=== PATIENT | female | born 1970 | race Caucasian/White ===

== ENCOUNTER 2016-10-13 12:47 | Emergency (ER) | payer MEDICAID | END 2016-10-13 14:45 | disposition left against medical advice (07) | LOC: JP.ED 12:47 | DX: Z53.21 Procedure and treatment not carried out due to patient leaving prior to being seen by health care provider (principal) ==

== ENCOUNTER 2016-10-17 13:12 | Emergency (ER) | payer MEDICAID ==
[2016-10-17 14:32] VITALS: BP 158/120
--- NOTE | 2016-10-17 15:12 | EDM.PDOC ---
ED HPI GENERAL MEDICAL PROBLEM - General Chief Complaint: General Stated Complaint: ILLNESS Time Seen by Provider: 10/17/16 14:45 Source of Information: Reports: Patient History Limitations: Reports: No Limitations - History of Present Illness INITIAL COMMENTS - FREE TEXT/NARRATIVE: 46-year-old female with chronic anxiety and depression just started a psychiatric evaluation today and has follow-up appointments in 1 week for a psychiatrist. Her screening tests she took today they were unable to start any medication so sent her to the emergency room to start an antidepressant and possibly antianxiety agents. She is also convinced that she has "left-sided pneumonia" because she's been coughing and has some left-sided chest discomfort posteriorly. She is not hypoxic, has no fever, and is not actively coughing at this time. Severity: Mild Associated Symptoms: Reports: Cough, Shortness of Breath, Other (Left back and flank pain). Denies: Fever/Chills Lower Back Pain Score (Numeric/FACES): 6 - Related Data Allergies Allergy/AdvReac Type Severity Reaction Status Date / Time almond Allergy Severe Airway Verified 10/17/16 14:32 Tightness avocado Allergy Severe Airway Verified 10/17/16 14:32 Tightness banana Allergy Severe Airway Verified 10/17/16 14:32 Tightness kiwi Allergy Severe Airway Verified 10/17/16 14:32 Tightness peanut Allergy Severe Anaphylactic Verified 10/17/16 14:32 Shock Home Meds: Home Meds Clindamycin HCl [Cleocin HCl] 300 mg PO TID 10/17/16 [History] hydrOXYzine Pamoate [Vistaril] 50 mg PO Q6HR 10/17/16 [History] Past Medical History HEENT History: Reports: Impaired Vision Other HEENT History: Tooth pain Respiratory History: Reports: Asthma, Bronchitis, Recurrent Gastrointestinal History: Reports: Cholelithiasis Genitourinary History: Reports: Pyelonephritis, UTI, Recurrent 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: Musculoskeletal History: Reports: Arthritis, Osteoarthritis Psychiatric History: Reports: Anxiety, Depression, OCD, PTSD Endocrine/Metabolic History: Reports: Diabetes, Type II, Other (See Below) Other Endocrine/Metabolic History: states not diabetic since lap band surgery Dermatologic History: Reports: Cellulitis - Infectious Disease History Infectious Disease History: Reports: Chicken Pox - Past Surgical History GI Surgical History: Reports: Bariatric Procedure, Cholecystectomy Social & Family History - Tobacco Use Smoking Status *Q: Current Every Day Smoker Years of Tobacco use: 30 Packs/Tins Daily: 0.5 Used Tobacco, but Quit: No Second Hand Smoke Exposure: Yes - Caffeine Use Caffeine Use: Reports: Coffee - Alcohol Use Days Per Week of Alcohol Use: 2 Number of Drinks Per Day: 2 Total Drinks Per Week: 4 - Recreational Drug Use Recreational Drug Use: No - Living Situation & Occupation Living situation: Reports: Single Occupation: Unemployed ED ROS GENERAL - Review of Systems Review Of Systems: See Below Constitutional: Reports: Malaise, Fatigue. Denies: Fever, Chills Respiratory: Reports: Shortness of Breath, Cough Cardiovascular: Reports: Other (Left lateral chest and flank discomfort) GI/Abdominal: Reports: Nausea, Vomiting (Intermittent vomiting over the past week or 2) Musculoskeletal: Reports: Back Pain Skin: Reports: No Symptoms Neurological: Reports: Headache Psychiatric: Reports: Anxiety, Depression ED EXAM, GENERAL - Physical Exam Exam: See Below Exam Limited By: No Limitations General Appearance: Alert, No Apparent Distress Respiratory/Chest: No Respiratory Distress, Lungs Clear Cardiovascular: Regular Rate, Rhythm, Tachycardia (Mild tachycardia, hypertensive) GI/Abdominal: Non-Tender Neurological: Alert, Oriented Psychiatric: Anxious Skin Exam: Warm, Dry Course - Vital Signs Last Recorded V/S: Last Vital Signs Temp 99.1 F 10/17/16 14:30 Pulse 108 H 10/17/16 14:30 Resp 20 10/17/16 14:30 BP 158/120 H 10/17/16 14:30 Pulse Ox 97 10/17/16 14:30 - Orders/Labs/Meds Orders: Active Orders 24 hr Category Date Time Status Chest 2V [CR] Routine Exams 10/17/16 15:00 Taken - Re-Assessments/Exams Free Text/Narrative Re-Assessment/Exam: 10/17/16 15:10 A two-view chest x-ray was obtained. 10/17/16 15:18 Chest x-ray was completely negative. Patient was reassured. She'll be started on Lexapro 20 mg daily and given a prescription for 30 to take once daily. She was also given 15 0.25 mg alprazolam to take up to every 2-4 hours for anxiety. Any further medications needs to come from her psychiatric referrals. Departure - Departure Time of Disposition: 15:48 Disposition: Home, Self-Care 01 Condition: Good Clinical Impression: Pleurisy, Anxiety Depression Qualifiers: Depression Type: unspecified Qualified Code(s): F32.9 - Major depressive disorder, single episode, unspecified - Discharge Information Instructions: Pleurisy, [id number] Referrals: Thais Rios RN [Primary Care Provider] - Forms: ED Department Discharge Care Plan Goals: Start Lexapro one daily as prescribed. Use alprazolam for breakthrough anxiety as needed. Anti-inflammatory such as ibuprofen or naproxen can help with pleurisy, and recheck as scheduled. Return sooner if worsening or concerns. - My Orders Last 24 Hours: My Active Orders 10/17/16 15:00 Chest 2V [CR] Routine - Assessment/Plan Last 24 Hours: My Active Orders 10/17/16 15:00 Chest 2V [CR] Routine
--- NOTE | 2016-10-20 09:08 | CR ---
Chest 2V INDICATION: dyspnea FINDINGS: Negative chest.
== END 2016-10-17 15:48 | disposition home or self-care (01) ==
LOC: JP.ED 13:12
DX: F32.9 Major depressive disorder, single episode, unspecified (principal); J45.909 Unspecified asthma, uncomplicated; F41.9 Anxiety disorder, unspecified; E11.9 Type 2 diabetes mellitus without complications; F17.210 Nicotine dependence, cigarettes, uncomplicated; Z98.84 Bariatric surgery status; Z90.49 Acquired absence of other specified parts of digestive tract; Z87.440 Personal history of urinary (tract) infections; Z91.010 Allergy to peanuts; Z91.018 Allergy to other foods
CPT/HCPCS: 71020; 71020-26; 99284

== ENCOUNTER 2016-12-05 00:29 | Emergency (ER) | payer MEDICAID ==
[2016-12-05 00:43] VITALS: BP 112/86
[2016-12-05] MEDS ORDERED: Tetracaine HCl/PF 0.5% 4 ML Bottle EYEBOTH ONE (01:05)
[2016-12-05] MEDS ORDERED: Lidocaine 2% Viscous Solution 100 ML Bottle PO ONE (01:09)
[2016-12-05] MEDS ORDERED: Lidocaine 2% Viscous Solution 15 ML Cup ONE (01:16)
[2016-12-05] MEDS ORDERED: Bupivacaine 0.25% 10 ML SDV INJECT ONE (01:26)
--- NOTE | 2016-12-05 03:00 | EDM.PDOC ---
ED HPI GENERAL MEDICAL PROBLEM - General Chief Complaint: General Stated Complaint: TOOTH PAIN Time Seen by Provider: 12/05/16 01:01 Source of Information: Reports: Patient History Limitations: Reports: No Limitations - History of Present Illness INITIAL COMMENTS - FREE TEXT/NARRATIVE: This patient comes in for tooth pain. It's her molar on the right lower jaw as well as the posterior ones and it's the only one his left. She has some severe caries to it. She said she has an appointment with a dentist this coming Thursday or in roughly 4 days. She describes the pain as severe. She started taking some amoxicillin. Right Lower Tooth/Teeth Pain Score (Numeric/FACES): 8 - Related Data Allergies Allergy/AdvReac Type Severity Reaction Status Date / Time almond Allergy Severe Airway Verified 12/05/16 00:44 Tightness avocado Allergy Severe Airway Verified 12/05/16 00:44 Tightness banana Allergy Severe Airway Verified 12/05/16 00:44 Tightness kiwi Allergy Severe Airway Verified 12/05/16 00:44 Tightness peanut Allergy Severe Anaphylactic Verified 12/05/16 00:44 Shock Home Meds: Home Meds Clindamycin HCl [Cleocin HCl] 300 mg PO TID 10/17/16 [History] hydrOXYzine Pamoate [Vistaril] 50 mg PO Q6HR 10/17/16 [History] Past Medical History HEENT History: Reports: Impaired Vision Other HEENT History: Tooth pain Respiratory History: Reports: Asthma, Bronchitis, Recurrent Gastrointestinal History: Reports: Cholelithiasis Genitourinary History: Reports: Pyelonephritis, UTI, Recurrent 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: Musculoskeletal History: Reports: Arthritis, Osteoarthritis Psychiatric History: Reports: Anxiety, Depression, OCD, PTSD Endocrine/Metabolic History: Reports: Diabetes, Type II, Other (See Below) Other Endocrine/Metabolic History: states not diabetic since lap band surgery Dermatologic History: Reports: Cellulitis - Infectious Disease History Infectious Disease History: Reports: Chicken Pox - Past Surgical History GI Surgical History: Reports: Bariatric Procedure, Cholecystectomy Social & Family History - Tobacco Use Smoking Status *Q: Unknown Ever Smoked Years of Tobacco use: 30 Packs/Tins Daily: 0.5 Used Tobacco, but Quit: No Second Hand Smoke Exposure: Yes - Caffeine Use Caffeine Use: Reports: Coffee - Alcohol Use Days Per Week of Alcohol Use: 2 Number of Drinks Per Day: 2 Total Drinks Per Week: 4 - Recreational Drug Use Recreational Drug Use: No - Living Situation & Occupation Living situation: Reports: Single Occupation: Unemployed ED ROS GENERAL - Review of Systems Review Of Systems: ROS reveals no pertinent complaints other than HPI. ED EXAM, GENERAL - Physical Exam Exam: See Below Exam Limited By: No Limitations General Appearance: Alert, WD/WN, Moderate Distress (She seems to be in quite a bit of pain) Throat/Mouth: Other (The single molar to the lower mandible which is posterior molar does have quite a bit of caries to it there is no obvious abscess.) Course - Vital Signs Last Recorded V/S: Last Vital Signs Temp 36.2 C 12/05/16 00:41 Pulse 102 H 12/05/16 00:41 Resp 16 12/05/16 00:41 BP 112/86 12/05/16 00:41 Pulse Ox 97 12/05/16 00:41 - Orders/Labs/Meds Meds: Medications Discontinued Medications Generic Name Dose Route Start Last Admin Trade Name Praful PRN Reason Stop Dose Admin Bupivacaine HCl 10 ml 12/05/16 01:26 12/05/16 02:15 Sensorcaine-Mpf 0.25% INJECT 12/05/16 01:27 10 ml ONETIME ONE Administration Lidocaine HCl 20 ml 12/05/16 01:09 12/05/16 01:17 Xylocaine 2% Viscous PO 12/05/16 01:10 15 ml ONETIME ONE Administration Lidocaine HCl Confirm 12/05/16 01:16 Xylocaine 2% Viscous Administered 12/05/16 01:17 Dose 15 ml .ROUTE .STK-MED ONE Tetracaine HCl 1 ml 12/05/16 01:05 Tetracaine 0.5% Steri-Unit Nadia EYEBOTH 12/05/16 01:06 ASDIRECTED ONE - Re-Assessments/Exams Free Text/Narrative Re-Assessment/Exam: 12/05/16 06:38 Initially I put some viscous lidocaine on the tooth. Initially it seemed to relieve the pain but then later she said the pain was much more severe. She asked me to do a nerve block. The block was delayed due to a very critical patient however of I did inject approximately 3 mL of 0.25% Marcaine as an inferior alveolar block and a difficult nerve block. She only a partial relief from that however. A second block was done as an apical block but still the pain persisted and finally she was given a third injection is an apical block and seemed to get more relief. Departure - Departure Time of Disposition: 02:58 Disposition: Home, Self-Care 01 Condition: Fair Clinical Impression: Pain, dental - Discharge Information Instructions: Dental Caries, [id number] Referrals: Thais Rios RN [Primary Care Provider] - Forms: ED Department Discharge Additional Instructions: Continue taking your own antibiotic. If needed you can put some of the viscous lidocaine on a cotton ball and put it on the tooth. Use Narco 5/325, #20 tablets, one or 2 every 4 hours as needed for pain. This medication can cause sedation and impair driving
== END 2016-12-05 03:09 | disposition home or self-care (01) ==
LOC: JP.ED 00:29
DX: K08.89 Other specified disorders of teeth and supporting structures (principal); J45.909 Unspecified asthma, uncomplicated; E11.9 Type 2 diabetes mellitus without complications; Z91.010 Allergy to peanuts; Z91.018 Allergy to other foods
CPT/HCPCS: 64400; 99283-25; A9270-GY

== ENCOUNTER 2016-12-13 20:32 | Emergency (ER) | payer MEDICAID ==
[2016-12-13 20:41] VITALS: BP 111/63
--- NOTE | 2016-12-13 20:49 | EDM.PDOC ---
ED HPI GENERAL MEDICAL PROBLEM - General Chief Complaint: Trauma Stated Complaint: MEDICAL VIA [facility] Time Seen by Provider: 12/13/16 20:37 Source of Information: Reports: Patient, EMS, RN Notes Reviewed History Limitations: Reports: No Limitations - History of Present Illness INITIAL COMMENTS - FREE TEXT/NARRATIVE: 46-year-old female presents emergency department today via EMS services following trauma at home she does admit to consuming alcohol today and lost her footing and fell down between 9 and 12 steps. She complains of facial pain denies any neck pain also complains of bruising on her knees. nose Pain Score (Numeric/FACES): 8 - Related Data Allergies Allergy/AdvReac Type Severity Reaction Status Date / Time almond Allergy Severe Airway Verified 12/13/16 20:46 Tightness avocado Allergy Severe Airway Verified 12/13/16 20:46 Tightness banana Allergy Severe Airway Verified 12/13/16 20:46 Tightness kiwi Allergy Severe Airway Verified 12/13/16 20:46 Tightness peanut Allergy Severe Anaphylactic Verified 12/13/16 20:46 Shock Home Meds: Home Meds hydrOXYzine Pamoate [Vistaril] 50 mg PO Q6HR 10/17/16 [History] ALPRAZolam [Alprazolam] 0.5 mg PO TID PRN 12/13/16 [History] Calcium Carbonate/Vitamin D3 [Calcium 600 + Vit D 200] 1 tab PO BID 12/13/16 [ History] Diclofenac Sodium 4 gm TOP QID 12/13/16 [History] Escitalopram Oxalate 20 mg PO DAILY 12/13/16 [History] Gabapentin [Neurontin] 300 mg PO TID 12/13/16 [History] Past Medical History HEENT History: Reports: Impaired Vision Other HEENT History: Tooth pain Respiratory History: Reports: Asthma, Bronchitis, Recurrent Gastrointestinal History: Reports: Cholelithiasis Genitourinary History: Reports: Pyelonephritis, UTI, Recurrent 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: Musculoskeletal History: Reports: Arthritis, Osteoarthritis Psychiatric History: Reports: Anxiety, Depression, OCD, PTSD Endocrine/Metabolic History: Reports: Diabetes, Type II, Other (See Below) Other Endocrine/Metabolic History: states not diabetic since lap band surgery Dermatologic History: Reports: Cellulitis - Infectious Disease History Infectious Disease History: Reports: Chicken Pox - Past Surgical History GI Surgical History: Reports: Bariatric Procedure, Cholecystectomy Social & Family History - Tobacco Use Smoking Status *Q: Unknown Ever Smoked Years of Tobacco use: 30 Packs/Tins Daily: 0.5 Used Tobacco, but Quit: No Second Hand Smoke Exposure: Yes - Caffeine Use Caffeine Use: Reports: Coffee - Alcohol Use Days Per Week of Alcohol Use: 2 Number of Drinks Per Day: 2 Total Drinks Per Week: 4 - Recreational Drug Use Recreational Drug Use: No - Living Situation & Occupation Living situation: Reports: Single Occupation: Unemployed Review of Systems - Review of Systems Review Of Systems: See Below Constitutional: Reports: No Symptoms Eyes: Reports: No Symptoms Ears: Reports: No Symptoms Nose: Reports: Pain, Other (Patient trauma) Mouth/Throat: Reports: Tongue Swelling, Other (Bit the tip of the tongue) Respiratory: Reports: No Symptoms Cardiovascular: Reports: No Symptoms GI/Abdominal: Reports: No Symptoms Genitourinary: Reports: No Symptoms Musculoskeletal: Reports: Other (Bruising on both knees) Skin: Reports: Wound Neurological: Reports: No Symptoms ED EXAM, GENERAL - Physical Exam Exam: See Below Free Text/Narrative:: Primary survey GCS of 15 airway is open patent clear lungs are clear to auscultation bilaterally cardiovascular consents regular rate and rhythm S1-S2 Secondary survey General: Female, intoxicated, GCS of 15, alert and oriented x3 HEENT: head is facial traumas appreciated probably over the bridge of the nose tender to the touch normocephalic, eyes pupils equal round reactive to light, sclera clear no conjunctivitis appreciated extraocular eye movements are intact. Ears tympanic membranes clear and baker landmarks and light reflex are present bilaterally canals are clear no blood noted. Nose no septal deviation, nares are clear, no blood present. Mouth mucosa is moist and pink no erythema or exudate noted in soft palate, tongue is midline distal tip of the tongue does have bruising consistent with a bite uvula is midline, dentition is intact. Neck: Supple no thyromegaly no tracheal deviation. No tenderness to palpation spinally or paraspinally can move without pain Nodes: Cervical nodes subclavicular nodes nontender no palpable lymphadenopathy noted. Lungs: clear to auscultation bilaterally with symmetrical respirations, no adventitious noise appreciated. CV: Regular rate and rhythm S1 and S2 appreciated no murmurs rubs or gallops noted. Abdomen: Soft, nontender, no palpable masses or organomegaly appreciated, no distention no guarding bowel sounds are present, . Neuro: Cranial nerves II through XII grossly intact Skin: Abrasion is appreciated both knees Extremities: No tenderness to shoulders elbows wrists bilaterally pelvic rock's is negative no tenderness to knees ankles bilaterally ED TRAUMA PROCEDURES - Laceration/Wound Repair Face Lac/Wound Length In cm: 0.5 Appearance: Subcutaneous, Linear, Clean Distal NVT: Neuro & Vascular Intact, No Tendon Injury Anesthetic Type: Local Local Anesthesia - Lidocaine (Xylocaine): 1% with EPI Local Anesthetic Volume: 1cc Skin Prep: Chlorhexidine (Hibiciens) Saline Irrigation (cc's): 5 Exploration/Debridement/Repair: Wound Explored, In a Bloodless Field, Explored to Base Closed With: Sutures Suture Size: other (5-0) # of Sutures: 2 Suture Type: Nylon, Interrupted Drain Placement: No Sterile Dressing Applied: Nurse Tetanus Status Addressed: Yes Complications: No Course - Vital Signs Last Recorded V/S: Last Vital Signs Temp 96.8 F 12/13/16 20:39 Pulse 81 12/13/16 20:39 Resp 16 12/13/16 20:39 BP 111/63 12/13/16 20:39 Pulse Ox 99 12/13/16 20:39 - Orders/Labs/Meds Orders: Active Orders 24 hr Category Date Time Status Cervical Spine wo Cont [CT] Stat Exams 12/13/16 20:48 Taken Head wo Cont [CT] Stat Exams 12/13/16 20:38 Taken Max Facial Sinus wo Cont [CT] Stat Exams 12/13/16 20:38 Taken Labs: Laboratory Tests 12/13/16 12/13/16 12/13/16 Range/Units 20:43 20:43 20:43 WBC 6.5 (4.5-11.0) K/uL RBC 4.03 (3.30-5.50) M/uL Hgb 12.8 (12.0-15.0) g/dL Hct 38.0 (36.0-48.0) % MCV 94 (80-98) fL MCH 32 H (27-31) pg MCHC 34 (32-36) % Plt Count 403 H (150-400) K/uL Neut % (Auto) 40 (36-66) % Lymph % (Auto) 48 H (24-44) % Lewis % (Auto) 9 H (2-6) % Eos % (Auto) 3 (2-4) % Baso % (Auto) 1 (0-1) % Sodium 137 L (140-148) mmol/L Potassium 4.2 (3.6-5.2) mmol/L Chloride 102 (100-108) mmol/L Carbon Dioxide 24 (21-32) mmol/L Anion Gap 15.2 H (5.0-14.0) mmol/L BUN 9 (7-18) mg/dL Creatinine 0.8 (0.6-1.0) mg/dL Est Cr Clr Drug Dosing 63.79 mL/min Estimated GFR (MDRD) > 60 (>60) Glucose 95 (74-106) mg/dL Calcium 8.1 L (8.5-10.1) mg/dL Total Bilirubin 0.4 (0.2-1.0) mg/dL AST 26 D (15-37) U/L ALT 30 (12-78) U/L Alkaline Phosphatase 62 (46-116) U/L Total Protein 6.9 (6.4-8.2) g/dL Albumin 3.6 (3.4-5.0) g/dL Globulin 3.3 (2.3-3.5) g/dL Albumin/Globulin Ratio 1.1 L (1.2-2.2) Ethyl Alcohol 193 mg/dL Meds: Medications Discontinued Medications Generic Name Dose Route Start Last Admin Trade Name Freq PRN Reason Stop Dose Admin Hydrocodone Bitart/Acetaminophen 1 tab 12/13/16 21:01 12/13/16 21:08 [place] 325-5 Mg PO 12/13/16 21:02 1 tab ONETIME ONE Administration Bacitracin 1 dose 12/13/16 22:25 Bacitracin Oint 1 Gm TOP 12/13/16 22:26 ONETIME ONE Hydromorphone HCl 1 mg 12/13/16 20:52 12/13/16 21:29 Dilaudid IM 12/13/16 20:53 Not Given ONETIME ONE Lidocaine/Epinephrine 20 ml 12/13/16 22:25 Xylocaine 1% With Epinephrine 1:100,000 SUBCUT 12/13/16 22:26 NOW STA Departure - Departure Time of Disposition: 22:51 Disposition: Home, Self-Care 01 Condition: Good Clinical Impression: Laceration of nose Qualifiers: Encounter type: initial encounter Qualified Code(s): S01.21XA - Laceration without foreign body of nose, initial encounter Nasal bone fracture Qualifiers: Encounter type: initial encounter Fracture type: closed Qualified Code(s): S02.2XXA - Fracture of nasal bones, initial encounter for closed fracture - Discharge Information Referrals: PCP,None [Primary Care Provider] - Forms: ED Department Discharge Additional Instructions: Follow wound care instruction sheet, suture removal in 3-4 days, Please followup with your primary care provider in 3-4 days if not better, please call return to the emergency department with worsening of symptoms. - My Orders Last 24 Hours: My Active Orders 12/13/16 20:38 Head wo Cont [CT] Stat Max Facial Sinus wo Cont [CT] Stat 12/13/16 20:48 Cervical Spine wo Cont [CT] Stat - Assessment/Plan Last 24 Hours: My Active Orders 12/13/16 20:38 Head wo Cont [CT] Stat Max Facial Sinus wo Cont [CT] Stat 12/13/16 20:48 Cervical Spine wo Cont [CT] Stat Plan: Assessment Acuity = acute Site and laterality = nondisplaced nasal bone fracture, half centimeter subcutaneous laceration bridge of the nose Etiology = secondary to fall Manifestations = none Location of injury = Home Lab values = CT scan of maxillofacial bones describes the fracture above CT scan of the neck and head were negative, CBC and CMP were negative alcohol is 193 Plan I did review lab work and CT scan results with her she'll be discharged to home to her family member suture removal in 3-4 days follow wound care instruction sheet Patient was in agreement with the plan all questions were answered, they were instructed to return to the emergency department or call for worsening symptoms. This note was dictated using [employer] voice recognition software please call with any questions.
[2016-12-13] MEDS ORDERED: HYDROmorphone 1 MG/ML Syringe IM ONE (20:52)
[2016-12-13] MEDS ORDERED: Acetaminophen/HYDROcodone 325-5 MG Tab PO ONE (21:01)
[2016-12-13] MEDS ORDERED: Bacitracin Oint 1 GM U/D Packet TOP ONE (22:25)
[2016-12-13] MEDS ORDERED: Lidocaine 1% with EPINEPHrine 1:100,000 50 ML MDV SUBCUT STA (22:25)
[2016-12-13] MEDS ORDERED: Diphtheria,Pertussis(Acell),Tetanus Vaccine 0.5 ML SDV IM ONE (22:52)
== END 2016-12-13 23:48 | disposition home or self-care (01) ==
LOC: JP.ED 20:32
DX: S02.2XXA Fracture of nasal bones, initial encounter for closed fracture (principal); S01.21XA Laceration without foreign body of nose, initial encounter; J45.909 Unspecified asthma, uncomplicated; Z79.899 Other long term (current) drug therapy; Z91.018 Allergy to other foods; W10.8XXA Fall (on) (from) other stairs and steps, initial encounter
CPT/HCPCS: 12011; 36415; 70450; 70486; 72125; 80053; 85025; 90471; 90715; 99283; A9270; G0480

== ENCOUNTER 2017-01-13 07:54 | Emergency (ER) | payer MEDICAID ==
[2017-01-13 08:12] VITALS: BP 130/81
--- NOTE | 2017-01-13 08:38 | EDM.PDOC ---
ED HPI GENERAL MEDICAL PROBLEM - General Chief Complaint: ENT Problem Stated Complaint: SORE THROAT Time Seen by Provider: 01/13/17 08:36 Source of Information: Reports: Patient History Limitations: Reports: No Limitations - History of Present Illness INITIAL COMMENTS - FREE TEXT/NARRATIVE: pt arrived very uncomfortable from a sotre throat that has been there for the past 2 days. Onset: Gradual, Other (past 2 days. ) Duration: Day(s): Location: Reports: Other ( throat) Associated Symptoms: Reports: Weakness, Other ( body aches) Throat Pain Score (Numeric/FACES): 9 - Related Data Allergies Allergy/AdvReac Type Severity Reaction Status Date / Time almond Allergy Severe Airway Verified 01/13/17 08:12 Tightness avocado Allergy Severe Airway Verified 01/13/17 08:12 Tightness banana Allergy Severe Airway Verified 01/13/17 08:12 Tightness kiwi Allergy Severe Airway Verified 01/13/17 08:12 Tightness peanut Allergy Severe Anaphylactic Verified 01/13/17 08:12 Shock Home Meds: Home Meds ALPRAZolam [Alprazolam] 0.5 mg PO TID PRN 12/13/16 [History] Calcium Carbonate/Vitamin D3 [Calcium 600 + Vit D 200] 1 tab PO BID 12/13/16 [ History] Diclofenac Sodium 4 gm TOP QID 12/13/16 [History] Escitalopram Oxalate 20 mg PO DAILY 12/13/16 [History] Gabapentin [Neurontin] 300 mg PO TID 12/13/16 [History] Past Medical History HEENT History: Reports: Impaired Vision Other HEENT History: Tooth pain Respiratory History: Reports: Asthma, Bronchitis, Recurrent Gastrointestinal History: Reports: Cholelithiasis Genitourinary History: Reports: Pyelonephritis, UTI, Recurrent 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: Musculoskeletal History: Reports: Arthritis, Osteoarthritis Psychiatric History: Reports: Anxiety, Depression, OCD, PTSD Endocrine/Metabolic History: Reports: Diabetes, Type II, Other (See Below) Other Endocrine/Metabolic History: states not diabetic since lap band surgery Dermatologic History: Reports: Cellulitis - Infectious Disease History Infectious Disease History: Reports: Chicken Pox - Past Surgical History GI Surgical History: Reports: Bariatric Procedure, Cholecystectomy Social & Family History - Tobacco Use Smoking Status *Q: Light Tobacco Smoker Years of Tobacco use: 30 Packs/Tins Daily: 0.5 Used Tobacco, but Quit: No Second Hand Smoke Exposure: Yes - Caffeine Use Caffeine Use: Reports: Coffee - Alcohol Use Days Per Week of Alcohol Use: 3 Number of Drinks Per Day: 2 Total Drinks Per Week: 6 - Recreational Drug Use Recreational Drug Use: No - Living Situation & Occupation Living situation: Reports: Single Occupation: Unemployed ED ROS ENT - Review of Systems Review Of Systems: See Below Constitutional: Reports: Chills, Weakness, Decreased Appetite HEENT: Reports: Throat Pain, Throat Swelling, Other ( this is mainly on the rt) Respiratory: Reports: No Symptoms Cardiovascular: Reports: No Symptoms Endocrine: Reports: No Symptoms GI/Abdominal: Reports: No Symptoms : Reports: No Symptoms Musculoskeletal: Reports: Other (pt does have body aches) Skin: Reports: No Symptoms, Other ( Pt does not have a rash. ) Neurological: Reports: No Symptoms ED EXAM, ENT - Physical Exam Exam: See Below Text/Narrative:: pt arrived with a very sore throat. This is mainly on the rt. She appears to be very uncomfortable. Exam Limited By: No Limitations General Appearance: Alert, Anxious, Moderate Distress Ears: Normal TMs Nose: Normal Inspection Mouth/Throat: Throat Swelling, Tonsillar Erythema, Other ( The swelling is not large but it is mainly on the rt side. ) Head: Atraumatic Neck: Lymphadenopathy (R), Lymphadenopathy (L) Respiratory/Chest: No Respiratory Distress Cardiovascular: Regular Rate, Rhythm GI/Abdominal: Soft, Non-Tender Course - Vital Signs Last Recorded V/S: Last Vital Signs Temp 36.6 C 01/13/17 08:17 Pulse 98 01/13/17 08:17 Resp 20 01/13/17 08:17 BP 130/81 01/13/17 08:17 Pulse Ox 97 01/13/17 08:17 - Orders/Labs/Meds Orders: Active Orders 24 hr Category Date Time Status CULTURE STREP A CONFIRMATION [] Stat Lab 01/13/17 08:25 Results STREP SCRN A RAPID W CULT CONF [] Stat Lab 01/13/17 08:25 Results Labs: Laboratory Tests 01/13/17 Range/Units 08:39 WBC 9.0 (4.5-11.0) K/uL RBC 3.50 (3.30-5.50) M/uL Hgb 11.0 L (12.0-15.0) g/dL Hct 33.4 L (36.0-48.0) % MCV 95 (80-98) fL MCH 31 (27-31) pg MCHC 33 (32-36) % Plt Count 365 (150-400) K/uL Neut % (Auto) 62 (36-66) % Lymph % (Auto) 26 (24-44) % [place] % (Auto) 10 H (2-6) % Eos % (Auto) 2 (2-4) % Baso % (Auto) 0 (0-1) % Meds: Medications Discontinued Medications Generic Name Dose Route Start Last Admin Trade Name Freq PRN Reason Stop Dose Admin Ceftriaxone Sodium 1 gm/ 50 mls @ 100 mls/hr 01/13/17 08:56 01/13/17 09:27 Sodium Chloride IV 01/13/17 09:25 100 mls/hr ONETIME ONE Administration Sodium Chloride 1,000 mls @ 999 mls/hr 01/13/17 09:00 01/13/17 09:19 Normal Saline IV 999 mls/hr ASDIRECTED ESTEVAN Administration Ketorolac Tromethamine 30 mg 01/13/17 09:00 01/13/17 09:27 Toradol IVPUSH 01/13/17 09:01 30 mg ONETIME ONE Administration - Re-Assessments/Exams Free Text/Narrative Re-Assessment/Exam: 01/13/17 09:00 pt arrived with pain in the rt side of her throat. She has not gotten fluids down since yesterday. her strept was neg. Her wbc was not high. Her throat is very red and slightly swollen on the rt. An iv was started a liter of fluid was given, she was given 1 gm of rocephen, torodol 30mg . Departure - Departure Time of Disposition: 08:20 Disposition: Home, Self-Care 01 Condition: Fair Clinical Impression: Acute bacterial pharyngitis - Discharge Information Instructions: Pharyngitis, [id number] Referrals: Thais Rios RN [Primary Care Provider] - Forms: ED Department Discharge Care Plan Goals: rtc if swelling should get worse on the rt throat area, amoxicillin 500mg tid, torodol 10mg q6h prn for pain, - My Orders Last 24 Hours: My Active Orders 01/13/17 08:25 CULTURE STREP A CONFIRMATION [RM] Stat STREP SCRN A RAPID W CULT CONF [RM] Stat - Assessment/Plan Last 24 Hours: My Active Orders 01/13/17 08:25 CULTURE STREP A CONFIRMATION [RM] Stat STREP SCRN A RAPID W CULT CONF [RM] Stat
[2017-01-13] MEDS ORDERED: cefTRIAXone 1 GM in Sodium Chloride 0.9% 50 ML IV ONE (08:56)
[2017-01-13] MEDS ORDERED: Sodium Chloride 0.9% 1,000 ML IV SCH (09:00)
[2017-01-13] MEDS ORDERED: Ketorolac 30 MG/ML SDV IVPUSH ONE (09:00)
== END 2017-01-13 11:00 | disposition home or self-care (01) ==
LOC: JP.ED 07:54
DX: J02.8 Acute pharyngitis due to other specified organisms (principal); B96.89 Other specified bacterial agents as the cause of diseases classified elsewhere; F17.210 Nicotine dependence, cigarettes, uncomplicated; E11.9 Type 2 diabetes mellitus without complications; Z79.899 Other long term (current) drug therapy; Z91.018 Allergy to other foods; Z91.010 Allergy to peanuts
CPT/HCPCS: 36415; 85025; 87081; 87430; 96365; 96375; 99283; J0696; J1885; J7040; J7050

== ENCOUNTER 2017-01-29 06:29 | Emergency (ER) | payer MEDICAID ==
[2017-01-29 06:52] VITALS: BP 157/92
[2017-01-29] MEDS ORDERED: Ketorolac 60 MG/2 ML SDV IM ONE (07:15)
--- NOTE | 2017-01-29 07:21 | EDM.PDOC ---
ED HPI GENERAL MEDICAL PROBLEM - General Chief Complaint: General Stated Complaint: BODY ACHES Time Seen by Provider: 01/29/17 07:04 Source of Information: Reports: Patient, RN Notes Reviewed History Limitations: Reports: No Limitations - History of Present Illness INITIAL COMMENTS - FREE TEXT/NARRATIVE: 46-year-old female presents to emergency department today complaint of body aches, she states she's had body aches for several months they're particularly bad over the last 24-48 hrs. 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 general body pain Pain Score (Numeric/FACES): 6 - Related Data Allergies Allergy/AdvReac Type Severity Reaction Status Date / Time almond Allergy Severe Airway Verified 01/13/17 08:12 Tightness avocado Allergy Severe Airway Verified 01/13/17 08:12 Tightness banana Allergy Severe Airway Verified 01/13/17 08:12 Tightness kiwi Allergy Severe Airway Verified 01/13/17 08:12 Tightness peanut Allergy Severe Anaphylactic Verified 01/13/17 08:12 Shock Home Meds: Home Meds ALPRAZolam [Alprazolam] 0.5 mg PO TID PRN 12/13/16 [History] Calcium Carbonate/Vitamin D3 [Calcium 600 + Vit D 200] 1 tab PO BID 12/13/16 [ History] Diclofenac Sodium 4 gm TOP QID 12/13/16 [History] Escitalopram Oxalate 20 mg PO DAILY 12/13/16 [History] Gabapentin [Neurontin] 300 mg PO TID 12/13/16 [History] cloNIDine [Catapres] mg PO 01/29/17 [History] Past Medical History HEENT History: Reports: Impaired Vision Other HEENT History: Tooth pain Respiratory History: Reports: Asthma, Bronchitis, Recurrent Gastrointestinal History: Reports: Cholelithiasis Genitourinary History: Reports: Pyelonephritis, UTI, Recurrent 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: Musculoskeletal History: Reports: Arthritis, Osteoarthritis Psychiatric History: Reports: ADHD, Anxiety, Depression, OCD, PTSD Endocrine/Metabolic History: Reports: Diabetes, Type II, Other (See Below) Other Endocrine/Metabolic History: states not diabetic since lap band surgery Dermatologic History: Reports: Cellulitis - Infectious Disease History Infectious Disease History: Reports: Chicken Pox - Past Surgical History GI Surgical History: Reports: Bariatric Procedure, Cholecystectomy Social & Family History - Tobacco Use Smoking Status *Q: Light Tobacco Smoker Years of Tobacco use: 30 Packs/Tins Daily: 0.5 Used Tobacco, but Quit: No Second Hand Smoke Exposure: Yes - Caffeine Use Caffeine Use: Reports: Coffee, Soda - Alcohol Use Days Per Week of Alcohol Use: 3 Number of Drinks Per Day: 3 Total Drinks Per Week: 9 - Recreational Drug Use Recreational Drug Use: No - Living Situation & Occupation Living situation: Reports: Single Occupation: Unemployed ED ROS GENERAL - Review of Systems Review Of Systems: See Below Constitutional: Reports: Fatigue. Denies: Fever, Chills HEENT: Reports: No Symptoms Respiratory: Reports: No Symptoms Cardiovascular: Reports: No Symptoms GI/Abdominal: Reports: No Symptoms : Reports: No Symptoms Musculoskeletal: Reports: Joint Pain. Denies: Joint Swelling Skin: Reports: No Symptoms Neurological: Reports: No Symptoms ED EXAM, GENERAL - Physical Exam Exam: See Below Exam Limited By: No Limitations General Appearance: Alert, WD/WN, No Apparent Distress Neck: Normal Inspection, Supple, Non-Tender, Full Range of Motion Respiratory/Chest: No Respiratory Distress, Lungs Clear, Normal Breath Sounds, No Accessory Muscle Use Cardiovascular: Regular Rate, Rhythm, No Murmur GI/Abdominal: Soft, Non-Tender Extremities: Normal Inspection, Normal Range of Motion, Non-Tender, No Pedal Edema Course - Vital Signs Last Recorded V/S: Last Vital Signs Temp 98.5 F 01/29/17 06:53 Pulse 92 01/29/17 06:53 Resp 16 01/29/17 06:53 BP 157/92 H 01/29/17 06:53 Pulse Ox 99 01/29/17 06:53 - Orders/Labs/Meds Orders: Active Orders 24 hr Category Date Time Status BABESIA MICROTI IGG AND IGM [REF] Urgent Lab 01/29/17 07:20 Received EHRLICHIA CHAFFEENSIS, IGG&IGM [REF] Urgent Lab 01/29/17 07:20 Received LYME AB SCREEN RFLX [REF] Urgent Lab 01/29/17 07:20 Received Labs: Laboratory Tests 01/29/17 01/29/17 Range/Units 07:20 07:20 WBC 9.4 (4.5-11.0) K/uL RBC 3.84 (3.30-5.50) M/uL Hgb 12.0 (12.0-15.0) g/dL Hct 36.6 (36.0-48.0) % MCV 95 (80-98) fL MCH 31 (27-31) pg MCHC 33 (32-36) % Plt Count 351 (150-400) K/uL Neut % (Auto) 50 (36-66) % Lymph % (Auto) 38 (24-44) % [place] % (Auto) 10 H (2-6) % Eos % (Auto) 3 (2-4) % Baso % (Auto) 1 (0-1) % ESR 18 (0-25) mm/hr Sodium 138 L (140-148) mmol/L Potassium 3.9 (3.6-5.2) mmol/L Chloride 104 (100-108) mmol/L Carbon Dioxide 26 (21-32) mmol/L Anion Gap 11.9 (5.0-14.0) mmol/L BUN 12 (7-18) mg/dL Creatinine 0.8 (0.6-1.0) mg/dL Est Cr Clr Drug Dosing 63.79 mL/min Estimated GFR (MDRD) > 60 (>60) Glucose 88 (74-106) mg/dL Calcium 8.5 (8.5-10.1) mg/dL Total Bilirubin 0.7 D (0.2-1.0) mg/dL AST 17 (15-37) U/L ALT 23 (12-78) U/L Alkaline Phosphatase 74 (46-116) U/L C-Reactive Protein 1.09 H (0.0-0.3) mg/dL Total Protein 6.7 (6.4-8.2) g/dL Albumin 3.5 (3.4-5.0) g/dL Globulin 3.2 (2.3-3.5) g/dL Albumin/Globulin Ratio 1.1 L (1.2-2.2) TSH, Ultra Sensitive 2.333 (0.358-3.740) uIU/mL Meds: Medications Discontinued Medications Generic Name Dose Route Start Last Admin Trade Name Freq PRN Reason Stop Dose Admin Ketorolac Tromethamine 60 mg 01/29/17 07:15 01/29/17 07:26 Toradol IM 01/29/17 07:16 60 mg ONETIME ONE Administration Departure - Departure Time of Disposition: 08:53 Disposition: Home, Self-Care 01 Condition: Fair Clinical Impression: Joint pain Qualifiers: Joint pain location: unspecified Qualified Code(s): M25.50 - Pain in unspecified joint - Discharge Information Referrals: Thais Rios RN [Primary Care Provider] - Forms: ED Department Discharge Additional Instructions: Use Flexeril as needed for muscle relaxant try Lyrica as needed for pain control please follow-up with your primary care provider in next 3-5 days for reevaluation - My Orders Last 24 Hours: My Active Orders 01/29/17 07:20 BABESIA MICROTI IGG AND IGM [REF] Urgent EHRLICHIA CHAFFEENSIS, IGG&IGM [REF] Urgent LYME AB SCREEN RFLX [REF] Urgent - Assessment/Plan Last 24 Hours: My Active Orders 01/29/17 07:20 BABESIA MICROTI IGG AND IGM [REF] Urgent EHRLICHIA CHAFFEENSIS, IGG&IGM [REF] Urgent LYME AB SCREEN RFLX [REF] Urgent Plan: Assessment Acuity = acute Site and laterality = joint and body aches Etiology = unclear etiology Manifestations = none Location of injury = Home Lab values = CBC, CMP unremarkable CRP mildly elevated 1.09 ESR at 18 within normal limits, Lyme titer and tick panel are pending Plan She had minimal relief with Toradol injection plan is to discharge home with Lyrica 50 mg by mouth 3 times a day when necessary and Flexeril 10 mg by mouth 3 times a day when necessary she'll follow up with her primary care the next 3- 5 days for reevaluation Patient was in agreement with the plan all questions were answered, they were instructed to return to the emergency department or call for worsening symptoms. This note was dictated using [employer] voice recognition software please call with any questions.
== END 2017-01-29 09:08 | disposition home or self-care (01) ==
LOC: JP.ED 06:29
DX: M25.50 Pain in unspecified joint (principal); R52 Pain, unspecified; F32.9 Major depressive disorder, single episode, unspecified; E11.9 Type 2 diabetes mellitus without complications; F17.210 Nicotine dependence, cigarettes, uncomplicated; Z79.899 Other long term (current) drug therapy; Z91.010 Allergy to peanuts; Z91.018 Allergy to other foods
CPT/HCPCS: 36415; 80053; 84443; 85025; 85651; 86140; 86618; 86666; 86753; 96372; 99284; J1885

== ENCOUNTER 2017-09-02 01:28 | Emergency (ER) | payer MEDICAID ==
[2017-09-02 01:42] VITALS: BP 144/99
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
== END 2017-09-02 02:46 | disposition home or self-care (01) ==
LOC: JP.ED 01:28
DX: K02.9 Dental caries, unspecified (principal); F41.1 Generalized anxiety disorder; J45.909 Unspecified asthma, uncomplicated; E11.9 Type 2 diabetes mellitus without complications; F17.210 Nicotine dependence, cigarettes, uncomplicated; Z91.018 Allergy to other foods; Z91.010 Allergy to peanuts; Z79.899 Other long term (current) drug therapy
CPT/HCPCS: 99283

== ENCOUNTER 2017-09-09 03:59 | Emergency (ER) | payer MEDICAID ==
[2017-09-09 04:11] VITALS: BP 166/99
--- NOTE | 2017-09-09 05:07 | EDM.PDOC ---
ED HPI GENERAL MEDICAL PROBLEM - General Chief Complaint: Skin Complaint Stated Complaint: SUNBURN Time Seen by Provider: 09/09/17 04:48 Source of Information: Reports: Patient, Old Records, RN Notes Reviewed History Limitations: Reports: No Limitations - History of Present Illness INITIAL COMMENTS - FREE TEXT/NARRATIVE: Walked here from home Chief complaint Skin peeling, concerned about MRSA, dental infection History of present illness 36-year-old female is on her own, on disability Developed a sunburn 2 days ago from fishing without adequate protection, however she spared her face apart from very mild involvement of the forehead. Extensive blistering across the shoulders, some oozing reported a home but the burn appears dry currently. She has a small sore on her scalp and she has a sore on her left knee. Worry about MRSA because one of her neighbors/supervisors has MRSA. Seen in emergency recently for dental infection and prescribed penicillin. This is gone missing. She suspects a neighbor may have stolen, security/loxapine department are not very strong. Posterior Upper Back Pain Score (Numeric/FACES): 6 - Related Data Allergies Allergy/AdvReac Type Severity Reaction Status Date / Time almond Allergy Severe Airway Verified 09/09/17 04:12 Tightness avocado Allergy Severe Airway Verified 09/09/17 04:12 Tightness banana Allergy Severe Airway Verified 09/09/17 04:12 Tightness kiwi Allergy Severe Airway Verified 09/09/17 04:12 Tightness peanut Allergy Severe Anaphylactic Verified 09/09/17 04:12 Shock Home Meds: Home Meds ALPRAZolam [Alprazolam] 1 mg PO TID PRN 12/13/16 [History] Calcium Carbonate/Vitamin D3 [Calcium 600 + Vit D 200] 1 tab PO BID 12/13/16 [ History] Diclofenac Sodium 4 gm TOP QID 12/13/16 [History] Escitalopram Oxalate 20 mg PO DAILY 12/13/16 [History] Gabapentin [Neurontin] 300 mg PO TID 12/13/16 [History] cloNIDine [Catapres] 0.1 mg PO BID 01/29/17 [History] Ibuprofen 800 mg PO TID PRN 09/02/17 [History] LORazepam [Ativan] 1 mg PO TID PRN #10 tab 09/02/17 [Rx] ARIPiprazole [Aripiprazole] 2 mg PO ASDIRECTED 09/09/17 [History] Meloxicam 15 mg PO DAILY 09/09/17 [History] Mupirocin Cream [Bactroban Crm] 30 gm TP TID #1 tube 09/09/17 [Rx] Penicillin V Potassium 500 mg PO Q8HR #30 tab 09/09/17 [Rx] Past Medical History HEENT History: Reports: Impaired Vision Other HEENT History: Tooth pain Respiratory History: Reports: Asthma, Bronchitis, Recurrent Gastrointestinal History: Reports: Cholelithiasis Genitourinary History: Reports: Pyelonephritis, UTI, Recurrent 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: Musculoskeletal History: Reports: Arthritis, Osteoarthritis Psychiatric History: Reports: ADHD, Anxiety, Depression, OCD, PTSD Endocrine/Metabolic History: Reports: Diabetes, Type II, Other (See Below) Other Endocrine/Metabolic History: states not diabetic since lap band surgery Dermatologic History: Reports: Cellulitis - Infectious Disease History Infectious Disease History: Reports: Chicken Pox - Past Surgical History GI Surgical History: Reports: Bariatric Procedure, Cholecystectomy Social & Family History - Tobacco Use Smoking Status *Q: Never Smoker Second Hand Smoke Exposure: No - Caffeine Use Caffeine Use: Reports: Coffee - Recreational Drug Use Recreational Drug Use: No - Living Situation & Occupation Living situation: Reports: Single Occupation: Unemployed ED ROS GENERAL - Review of Systems Review Of Systems: See Below Constitutional: Reports: No Symptoms HEENT: Reports: Dental Pain. Denies: Ear Pain, Rhinitis, Throat Pain Respiratory: Reports: No Symptoms Cardiovascular: Reports: No Symptoms GI/Abdominal: Reports: No Symptoms Musculoskeletal: Reports: No Symptoms Skin: Reports: Burn(s) (Sunburn across the shoulders) Neurological: Denies: Confusion, Syncope ED EXAM, SKIN/RASH Exam: See Below Exam Limited By: No Limitations General Appearance: Alert, Anxious, Mild Distress Eye Exam: Bilateral Eye: Normal Inspection Ears: Normal External Exam Nose: Normal Inspection Throat/Mouth: Normal Inspection Head: Other (Single small furuncle on the scalp) Neck: Normal Inspection, Non-Tender. No: Lymphadenopathy (R), Lymphadenopathy ( L) Respiratory/Chest: No Respiratory Distress, No Accessory Muscle Use Cardiovascular: Normal Peripheral Pulses, Regular Rate, Rhythm Back Exam: Other (Sunburn across the shoulders with blistering, dry currently) Neurological: Alert, Oriented, No Motor/Sensory Deficits Skin: Warm, Dry, Other (Small dry wound just below the left knee.) Course - Vital Signs Last Recorded V/S: Last Vital Signs Temp 35.9 C 09/09/17 04:06 Pulse 104 H 09/09/17 04:06 Resp 18 09/09/17 04:06 BP 166/99 H 09/09/17 04:06 Pulse Ox 99 09/09/17 04:06 - Orders/Labs/Meds Meds: Medications Discontinued Medications Generic Name Dose Route Start Last Admin Trade Name Praful PRN Reason Stop Dose Admin Bacitracin 2 dose 09/09/17 05:09 Bacitracin Oint 1 Gm TOP 09/09/17 05:10 ONETIME ONE - Re-Assessments/Exams Free Text/Narrative Re-Assessment/Exam: 09/09/17 05:05 46-year-old female with sunburn across her back She also has some sores on her skin one on the scalp and one on her left knee. She's concerned about MRSA but no boils are present. She also has a dental infection for which she has lost her prescription for penicillin. This will be renewed. Departure - Departure Time of Disposition: 05:06 Disposition: Home, Self-Care 01 Condition: Good Clinical Impression: Dental infection Second degree burn of back Qualifiers: Encounter type: initial encounter Qualified Code(s): T21.24XA - Burn of second degree of lower back, initial encounter - Discharge Information Prescriptions: Penicillin V Potassium 500 mg PO Q8HR #30 tab Mupirocin Cream [Bactroban Crm] 30 gm TP TID #1 tube Instructions: Sunburn, Adult, [id number], Preventive Dental Care, Adult Referrals: PCP,None [Primary Care Provider] - Forms: ED Department Discharge Care Plan Goals: Please see your physician/clinic 1 week if not improving
[2017-09-09] MEDS: Bacitracin Oint 1 GM U/D Packet TOP ONE (05:19)
== END 2017-09-09 04:59 | disposition home or self-care (01) ==
LOC: JP.ED 03:59
DX: L55.1 Sunburn of second degree (principal); K04.7 Periapical abscess without sinus; L02.821 Furuncle of head [any part, except face]; J45.909 Unspecified asthma, uncomplicated; E11.9 Type 2 diabetes mellitus without complications; F41.9 Anxiety disorder, unspecified; F32.9 Major depressive disorder, single episode, unspecified; Z79.899 Other long term (current) drug therapy; Z91.018 Allergy to other foods; Z91.010 Allergy to peanuts
CPT/HCPCS: 99283

== ENCOUNTER 2017-11-19 12:29 | Emergency (ER) | payer MEDICAID ==
[2017-11-19 13:48] VITALS: BP 166/100
[2017-11-19] MEDS ORDERED: Ketorolac 60 MG/2 ML SDV IM ONE (15:03)
--- NOTE | 2017-11-19 15:22 | CT ---
Max Facial Sinus wo Cont CLINICAL HISTORY: Fall, trauma COMPARISON: CT sinuses 2017 TECHNIQUE: Multiple CT sections were taken through the face in the transverse projection. The images were obtained using high-resolution scan technique.. Auto dosage reduction and iterative reconstructi on techniques employed. FINDINGS: There is mucosal thickening in the dependent portion of the left maxillary sinus.. There is minimal mucosal thickening in the dependent portion of the right maxillary sinus. Ethmoid and spheno id sinuses are clear. Frontal sinuses clear. Nasal septum is mildly deviated to the right. Zygomatic arches are intact Orbital gallagher are intact. Globes are equal and symmetric. Nasal bones appear intact . Mandible appears intact. The there is some periapical lucency in the lateral mandibular incisors bi laterally. This may represent some peribronchial disease. This is new since prior study IMPRESSION: Changes of chronic maxillary sinusitis left greater than right No fractures identified There is periapical lucency in the lateral incisors of the mandible on both sides. The periodontal di sease is suggested. This is new since prior study
[2017-11-19] MEDS ORDERED: Amoxicillin/Clavulanate K 875-125 MG Tab PO ONE (15:28)
--- NOTE | 2017-11-19 15:34 | EDM.PDOC ---
ED HPI GENERAL MEDICAL PROBLEM - General Chief Complaint: ENT Problem Stated Complaint: LEFT EYE IS SORE AND RED Time Seen by Provider: 11/19/17 15:00 Source of Information: Reports: Patient, RN History Limitations: Reports: No Limitations - History of Present Illness INITIAL COMMENTS - FREE TEXT/NARRATIVE: 47 yo female went to the dentists office today and the dentist was out. The staff there directed her to go to [facility] to be seen and referred to an oral surgeon for a likely abscess. No fevers. Came here because it was closer. Onset: Gradual Onset Date: 11/16/17 Duration: Day(s):, Getting Worse Location: Reports: Face Quality: Reports: Ache, Pressure Severity: Moderate Improves with: Reports: None Worsens with: Reports: Other (? 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 below) (none) left side Pain Score (Numeric/FACES): 6 - Related Data Allergies Allergy/AdvReac Type Severity Reaction Status Date / Time almond Allergy Severe Airway Verified 11/19/17 14:04 Tightness avocado Allergy Severe Airway Verified 11/19/17 14:04 Tightness banana Allergy Severe Airway Verified 11/19/17 14:04 Tightness kiwi Allergy Severe Airway Verified 11/19/17 14:04 Tightness peanut Allergy Severe Anaphylactic Verified 11/19/17 14:04 Shock erythromycin base AdvReac Nausea and Verified 11/19/17 14:05 Vomiting hydromorphone [From Dilaudid] AdvReac Nausea and Verified 11/19/17 14:05 Vomiting tramadol AdvReac Other Verified 11/19/17 14:05 Home Meds: Home Meds ALPRAZolam [Alprazolam] 1 mg PO TID PRN 12/13/16 [History] Calcium Carbonate/Vitamin D3 [Calcium 600 + Vit D 200] 1 tab PO BID 12/13/16 [ History] Escitalopram Oxalate 20 mg PO DAILY 12/13/16 [History] Gabapentin [Neurontin] 300 mg PO TID 12/13/16 [History] Ibuprofen 800 mg PO TID PRN 09/02/17 [History] Meloxicam 15 mg PO DAILY 09/09/17 [History] ALPRAZolam [Alprazolam] 1 mg PO TID PRN 11/19/17 [History] Amoxicillin/Potassium Clav [Augmentin 875-125 Tablet] 1 each PO Q12H #20 tablet 11/19/17 [Rx] Clindamycin HCl 300 mg PO TID 11/19/17 [History] Hydrocodone/Acetaminophen [Hydrocodon-Acetaminoph 2.5-325] 1 tab PO Q4H PRN [History] Past Medical History HEENT History: Reports: Impaired Vision Other HEENT History: Tooth pain Respiratory History: Reports: Asthma, Bronchitis, Recurrent Gastrointestinal History: Reports: Cholelithiasis Genitourinary History: Reports: Pyelonephritis, UTI, Recurrent 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: Musculoskeletal History: Reports: Arthritis, Osteoarthritis Psychiatric History: Reports: ADHD, Anxiety, Depression, OCD, PTSD Endocrine/Metabolic History: Reports: Diabetes, Type II, Other (See Below) Other Endocrine/Metabolic History: states not diabetic since lap band surgery Dermatologic History: Reports: Cellulitis - Infectious Disease History Infectious Disease History: Reports: Chicken Pox - Past Surgical History GI Surgical History: Reports: Bariatric Procedure, Cholecystectomy Social & Family History - Tobacco Use Smoking Status *Q: Current Every Day Smoker Years of Tobacco use: 21 Packs/Tins Daily: 0.5 - Caffeine Use Caffeine Use: Reports: Coffee - Recreational Drug Use Recreational Drug Use: No - Living Situation & Occupation Living situation: Reports: Single Occupation: Unemployed ED ROS ENT - Review of Systems Review Of Systems: See Below Constitutional: Reports: No Symptoms HEENT: Reports: Sinus Problem, Other (facial redness and swelling) Respiratory: Reports: No Symptoms Cardiovascular: Reports: No Symptoms GI/Abdominal: Reports: No Symptoms : Reports: No Symptoms Musculoskeletal: Reports: No Symptoms Skin: Reports: No Symptoms Neurological: Reports: No Symptoms ED EXAM, ENT - Physical Exam Exam: See Below Exam Limited By: No Limitations General Appearance: Alert, WD/WN, No Apparent Distress Eye Exam: Bilateral Eye: Normal Inspection Ears: Normal External Exam, Normal Canal, Hearing Grossly Normal, Normal TMs Nose: Normal Inspection, Normal Mucousa, No Blood Mouth/Throat: Dental Pain, Dental Tenderness, Other (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 No: CVA Tenderness (R), CVA Tenderness (L) Extremities: Normal Inspection, Normal Range of Motion, Non-Tender, No Pedal Edema Neurological: Alert, Oriented, CN II-XII Intact, Normal Cognition, No Motor/ Sensory Deficits Psychiatric: Normal Affect, Normal Mood Skin: Warm, Dry, Intact, Normal Color, No Rash Lymphatic: No Adenopathy Course - Vital Signs Last Recorded V/S: Last Vital Signs Temp 36.3 C 11/19/17 14:03 Pulse 79 11/19/17 14:03 Resp 16 11/19/17 14:03 BP 166/100 H 11/19/17 14:03 Pulse Ox 100 11/19/17 14:03 - Orders/Labs/Meds Labs: Laboratory Tests 11/19/17 11/19/17 Range/Units 14:40 14:40 WBC 8.4 (4.5-11.0) K/uL RBC 3.75 (3.30-5.50) M/uL Hgb 11.9 L (12.0-15.0) g/dL Hct 36.2 (36.0-48.0) % MCV 97 (80-98) fL MCH 32 H (27-31) pg MCHC 33 (32-36) % Plt Count 428 H (150-400) K/uL Sodium 141 (140-148) mmol/L Potassium 4.4 (3.6-5.2) mmol/L Chloride 105 (100-108) mmol/L Carbon Dioxide 28 (21-32) mmol/L Anion Gap 7.6 (5.0-14.0) mmol/L BUN 11 (7-18) mg/dL Creatinine 0.9 (0.6-1.0) mg/dL Est Cr Clr Drug Dosing 56.10 mL/min Estimated GFR (MDRD) > 60 (>60) Glucose 89 (74-106) mg/dL Calcium 8.8 (8.5-10.1) mg/dL Meds: Medications Discontinued Medications Generic Name Dose Route Start Last Admin Trade Name Freq PRN Reason Stop Dose Admin Amoxicillin/Clavulanate Potassium 1 tab 11/19/17 15:28 Augmentin 875 Mg/125 Mg PO 11/19/17 15:29 ONETIME ONE Ketorolac Tromethamine 60 mg 11/19/17 15:03 Toradol IM 11/19/17 15:04 ONETIME ONE - Radiology Interpretation Free Text/Narrative:: CT maxillary sinus-Chronic sinusitis CT Results Date: 11/19/17 CT Results Time: 15:29 Departure - Departure Time of Disposition: 15:37 Disposition: Home, Self-Care 01 Condition: Fair Clinical Impression: Maxillary sinusitis, acute Qualifiers: Recurrence: non-recurrent Qualified Code(s): J01.00 - Acute maxillary sinusitis , unspecified - Discharge Information *PRESCRIPTION DRUG MONITORING PROGRAM REVIEWED*: Not Applicable *COPY OF PRESCRIPTION DRUG MONITORING REPORT IN PATIENT KRISTIN: Not Applicable Instructions: Sinusitis, Adult, [id number] Referrals: Thais Rios, RN [Primary Care Provider] - Additional Instructions: Take Augmentin as directed with food. Recheck with your doctor in the clinic within the week. Acetaminophen and/or ibuprofen as needed for pain relief.
== END 2017-11-19 16:10 | disposition home or self-care (01) ==
LOC: JP.ED 12:29
DX: J01.00 Acute maxillary sinusitis, unspecified (principal); F17.210 Nicotine dependence, cigarettes, uncomplicated; E11.9 Type 2 diabetes mellitus without complications; Z79.899 Other long term (current) drug therapy; Z88.6 Allergy status to analgesic agent; Z91.010 Allergy to peanuts; Z88.1 Allergy status to other antibiotic agents; Z88.8 Allergy status to other drugs, medicaments and biological substances
CPT/HCPCS: 36415; 70486; 80048; 85027; 96372; 99284; A9270; J1885

== ENCOUNTER → 2018-05-20 | Day surgery (SDC) | payer MEDICAID ==
[~2018-05-20] MED LIST: Iohexol 300 MG/ML 30 ML Bottle PO ONE; Iopamidol 612 MG/ML 100 ML Bottle IV PRN; LORazepam 2 MG/ML SDV IVPUSH ONE; Midazolam 1 MG/ML 2 ML SDV ONE; Morphine 2 MG/ML Syringe IVPUSH ONE; Ondansetron 4 MG/2 ML SDV IVPUSH ONE; Propofol 200 MG/20 ML SDV ONE; Sodium Chloride 0.9% 1,000 ML IV SCH; Sodium Chloride 0.9% 75 ML IV SCH; fentaNYL 100 MCG/2 ML SDV ONE
--- NOTE | 2018-05-20 12:32 | EDM.PDOC ---
<Aashish Jonas - Last Filed: 05/20/18 19:18> ED HPI GENERAL MEDICAL PROBLEM - General Chief Complaint: Abdominal Pain Stated Complaint: FOOD STUCK IN LAB BAND Time Seen by Provider: 05/20/18 12:27 - Related Data Allergies Allergy/AdvReac Type Severity Reaction Status Date / Time almond Allergy Severe Airway Verified 05/20/18 14:22 Tightness avocado Allergy Severe Airway Verified 05/20/18 14:22 Tightness banana Allergy Severe Airway Verified 05/20/18 14:22 Tightness kiwi Allergy Severe Airway Verified 05/20/18 14:22 Tightness peanut Allergy Severe Anaphylactic Verified 05/20/18 14:22 Shock erythromycin base AdvReac Nausea and Verified 05/20/18 14:22 Vomiting hydromorphone [From Dilaudid] AdvReac Nausea and Verified 05/20/18 14:22 Vomiting tramadol AdvReac Other Verified 05/20/18 14:22 Home Meds: Home Meds Calcium Carbonate/Vitamin D3 [Calcium 600 + Vit D 200] 1 tab PO BID 12/13/16 [ History] Escitalopram Oxalate 20 mg PO DAILY 12/13/16 [History] Gabapentin [Neurontin] 300 mg PO TID 12/13/16 [History] Ibuprofen 800 mg PO TID PRN 09/02/17 [History] Meloxicam 15 mg PO DAILY 09/09/17 [History] ALPRAZolam [Alprazolam] 1 mg PO BID PRN 11/19/17 [History] Amoxicillan 1 tab PO TID 01/04/18 [History] Fluconazole [Diflucan] 01/04/18 [History] Methylphenidate [Ritalin] 1 tab PO BID 01/04/18 [History] Course - Vital Signs Last Recorded V/S: Last Vital Signs Temp 35.3 C 05/20/18 17:15 Pulse 79 05/20/18 18:27 Resp 12 05/20/18 17:51 BP 134/89 05/20/18 18:27 Pulse Ox 93 L 05/20/18 18:27 - Orders/Labs/Meds Orders: Active Orders 24 hr Category Date Time Status VARSHA TEST [RM] Routine Lab 05/20/18 16:25 Received Iopamidol [Isovue-300 (61%)] Med 05/20/18 12:43 Active 100 ml IV . DIRECTED PRN Sodium Chloride 0.9% [Normal Saline] 1,000 ml Med 05/20/18 11:45 Active IV ASDIRECTED Sodium Chloride 0.9% [Normal Saline] 1,000 ml Med 05/20/18 14:30 Active IV ASDIRECTED Medication Orders Sodium Chloride (Normal Saline) 1,000 mls @ 999 mls/hr IV ASDIRECTED ESTEVAN Last Admin: 05/20/18 12:12 Dose: 999 mls/hr Sodium Chloride (Normal Saline) 1,000 mls @ 400 mls/hr IV ASDIRECTED ESTEVAN Last Admin: 05/20/18 14:38 Dose: 400 mls/hr Iopamidol (Isovue-300 (61%)) 100 ml IV . DIRECTED PRN PRN Reason: RADIOLOGY EXAM Stop: 05/21/18 12:44 Last Admin: 05/20/18 12:53 Dose: 100 ml Labs: Laboratory Tests 05/20/18 05/20/18 Range/Units 11:47 11:47 WBC 8.0 (4.5-11.0) K/uL RBC 4.05 (3.30-5.50) M/uL Hgb 12.8 (12.0-15.0) g/dL Hct 38.4 (36.0-48.0) % MCV 95 (80-98) fL MCH 32 H (27-31) pg MCHC 33 (32-36) % Plt Count 347 (150-400) K/uL Neut % (Auto) 64 (36-66) % Lymph % (Auto) 27 (24-44) % Giles % (Auto) 7 H (2-6) % Eos % (Auto) 2 (2-4) % Baso % (Auto) 1 (0-1) % Sodium 136 L (140-148) mmol/L Potassium 4.0 (3.6-5.2) mmol/L Chloride 103 (100-108) mmol/L Carbon Dioxide 26 (21-32) mmol/L Anion Gap 11.0 (5.0-14.0) mmol/L BUN 13 (7-18) mg/dL Creatinine 0.7 (0.6-1.0) mg/dL Est Cr Clr Drug Dosing 72.13 mL/min Estimated GFR (MDRD) > 60 (>60) Glucose 100 (74-106) mg/dL Calcium 9.0 (8.5-10.1) mg/dL Total Bilirubin 0.4 (0.2-1.0) mg/dL AST 15 (15-37) U/L ALT 21 (12-78) U/L Alkaline Phosphatase 83 (46-116) U/L Total Protein 6.8 (6.4-8.2) g/dL Albumin 3.4 (3.4-5.0) g/dL Globulin 3.4 (2.3-3.5) g/dL Albumin/Globulin Ratio 1.0 L (1.2-2.2) Meds: Medications Generic Name Dose Route Start Last Admin Trade Name Freq PRN Reason Stop Dose Admin Sodium Chloride 1,000 mls @ 999 mls/hr 05/20/18 11:45 05/20/18 12:12 Normal Saline IV 999 mls/hr ASDIRECTED ESTEVAN Administration Sodium Chloride 1,000 mls @ 400 mls/hr 05/20/18 14:30 05/20/18 14:38 Normal Saline IV 400 mls/hr ASDIRECTED ESTEVAN Administration Iopamidol 100 ml 05/20/18 12:43 05/20/18 12:53 Isovue-300 (61%) IV 05/21/18 12:44 100 ml . DIRECTED PRN Administration RADIOLOGY EXAM Discontinued Medications Generic Name Dose Route Start Last Admin Trade Name [place]a PRN Reason Stop Dose Admin Fentanyl Confirm 05/20/18 16:17 Sublimaze Administered 05/20/18 16:18 Dose 100 mcg .ROUTE .STK-MED ONE Sodium Chloride 75 mls @ 3 mls/sec 05/20/18 12:45 05/20/18 12:54 Normal Saline IV 05/20/18 12:46 3 mls/sec ASDIRECTED ESTEVAN Administration Iohexol 20 ml 05/20/18 12:46 05/20/18 12:53 Omnipaque PO 05/20/18 12:47 20 ml ONETIME ONE Administration Lorazepam 0.5 mg 05/20/18 13:04 05/20/18 13:17 Ativan IVPUSH 05/20/18 13:05 0.5 mg ONETIME ONE Administration Midazolam HCl Confirm 05/20/18 16:18 Versed 1 Mg/Ml Administered 05/20/18 16:19 Dose 2 mg .ROUTE .STK-MED ONE Morphine Sulfate 2 mg 05/20/18 12:25 05/20/18 17:23 Morphine IVPUSH 05/20/18 12:26 Not Given ONETIME ONE Ondansetron HCl 4 mg 05/20/18 11:41 05/20/18 12:13 Zofran IVPUSH 05/20/18 11:42 4 mg ONETIME ONE Administration Ondansetron HCl 4 mg 05/20/18 13:04 05/20/18 13:20 Zofran IVPUSH 05/20/18 13:05 4 mg ONETIME ONE Administration Propofol Confirm 05/20/18 16:17 Diprivan 20 Ml Administered 05/20/18 16:18 Dose 200 mg .ROUTE .STK-MED ONE Departure - Departure Time of Disposition: 14:26 Disposition: Home, Self-Care 01 Clinical Impression: Gastric banding status Foreign body in esophagus Qualifiers: Encounter type: initial encounter Qualified Code(s): T18.108A - Unspecified foreign body in esophagus causing other injury, initial encounter - Discharge Information *PRESCRIPTION DRUG MONITORING PROGRAM REVIEWED*: No *COPY OF PRESCRIPTION DRUG MONITORING REPORT IN PATIENT KRISTIN: No - My Orders Last 24 Hours: My Active Orders 05/20/18 11:45 Sodium Chloride 0.9% [Normal Saline] 1,000 ml IV ASDIRECTED 05/20/18 12:43 Iopamidol [Isovue-300 (61%)] 100 ml IV . DIRECTED PRN 05/20/18 14:30 Sodium Chloride 0.9% [Normal Saline] 1,000 ml IV ASDIRECTED - Assessment/Plan Last 24 Hours: My Active Orders 05/20/18 11:45 Sodium Chloride 0.9% [Normal Saline] 1,000 ml IV ASDIRECTED 05/20/18 12:43 Iopamidol [Isovue-300 (61%)] 100 ml IV . DIRECTED PRN 05/20/18 14:30 Sodium Chloride 0.9% [Normal Saline] 1,000 ml IV ASDIRECTED <Justa Daigle - Last Filed: 05/21/18 08:51> ED HPI GENERAL MEDICAL PROBLEM - General Source of Information: Reports: Patient History Limitations: Reports: No Limitations - History of Present Illness INITIAL COMMENTS - FREE TEXT/NARRATIVE: pt arrived with alot of pressure in her chest. She had a lab band placed at [facility] [place] about 20 years ago, She has had food stuck before but it has always cleared within a hour. She ate some pork last nite and shje she felt like something got stuck in her esophagus. She is pointing to her mid chest where she is having the pressure. She is swallowing her salivia but she is not getting water down. Onset: Other ( started last nite. 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: Musculoskeletal History: Reports: Arthritis, Fracture, Osteoarthritis Psychiatric History: Reports: ADHD, Anxiety, Depression, OCD, PTSD Endocrine/Metabolic History: Reports: Diabetes, Type II, Other (See Below) Other Endocrine/Metabolic History: states not diabetic since lap band surgery Dermatologic History: Reports: Cellulitis - Infectious Disease History Infectious Disease History: Reports: Chicken Pox - Past Surgical History GI Surgical History: Reports: Bariatric Procedure, Cholecystectomy Social & Family History - Caffeine Use Caffeine Use: Reports: Coffee, Energy Drinks, Soda - Living Situation & Occupation Living situation: Reports: Single Occupation: Unemployed ED ROS GENERAL - Review of Systems Review Of Systems: See Below Constitutional: Reports: Decreased Appetite HEENT: Reports: No Symptoms Respiratory: Reports: Other (pt is not sob but she is pointing to her chest with the area of pain. ) Cardiovascular: Reports: No Symptoms Endocrine: Reports: No Symptoms GI/Abdominal: Reports: No Symptoms : Reports: No Symptoms Musculoskeletal: Reports: No Symptoms Skin: Reports: No Symptoms Neurological: Reports: No Symptoms Psychiatric: Reports: No Symptoms Hematologic/Lymphatic: Reports: No Symptoms Immunologic: Reports: No Symptoms ED EXAM, GI/ABD - Physical Exam Exam: See Below Text/Narrative:: pt had a lab band placed about 20 years ago at [facility]. She ate some pork last nite and she feels like she has a piec stuck. She is getting her saliva down. She is not able to get water down. She is very uncomfortable. Exam Limited By: No Limitations General Appearance: Alert, Anxious, Moderate Distress Ears: Normal TMs Nose: Normal Inspection Throat/Mouth: Normal Inspection Head: Atraumatic Neck: Normal Inspection Respiratory/Chest: Other (pt is having pain midchest. ) Cardiovascular: Regular Rate, Rhythm GI/Abdominal Exam: Soft, Non-Tender (Female) Exam: Deferred Rectal (Female) Exam: Deferred Back Exam: Normal Inspection Neurological: Alert, Oriented, Normal Cognition Psychiatric: Normal Affect, Anxious Course - Re-Assessments/Exams Free Text/Narrative Re-Assessment/Exam: 05/20/18 13:06 Dr Thompson was consulted and he felt like a cat scan was indicated. A small amount of contrast was given and she could not get any down. 05/20/18 14:13 cat scan showed good placement of the band, There is thickening of the lower esophagus. Pt did have 7.8 cc of air let out and that has not helped/ 05/20/18 14:25 Dr Thompson felt like pt should be scoped. 05/20/18 18:46 pt was scoped and by that time the meat had slide down. She will resume her usual meds. Departure - Departure Time of Disposition: 14:26 Condition: Fair
--- NOTE | 2018-05-20 13:42 | CRLCR ---
INDICATION: Pain TECHNIQUE: Chest 1 view. COMPARISON: None FINDINGS: Cardiovascular and mediastinum: Heart size and vasculature are normal in caliber and appearance. Mediastinum is within normal limits. Lungs and pleural space: Lungs are clear. No sign of infiltrate or mass. No sign of pleural effusion. No pneumothorax. Bones and soft tissues: No significant findings. IMPRESSION: Unremarkable chest. Dictated by: Guzman Burgos MD @ 05/20/2018 13:40:03 (Electronically Signed)
--- NOTE | 2018-05-20 13:44 | CRLCR ---
Indication: Pain Technique: Abdomen 2 view. Comparison: None. Findings: Bowel: A lap band is about the gastroesophageal junction. Bowel pattern nonspecific but does not appear obstructive. The amount of colonic stool is within normal limits. Other: No sign of free air. No sign of soft tissue mass. No suspicious calcifications. Osseous structures are unremarkable for age. Impression: No acute or significant findings. Dictated by Guzman Burgos MD @ 05/20/2018 1:43:00 PM Dictated by: Guzman Burgos MD @ 05/20/2018 13:43:07 (Electronically Signed)
--- NOTE | 2018-05-20 14:03 | CRLCT ---
INDICATION: Upper abdominal pain. History of lap band procedure. TECHNIQUE: CT chest and abdomen acquired with 100 cc Isovue-300 IV contrast. COMPARISON: None. FINDINGS: CHEST: Cardiovascular structures: Heart size is normal. Thoracic aorta and main pulmonary artery are normal in caliber. Mediastinum and kyle: Small hiatal hernia. Mild wall thickening is in the distal esophagus. No other sign of mass or lymphadenopathy. Lungs and pleura: Lungs and pleural spaces are clear. No suspicious nodules, infiltrates, or effusions. Chest wall and axilla: No mass or adenopathy. Bones: No suspicious bone lesions and no fractures. There is multilevel disc space narrowing. Abdomen: Liver: Unremarkable. Gallbladder and bile ducts: Gallbladder is not visualized and is presumably absent. No biliary dilatation. Pancreas: Unremarkable. Spleen: Unremarkable. Adrenal glands: Unremarkable. Kidneys: Unremarkable. GI tract: A lap band appears in proper position. Visualized portion of the GI tract is otherwise unremarkable. Vascular structures: Unremarkable. Lymph nodes: Unremarkable. Miscellaneous: Unremarkable. No free air or significant free fluid. Bones: No suspicious bone lesions. Unremarkable for age. IMPRESSION: 1. There is a small hiatal hernia and mild nonspecific wall thickening in the distal esophagus. Remainder of the chest is unremarkable. 2. No acute or specific finding to explain upper abdomen pain in the abdomen. A lap band appears in satisfactory position. Visualized portion of the GI tract is unremarkable. Dictated by Guzman Burgos MD @ 05/20/2018 2:01:06 PM Please note that all CT scans at this facility use dose modulation, iterative reconstruction, and/or weight-based dosing when appropriate to reduce radiation dose to as low as reasonably achievable. Dictated by: Guzman Burgos MD @ 05/20/2018 14:01:16 (Electronically Signed)
[2018-05-20 18:28] VITALS: BP 134/89
--- NOTE | 2018-05-27 08:55 | OR ---
DATE OF PROCEDURE: 05/20/2018 PREOPERATIVE DIAGNOSIS: Probable meat lodged at level of her laparoscopic adjustable gastric band. POSTOPERATIVE DIAGNOSES: 1. Edema and narrowing at gastric imprint of laparoscopic adjustable gastric band and gastrodynia but with no currently retained food. 2. Mild antral gastritis. OPERATIVE PROCEDURE: Esophagogastroduodenoscopy with antral biopsies for CLOtest. ANESTHESIA: IV sedation. INDICATION FOR PROCEDURE: The patient is status post a laparoscopic adjustable gastric band placement in [place], [place], several years ago. She presents now with food evidently being stuck in the band since last evening. Zena Field, our physician assistant sales director, withdrew 7.8 mL of fluid from the band system, which was all the fluid present, and despite that, the patient continues to have a sense of food being caught in that area. Both a CT scan and an abdominal x-ray were obtained, which did show what appears to be a normal location of the band. The plan is to proceed with upper GI endoscopy with biopsies and/or dilation as indicated. Potential risks including bleeding and perforation were discussed, and the patient wishes to proceed. DETAILS OF PROCEDURE: The patient was taken to the operating room, placed in a left lateral decubitus position. IV sedation was administered, after which the upper GI endoscope was passed orally through the length of the esophagus, into the upper stomach, then through the area of the imprint of the gastric band, from there into the remainder of the stomach with retroflexion view of the fundus, and then into the pyloric channel and then to the proximal duodenum. Findings included normal hypopharynx, larynx, upper esophageal sphincter, and esophageal body. There is no retained food or fluid present within the esophagus or upper stomach at this point. The area of the gastric mucosa where the band imprint was present was somewhat reddened, but there was no retained food or other foreign bodies at that level. The scope was easily passed through that location. Retroflexion revealed what appeared to be a normal band positioning from that vantage point and no evidence of erosion or other complications. Within the antrum, there were some patchy reddened areas consistent with some gastritis. Pyloric channel and proximal duodenum were unremarkable. At this point, biopsies were obtained from the antrum and sent for CLOtest for H. pylori. Minimal bleeding from biopsy sites was seen and the procedure then concluded. The patient was taken to the recovery room in satisfactory condition. The patient will be taken back to the emergency room, and at that point, given a full liquid diet. 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 Kash Thompson MD /[id number]
== END ==
LOC: JP.ED 11:16 → JP.SDS 15:00
PROVIDERS: ATTEND Surgery
DX: K95.09 Other complications of gastric band procedure (principal); K29.70 Gastritis, unspecified, without bleeding; J45.909 Unspecified asthma, uncomplicated; E11.9 Type 2 diabetes mellitus without complications; F17.200 Nicotine dependence, unspecified, uncomplicated; F90.9 Attention-deficit hyperactivity disorder, unspecified type; F41.9 Anxiety disorder, unspecified; F32.9 Major depressive disorder, single episode, unspecified; Z79.899 Other long term (current) drug therapy; Z91.018 Allergy to other foods; Z88.5 Allergy status to narcotic agent; Z88.1 Allergy status to other antibiotic agents
CPT/HCPCS: 36415; 43239; 71045; 71260; 74018; 74160; 80053; 85025; 87081; J2060; J2250; J2405; J2704; J3010; J7030; Q9965; Q9967

== ENCOUNTER 2018-07-08 23:41 | Emergency (ER) | payer MEDICAID ==
[2018-07-09] MEDS ORDERED: Bupivacaine 0.25% 10 ML SDV INJECT ONE (00:52)
[2018-07-09] MEDS ORDERED: Ketorolac 60 MG/2 ML SDV IM ONE (01:36)
--- NOTE | 2018-07-09 02:03 | EDM.PDOC ---
ED HPI GENERAL MEDICAL PROBLEM - General Chief Complaint: General Stated Complaint: tooth pain at dentist yesterday Time Seen by Provider: 07/08/18 23:50 Source of Information: Reports: Patient History Limitations: Reports: No Limitations - History of Present Illness INITIAL COMMENTS - FREE TEXT/NARRATIVE: 47-year-old female has developed dental pain in the right upper canine area over the last 2 days. She went to a dentist who placed her on Augmentin and she return to the test yesterday we will switch her to clindamycin. She feels that the pain is getting worse with pain level 10/10. This patient has been to the emergency room numerous times for dental pain. Right Upper Tooth/Teeth Pain Score (Numeric/FACES): 10 - Related Data Allergies Allergy/AdvReac Type Severity Reaction Status Date / Time almond Allergy Severe Airway Verified 07/09/18 00:42 Tightness avocado Allergy Severe Airway Verified 07/09/18 00:42 Tightness banana Allergy Severe Airway Verified 07/09/18 00:42 Tightness kiwi Allergy Severe Airway Verified 07/09/18 00:42 Tightness peanut Allergy Severe Anaphylactic Verified 07/09/18 00:42 Shock codeine Allergy Itching Verified 07/09/18 00:42 erythromycin base AdvReac Nausea and Verified 07/09/18 00:42 Vomiting hydromorphone [From Dilaudid] AdvReac Nausea and Verified 07/09/18 00:42 Vomiting tramadol AdvReac Other Verified 07/09/18 00:42 Home Meds: Home Meds Escitalopram Oxalate 20 mg PO DAILY 12/13/16 [History] Gabapentin [Neurontin] 300 mg PO TID 12/13/16 [History] Ibuprofen 800 mg PO TID PRN 09/02/17 [History] Meloxicam 15 mg PO DAILY 09/09/17 [History] Clindamycin HCl 150 mg PO BID 07/09/18 [History] Past Medical History HEENT History: Reports: Impaired Vision Other HEENT History: Tooth pain Respiratory History: Reports: Asthma, Bronchitis, Recurrent Gastrointestinal History: Reports: Cholelithiasis Genitourinary History: Reports: Pyelonephritis, UTI, Recurrent 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: Musculoskeletal History: Reports: Arthritis, Fracture, Osteoarthritis Psychiatric History: Reports: ADHD, Anxiety, Depression, OCD, PTSD Endocrine/Metabolic History: Reports: Diabetes, Type II, Other (See Below) Other Endocrine/Metabolic History: states not diabetic since lap band surgery Dermatologic History: Reports: Cellulitis - Infectious Disease History Infectious Disease History: Reports: Chicken Pox, Herpes, Influenza - Past Surgical History GI Surgical History: Reports: Bariatric Procedure, Cholecystectomy Social & Family History - Tobacco Use Smoking Status *Q: Current Every Day Smoker Years of Tobacco use: 30 Packs/Tins Daily: 0.5 - Caffeine Use Caffeine Use: Reports: Coffee - Recreational Drug Use Recreational Drug Use: Yes Drug Use in Last 12 Months: No - Living Situation & Occupation Living situation: Reports: Single Occupation: Unemployed ED ROS GENERAL - Review of Systems Review Of Systems: See Below Constitutional: Reports: Fever, Chills HEENT: Reports: No Symptoms Respiratory: Reports: No Symptoms, Cough. Denies: Shortness of Breath, Wheezing Cardiovascular: Reports: No Symptoms GI/Abdominal: Reports: No Symptoms. Denies: Diarrhea, Vomiting : Reports: Other (Unable to feel any symptoms because of her quadriplegia.) Neurological: Reports: No Symptoms ED EXAM, GENERAL - Physical Exam Exam: See Below Exam Limited By: No Limitations General Appearance: Alert Ears: Normal External Exam, Normal Canal Nose: Normal Inspection Throat/Mouth: Normal Inspection Respiratory/Chest: No Respiratory Distress, Lungs Clear, Normal Breath Sounds Cardiovascular: Normal Peripheral Pulses, Regular Rate, Rhythm, No Edema GI/Abdominal: Normal Bowel Sounds, Soft, Non-Tender (Female) Exam: Other (Normal infection around catheter.) Neurological: Alert Course - Vital Signs Last Recorded V/S: Last Vital Signs Temp 36.8 C 07/09/18 01:32 Pulse 95 07/09/18 01:32 Resp 24 H 07/09/18 01:32 BP 188/107 H 07/09/18 02:10 Pulse Ox 95 07/09/18 01:32 - Orders/Labs/Meds Meds: Medications Discontinued Medications Generic Name Dose Route Start Last Admin Trade Name Freq PRN Reason Stop Dose Admin Bupivacaine HCl 10 ml 07/09/18 00:52 07/09/18 01:30 Sensorcaine-Mpf 0.25% INJECT 07/09/18 00:53 10 ml ONETIME ONE Administration Ketorolac Tromethamine 60 mg 07/09/18 01:36 07/09/18 01:44 Toradol IM 07/09/18 01:37 60 mg ONETIME ONE Administration Departure - Departure Time of Disposition: 02:30 Disposition: Home, Self-Care 01 Condition: Good Clinical Impression: Dental abscess - Discharge Information *PRESCRIPTION DRUG MONITORING PROGRAM REVIEWED*: No *COPY OF PRESCRIPTION DRUG MONITORING REPORT IN PATIENT KRISTIN: No Instructions: Dental Abscess Referrals: PCP,None [Primary Care Provider] - Forms: ED Department Discharge Additional Instructions: Ibuprofen as needed for pain. Continue clindamycin. Follow-up with dentist if symptoms worsen or are not resolving in 1 week.
[2018-07-09 02:10] VITALS: BP 188/107
== END 2018-07-09 02:31 | disposition home or self-care (01) ==
LOC: JP.ED 23:41
DX: K04.7 Periapical abscess without sinus (principal); J45.909 Unspecified asthma, uncomplicated; F17.210 Nicotine dependence, cigarettes, uncomplicated; Z79.899 Other long term (current) drug therapy; Z88.5 Allergy status to narcotic agent; Z88.1 Allergy status to other antibiotic agents
CPT/HCPCS: 96372; 99282; J1885; J3490

== ENCOUNTER 2018-07-31 04:49 | Emergency (ER) | payer MEDICAID ==
[2018-07-31 05:08] VITALS: BP 146/87
[2018-07-31] MEDS ORDERED: Albuterol 0.083% 2.5 MG/3 ML Neb Soln NEB ONE (05:33)
--- NOTE | 2018-07-31 05:38 | EDM.PDOC ---
ED HPI GENERAL MEDICAL PROBLEM - General Chief Complaint: Respiratory Problem Stated Complaint: SOB, INFECTION IN LUNGS Time Seen by Provider: 07/31/18 05:33 Source of Information: Reports: Patient History Limitations: Reports: No Limitations - History of Present Illness INITIAL COMMENTS - FREE TEXT/NARRATIVE: pt has felt very tight in her chest since she was in a building containing black mold. She states her lungs hurt. She does have good oxgenation. She does not have a fever. She does smoke 1/2 pack of cigarettes daily. Onset: Today, Other (pt was in this shed that has the black mold today. ) Duration: Hour(s): Location: Reports: Chest Associated Symptoms: Reports: Cough, Shortness of Breath - Related Data Allergies Allergy/AdvReac Type Severity Reaction Status Date / Time almond Allergy Severe Airway Verified 07/31/18 05:00 Tightness avocado Allergy Severe Airway Verified 07/31/18 05:00 Tightness banana Allergy Severe Airway Verified 07/31/18 05:00 Tightness kiwi Allergy Severe Airway Verified 07/31/18 05:00 Tightness peanut Allergy Severe Anaphylactic Verified 07/31/18 05:00 Shock codeine Allergy Itching Verified 07/31/18 05:00 erythromycin base AdvReac Nausea and Verified 07/31/18 05:00 Vomiting hydromorphone [From Dilaudid] AdvReac Nausea and Verified 07/31/18 05:00 Vomiting tramadol AdvReac Other Verified 07/31/18 05:00 Home Meds: Home Meds Escitalopram Oxalate 20 mg PO DAILY 12/13/16 [History] Gabapentin [Neurontin] 300 mg PO TID 12/13/16 [History] Ibuprofen 800 mg PO TID PRN 09/02/17 [History] Meloxicam 15 mg PO DAILY 09/09/17 [History] ALPRAZolam [Alprazolam] 1 mg PO ASDIRECTED PRN 07/31/18 [History] Cholecalciferol (Vitamin D3) [Vitamin D3] 1 tab PO Q7D 07/31/18 [History] Past Medical History HEENT History: Reports: Allergic Rhinitis, Impaired Vision, Sinusitis Other HEENT History: Tooth pain Respiratory History: Reports: Asthma, Bronchitis, Recurrent Gastrointestinal History: Reports: Cholelithiasis, GERD Genitourinary History: Reports: Pyelonephritis, UTI, Recurrent 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: Musculoskeletal History: Reports: Arthritis, Fracture, Fibromyalgia, Osteoarthritis Psychiatric History: Reports: ADHD, Anxiety, Depression, OCD, PTSD Endocrine/Metabolic History: Reports: Diabetes, Type II, Vitamin D Deficiency, Other (See Below) Other Endocrine/Metabolic History: states not diabetic since lap band surgery Hematologic History: Reports: B12 Deficiency, Folic Acid Dermatologic History: Reports: Cellulitis, Eczema - Infectious Disease History Infectious Disease History: Reports: Chicken Pox, Herpes - Past Surgical History GI Surgical History: Reports: Bariatric Procedure, Cholecystectomy, Colonoscopy , EGD Social & Family History - Tobacco Use Smoking Status *Q: Current Every Day Smoker Years of Tobacco use: 30 Packs/Tins Daily: 0.5 - Caffeine Use Caffeine Use: Reports: Coffee - Alcohol Use Days Per Week of Alcohol Use: 4 Number of Drinks Per Day: 2 Total Drinks Per Week: 8 - Recreational Drug Use Recreational Drug Use: No - Living Situation & Occupation Living situation: Reports: Single Occupation: Unemployed ED ROS GENERAL - Review of Systems Review Of Systems: See Below Constitutional: Reports: No Symptoms HEENT: Reports: No Symptoms Respiratory: Reports: Shortness of Breath, Cough, Other (pt feels like her lungs are tight. ) Cardiovascular: Reports: No Symptoms Endocrine: Reports: No Symptoms GI/Abdominal: Reports: No Symptoms : Reports: No Symptoms Musculoskeletal: Reports: No Symptoms Skin: Reports: No Symptoms ED EXAM, GENERAL - Physical Exam Exam: See Below Free Text/Narrative:: pt arrived she was doing some coughing. She felt like a inhaler might be helpful qwith her breathing. She has been breathing the black mold today. Exam Limited By: No Limitations General Appearance: Alert, Mild Distress Ears: Normal TMs Nose: Normal Inspection Throat/Mouth: Normal Inspection Head: Atraumatic Neck: Normal Inspection Respiratory/Chest: Decreased Breath Sounds, Wheezing Cardiovascular: Regular Rate, Rhythm GI/Abdominal: Soft, Non-Tender Extremities: No Pedal Edema Neurological: Alert, Oriented, Normal Cognition Psychiatric: Anxious Course - Vital Signs Last Recorded V/S: Last Vital Signs Temp 36.6 C 07/31/18 05:08 Pulse 93 07/31/18 05:08 Resp 19 07/31/18 05:08 BP 146/87 H 07/31/18 05:08 Pulse Ox 98 07/31/18 05:08 - Orders/Labs/Meds Labs: Laboratory Tests 07/31/18 Range/Units 05:46 WBC 8.3 (4.5-11.0) K/uL RBC 3.51 (3.30-5.50) M/uL Hgb 11.0 L (12.0-15.0) g/dL Hct 34.2 L (36.0-48.0) % MCV 97 (80-98) fL MCH 31 (27-31) pg MCHC 32 (32-36) % Plt Count 378 (150-400) K/uL Neut % (Auto) 58 (36-66) % Lymph % (Auto) 29 (24-44) % [place] % (Auto) 10 H (2-6) % Eos % (Auto) 2 (2-4) % Baso % (Auto) 0 (0-1) % Meds: Medications Discontinued Medications Generic Name Dose Route Start Last Admin Trade Name Freq PRN Reason Stop Dose Admin Albuterol 2.5 mg 07/31/18 05:33 07/31/18 05:39 Proventil Neb Soln NEB 07/31/18 05:34 2.5 mg ONETIME ONE Administration Triamcinolone Acetonide 60 mg 07/31/18 06:05 07/31/18 06:14 Kenalog-40 INJECT 07/31/18 06:06 60 mg ASDIRECTED ONE Administration - Re-Assessments/Exams Free Text/Narrative Re-Assessment/Exam: 07/31/18 05:38 pt was given a neb--albuterol. this did make her feel better.Her vitals continue to remain good. pt was given kenalog 60 mg im. 07/31/18 05:54 07/31/18 05:58 07/31/18 06:06 Departure - Departure Time of Disposition: 06:30 Disposition: Home, Self-Care 01 Condition: Fair Clinical Impression: Bronchospasm - Discharge Information Instructions: Bronchospasm, Adult Referrals: Verena Thomas PA-C [Primary Care Provider] - Forms: ED Department Discharge Care Plan Goals: albuterol inhaler, 2 puffs tid air out her house today if she is concerned about her bringing in black mold. cool mist humidifier at the bedside.
[2018-07-31] MEDS ORDERED: Triamcinolone Acetonide 40 MG/ML 1 ML MDV INJECT ONE (06:05)
== END 2018-07-31 06:27 | disposition home or self-care (01) ==
LOC: JP.ED 04:49
DX: J98.01 Acute bronchospasm (principal); F17.210 Nicotine dependence, cigarettes, uncomplicated; Z91.018 Allergy to other foods; Z88.5 Allergy status to narcotic agent; Z79.899 Other long term (current) drug therapy
CPT/HCPCS: 36415; 85025; 94640; 96372; 99284; J3301

== ENCOUNTER 2018-08-16 20:42 | Emergency (ER) | payer MEDICAID ==
[2018-08-16] MEDS ORDERED: ALPRAZolam 0.25 MG Tab PO ONE ×2 (21:19→21:35)
[2018-08-16] MEDS ORDERED: Ketorolac 60 MG/2 ML SDV IM ONE (21:39)
[2018-08-16] MEDS ORDERED: ALPRAZolam 0.5 MG Tab ONE (21:39)
[2018-08-16 21:43] VITALS: BP 161/104
--- NOTE | 2018-08-16 21:46 | EDM.PDOC ---
ED HPI GENERAL MEDICAL PROBLEM - General Chief Complaint: General Stated Complaint: PAIN Time Seen by Provider: 08/16/18 21:30 Source of Information: Reports: Patient, Old Records History Limitations: Reports: No Limitations - History of Present Illness INITIAL COMMENTS - FREE TEXT/NARRATIVE: 47 yo female presents with anxiety and heavy menses with cramps. The menses began last . Has not discussed this with her primary. Last month had no menses at all. Last took ibuprofen for the cramping last last night. 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) Middle Abdomen Pain Score (Numeric/FACES): 7 - Related Data Allergies Allergy/AdvReac Type Severity Reaction Status Date / Time almond Allergy Severe Airway Verified 07/31/18 05:00 Tightness avocado Allergy Severe Airway Verified 07/31/18 05:00 Tightness banana Allergy Severe Airway Verified 07/31/18 05:00 Tightness kiwi Allergy Severe Airway Verified 07/31/18 05:00 Tightness peanut Allergy Severe Anaphylactic Verified 07/31/18 05:00 Shock codeine Allergy Itching Verified 07/31/18 05:00 erythromycin base AdvReac Nausea and Verified 07/31/18 05:00 Vomiting hydromorphone [From Dilaudid] AdvReac Nausea and Verified 07/31/18 05:00 Vomiting tramadol AdvReac Other Verified 07/31/18 05:00 Home Meds: Home Meds Escitalopram Oxalate 20 mg PO DAILY 12/13/16 [History] Gabapentin [Neurontin] 300 mg PO TID 12/13/16 [History] Ibuprofen 800 mg PO TID PRN 09/02/17 [History] Meloxicam 15 mg PO DAILY 09/09/17 [History] ALPRAZolam [Alprazolam] 1 mg PO ASDIRECTED PRN 07/31/18 [History] Cholecalciferol (Vitamin D3) [Vitamin D3] 1 tab PO Q7D 07/31/18 [History] Past Medical History HEENT History: Reports: Allergic Rhinitis, Impaired Vision, Sinusitis Other HEENT History: Tooth pain Respiratory History: Reports: Asthma, Bronchitis, Recurrent Gastrointestinal History: Reports: Cholelithiasis, GERD Genitourinary History: Reports: Pyelonephritis, UTI, Recurrent 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: Musculoskeletal History: Reports: Arthritis, Fracture, Fibromyalgia, Osteoarthritis Psychiatric History: Reports: ADHD, Anxiety, Depression, OCD, PTSD Endocrine/Metabolic History: Reports: Diabetes, Type II, Vitamin D Deficiency, Other (See Below) Other Endocrine/Metabolic History: states not diabetic since lap band surgery Hematologic History: Reports: B12 Deficiency, Folic Acid Dermatologic History: Reports: Cellulitis, Eczema - Infectious Disease History Infectious Disease History: Reports: Chicken Pox, Herpes - Past Surgical History GI Surgical History: Reports: Bariatric Procedure, Cholecystectomy, Colonoscopy , EGD Social & Family History - Caffeine Use Caffeine Use: Reports: Coffee - Living Situation & Occupation Living situation: Reports: Single Occupation: Unemployed ED ROS GENERAL - Review of Systems Review Of Systems: See Below Constitutional: Reports: No Symptoms HEENT: Reports: No Symptoms Respiratory: Reports: No Symptoms Cardiovascular: Reports: No Symptoms GI/Abdominal: Reports: No Symptoms : Reports: Irregular Menses, Other (uterine cramping) Musculoskeletal: Reports: No Symptoms Skin: Reports: No Symptoms Neurological: Reports: No Symptoms Psychiatric: Reports: Anxiety ED EXAM, GENERAL - Physical Exam Exam: See Below Exam Limited By: No Limitations General Appearance: Alert, WD/WN, Anxious Eye Exam: Bilateral Eye: Normal Inspection Ears: Normal External Exam, Normal Canal, Hearing Grossly Normal Ear Exam: Bilateral Ear: Auricle Normal, Canal Normal Nose: Normal Inspection, No Blood Throat/Mouth: Normal Inspection, Normal Lips, Normal Oropharynx, Normal Voice, No Airway Compromise Head: Atraumatic, Normocephalic Neck: Normal Inspection Respiratory/Chest: No Respiratory Distress, Lungs Clear, Normal Breath Sounds, No Accessory Muscle Use Cardiovascular: Regular Rate, Rhythm, No Edema, Tachycardia GI/Abdominal: Normal Bowel Sounds, Soft, Non-Tender, No Distention Back Exam: Normal Inspection. No: CVA Tenderness (R), CVA Tenderness (L) Neurological: Alert, Oriented, CN II-XII Intact, Normal Cognition, No Motor/ Sensory Deficits Psychiatric: Normal Affect, Normal Mood Skin Exam: Warm, Dry, Intact, Normal Color, No Rash Course - Vital Signs Last Recorded V/S: Last Vital Signs Temp Pulse 107 H 08/16/18 21:39 Resp 16 08/16/18 21:39 BP 161/104 H 08/16/18 21:39 Pulse Ox 98 08/16/18 21:39 Orthostatic Blood Pressure [ 161/104 Standing] Orthostatic Blood Pressure [ 167/111 Sitting] Orthostatic Blood Pressure [ 171/111 Supine] - Orders/Labs/Meds Orders: Active Orders 24 hr Category Date Time Status Orthostatic Vital Signs [RC] ASDIRECTED Care 08/16/18 20:48 Active HCG QUALITATIVE,URINE [URCHEM] Stat Lab 08/16/18 20:49 Ordered Labs: Laboratory Tests 08/16/18 Range/Units 21:21 Hgb 14.5 D (12.0-15.0) g/dL Meds: Medications Discontinued Medications Generic Name Dose Route Start Last Admin Trade Name Freq PRN Reason Stop Dose Admin Alprazolam 1 mg 08/16/18 21:19 08/16/18 21:43 Xanax PO 08/16/18 21:20 Not Given ONETIME ONE Alprazolam 1 mg 08/16/18 21:35 08/16/18 21:44 Xanax PO 08/16/18 21:36 Not Given ONETIME ONE Alprazolam Confirm 08/16/18 21:39 08/16/18 21:43 Xanax Administered 08/16/18 21:40 1 mg Dose Administration 1 mg .ROUTE .STK-MED ONE Ketorolac Tromethamine 60 mg 08/16/18 21:39 08/16/18 21:52 Toradol IM 08/16/18 21:40 60 mg ONETIME ONE Administration Departure - Departure Time of Disposition: 22:20 Disposition: Home, Self-Care 01 Condition: Good Clinical Impression: Menorrhagia with irregular cycle, Anxiety - Discharge Information *PRESCRIPTION DRUG MONITORING PROGRAM REVIEWED*: No *COPY OF PRESCRIPTION DRUG MONITORING REPORT IN PATIENT KRISTIN: No Instructions: Abnormal Uterine Bleeding Referrals: Thais Rios RN [Primary Care Provider] - Forms: ED Department Discharge Additional Instructions: Take ibuprofen OR naproxen sodium per package instructions for cramping. Can add acetaminophen up to 1000 mg every 6 hrs for added relief. Drink ample fluids. Call your provider tomorrow to schedule an office appt to discuss. - My Orders Last 24 Hours: My Active Orders 08/16/18 20:48 Orthostatic Vital Signs [RC] ASDIRECTED 08/16/18 20:49 HCG QUALITATIVE,URINE [URCHEM] Stat - Assessment/Plan Last 24 Hours: My Active Orders 08/16/18 20:48 Orthostatic Vital Signs [RC] ASDIRECTED 08/16/18 20:49 HCG QUALITATIVE,URINE [URCHEM] Stat
== END 2018-08-16 22:33 | disposition home or self-care (01) ==
LOC: JP.ED 20:42
DX: N92.1 Excessive and frequent menstruation with irregular cycle (principal); F41.9 Anxiety disorder, unspecified; F32.9 Major depressive disorder, single episode, unspecified; E11.9 Type 2 diabetes mellitus without complications; M19.90 Unspecified osteoarthritis, unspecified site; Z91.018 Allergy to other foods; Z88.5 Allergy status to narcotic agent; Z88.1 Allergy status to other antibiotic agents; Z91.010 Allergy to peanuts; Z79.899 Other long term (current) drug therapy; Z98.84 Bariatric surgery status; Z90.49 Acquired absence of other specified parts of digestive tract
CPT/HCPCS: 36415; 85018; 96372; 99283; A9270; J1885

== ENCOUNTER 2018-08-19 20:03 | Emergency (ER) | payer MEDICAID ==
--- NOTE | 2018-08-19 20:35 | EDM.PDOC ---
ED HPI GENERAL MEDICAL PROBLEM - General Chief Complaint: Abdominal Pain Stated Complaint: LOWER ABD CRAMPS Time Seen by Provider: 08/19/18 20:27 Source of Information: Reports: Patient History Limitations: Reports: No Limitations - History of Present Illness INITIAL COMMENTS - FREE TEXT/NARRATIVE: pt arrived with pain in lower abdoman. She has a history of chronic diarrhea. She does have her period and has been bleeding for 8 days. She is having bad cramps with that. Onset: Other (the last 2 days. ) Duration: Hour(s): Location: Reports: Abdomen Associated Symptoms: Reports: No Other Symptoms lower abd Pain Score (Numeric/FACES): 9 - Related Data Allergies Allergy/AdvReac Type Severity Reaction Status Date / Time almond Allergy Severe Airway Verified 08/19/18 20:15 Tightness avocado Allergy Severe Airway Verified 08/19/18 20:15 Tightness banana Allergy Severe Airway Verified 08/19/18 20:15 Tightness kiwi Allergy Severe Airway Verified 08/19/18 20:15 Tightness peanut Allergy Severe Anaphylactic Verified 08/19/18 20:15 Shock codeine Allergy Itching Verified 08/19/18 20:15 erythromycin base AdvReac Nausea and Verified 08/19/18 20:15 Vomiting hydromorphone [From Dilaudid] AdvReac Nausea and Verified 08/19/18 20:15 Vomiting tramadol AdvReac Other Verified 08/19/18 20:15 Home Meds: Home Meds Escitalopram Oxalate 20 mg PO DAILY 12/13/16 [History] Gabapentin [Neurontin] 300 mg PO TID 12/13/16 [History] Ibuprofen 800 mg PO TID PRN 09/02/17 [History] Meloxicam 15 mg PO DAILY 09/09/17 [History] ALPRAZolam [Alprazolam] 1 mg PO ASDIRECTED PRN 07/31/18 [History] Cholecalciferol (Vitamin D3) [Vitamin D3] 1 tab PO Q7D 07/31/18 [History] Past Medical History HEENT History: Reports: Allergic Rhinitis, Impaired Vision, Sinusitis Other HEENT History: Tooth pain Respiratory History: Reports: Asthma, Bronchitis, Recurrent Gastrointestinal History: Reports: Cholelithiasis, GERD Genitourinary History: Reports: Pyelonephritis, UTI, Recurrent [employer] History: Reports: Musculoskeletal History: Reports: Arthritis, Fracture, Fibromyalgia, Osteoarthritis Psychiatric History: Reports: ADHD, Anxiety, Depression, OCD, PTSD Endocrine/Metabolic History: Reports: Diabetes, Type II, Vitamin D Deficiency, Other (See Below) Other Endocrine/Metabolic History: states not diabetic since lap band surgery Hematologic History: Reports: B12 Deficiency, Folic Acid Dermatologic History: Reports: Cellulitis, Eczema - Infectious Disease History Infectious Disease History: Reports: Chicken Pox, Herpes - Past Surgical History GI Surgical History: Reports: Bariatric Procedure, Cholecystectomy, Colonoscopy , EGD Social & Family History - Tobacco Use Smoking Status *Q: Current Every Day Smoker Years of Tobacco use: 30 Packs/Tins Daily: 0.5 - Caffeine Use Caffeine Use: Reports: Coffee - Recreational Drug Use Recreational Drug Use: Yes Drug Use in Last 12 Months: Yes Recreational Drug Type: Reports: Marijuana/Hashish Recreational Drug Use Frequency: Rarely - Living Situation & Occupation Living situation: Reports: Single Occupation: Unemployed ED ROS GENERAL - Review of Systems Review Of Systems: See Below Constitutional: Reports: Decreased Appetite HEENT: Reports: No Symptoms Respiratory: Reports: No Symptoms Cardiovascular: Reports: No Symptoms Endocrine: Reports: No Symptoms GI/Abdominal: Reports: Abdominal Pain, Other (pt is having severe crampy lower abdomanal pain. ) : Reports: No Symptoms Musculoskeletal: Reports: No Symptoms Neurological: Reports: No Symptoms ED EXAM, GI/ABD - Physical Exam Exam: See Below Text/Narrative:: pt arrived with severe lower abdomanal pain. She has been having loose stools. She does not have dysuria. Exam Limited By: No Limitations General Appearance: Alert, Moderate Distress Ears: Normal TMs Nose: Normal Inspection Throat/Mouth: Normal Inspection Head: Atraumatic Neck: Normal Inspection Respiratory/Chest: No Respiratory Distress Cardiovascular: Regular Rate, Rhythm GI/Abdominal Exam: Tender, Other (pt is tender in the suprapupic area. x) (Female) Exam: Other (pt is in the midst of her periood. She has a neg preg test. ) Rectal (Female) Exam: Deferred Back Exam: Normal Inspection Extremities: Normal Inspection Neurological: Alert, Oriented, Normal Cognition Course - Vital Signs Last Recorded V/S: Last Vital Signs Temp 35.8 C 08/19/18 20:32 Pulse 109 H 08/19/18 20:32 Resp 18 08/19/18 20:32 BP 141/78 H 08/19/18 20:32 Pulse Ox 96 08/19/18 20:32 - Orders/Labs/Meds Orders: Active Orders 24 hr Category Date Time Status CLOSTRIDIUM DIFFICILE BY PCR [] Stat Lab 08/19/18 22:37 Ordered CULTURE URINE [] Stat Lab 08/19/18 22:28 Received Iopamidol [Isovue-300 (61%)] Med 08/19/18 23:00 Active 101 ml IV . DIRECTED Sodium Chloride 0.9% [Normal Saline] 1,000 ml Med 08/19/18 22:45 Active IV ASDIRECTED Sodium Chloride 0.9% [Normal Saline] 1,000 ml Med 08/20/18 01:00 Active IV ASDIRECTED Isolation [COMM] Stat Oth 08/19/18 22:37 Ordered Medication Orders Sodium Chloride (Normal Saline) 1,000 mls @ 999 mls/hr IV ASDIRECTED ESTEVAN Last Admin: 08/20/18 00:03 Dose: 999 mls/hr Sodium Chloride (Normal Saline) 1,000 mls @ 999 mls/hr IV ASDIRECTED [facility] Last Admin: 08/20/18 01:02 Dose: 999 mls/hr Iopamidol (Isovue-300 (61%)) 101 ml IV . DIRECTED [facility] Labs: Laboratory Tests 08/19/18 08/19/18 08/19/18 Range/Units 20:25 20:25 20:25 WBC 9.1 (4.5-11.0) K/uL RBC 3.72 (3.30-5.50) M/uL Hgb 12.0 D (12.0-15.0) g/dL Hct 35.8 L (36.0-48.0) % MCV 96 (80-98) fL MCH 32 H (27-31) pg MCHC 34 (32-36) % Plt Count 333 (150-400) K/uL Neut % (Auto) 68 H (36-66) % Lymph % (Auto) 22 L (24-44) % [place] % (Auto) 8 H (2-6) % Eos % (Auto) 1 L (2-4) % Baso % (Auto) 1 (0-1) % Sodium 139 L (140-148) mmol/L Potassium 3.5 L (3.6-5.2) mmol/L Chloride 103 (100-108) mmol/L Carbon Dioxide 22 (21-32) mmol/L Anion Gap 17.5 H (5.0-14.0) mmol/L BUN 17 (7-18) mg/dL Creatinine 0.9 (0.6-1.0) mg/dL Est Cr Clr Drug Dosing 56.10 mL/min Estimated GFR (MDRD) > 60 (>60) Glucose 113 H (74-106) mg/dL Calcium 8.6 (8.5-10.1) mg/dL Total Bilirubin 0.3 (0.2-1.0) mg/dL AST 29 D (15-37) U/L ALT 38 D (12-78) U/L Alkaline Phosphatase 88 (46-116) U/L C-Reactive Protein 1.12 H (0.0-0.3) mg/dL Total Protein 6.7 (6.4-8.2) g/dL Albumin 3.3 L (3.4-5.0) g/dL Globulin 3.4 (2.3-3.5) g/dL Albumin/Globulin Ratio 1.0 L (1.2-2.2) TSH, Ultra Sensitive (0.358-3.740) uIU/mL Urine Color Urine Appearance Urine pH (4.5-8.0) Ur Specific [place] (1.008-1.030) Urine Protein (NEGATIVE) mg/dL Urine Glucose (UA) (NEGATIVE) mg/dL Urine Ketones (NEGATIVE) mg/dL Urine Occult Blood (NEGATIVE) Urine Nitrite (NEGATIVE) Urine Bilirubin (NEGATIVE) Urine Urobilinogen (NORMAL) mg/dL Ur Leukocyte Esterase (NEGATIVE) Urine RBC (0-5) Urine WBC (0-5) Ur Epithelial Cells Amorphous Sediment Urine Bacteria Urine Mucus Urine HCG, Qual 08/19/18 08/19/18 08/19/18 Range/Units 20:39 21:26 23:16 WBC (4.5-11.0) K/uL RBC (3.30-5.50) M/uL Hgb (12.0-15.0) g/dL Hct (36.0-48.0) % MCV (80-98) fL MCH (27-31) pg MCHC (32-36) % Plt Count (150-400) K/uL Neut % (Auto) (36-66) % Lymph % (Auto) (24-44) % [place] % (Auto) (2-6) % Eos % (Auto) (2-4) % Baso % (Auto) (0-1) % Sodium (140-148) mmol/L Potassium (3.6-5.2) mmol/L Chloride (100-108) mmol/L Carbon Dioxide (21-32) mmol/L Anion Gap (5.0-14.0) mmol/L BUN (7-18) mg/dL Creatinine (0.6-1.0) mg/dL Est Cr Clr Drug Dosing mL/min Estimated GFR (MDRD) (>60) Glucose (74-106) mg/dL Calcium (8.5-10.1) mg/dL Total Bilirubin (0.2-1.0) mg/dL AST (15-37) U/L ALT (12-78) U/L Alkaline Phosphatase (46-116) U/L C-Reactive Protein (0.0-0.3) mg/dL Total Protein (6.4-8.2) g/dL Albumin (3.4-5.0) g/dL Globulin (2.3-3.5) g/dL Albumin/Globulin Ratio (1.2-2.2) TSH, Ultra Sensitive 1.196 (0.358-3.740) uIU/mL Urine Color Yellow Urine Appearance Cloudy Urine pH 5.0 (4.5-8.0) Ur Specific [place] 1.020 (1.008-1.030) Urine Protein Trace (NEGATIVE) mg/dL Urine Glucose (UA) Normal (NEGATIVE) mg/dL Urine Ketones Negative (NEGATIVE) mg/dL Urine Occult Blood Large (NEGATIVE) Urine Nitrite Negative (NEGATIVE) Urine Bilirubin Small (NEGATIVE) Urine Urobilinogen 1 (NORMAL) mg/dL Ur Leukocyte Esterase Small (NEGATIVE) Urine RBC 5-10 H (0-5) Urine WBC 5-10 H (0-5) Ur Epithelial Cells Moderate Amorphous Sediment Few Urine Bacteria Few Urine Mucus Few Urine HCG, Qual Negative Meds: Medications Generic Name Dose Route Start Last Admin Trade Name Freq PRN Reason Stop Dose Admin Sodium Chloride 1,000 mls @ 999 mls/hr 08/19/18 22:45 08/20/18 00:03 Normal Saline IV 999 mls/hr ASDIRECTED ESTEVAN Administration Sodium Chloride 1,000 mls @ 999 mls/hr 08/20/18 01:00 08/20/18 01:02 Normal Saline IV 999 mls/hr ASDIRECTED ESTEVAN Administration Iopamidol 101 ml 08/19/18 23:00 Isovue-300 (61%) IV . DIRECTED ESTEVAN Discontinued Medications Generic Name Dose Route Start Last Admin Trade Name Praful PRN Reason Stop Dose Admin Hydromorphone HCl 0.5 mg 08/19/18 22:36 Dilaudid IVPUSH 08/19/18 22:37 ONETIME ONE Sodium Chloride 100 mls @ 3 mls/sec 08/19/18 22:52 08/20/18 00:09 Normal Saline IV 08/19/18 22:53 3 mls/sec ONETIME ONE Administration Ketorolac Tromethamine 60 mg 08/19/18 20:36 08/19/18 20:45 Toradol IM 08/19/18 20:37 60 mg ONETIME ONE Administration Ketorolac Tromethamine 15 mg 08/19/18 23:07 08/19/18 23:26 Toradol IVPUSH 08/19/18 23:08 15 mg ONETIME ONE Administration Oxycodone/Acetaminophen 1 tab 08/19/18 20:36 08/19/18 20:45 Percocet 325-5 Mg PO 08/19/18 20:37 1 tab ONETIME ONE Administration Sodium Chloride 10 ml 08/19/18 22:52 08/20/18 00:09 Saline Flush FLUSH 08/19/18 22:53 10 ml ONETIME ONE Administration - Re-Assessments/Exams Free Text/Narrative Re-Assessment/Exam: 08/20/18 00:53 pt had a pelvic US which was neg. She had a neg preg test, She had a cat scan of the abdoman that was neg for acute fings. She does have a gastric band. She was given totodol and percocet and she was completely comfortable,. Departure - Departure Time of Disposition: 01:57 Disposition: Home, Self-Care 01 Condition: Fair Clinical Impression: Severe menstrual cramps, Dehydration - Discharge Information Instructions: Dehydration, Adult, [id number], Dysmenorrhea, [id number] Referrals: PCP,None [Primary Care Provider] - Forms: ED Department Discharge Care Plan Goals: totodol 10 mg q6h prn for severe cramps. keep tommy with obgyn at [facility]. - My Orders Last 24 Hours: My Active Orders 08/19/18 22:28 CULTURE URINE [RM] Stat 08/19/18 22:37 CLOSTRIDIUM DIFFICILE BY PCR [RM] Stat Isolation [COMM] Stat 08/19/18 22:45 Sodium Chloride 0.9% [Normal Saline] 1,000 ml IV ASDIRECTED 08/19/18 23:00 Iopamidol [Isovue-300 (61%)] 101 ml IV . DIRECTED 08/20/18 01:00 Sodium Chloride 0.9% [Normal Saline] 1,000 ml IV ASDIRECTED - Assessment/Plan Last 24 Hours: My Active Orders 08/19/18 22:28 CULTURE URINE [RM] Stat 08/19/18 22:37 CLOSTRIDIUM DIFFICILE BY PCR [RM] Stat Isolation [COMM] Stat 08/19/18 22:45 Sodium Chloride 0.9% [Normal Saline] 1,000 ml IV ASDIRECTED 08/19/18 23:00 Iopamidol [Isovue-300 (61%)] 101 ml IV . DIRECTED 08/20/18 01:00 Sodium Chloride 0.9% [Normal Saline] 1,000 ml IV ASDIRECTED
[2018-08-19] MEDS ORDERED: Ketorolac 60 MG/2 ML SDV IM ONE (20:36)
[2018-08-19] MEDS ORDERED: Acetaminophen/oxyCODONE 325-5 MG Tab PO ONE (20:36)
[2018-08-19 20:45] VITALS: BP 141/78
--- NOTE | 2018-08-19 21:27 | CRLCR ---
Indication: Abdominal pain Technique: Frontal view chest, supine and upright views abdomen Comparison: KUB May 20, 2018 Findings/Impression: : 1. Normal cardiomediastinal silhouette. Clear lungs and pleural spaces. 2. There is a lap band. The phi angle is 49 degrees, normal. 3. Nonspecific bowel gas pattern. No free air. No acute osseous abnormality. Dictated by Sara Zamora MD @ Aug 19 2018 9:22PM Signed by Dr. Sara Zamora @ Aug 19 2018 9:25PM
--- NOTE | 2018-08-19 22:28 | CRLUS ---
INDICATION: Pelvic pain COMPARISON: None available. FINDINGS: Transvaginal and transabdominal ultrasound examination of the female pelvis was performed. Initial examination is performed with transabdominal technique and transvaginal technique is used for better visualization of the pelvic structures. The uterus is anteverted with no evidence of solid mass. It measures 6.7 x 3.8 x 4.1 cm. There is a nabothian cyst in the anterior cervix measuring 0.9 x 0.9 x 1.0 centimeters. The endometrial lining is normal in thickness at 4 mm. The ovaries are normal in appearance and size, the right measuring 2.9 x 2.0 x 2.0 cm and the left measuring 2.2 x 1.2 x 2.0 cm. Incidental note is made of a follicular cyst in the right ovary measuring 1.3 x 1.4 x 1.6 Centimeters. There is normal color and pulse doppler flow in both ovaries. There is no sign of free fluid in the pelvis. IMPRESSION: Normal ultrasound examination of the female pelvis using transvaginal and transabdominal technique. Dictated by Roland Washington MD @ Aug 19 2018 10:27PM Signed by Dr. Roland Washington @ Aug 19 2018 10:27PM
[2018-08-19] MEDS ORDERED: HYDROmorphone 0.5 MG/0.5 ML Syringe IVPUSH ONE (22:36)
[2018-08-19] MEDS ORDERED: Sodium Chloride 0.9% 1,000 ML IV SCH (22:45)
[2018-08-19] MEDS ORDERED: Sodium Chloride 0.9% 100 ML IV ONE (22:52)
[2018-08-19] MEDS ORDERED: Sodium Chloride 0.9% 10 ML Syringe FLUSH ONE (22:52)
[2018-08-19] MEDS ORDERED: Iopamidol 612 MG/ML 150 ML Bottle IV SCH (23:00)
[2018-08-19] MEDS ORDERED: Ketorolac 30 MG/ML SDV IVPUSH ONE (23:07)
--- NOTE | 2018-08-20 00:33 | CRLCT ---
INDICATION: Lower abdominal pain. CT ABDOMEN AND PELVIS WITH CONTRAST TECHNIQUE: Multidetector CT imaging was performed through the abdomen and pelvis following intravenous contrast administration using 92 mL Isovue 300. Coronal and sagittal reconstructions were generated. COMPARISON: None. FINDINGS: Lower chest: Lung bases are clear. Liver: Within normal limits. Gallbladder and bile ducts: Status post cholecystectomy. No biliary dilation identified. Pancreas: Unremarkable. Spleen: Normal. Adrenals: No nodules or masses. Kidneys, ureters, and urinary bladder: No renal masses or hydronephrosis. No bladder mass or definite wall thickening. Gastrointestinal tract: Laparoscopic gastric band in place. Normal caliber bowel without wall thickening. The appendix is normal. There is nonspecific mild prominence of small bowel gas and fluid with several air-fluid levels but no definite caliber transition, possibly representing a mild ileus or related to gastroenteritis. Vascular structures: Mild aortoiliac atherosclerotic changes. Peritoneum: No free air, abscess, or significant free fluid. Lymph nodes: No pathologically enlarged nodes identified. Reproductive organs: No pelvic masses. Bones: Spinal degenerative changes. IMPRESSION: 1. Nonspecific mild prominence of small bowel gas and fluid, most likely reflecting gastroenteritis or a mild ileus. 2. Nonacute findings as detailed above. Please not that all CT scans at this facility use dose modulation, iterative reconstruction, and\or weight-based dosing when appropriate to reduce radiation dose to as low as reasonably achievable. ALESSANDRA RAMIRES MD [employer] Dictated by Shaw Ramires MD @ 08/20/2018 12:32:08 AM Dictated by: Shaw Ramires MD @ 08/20/2018 00:32:23 (Electronically Signed) [id number]
[2018-08-20] MEDS ORDERED: Sodium Chloride 0.9% 1,000 ML IV SCH (01:00)
== END 2018-08-20 02:10 | disposition home or self-care (01) ==
LOC: JP.ED 20:03
DX: N94.6 Dysmenorrhea, unspecified (principal); E86.0 Dehydration; F17.210 Nicotine dependence, cigarettes, uncomplicated; E11.9 Type 2 diabetes mellitus without complications; J45.909 Unspecified asthma, uncomplicated; F41.9 Anxiety disorder, unspecified; F32.9 Major depressive disorder, single episode, unspecified; F90.9 Attention-deficit hyperactivity disorder, unspecified type; Z79.899 Other long term (current) drug therapy; Z88.6 Allergy status to analgesic agent; Z88.1 Allergy status to other antibiotic agents; Z91.018 Allergy to other foods; Z91.010 Allergy to peanuts
CPT/HCPCS: 36415; 74022; 74177; 76830; 76856; 80053; 81001; 81025; 84443; 85025; 86140; 87086; 96361; 96372; 96374; 99284; A9270; J1885; J7030

== ENCOUNTER 2018-11-07 15:50 | Emergency (ER) | payer MEDICAID ==
[2018-11-07 16:03] VITALS: BP 196/107; PULSE 110
[2018-11-07] MEDS ORDERED: Ketorolac 60 MG/2 ML SDV IM ONE (16:35)
--- NOTE | 2018-11-07 16:55 | EDM.PDOC ---
ED HPI GENERAL MEDICAL PROBLEM - General Chief Complaint: ENT Problem Stated Complaint: TOOTH PAIN Time Seen by Provider: 11/07/18 16:08 Source of Information: Reports: Patient History Limitations: Reports: No Limitations - History of Present Illness INITIAL COMMENTS - FREE TEXT/NARRATIVE: 48 yo female presents with right upper tooth pain. She has extensive hx of tooth decay and has appt at dentist in 11 days. She presents to day with severe onset of pain last evening radiating into right head. afebrile. Tooth/Teeth Pain Score (Numeric/FACES): 10 - Related Data Allergies Allergy/AdvReac Type Severity Reaction Status Date / Time almond Allergy Severe Airway Verified 11/07/18 16:10 Tightness avocado Allergy Severe Airway Verified 11/07/18 16:10 Tightness banana Allergy Severe Airway Verified 11/07/18 16:10 Tightness kiwi Allergy Severe Airway Verified 11/07/18 16:10 Tightness peanut Allergy Severe Anaphylactic Verified 11/07/18 16:10 Shock codeine Allergy Itching Verified 11/07/18 16:10 erythromycin base AdvReac Nausea and Verified 11/07/18 16:10 Vomiting hydromorphone [From Dilaudid] AdvReac Nausea and Verified 11/07/18 16:10 Vomiting tramadol AdvReac Other Verified 11/07/18 16:10 Home Meds: Home Meds Escitalopram Oxalate 20 mg PO DAILY 12/13/16 [History] Gabapentin [Neurontin] 300 mg PO TID 12/13/16 [History] Ibuprofen 800 mg PO TID PRN 09/02/17 [History] Meloxicam 15 mg PO DAILY 09/09/17 [History] ALPRAZolam [Alprazolam] 1 mg PO ASDIRECTED PRN 07/31/18 [History] Cholecalciferol (Vitamin D3) [Vitamin D3] 1 tab PO Q7D 07/31/18 [History] Past Medical History HEENT History: Reports: Allergic Rhinitis, Impaired Vision, Sinusitis Other HEENT History: Tooth pain Respiratory History: Reports: Asthma, Bronchitis, Recurrent Gastrointestinal History: Reports: Cholelithiasis, GERD Genitourinary History: Reports: Pyelonephritis, UTI, 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: Musculoskeletal History: Reports: Arthritis, Fracture, Fibromyalgia, Osteoarthritis Psychiatric History: Reports: ADHD, Anxiety, Bipolar, Depression, OCD, PTSD Endocrine/Metabolic History: Reports: Diabetes, Type II, Vitamin D Deficiency, Other (See Below) Other Endocrine/Metabolic History: states not diabetic since lap band surgery Hematologic History: Reports: B12 Deficiency, Folic Acid Dermatologic History: Reports: Cellulitis, Eczema - Infectious Disease History Infectious Disease History: Reports: Chicken Pox, Herpes - Past Surgical History GI Surgical History: Reports: Bariatric Procedure, Cholecystectomy, Colonoscopy , EGD Social & Family History - Tobacco Use Smoking Status *Q: Current Every Day Smoker Years of Tobacco use: 34 Packs/Tins Daily: 0.5 - Caffeine Use Caffeine Use: Reports: Coffee - Recreational Drug Use Recreational Drug Use: No - Living Situation & Occupation Living situation: Reports: Single Occupation: Unemployed ED ROS ENT - Review of Systems Review Of Systems: See Below Constitutional: Denies: Fever, Chills HEENT: Reports: Dental Pain. Denies: Throat Pain Respiratory: Denies: Shortness of Breath, Wheezing Cardiovascular: Reports: Blood Pressure Problem. Denies: Chest Pain GI/Abdominal: Denies: Abdominal Pain ED EXAM, ENT - Physical Exam Exam: See Below Exam Limited By: No Limitations General Appearance: Alert, WD/WN, No Apparent Distress Mouth/Throat: Dental Abcess, Dental Pain, Dental Tenderness (right upper multiple tooth involvement, erythemic gums with mild edema) Head: Atraumatic, Normocephalic Neck: Normal Inspection, Supple, Non-Tender, Full Range of Motion Respiratory/Chest: No Respiratory Distress, Lungs Clear, Normal Breath Sounds. No: Crackles, Rhonchi, Wheezing Cardiovascular: Normal Peripheral Pulses, Regular Rate, Rhythm Neurological: Alert, Oriented Course - Vital Signs Last Recorded V/S: Last Vital Signs Temp 35.9 C 11/07/18 16:07 Pulse 110 H 11/07/18 16:07 Resp 22 H 11/07/18 16:07 BP 196/107 H 11/07/18 16:07 Pulse Ox 96 11/07/18 16:07 - Orders/Labs/Meds Meds: Medications Discontinued Medications Generic Name Dose Route Start Last Admin Trade Name Freq PRN Reason Stop Dose Admin Ketorolac Tromethamine 60 mg 11/07/18 16:35 11/07/18 16:44 Toradol IM 11/07/18 16:36 60 mg ONETIME ONE Administration - Re-Assessments/Exams Free Text/Narrative Re-Assessment/Exam: 11/07/18 16:56 blood pressure very elevated at today's visit. pt reports that this is her normal reading. will initiate BP management medications today with instructions to follow-up with primary care provider. Departure - Departure Time of Disposition: 16:57 Disposition: Home, Self-Care 01 Preliminary Cause of *Q: Cardiac Arrest Condition: Good Clinical Impression: Dental caries, Dental abscess HTN (hypertension) Qualifiers: Hypertension type: essential hypertension Qualified Code(s): I10 - Essential ( primary) hypertension - Discharge Information *PRESCRIPTION DRUG MONITORING PROGRAM REVIEWED*: Not Applicable *COPY OF PRESCRIPTION DRUG MONITORING REPORT IN PATIENT KRISTIN: Not Applicable Instructions: Hypertension, [id number] Referrals: PCP,None [Primary Care Provider] - Additional Instructions: follow-up with Dentist clindamycin 300 mg three times daily for 7 days with dose of Diflucan on completion norco for severe pain ibuprofen 600 mg every 6 hours for pain for your high blood pressure lisinopril/hctz daily. continue to monitor blood pressure 3-4 times weakly and take these readings to your primary care provider for follow-up within the month, you will run out of medication in 30 days
== END 2018-11-07 17:10 | disposition home or self-care (01) ==
LOC: JP.ED 15:50
DX: K04.7 Periapical abscess without sinus (principal); K02.9 Dental caries, unspecified; I10 Essential (primary) hypertension; E11.9 Type 2 diabetes mellitus without complications; F41.9 Anxiety disorder, unspecified; M19.90 Unspecified osteoarthritis, unspecified site; F90.9 Attention-deficit hyperactivity disorder, unspecified type; F32.9 Major depressive disorder, single episode, unspecified; F17.210 Nicotine dependence, cigarettes, uncomplicated; Z91.018 Allergy to other foods; Z88.5 Allergy status to narcotic agent; Z88.1 Allergy status to other antibiotic agents; Z88.8 Allergy status to other drugs, medicaments and biological substances; Z79.899 Other long term (current) drug therapy; Z91.010 Allergy to peanuts; Z90.49 Acquired absence of other specified parts of digestive tract
CPT/HCPCS: 96372; 99282; J1885

== ENCOUNTER 2019-01-15 16:23 | Emergency (ER) | payer MEDICAID ==
[2019-01-15 16:36] VITALS: BP 179/104; PULSE 114
[2019-01-15] MEDS ORDERED: Ondansetron 4 MG Tab.DIS PO ONE (17:08)
--- NOTE | 2019-01-15 17:14 | EDM.PDOC ---
ED HPI GENERAL MEDICAL PROBLEM - General Chief Complaint: ENT Problem Stated Complaint: THRUSH/POSSIBLE KIDNEY ISSUE Time Seen by Provider: 01/15/19 16:55 Source of Information: Reports: Patient, Old Records, RN History Limitations: Reports: No Limitations - History of Present Illness INITIAL COMMENTS - FREE TEXT/NARRATIVE: 48 yo female presents with a white coated tongue, a sore mouth, low back pain, a perception of increased abdominal girth, and nausea. Feels very fatigued. Sx' s began yesterday. No fever. Is not diabetic. Is pretty sure she has a UTI. I worried about thrush. Onset: Gradual Onset Date: 01/14/19 Duration: Day(s): (1+), Getting Worse Location: Reports: Face (mouth), Abdomen, Back, Generalized Quality: Reports: Ache (back), Burning (in mouth) Severity: Moderate Improves with: Reports: None Worsens with: Reports: Other (? time) Context: Reports: Other (see HPI) Associated Symptoms: Reports: Loss of Appetite, Malaise, Nausea/Vomiting (no vomiting). 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 ATTORNEY: Reports: Other (see below) (none) mouth Pain Score (Numeric/FACES): 4 - Related Data Allergies Allergy/AdvReac Type Severity Reaction Status Date / Time almond Allergy Severe Airway Verified 01/15/19 16:36 Tightness avocado Allergy Severe Airway Verified 01/15/19 16:36 Tightness banana Allergy Severe Airway Verified 01/15/19 16:36 Tightness kiwi Allergy Severe Airway Verified 01/15/19 16:36 Tightness peanut Allergy Severe Anaphylactic Verified 01/15/19 16:36 Shock cat dander Allergy Wheezing Verified 01/15/19 16:36 codeine Allergy Itching Verified 01/15/19 16:36 latex Allergy Itching Verified 01/15/19 16:36 erythromycin base AdvReac Nausea and Verified 01/15/19 16:36 Vomiting tramadol AdvReac Other Verified 01/15/19 16:36 Home Meds: Home Meds Escitalopram Oxalate 20 mg PO DAILY 12/13/16 [History] Gabapentin [Neurontin] 300 mg PO TID 12/13/16 [History] Ibuprofen 800 mg PO TID PRN 09/02/17 [History] Meloxicam 15 mg PO DAILY 09/09/17 [History] ALPRAZolam [Alprazolam] 1 mg PO BID PRN 07/31/18 [History] Cholecalciferol (Vitamin D3) [Vitamin D3] 1 tab PO Q7D 07/31/18 [History] Acetylcysteine [Nac] 600 mg PO BID 12/31/18 [History] Barium Sulfate [Volumen 0.1% Susp] 1 applic TOP QID 12/31/18 [History] Lisinopril/Hydrochlorothiazide [Lisinopril-Hctz 20-12.5 mg Tab] 1 each PO DAILY 12/31/18 [History] Zonisamide [Zonegran] 100 mg PO DAILY 12/31/18 [History] diphenhydrAMINE HCl [Banophen] 25 mg PO BEDTIME PRN 12/31/18 [History] Past Medical History HEENT History: Reports: Allergic Rhinitis, Impaired Vision, Sinusitis Other HEENT History: Tooth pain Cardiovascular History: Reports: Hypertension Respiratory History: Reports: Asthma, Bronchitis, Recurrent Gastrointestinal History: Reports: Cholelithiasis, GERD Genitourinary History: Reports: Pyelonephritis, UTI, 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: Musculoskeletal History: Reports: Arthritis, Fracture, Fibromyalgia, Osteoarthritis Neurological History: Reports: Migraines Psychiatric History: Reports: ADHD, Anxiety, Bipolar, Depression, OCD, PTSD Endocrine/Metabolic History: Reports: Diabetes, Type II, Vitamin D Deficiency, Other (See Below) Other Endocrine/Metabolic History: states not diabetic since lap band surgery Hematologic History: Reports: B12 Deficiency, Folic Acid Oncologic (Cancer) History: Reports: None Dermatologic History: Reports: Cellulitis, Eczema - Infectious Disease History Infectious Disease History: Reports: Chicken Pox - Past Surgical History Cardiovascular Surgical History: Reports: None GI Surgical History: Reports: Bariatric Procedure, Cholecystectomy, Colonoscopy , EGD Other GI Surgeries/Procedures: lap band 2006 Social & Family History - Family History Family Medical History: Noncontributory - Tobacco Use Smoking Status *Q: Current Every Day Smoker Years of Tobacco use: 34 Packs/Tins Daily: 0.5 Used Tobacco, but Quit: No Second Hand Smoke Exposure: No - Caffeine Use Caffeine Use: Reports: Coffee, Soda - Alcohol Use Days Per Week of Alcohol Use: 4 Number of Drinks Per Day: 2 Total Drinks Per Week: 8 - Recreational Drug Use Recreational Drug Use: No Drug Use in Last 12 Months: No - Living Situation & Occupation Living situation: Reports: Single Occupation: Unemployed ED ROS GENERAL - Review of Systems Review Of Systems: See Below Constitutional: Reports: Malaise HEENT: Reports: Other (sore mouth) Respiratory: Reports: No Symptoms Cardiovascular: Reports: No Symptoms Endocrine: Reports: No Symptoms GI/Abdominal: Reports: Abdominal Pain (mild with increased girth), Nausea. Denies: Black Stool, Bloody Stool, Constipation, Diarrhea, Vomiting : Reports: Other (low back pain) Musculoskeletal: Reports: Back Pain (low) Skin: Reports: No Symptoms Neurological: Reports: No Symptoms Psychiatric: Reports: No Symptoms ED EXAM, GENERAL - Physical Exam Exam: See Below Exam Limited By: No Limitations General Appearance: Alert, WD/WN, No Apparent Distress, Obese Eye Exam: Bilateral Eye: Normal Inspection Ears: Normal External Exam, Normal Canal, Hearing Grossly Normal, Normal TMs Ear Exam: Bilateral Ear: Auricle Normal, Canal Normal, TM normal Nose: Normal Inspection, No Blood Throat/Mouth: Normal Inspection, Normal Lips, Normal Oropharynx, Normal Voice, No Airway Compromise, Other (white coated tongue, no thrush on cheeks or palate. ) Head: Atraumatic, Normocephalic Neck: Normal Inspection Respiratory/Chest: No Respiratory Distress, Lungs Clear, Normal Breath Sounds, No Accessory Muscle Use Cardiovascular: Regular Rate, Rhythm, No Edema GI/Abdominal: Normal Bowel Sounds, Soft, Non-Tender, Other (obese abdomen. ). No: Guarding, Rigid, Rebound, Tender Back Exam: Normal Inspection. No: CVA Tenderness (R), CVA Tenderness (L) Extremities: Normal Inspection, Normal Range of Motion, Non-Tender, No Pedal Edema Neurological: Alert, Oriented, CN II-XII Intact, Normal Cognition, No Motor/ Sensory Deficits Psychiatric: Normal Affect, Normal Mood Skin Exam: Warm, Dry, Intact, Normal Color, No Rash Course - Vital Signs Last Recorded V/S: Last Vital Signs Temp 35.7 C 01/15/19 16:58 Pulse 114 H 01/15/19 16:58 Resp 14 01/15/19 16:58 BP 179/104 H 01/15/19 16:58 Pulse Ox 99 01/15/19 16:58 - Orders/Labs/Meds Orders: Active Orders 24 hr Category Date Time Status CULTURE STREP A CONFIRMATION [] Stat Lab 01/15/19 17:30 Results CULTURE URINE [] Stat Lab 01/15/19 17:25 Received STREP SCRN A RAPID W CULT CONF [] Stat Lab 01/15/19 17:30 Results Labs: Laboratory Tests 01/15/19 01/15/19 Range/Units 17:07 17:22 WBC 4.6 (4.5-11.0) K/uL RBC 3.72 (3.30-5.50) M/uL Hgb 12.0 (12.0-15.0) g/dL Hct 36.3 (36.0-48.0) % MCV 98 (80-98) fL MCH 32 H (27-31) pg MCHC 33 (32-36) % Plt Count 417 H (150-400) K/uL Neut % (Auto) 50 (36-66) % Lymph % (Auto) 38 (24-44) % [place] % (Auto) 10 H (2-6) % Eos % (Auto) 1 L (2-4) % Baso % (Auto) 1 (0-1) % Urine Color Yellow (YELLOW) Urine Appearance Slightly cloudy A (CLEAR) Urine pH 6.0 (5.0-8.0) Ur Specific [place] 1.015 (1.008-1.030) Urine Protein Negative (NEGATIVE) mg/dL Urine Glucose (UA) Negative (NEGATIVE) mg/dL Urine Ketones Trace H (NEGATIVE) mg/dL Urine Occult Blood Negative (NEGATIVE) Urine Nitrite Negative (NEGATIVE) Urine Bilirubin Negative (NEGATIVE) Urine Urobilinogen 0.2 (0.2-1.0) EU/dL Ur Leukocyte Esterase Negative (NEGATIVE) Urine RBC Not seen (0-5) Urine WBC 5-10 H (0-5) Ur Epithelial Cells Moderate Amorphous Sediment Not seen Urine Bacteria Moderate Urine Mucus Many Meds: Medications Discontinued Medications Generic Name Dose Route Start Last Admin Trade Name Freq PRN Reason Stop Dose Admin Acetaminophen 1,000 mg 01/15/19 17:18 01/15/19 17:27 Tylenol Extra Strength PO 01/15/19 17:19 1,000 mg ONETIME ONE Administration Ondansetron HCl 4 mg 01/15/19 17:08 01/15/19 17:14 Zofran Odt PO 01/15/19 17:09 4 mg ONETIME ONE Administration Departure - Departure Time of Disposition: 18:00 Disposition: Home, Self-Care 01 Condition: Fair Clinical Impression: Viral illness - Discharge Information *PRESCRIPTION DRUG MONITORING PROGRAM REVIEWED*: No *COPY OF PRESCRIPTION DRUG MONITORING REPORT IN PATIENT KRISTIN: No Referrals: Madelyn Cline DO [Primary Care Provider] - Forms: ED Department Discharge Additional Instructions: Use Zofran as needed for nausea control. Take acetaminophen up to 1000 mg every 6 hrs for pain and/or fever control. Lutz your tongue daily. Drink ample fluids. Recheck with your provider if not better by the end of the week. Rest. - My Orders Last 24 Hours: My Active Orders 01/15/19 17:25 CULTURE URINE [RM] Stat 01/15/19 17:30 CULTURE STREP A CONFIRMATION [RM] Stat STREP SCRN A RAPID W CULT CONF [RM] Stat - Assessment/Plan Last 24 Hours: My Active Orders 01/15/19 17:25 CULTURE URINE [RM] Stat 01/15/19 17:30 CULTURE STREP A CONFIRMATION [RM] Stat STREP SCRN A RAPID W CULT CONF [RM] Stat
[2019-01-15] MEDS ORDERED: Acetaminophen 500 MG Tab PO ONE (17:18)
== END 2019-01-15 18:14 | disposition home or self-care (01) ==
LOC: JP.ED 16:23
DX: B34.9 Viral infection, unspecified (principal); I10 Essential (primary) hypertension; J45.909 Unspecified asthma, uncomplicated; F41.9 Anxiety disorder, unspecified; F32.9 Major depressive disorder, single episode, unspecified; E11.9 Type 2 diabetes mellitus without complications; F17.210 Nicotine dependence, cigarettes, uncomplicated; Z91.018 Allergy to other foods; Z91.010 Allergy to peanuts; Z88.5 Allergy status to narcotic agent; Z91.048 Other nonmedicinal substance allergy status; Z91.040 Latex allergy status; Z88.1 Allergy status to other antibiotic agents; Z79.899 Other long term (current) drug therapy
CPT/HCPCS: 36415; 81001; 85025; 87081; 87086; 87880; 99283; A9270

== ENCOUNTER 2019-01-19 15:06 | Emergency (ER) | payer MEDICAID ==
[2019-01-19 15:25] VITALS: BP 160/93; PULSE 100
[2019-01-19] MEDS ORDERED: Sodium Chloride 0.9% 1,000 ML IV ONE (16:29)
--- NOTE | 2019-01-19 17:01 | EDM.PDOC ---
ED HPI GENERAL MEDICAL PROBLEM - General Chief Complaint: Gastrointestinal Problem Stated Complaint: NAUSEA Time Seen by Provider: 01/19/19 15:30 Source of Information: Reports: Patient History Limitations: Reports: No Limitations - History of Present Illness INITIAL COMMENTS - FREE TEXT/NARRATIVE: 48-year-old female who is been having ongoing persistent nausea and generalized malaise for the past several months, had a complete workup including a CT the abdomen less than 3 weeks ago which was negative. She is gaining weight, she did have some diarrhea which has improved but the nausea persists. She just feels awful, she just has a myriad of different complaints. She does not have a fever or chills. She has intermittent dizziness. She feels like most of her symptoms have been present since she had her lap band adjusted 8 months ago. Onset: Unknown/Unsure Duration: Chronic Associated Symptoms: Reports: Loss of Appetite, Malaise, Nausea/Vomiting, Weakness. Denies: Confusion, Chest Pain, Cough, Fever/Chills, Shortness of Breath - Related Data Allergies Allergy/AdvReac Type Severity Reaction Status Date / Time almond Allergy Severe Airway Verified 01/15/19 16:36 Tightness avocado Allergy Severe Airway Verified 01/15/19 16:36 Tightness banana Allergy Severe Airway Verified 01/15/19 16:36 Tightness kiwi Allergy Severe Airway Verified 01/15/19 16:36 Tightness peanut Allergy Severe Anaphylactic Verified 01/15/19 16:36 Shock cat dander Allergy Wheezing Verified 01/15/19 16:36 codeine Allergy Itching Verified 01/15/19 16:36 latex Allergy Itching Verified 01/15/19 16:36 erythromycin base AdvReac Nausea and Verified 01/15/19 16:36 Vomiting tramadol AdvReac Other Verified 01/15/19 16:36 Home Meds: Home Meds Escitalopram Oxalate 20 mg PO DAILY 12/13/16 [History] Gabapentin [Neurontin] 300 mg PO TID 12/13/16 [History] Ibuprofen 800 mg PO TID PRN 09/02/17 [History] Meloxicam 15 mg PO DAILY 09/09/17 [History] ALPRAZolam [Alprazolam] 1 mg PO BID PRN 07/31/18 [History] Cholecalciferol (Vitamin D3) [Vitamin D3] 1 tab PO Q7D 07/31/18 [History] Acetylcysteine [Nac] 600 mg PO BID 12/31/18 [History] Barium Sulfate [Volumen 0.1% Susp] 1 applic TOP QID 12/31/18 [History] Lisinopril/Hydrochlorothiazide [Lisinopril-Hctz 20-12.5 mg Tab] 1 each PO DAILY 12/31/18 [History] Zonisamide [Zonegran] 100 mg PO DAILY 12/31/18 [History] diphenhydrAMINE HCl [Banophen] 25 mg PO BEDTIME PRN 12/31/18 [History] Past Medical History HEENT History: Reports: Allergic Rhinitis, Impaired Vision, Sinusitis Other HEENT History: Tooth pain Cardiovascular History: Reports: Hypertension Respiratory History: Reports: Asthma, Bronchitis, Recurrent Gastrointestinal History: Reports: Cholelithiasis, GERD Genitourinary History: Reports: Pyelonephritis, UTI, 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: Musculoskeletal History: Reports: Arthritis, Fracture, Fibromyalgia, Osteoarthritis Neurological History: Reports: Migraines Psychiatric History: Reports: ADHD, Anxiety, Bipolar, Depression, OCD, PTSD Endocrine/Metabolic History: Reports: Diabetes, Type II, Vitamin D Deficiency, Other (See Below) Other Endocrine/Metabolic History: states not diabetic since lap band surgery Hematologic History: Reports: B12 Deficiency, Folic Acid Oncologic (Cancer) History: Reports: None Dermatologic History: Reports: Cellulitis, Eczema - Infectious Disease History Infectious Disease History: Reports: Chicken Pox - Past Surgical History Cardiovascular Surgical History: Reports: None GI Surgical History: Reports: Bariatric Procedure, Cholecystectomy, Colonoscopy , EGD Other GI Surgeries/Procedures: lap band 2006 Social & Family History - Family History Family Medical History: Noncontributory - Tobacco Use Smoking Status *Q: Light Tobacco Smoker Years of Tobacco use: 33 Packs/Tins Daily: 0.1 - Caffeine Use Caffeine Use: Reports: Coffee - Recreational Drug Use Recreational Drug Use: Yes Recreational Drug Type: Reports: Marijuana/Hashish - Living Situation & Occupation Living situation: Reports: Single Occupation: Unemployed ED ROS GENERAL - Review of Systems Review Of Systems: See Below Constitutional: Reports: Malaise, Decreased Appetite. Denies: Fever, Chills HEENT: Reports: Other (Edentulous) Respiratory: Denies: Shortness of Breath Cardiovascular: Denies: Chest Pain GI/Abdominal: Reports: Abdominal Pain, Diarrhea, Nausea, Vomiting : Reports: No Symptoms Neurological: Reports: Dizziness ED EXAM, GENERAL - Physical Exam Exam: See Below Exam Limited By: No Limitations General Appearance: Alert, No Apparent Distress Eye Exam: Bilateral Eye: Normal Inspection Throat/Mouth: Other (Edentulous) Head: Atraumatic Neck: Supple Respiratory/Chest: Lungs Clear Cardiovascular: Regular Rate, Rhythm. No: Tachycardia GI/Abdominal: Normal Bowel Sounds, Soft, Tender (Reacts with some tenderness to palpation around the periumbilical area of the abdomen, no guarding) Extremities: No: Pedal Edema Neurological: Alert, Oriented Psychiatric: Anxious Skin Exam: Warm, Dry Course - Vital Signs Last Recorded V/S: Last Vital Signs Temp 97.3 F 01/19/19 15:23 Pulse 100 01/19/19 15:23 Resp 18 01/19/19 15:23 BP 160/93 H 01/19/19 15:23 Pulse Ox 99 01/19/19 15:23 - Orders/Labs/Meds Labs: Laboratory Tests 01/19/19 01/19/19 01/19/19 Range/Units 16:37 16:37 16:37 WBC 9.0 (4.5-11.0) K/uL RBC 4.06 (3.30-5.50) M/uL Hgb 13.4 (12.0-15.0) g/dL Hct 39.2 (36.0-48.0) % MCV 97 (80-98) fL MCH 33 H (27-31) pg MCHC 34 (32-36) % Plt Count 427 H (150-400) K/uL Neut % (Auto) 68 H (36-66) % Lymph % (Auto) 25 (24-44) % [place] % (Auto) 7 H (2-6) % Eos % (Auto) 0 L (2-4) % Baso % (Auto) 1 (0-1) % Sodium 134 L (140-148) mmol/L Potassium 5.2 (3.6-5.2) mmol/L Chloride 97 L (100-108) mmol/L Carbon Dioxide 26 (21-32) mmol/L Anion Gap 16.2 H (5.0-14.0) mmol/L BUN 20 H (7-18) mg/dL Creatinine 0.9 (0.6-1.0) mg/dL Est Cr Clr Drug Dosing 55.51 mL/min Estimated GFR (MDRD) > 60 (>60) Glucose 94 (74-106) mg/dL Calcium 8.4 L (8.5-10.1) mg/dL Total Bilirubin 0.3 D (0.2-1.0) mg/dL AST 26 (15-37) U/L ALT 26 (12-78) U/L Alkaline Phosphatase 82 (46-116) U/L Total Protein 7.1 (6.4-8.2) g/dL Albumin 3.5 (3.4-5.0) g/dL Globulin 3.6 H (2.3-3.5) g/dL Albumin/Globulin Ratio 1.0 L (1.2-2.2) TSH, Ultra Sensitive (0.358-3.740) uIU/mL Urine Color Yellow (YELLOW) Urine Appearance Clear (CLEAR) Urine pH 6.5 (5.0-8.0) Ur Specific [place] 1.025 (1.008-1.030) Urine Protein Negative (NEGATIVE) mg/dL Urine Glucose (UA) Negative (NEGATIVE) mg/dL Urine Ketones Negative (NEGATIVE) mg/dL Urine Occult Blood Negative (NEGATIVE) Urine Nitrite Negative (NEGATIVE) Urine Bilirubin Negative (NEGATIVE) Urine Urobilinogen 0.2 (0.2-1.0) EU/dL Ur Leukocyte Esterase Negative (NEGATIVE) Urine RBC Not seen (0-5) Urine WBC 0-5 (0-5) Ur Epithelial Cells Rare Amorphous Sediment Not seen Urine Bacteria Not seen Urine Mucus Not seen Urine Opiates Screen (NEGATIVE) Ur Oxycodone Screen (NEGATIVE) Urine Methadone Screen (NEGATIVE) Ur Propoxyphene Screen (NEGATIVE) Ur Barbiturates Screen (NEGATIVE) Ur Tricyclics Screen (NEGATIVE) Ur Phencyclidine Scrn (NEGATIVE) Ur Amphetamine Screen (NEGATIVE) U Methamphetamines Scrn (NEGATIVE) Urine MDMA Screen (NEGATIVE) U Benzodiazepines Scrn (NEGATIVE) U Cocaine Metab Screen (NEGATIVE) U Marijuana (THC) Screen (NEGATIVE) 01/19/19 01/19/19 Range/Units 16:37 16:37 WBC (4.5-11.0) K/uL RBC (3.30-5.50) M/uL Hgb (12.0-15.0) g/dL Hct (36.0-48.0) % MCV (80-98) fL MCH (27-31) pg MCHC (32-36) % Plt Count (150-400) K/uL Neut % (Auto) (36-66) % Lymph % (Auto) (24-44) % [place] % (Auto) (2-6) % Eos % (Auto) (2-4) % Baso % (Auto) (0-1) % Sodium (140-148) mmol/L Potassium (3.6-5.2) mmol/L Chloride (100-108) mmol/L Carbon Dioxide (21-32) mmol/L Anion Gap (5.0-14.0) mmol/L BUN (7-18) mg/dL Creatinine (0.6-1.0) mg/dL Est Cr Clr Drug Dosing mL/min Estimated GFR (MDRD) (>60) Glucose (74-106) mg/dL Calcium (8.5-10.1) mg/dL Total Bilirubin (0.2-1.0) mg/dL AST (15-37) U/L ALT (12-78) U/L Alkaline Phosphatase (46-116) U/L Total Protein (6.4-8.2) g/dL Albumin (3.4-5.0) g/dL Globulin (2.3-3.5) g/dL Albumin/Globulin Ratio (1.2-2.2) TSH, Ultra Sensitive 1.456 (0.358-3.740) uIU/mL Urine Color (YELLOW) Urine Appearance (CLEAR) Urine pH (5.0-8.0) Ur Specific [place] (1.008-1.030) Urine Protein (NEGATIVE) mg/dL Urine Glucose (UA) (NEGATIVE) mg/dL Urine Ketones (NEGATIVE) mg/dL Urine Occult Blood (NEGATIVE) Urine Nitrite (NEGATIVE) Urine Bilirubin (NEGATIVE) Urine Urobilinogen (0.2-1.0) EU/dL Ur Leukocyte Esterase (NEGATIVE) Urine RBC (0-5) Urine WBC (0-5) Ur Epithelial Cells Amorphous Sediment Urine Bacteria Urine Mucus Urine Opiates Screen Negative (NEGATIVE) Ur Oxycodone Screen Negative (NEGATIVE) Urine Methadone Screen Negative (NEGATIVE) Ur Propoxyphene Screen Negative (NEGATIVE) Ur Barbiturates Screen Negative (NEGATIVE) Ur Tricyclics Screen Negative (NEGATIVE) Ur Phencyclidine Scrn Negative (NEGATIVE) Ur Amphetamine Screen Presumptive positive H (NEGATIVE) U Methamphetamines Scrn Presumptive positive H (NEGATIVE) Urine MDMA Screen Negative (NEGATIVE) U Benzodiazepines Scrn Presumptive positive H (NEGATIVE) U Cocaine Metab Screen Negative (NEGATIVE) U Marijuana (THC) Screen Negative (NEGATIVE) Meds: Medications Discontinued Medications Generic Name Dose Route Start Last Admin Trade Name Freq PRN Reason Stop Dose Admin Sodium Chloride 1,000 mls @ 999 mls/hr 01/19/19 16:29 01/19/19 16:37 Normal Saline IV 01/19/19 17:29 999 mls/hr ONETIME ONE Administration - Re-Assessments/Exams Free Text/Narrative Re-Assessment/Exam: 01/19/19 17:01 IV was started patient was bolused with 1 L of normal saline. CBC TSH CMP UA and urine drug screen were obtained. 01/19/19 17:26 CBC TSH and CMP are reassuring, UA is negative. Urine tox screen however is positive for methamphetamine. Patient was given a full liter of fluid, did not have any vomiting while in the emergency room. She did complain she was still nauseous. I told her her symptoms could easily be from methamphetamine abuse and she admitted to using. She was discharged with 5 additional doses of Zofran and will follow-up with her primary care next week to discuss the endoscopies and colonoscopy that she was supposed to have arranged earlier. Departure - Departure Time of Disposition: 17:42 Disposition: Home, Self-Care 01 Clinical Impression: Methamphetamine abuse Nausea and vomiting Qualifiers: Vomiting type: unspecified Vomiting Intractability: non-intractable Qualified Code(s): R11.2 - Nausea with vomiting, unspecified - Discharge Information Instructions: Stimulant Use Disorder-Methamphetamines Referrals: Madelyn Cline DO [Primary Care Provider] - Forms: ED Department Discharge Care Plan Goals: Continue your current medications, stay hydrated, and contact your primary provider to discuss arranging your further GI workup as previously planned. Avoid further methamphetamine abuse.
== END 2019-01-19 17:41 | disposition home or self-care (01) ==
LOC: JP.ED 15:06
DX: F15.10 Other stimulant abuse, uncomplicated (principal); R11.2 Nausea with vomiting, unspecified; I10 Essential (primary) hypertension; F41.9 Anxiety disorder, unspecified; E11.9 Type 2 diabetes mellitus without complications; F17.210 Nicotine dependence, cigarettes, uncomplicated; Z91.018 Allergy to other foods; Z91.010 Allergy to peanuts; Z91.040 Latex allergy status; Z88.1 Allergy status to other antibiotic agents; Z88.6 Allergy status to analgesic agent; Z88.5 Allergy status to narcotic agent; Z91.048 Other nonmedicinal substance allergy status; Z79.899 Other long term (current) drug therapy
CPT/HCPCS: 36415; 80053; 80305; 81001; 84443; 85025; 96360; 99284; J7030

== ENCOUNTER 2019-01-26 07:01 | Emergency (ER) | payer MEDICAID ==
[2019-01-26 07:27] VITALS: BP 164/133; PULSE 59
[2019-01-26] MEDS: Ondansetron 4 MG Tab.DIS PO ONE (07:47)
--- NOTE | 2019-01-26 08:00 | EDM.PDOC ---
ED HPI GENERAL MEDICAL PROBLEM - General Chief Complaint: Abdominal Pain Stated Complaint: PAIN Time Seen by Provider: 01/26/19 07:35 Source of Information: Reports: Patient History Limitations: Reports: Intoxication (Under the influence of methamphetamine) - History of Present Illness INITIAL COMMENTS - FREE TEXT/NARRATIVE: 48-year-old female arrives very anxious, picking on her arms and complaining of abdominal cramps and pain. She is also "out of her Xanax". I saw her 6 days ago and a fairly complete work-up revealed only methamphetamine in her urine and I told her she has to stop as the symptoms are likely due to methamphetamine abuse. She continues to do methamphetamine almost daily. She said it is the "only thing that helps her sleep". She is demanding to be checked for "systemic candidiasis". She is hypertensive but otherwise medically stable. Onset: Unknown/Unsure Associated Symptoms: Reports: Loss of Appetite, Nausea/Vomiting. Denies: Fever/ Chills, Headaches Abdominal Pain Score (Numeric/FACES): 6 - Related Data Allergies Allergy/AdvReac Type Severity Reaction Status Date / Time almond Allergy Severe Airway Verified 01/26/19 07:20 Tightness avocado Allergy Severe Airway Verified 01/26/19 07:20 Tightness banana Allergy Severe Airway Verified 01/26/19 07:20 Tightness kiwi Allergy Severe Airway Verified 01/26/19 07:20 Tightness peanut Allergy Severe Anaphylactic Verified 01/26/19 07:20 Shock cat dander Allergy Wheezing Verified 01/26/19 07:20 codeine Allergy Itching Verified 01/26/19 07:20 latex Allergy Itching Verified 01/26/19 07:20 erythromycin base AdvReac Nausea and Verified 01/26/19 07:20 Vomiting tramadol AdvReac Other Verified 01/26/19 07:20 Home Meds: Home Meds Escitalopram Oxalate 20 mg PO DAILY 12/13/16 [History] Gabapentin [Neurontin] 300 mg PO TID 12/13/16 [History] Ibuprofen 800 mg PO TID PRN 09/02/17 [History] Meloxicam 15 mg PO DAILY 09/09/17 [History] ALPRAZolam [Alprazolam] 1 mg PO BID PRN 07/31/18 [History] Cholecalciferol (Vitamin D3) [Vitamin D3] 1 tab PO Q7D 07/31/18 [History] Acetylcysteine [Nac] 600 mg PO BID 12/31/18 [History] Lisinopril/Hydrochlorothiazide [Lisinopril-Hctz 20-12.5 mg Tab] 1 each PO DAILY 12/31/18 [History] diphenhydrAMINE HCl [Banophen] 25 mg PO BEDTIME PRN 12/31/18 [History] Past Medical History HEENT History: Reports: Allergic Rhinitis, Impaired Vision, Sinusitis Other HEENT History: Tooth pain Cardiovascular History: Reports: Hypertension Respiratory History: Reports: Asthma, Bronchitis, Recurrent Gastrointestinal History: Reports: Cholelithiasis, GERD Genitourinary History: Reports: Pyelonephritis, UTI, 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: Musculoskeletal History: Reports: Arthritis, Fracture, Fibromyalgia, Osteoarthritis Neurological History: Reports: Migraines Psychiatric History: Reports: ADHD, Anxiety, Bipolar, Depression, OCD, PTSD Endocrine/Metabolic History: Reports: Diabetes, Type II, Vitamin D Deficiency, Other (See Below) Other Endocrine/Metabolic History: states not diabetic since lap band surgery Hematologic History: Reports: B12 Deficiency, Folic Acid Oncologic (Cancer) History: Reports: None Dermatologic History: Reports: Cellulitis, Eczema - Infectious Disease History Infectious Disease History: Reports: Chicken Pox - Past Surgical History Head Surgeries/Procedures: Reports: None HEENT Surgical History: Reports: None Cardiovascular Surgical History: Reports: None Respiratory Surgical History: Reports: None GI Surgical History: Reports: Bariatric Procedure, Cholecystectomy, Colonoscopy , EGD Other GI Surgeries/Procedures: lap band 2007 Female Surgical History: Reports: None Endocrine Surgical History: Reports: None Neurological Surgical History: Reports: None Musculoskeletal Surgical History: Reports: None Dermatological Surgical History: Reports: None Social & Family History - Family History Family Medical History: Noncontributory - Tobacco Use Smoking Status *Q: Current Every Day Smoker Years of Tobacco use: 20 Packs/Tins Daily: 0.5 Used Tobacco, but Quit: No Second Hand Smoke Exposure: Yes - Caffeine Use Caffeine Use: Reports: Coffee, Tea - Alcohol Use Days Per Week of Alcohol Use: 5 Number of Drinks Per Day: 2 Total Drinks Per Week: 10 - Recreational Drug Use Recreational Drug Use: Yes Drug Use in Last 12 Months: Yes Recreational Drug Type: Reports: Marijuana/Hashish, Methamphetamine Recreational Drug Use Frequency: Daily - Living Situation & Occupation Living situation: Reports: Single Occupation: Unemployed ED ROS GENERAL - Review of Systems Review Of Systems: See Below Constitutional: Reports: Malaise, Decreased Appetite Respiratory: Denies: Shortness of Breath Cardiovascular: Denies: Chest Pain GI/Abdominal: Reports: Abdominal Pain, Nausea, Vomiting : Reports: No Symptoms Neurological: Denies: Headache Psychiatric: Reports: Agitation, Anxiety ED EXAM, GENERAL - Physical Exam Exam: See Below Exam Limited By: Other (Extremely anxious and agitated) General Appearance: Anxious, Moderate Distress Eye Exam: Bilateral Eye: Other (No jaundice) Head: Atraumatic Respiratory/Chest: No Respiratory Distress, Lungs Clear Cardiovascular: Regular Rate, Rhythm GI/Abdominal: Normal Bowel Sounds, Tender (Very tender to palpation across the lower abdomen) Neurological: Alert Psychiatric: Anxious, Other (Very agitated, having difficulty sitting still) Skin Exam: Warm, Dry Course - Vital Signs Last Recorded V/S: Last Vital Signs Temp 98.6 F 01/26/19 07:30 Pulse 59 L 01/26/19 07:30 Resp 24 H 01/26/19 07:30 BP 164/133 H 01/26/19 07:30 Pulse Ox 100 01/26/19 07:30 - Orders/Labs/Meds Labs: Laboratory Tests 01/26/19 01/26/19 Range/Units 07:57 07:57 WBC 12.3 H (4.5-11.0) K/uL RBC 3.64 (3.30-5.50) M/uL Hgb 11.8 L (12.0-15.0) g/dL Hct 35.1 L (36.0-48.0) % MCV 96 (80-98) fL MCH 32 H (27-31) pg MCHC 34 (32-36) % Plt Count 378 (150-400) K/uL Neut % (Auto) 82 H (36-66) % Lymph % (Auto) 10 L (24-44) % [place] % (Auto) 8 H (2-6) % Eos % (Auto) 0 L (2-4) % Baso % (Auto) 0 (0-1) % Sodium 133 L (140-148) mmol/L Potassium 3.3 L (3.6-5.2) mmol/L Chloride 97 L (100-108) mmol/L Carbon Dioxide 19 L (21-32) mmol/L Anion Gap 20.3 H (5.0-14.0) mmol/L BUN 25 H (7-18) mg/dL Creatinine 1.8 H D (0.6-1.0) mg/dL Est Cr Clr Drug Dosing 27.75 mL/min Estimated GFR (MDRD) 30 L (>60) Glucose 129 H (74-106) mg/dL Calcium 9.4 (8.5-10.1) mg/dL Meds: Medications Discontinued Medications Generic Name Dose Route Start Last Admin Trade Name Praful PRN Reason Stop Dose Admin Sodium Chloride 1,000 mls @ 1,000 mls/hr 01/26/19 08:34 01/26/19 08:43 Normal Saline IV 01/26/19 09:33 1,000 mls/hr .BOLUS ONE Administration Lorazepam 2 mg 01/26/19 08:07 01/26/19 08:15 Ativan IM 01/26/19 08:08 2 mg ONETIME ONE Administration Ondansetron HCl 4 mg 01/26/19 07:44 01/26/19 07:47 Zofran Odt PO 01/26/19 07:45 4 mg ONETIME ONE Administration - Re-Assessments/Exams Free Text/Narrative Re-Assessment/Exam: 01/26/19 08:10 Urine drug screen will not be repeated as the patient openly admits to frequent methamphetamine use. CBC and BMP were obtained. She continued to display extreme discomfort so 2 mg of IM Ativan was given to settle her down for yet another CT scan. 01/26/19 10:08 BMP did indicate signs of hyper ventilation and dehydration. GFR was 30, creatinine 1.8. After the CT scan she was hydrated with 1 L of normal saline. Within 45 minutes to an hour after the Ativan and fluids, she had calmed down significantly. CT was basically normal. She was discharged with 5 doses of Zofran, and given 10 doses of Ativan to take twice daily until her next prescription can be filled. Departure - Departure Time of Disposition: 09:55 Disposition: Home, Self-Care 01 Clinical Impression: Anxiety about health, Methamphetamine abuse Abdominal pain Qualifiers: Abdominal location: lower abdomen, unspecified Qualified Code(s): R10.30 - Lower abdominal pain, unspecified - Discharge Information Instructions: Nausea and Vomiting, Adult, [id number] Referrals: PCP,None [Primary Care Provider] - Forms: ED Department Discharge Care Plan Goals: Take Ativan twice daily, Zofran as needed, and continue your medications as prescribed. Avoid any further methamphetamine abuse, or abuse of your prescription medicines. Follow-up with Dr. Cline as soon as possible.
[2019-01-26] MEDS: LORazepam 2 MG/ML SDV IM ONE (08:15)
[2019-01-26] MEDS: Sodium Chloride 0.9% 1,000 ML IV ONE (08:43)
--- NOTE | 2019-01-26 09:09 | CRLCT ---
INDICATION: Severe lower abdominal pain. TECHNIQUE: Noncontrast abdominopelvic CT. COMPARISON: Abdominopelvic CT December 31, 2018. Abdominopelvic CT August 20, 2018. Correlation is made with a pelvic ultrasound November 25, 2018. FINDINGS: Clear included lung bases. Postsurgical change from laparoscopic gastric banding. The laparoscopic gastric band appears to be properly oriented. Surgically absent gallbladder. The unenhanced liver, spleen, pancreas, and adrenal glands are within normal limits. No renal stone or hydronephrosis of either kidney. Vascular calcification within a normal caliber abdominal aorta and iliac arteries. Normal inferior vena cava. Normal appendix. The urinary bladder is unremarkable. Tampon in the vagina. Small right ovarian cyst measuring up to 2.4 cm, previously up to 3.3 cm. This is likely physiologic. There is no evidence for bowel obstruction or ileus. There are few fluid-filled nondistended small bowel loops which are nonspecific. They could be related to gastroenteritis in the proper clinical setting. Please correlate clinically. No ascites or lymphadenopathy. No free air. 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 Mild anterolisthesis of L4 in relationship to L5. IMPRESSION: 1. Few fluid-filled nondistended small bowel loops could reflect a gastroenteritis type pattern. No obstruction or ileus. 2. Normal appendix. 3. 2.3 cm right ovarian cyst likely physiologic. Tampon in the vagina. 4. Postsurgical change from laparoscopic gastric banding and cholecystectomy. Please note that all CT scans at this facility use dose modulation, iterative reconstruction, and/or weight-based dosing when appropriate to reduce radiation dose to as low as reasonably achievable. Dictated by Tom Serrano MD @ Jan 26 2019 9:01AM Signed by Dr. Tom Serrano @ Jan 26 2019 9:08AM
== END 2019-01-26 10:11 | disposition home or self-care (01) ==
LOC: JP.ED 07:01
DX: R10.30 Lower abdominal pain, unspecified (principal); F15.129 Other stimulant abuse with intoxication, unspecified; F41.9 Anxiety disorder, unspecified; F17.210 Nicotine dependence, cigarettes, uncomplicated; I10 Essential (primary) hypertension; F32.9 Major depressive disorder, single episode, unspecified; E11.9 Type 2 diabetes mellitus without complications; Z88.6 Allergy status to analgesic agent; Z88.1 Allergy status to other antibiotic agents; Z91.040 Latex allergy status; Z88.5 Allergy status to narcotic agent; Z91.018 Allergy to other foods; Z91.010 Allergy to peanuts; Z79.899 Other long term (current) drug therapy
CPT/HCPCS: 36415; 74176; 80048; 85025; 96360; 96372; 99284; A9270; J2060; J7030

== ENCOUNTER 2019-08-19 12:12 | Emergency (ER) | payer MEDICAID ==
[2019-08-19 12:32] VITALS: BP 106/67; PULSE 104
[2019-08-19] MEDS ORDERED: Sodium Chloride 0.9% 1,000 ML IV SCH (13:15)
--- NOTE | 2019-08-19 13:34 | EDM.PDOC ---
ED HPI GENERAL MEDICAL PROBLEM - General Chief Complaint: General Stated Complaint: LOW KIDNEY FUNCTION Time Seen by Provider: 08/19/19 12:45 Source of Information: Reports: Patient, RN, RN Notes Reviewed, Other (records from [facility]) History Limitations: Reports: No Limitations - History of Present Illness INITIAL COMMENTS - FREE TEXT/NARRATIVE: Rodrigo is a 48 yo female that is sent to us from the [facility] for decreased kidney function as shown on her labs. She is currently receiving treatment for Breast cancer with taxol. She got her first dose of taxol 2 days ago on thursday. Yesterday rodrigo noticed that her abd was much more distended, frequent diarrhea/ loose stools, and lower bilat abd pain/burning. Labs were sent from the clinic. Onset: Gradual Duration: Day(s): (2) Location: Reports: Abdomen Quality: Reports: Other (burning) Severity: Moderate Improves with: Reports: None Worsens with: Reports: None Associated Symptoms: Reports: Loss of Appetite, Other (diarrhea) Abdominal Pain Score (Numeric/FACES): 5 - Related Data Allergies Allergy/AdvReac Type Severity Reaction Status Date / Time almond Allergy Severe Airway Verified 02/15/19 11:52 Tightness avocado Allergy Severe Airway Verified 02/15/19 11:52 Tightness banana Allergy Severe Airway Verified 02/15/19 11:52 Tightness kiwi Allergy Severe Airway Verified 02/15/19 11:52 Tightness peanut Allergy Severe Anaphylactic Verified 02/15/19 11:52 Shock cat dander Allergy Other Verified 02/15/19 11:52 codeine Allergy Itching Verified 02/15/19 11:52 hydromorphone [From Dilaudid] Allergy Nausea and Verified 02/15/19 11:52 Vomiting latex Allergy Itching Verified 02/15/19 11:52 weed pollen-short ragweed Allergy Other Verified 02/15/19 11:52 [From Ragwitek] erythromycin base AdvReac Nausea and Verified 02/15/19 11:52 Vomiting tramadol AdvReac Anxiety Verified 02/15/19 11:52 Home Meds: Home Meds ALPRAZolam [Alprazolam] 1 mg PO BID PRN 07/31/18 [History] Cholecalciferol (Vitamin D3) [Vitamin D3] 1 tab PO Q7D 07/31/18 [History] Lisinopril/Hydrochlorothiazide [Lisinopril-Hctz 20-12.5 mg Tab] 1 each PO DAILY 12/31/18 [History] Diclofenac Sodium 40 drop TOP Q6H 02/15/19 [History] EPINEPHrine [Epipen] 0.3 ml IM ASDIRECTED PRN 02/15/19 [History] Ondansetron [Zofran ODT] 8 mg PO Q8H PRN 02/15/19 [History] diphenhydrAMINE HCL [Banophen] 25 mg PO Q6H PRN 02/15/19 [History] Acetaminophen [Tylenol] 1 - 2 tab PO Q6H PRN 08/19/19 [History] Escitalopram [Lexapro] 20 mg PO DAILY 08/19/19 [History] Nicotine [Nicotrol] 10 mg INH ASDIRECTED 08/19/19 [History] Pregabalin 75 mg PO BID 08/19/19 [History] Prochlorperazine [Compazine] 10 mg PO Q6H PRN 08/19/19 [History] diphenhydrAMINE HCL [Banophen] 25 mg PO Q6H PRN 08/19/19 [History] Past Medical History HEENT History: Reports: Allergic Rhinitis, Impaired Vision, Sinusitis Other HEENT History: Tooth pain Cardiovascular History: Reports: Hypertension Respiratory History: Reports: Asthma, Bronchitis, Recurrent Gastrointestinal History: Reports: Cholelithiasis, GERD Genitourinary History: Reports: Pyelonephritis, UTI, 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: Musculoskeletal History: Reports: Arthritis, Fracture, Fibromyalgia, Osteoa rthritis Neurological History: Reports: Migraines Psychiatric History: Reports: ADHD, Anxiety, Bipolar, Depression, OCD, PTSD Endocrine/Metabolic History: Reports: Diabetes, Type II, Vitamin D Deficiency, Other (See Below) Other Endocrine/Metabolic History: states not diabetic since lap band surgery Hematologic History: Reports: B12 Deficiency, Folic Acid Oncologic (Cancer) History: Reports: Breast Dermatologic History: Reports: Cellulitis, Eczema - Infectious Disease History Infectious Disease History: Reports: Chicken Pox - Past Surgical History Head Surgeries/Procedures: Reports: None HEENT Surgical History: Reports: None Cardiovascular Surgical History: Reports: None Respiratory Surgical History: Reports: None GI Surgical History: Reports: Bariatric Procedure, Cholecystectomy, Colonoscopy, EGD Other GI Surgeries/Procedures: lap band 2007 Female Surgical History: Reports: None Endocrine Surgical History: Reports: None Neurological Surgical History: Reports: None Musculoskeletal Surgical History: Reports: None Other Oncologic Surgeries/Procedures: On chemo at this time Dermatological Surgical History: Reports: None Social & Family History - Family History Family Medical History: Noncontributory - Caffeine Use Caffeine Use: Reports: Coffee - Recreational Drug Use Recreational Drug Type: Reports: Marijuana/Hashish - Living Situation & Occupation Living situation: Reports: Single Occupation: Unemployed ED ROS GENERAL - Review of Systems Review Of Systems: See Below Constitutional: Reports: Weakness, Fatigue, Decreased Appetite HEENT: Reports: No Symptoms Respiratory: Reports: No Symptoms Cardiovascular: Reports: No Symptoms Endocrine: Reports: Fatigue GI/Abdominal: Reports: Abdominal Pain, Diarrhea, Decreased Appetite, Distension, Nausea : Reports: No Symptoms Musculoskeletal: Reports: Other (weakness) Skin: Reports: Pallor Neurological: Reports: No Symptoms Psychiatric: Reports: No Symptoms Hematologic/Lymphatic: Reports: No Symptoms Immunologic: Reports: Other (immunosuppression- currently receiving chemotherapy) ED EXAM, GENERAL - Physical Exam Exam: See Below Exam Limited By: No Limitations General Appearance: Lethargic Eye Exam: Bilateral Eye: Normal Inspection Ears: Normal External Exam Head: Atraumatic, Normocephalic Respiratory/Chest: No Respiratory Distress, Lungs Clear, Normal Breath Sounds, Chest Non-Tender Cardiovascular: Regular Rate, Rhythm, No Murmur Peripheral Pulses: 1+: Brachial (L), Brachial (R) GI/Abdominal: Normal Bowel Sounds, Soft, Non-Tender, Distended (Female) Exam: Deferred Rectal (Female) Exam: Deferred Back Exam: Normal Inspection. No: CVA Tenderness (R), CVA Tenderness (L) Extremities: Normal Inspection, Normal Capillary Refill Neurological: Alert, Oriented, Normal Cognition Psychiatric: Normal Affect Skin Exam: Warm, Intact, Pallor Course - Vital Signs Last Recorded V/S: Last Vital Signs Temp 97 F 08/19/19 12:40 Pulse 104 H 08/19/19 12:40 Resp 18 08/19/19 12:40 BP 106/67 08/19/19 12:40 Pulse Ox 99 08/19/19 12:40 - Orders/Labs/Meds Orders: Active Orders 24 hr Category Date Time Status UA W/MICROSCOPIC [URIN] Stat Lab 08/19/19 12:29 Received Sodium Chloride 0.9% [Normal Saline] 1,000 ml Med 08/19/19 13:15 Active IV ASDIRECTED Medication Orders Sodium Chloride (Normal Saline) 1,000 mls @ 999 mls/hr IV ASDIRECTED ESTEVAN Last Admin: 08/19/19 13:15 Dose: 999 mls/hr Documented by: SHAZIA Labs: Laboratory Tests 08/19/19 08/19/19 Range/Units 12:46 12:54 Sodium 137 L (140-148) mmol/L Potassium 3.5 L (3.6-5.2) mmol/L Chloride 99 L (100-108) mmol/L Carbon Dioxide 24 (21-32) mmol/L Anion Gap 17.5 H (5.0-14.0) mmol/L BUN 44 H D (7-18) mg/dL Creatinine 2.8 H D (0.6-1.0) mg/dL Est Cr Clr Drug Dosing 17.84 mL/min Estimated GFR (MDRD) 18 L (>60) Glucose 140 H (74-106) mg/dL Uric Acid 11.2 H (2.6-6.2) mg/dL Calcium 8.2 L (8.5-10.1) mg/dL Meds: Medications Generic Name Dose Route Start Last Admin Trade Name Freq PRN Reason Stop Dose Admin Sodium Chloride 1,000 mls @ 999 mls/hr 08/19/19 13:15 08/19/19 13:15 Normal Saline IV 999 mls/hr ASDIRECTED [facility] Administration - Re-Assessments/Exams Free Text/Narrative Re-Assessment/Exam: 08/19/19 13:39 BMP redrawn in ER to verify kidney function results. labs consistent with clinic labs. marked increase in BUN, creatinine, uric acid, and phosphorus with significant decrease in GFR since last labs 2 days prior. Call to [facility] to transfer per Dr. Daigle. 08/19/19 13:42 Departure - Departure Time of Disposition: 13:43 Disposition: DC/Tfer to [facility] 02 Condition: Fair Clinical Impression: Tumor lysis syndrome following antineoplastic drug therapy, Hyperuricemia, Acute kidney insufficiency, Hypocalcemia, Breast cancer metastasized to axillary lymph node, Chemotherapy-induced diarrhea - Discharge Information *PRESCRIPTION DRUG MONITORING PROGRAM REVIEWED*: No *COPY OF PRESCRIPTION DRUG MONITORING REPORT IN PATIENT KRISTIN: No Referrals: PCP,None [Primary Care Provider] - Forms: ED Department Discharge Care Plan Goals: transfer to [facility] Sepsis Event Note (ED) - Evaluation Sepsis Screening Result: No Definite Risk - Focused Exam Vital Signs: Vital Signs Temp Pulse Resp BP Pulse Ox 08/19/19 12:40 97 F 104 H 18 106/67 99 08/19/19 12:29 97 F 104 H 18 106/67 99 - My Orders Last 24 Hours: My Active Orders 08/19/19 12:29 UA W/MICROSCOPIC [URIN] Stat - Assessment/Plan Last 24 Hours: My Active Orders 08/19/19 12:29 UA W/MICROSCOPIC [URIN] Stat Plan: transfer to [facility] for treatment of tumor lysis syndrome.
== END 2019-08-19 14:57 ==
LOC: JP.ED 12:12
DX: K52.1 Toxic gastroenteritis and colitis (principal); T45.1X5A Adverse effect of antineoplastic and immunosuppressive drugs, initial encounter; E88.3 Tumor lysis syndrome; C44.501 Unspecified malignant neoplasm of skin of breast; C77.3 Secondary and unspecified malignant neoplasm of axilla and upper limb lymph nodes; E79.0 Hyperuricemia without signs of inflammatory arthritis and tophaceous disease; N17.9 Acute kidney failure, unspecified; E83.51 Hypocalcemia; I10 Essential (primary) hypertension; F41.9 Anxiety disorder, unspecified; F31.9 Bipolar disorder, unspecified; E11.9 Type 2 diabetes mellitus without complications; Z91.018 Allergy to other foods; Z91.010 Allergy to peanuts; Z88.5 Allergy status to narcotic agent; Z91.040 Latex allergy status; Z91.048 Other nonmedicinal substance allergy status; Z88.1 Allergy status to other antibiotic agents; Z79.899 Other long term (current) drug therapy
CPT/HCPCS: 36415; 80048; 81001; 84550; 96360; 99285; J7030

== ENCOUNTER 2019-08-25 09:37 | Emergency (ER) | payer MEDICAID, OTHER ==
[2019-08-25 09:46] VITALS: BP 114/65; PULSE 57
--- NOTE | 2019-08-25 11:34 | EDM.PDOC ---
ED HPI GENERAL MEDICAL PROBLEM - General Chief Complaint: Respiratory Problem Stated Complaint: MEDICAL VIA [facility]TH Time Seen by Provider: 08/25/19 10:45 Source of Information: Reports: Patient History Limitations: Reports: No Limitations - History of Present Illness INITIAL COMMENTS - FREE TEXT/NARRATIVE: This is a 48-year-old female with history of mental health issues, methamph etamine use, what appears to be now metastatic breast cancer who presents with concerns of shortness of breath and a possible cellulitis. She is quite hysterical and her history is somewhat scattered. She reports that she has been short of breath since she was hospitalized at [facility] 5 days ago for tumor lysis syndrome after being started on Taxol. She has no chest pain. She seems to notice shortness of breath more when laying flat at night. This is been accompanied by increasing edema as well. She has no chest pain. She has no fever. She is very disappointed with the care that she received at [facility]. She reports that they did not feed her or wash the toilets. They discharged her with C. difficile, but she does not believe this was a real diagnosis and has self discontinued her antibiotics for this. stomach Pain Score (Numeric/FACES): 3 - Related Data Allergies Allergy/AdvReac Type Severity Reaction Status Date / Time almond Allergy Severe Airway Verified 08/25/19 09:59 Tightness avocado Allergy Severe Airway Verified 08/25/19 09:59 Tightness banana Allergy Severe Airway Verified 08/25/19 09:59 Tightness kiwi Allergy Severe Airway Verified 08/25/19 09:59 Tightness peanut Allergy Severe Anaphylactic Verified 08/25/19 09:59 Shock cat dander Allergy Other Verified 08/25/19 09:59 codeine Allergy Itching Verified 08/25/19 09:59 hydromorphone [From Dilaudid] Allergy Nausea and Verified 08/25/19 09:59 Vomiting latex Allergy Itching Verified 08/25/19 09:59 weed pollen-short ragweed Allergy Other Verified 08/25/19 09:59 [From Ragwitek] erythromycin base AdvReac Nausea and Verified 08/25/19 09:59 Vomiting tramadol AdvReac Anxiety Verified 08/25/19 09:59 Home Meds: Home Meds ALPRAZolam [Alprazolam] 1 mg PO BID PRN 07/31/18 [History] Cholecalciferol (Vitamin D3) [Vitamin D3] 1 tab PO Q7D 07/31/18 [History] Lisinopril/Hydrochlorothiazide [Lisinopril-Hctz 20-12.5 mg Tab] 1 each PO DAILY 12/31/18 [History] Diclofenac Sodium 40 drop TOP Q6H 02/15/19 [History] EPINEPHrine [Epipen] 0.3 ml IM ASDIRECTED PRN 02/15/19 [History] Ondansetron [Zofran ODT] 8 mg PO Q8H PRN 02/15/19 [History] diphenhydrAMINE HCL [Banophen] 25 mg PO Q6H PRN 02/15/19 [History] Acetaminophen [Tylenol] 1 - 2 tab PO Q6H PRN 08/19/19 [History] Escitalopram [Lexapro] 20 mg PO DAILY 08/19/19 [History] Nicotine [Nicotrol] 10 mg INH ASDIRECTED 08/19/19 [History] Pregabalin 75 mg PO BID 08/19/19 [History] Prochlorperazine [Compazine] 10 mg PO Q6H PRN 08/19/19 [History] diphenhydrAMINE HCL [Banophen] 25 mg PO Q6H PRN 08/19/19 [History] Past Medical History HEENT History: Reports: Allergic Rhinitis, Impaired Vision, Sinusitis Other HEENT History: Tooth pain Cardiovascular History: Reports: Hypertension Respiratory History: Reports: Asthma, Bronchitis, Recurrent Gastrointestinal History: Reports: Cholelithiasis, GERD Genitourinary History: Reports: Pyelonephritis, UTI, Recurrent [employer] History: Reports: Musculoskeletal History: Reports: Arthritis, Fracture, Fibromyalgia, O steoarthritis Neurological History: Reports: Migraines Psychiatric History: Reports: ADHD, Anxiety, Bipolar, Depression, OCD, PTSD Endocrine/Metabolic History: Reports: Diabetes, Type II, Vitamin D Deficiency, Other (See Below) Other Endocrine/Metabolic History: states not diabetic since lap band surgery Hematologic History: Reports: B12 Deficiency, Folic Acid Oncologic (Cancer) History: Reports: Breast Dermatologic History: Reports: Cellulitis, Eczema - Infectious Disease History Infectious Disease History: Reports: Chicken Pox - Past Surgical History Head Surgeries/Procedures: Reports: None HEENT Surgical History: Reports: None Cardiovascular Surgical History: Reports: None Respiratory Surgical History: Reports: None GI Surgical History: Reports: Bariatric Procedure, Cholecystectomy, Colonoscopy, EGD Other GI Surgeries/Procedures: lap band 2007 Female Surgical History: Reports: None Endocrine Surgical History: Reports: None Neurological Surgical History: Reports: None Musculoskeletal Surgical History: Reports: None Other Oncologic Surgeries/Procedures: On chemo at this time Dermatological Surgical History: Reports: None Social & Family History - Family History Family Medical History: Noncontributory - Tobacco Use Smoking Status *Q: Current Every Day Smoker Years of Tobacco use: 30 Packs/Tins Daily: 0.5 - Caffeine Use Caffeine Use: Reports: Coffee - Alcohol Use Days Per Week of Alcohol Use: 3 Number of Drinks Per Day: 3 Total Drinks Per Week: 9 - Recreational Drug Use Recreational Drug Use: Yes Recreational Drug Type: Reports: Marijuana/Hashish Recreational Drug Use Frequency: Socially - Living Situation & Occupation Living situation: Reports: Single Occupation: Unemployed ED ROS GENERAL - Review of Systems Review Of Systems: See Below (Can you check that 29-year-old back pain in room 1 or 2 which does put a sign on the door a 1 and 3-year-old actually need to be here he can go home now for they walk in there illicit abdullahi decided to come by private car instead of by ambulance last 1 noticed that she) Constitutional: Reports: Fatigue HEENT: Reports: No Symptoms Respiratory: Reports: Shortness of Breath Cardiovascular: Reports: Edema Endocrine: Reports: No Symptoms (Oh) GI/Abdominal: Reports: Diarrhea (We will go there well he is eating he is 80 something 83 right) : Reports: No Symptoms ( focused focus on like normal and the other day you to the one yesterday regular Perfect windows no episode thank you) Musculoskeletal: Reports: No Symptoms Skin: Reports: No Symptoms Neurological: Reports: No Symptoms Psychiatric: Reports: No Symptoms Hematologic/Lymphatic: Reports: No Symptoms Immunologic: Reports: No Symptoms ED EXAM, GENERAL - Physical Exam Exam: See Below Exam Limited By: No Limitations General Appearance: Alert, No Apparent Distress Ears: Normal External Exam Nose: Normal Inspection Head: Facial Swelling Neck: Normal Inspection Respiratory/Chest: Lungs Clear, Other (Mild erythema on the right breast around the areola area of the nipple. There is no increased warmth.) Cardiovascular: Regular Rate, Rhythm GI/Abdominal: Soft, Non-Tender Back Exam: Normal Inspection Extremities: Normal Inspection Neurological: Alert, Oriented Psychiatric: Normal Affect, Normal Mood Skin Exam: Warm, Dry Course - Vital Signs Last Recorded V/S: Last Vital Signs Temp 36.0 C L 08/25/19 10:02 Pulse 57 L 08/25/19 10:02 Resp 20 08/25/19 10:02 BP 114/65 08/25/19 10:02 Pulse Ox 100 08/25/19 10:02 - Orders/Labs/Meds Orders: Active Orders 24 hr Category Date Time Status CXR [Chest 2V] [CR] Stat Exams 08/25/19 11:03 Taken CORONAVIRUS COVID-19, [facility] Stat Lab 08/25/19 11:04 Ordered Labs: Laboratory Tests 08/25/19 08/25/19 08/25/19 Range/Units 11:14 11:14 11:34 WBC 8.2 (4.5-11.0) K/uL RBC 2.33 L (3.30-5.50) M/uL Hgb 7.4 L D (12.0-15.0) g/dL Hct 23.8 L (36.0-48.0) % MCV 102 H (80-98) fL MCH 32 H (27-31) pg MCHC 31 L (32-36) % Plt Count 387 (150-400) K/uL Sodium 139 L (140-148) mmol/L Potassium 3.8 (3.6-5.2) mmol/L Chloride 101 (100-108) mmol/L Carbon Dioxide 27 (21-32) mmol/L Anion Gap 14.8 H (5.0-14.0) mmol/L BUN 7 D (7-18) mg/dL Creatinine 0.9 D (0.6-1.0) mg/dL Est Cr Clr Drug Dosing 55.51 mL/min Estimated GFR (MDRD) > 60 (>60) Glucose 118 H (74-106) mg/dL Calcium 9.0 (8.5-10.1) mg/dL Total Bilirubin 0.6 D (0.2-1.0) mg/dL AST 12 L (15-37) U/L ALT 25 (12-78) U/L Alkaline Phosphatase 102 (46-116) U/L NT-Pro-B Natriuret Pep 320 H (5-125) pg/mL Total Protein 7.0 (6.4-8.2) g/dL Albumin 2.6 L (3.4-5.0) g/dL Globulin 4.4 H (2.3-3.5) g/dL Albumin/Globulin Ratio 0.6 L (1.2-2.2) Meds: Medications Discontinued Medications Generic Name Dose Route Start Last Admin Trade Name Praful PRN Reason Stop Dose Admin Lorazepam 1 mg 08/25/19 11:54 08/25/19 12:03 Ativan PO 08/25/19 11:55 1 mg ONETIME ONE Administration - Re-Assessments/Exams Free Text/Narrative Re-Assessment/Exam: 48-year-old female with history of breast cancer & mental health disease presents with concerns of shortness of breath and possible cellulitis. Unfortunately she is quite hysterical and tangential, so it is difficult to obtain an accurate history. Regarding cellulitis of her right breast, there is some mild erythematous change around the nipple but this is been improving without antibiotics. Do not think we need to treat this now. Difficult to know what to make of her dyspnea, which has been present throughout her hospitalization last weekend. She of course is at risk for PE, but when we are able to get good vitals from her they are normal and she has no chest pain so I think this is low likelihood. She has no history of CHF but is volume overloaded. We will check a chest x-ray and a BNP as well as some screening labs. Concerningly, she is also concerned that she did not actually have C. difficile while hospitalized in [place]. Reviewed her [facility] record and she did test positive for this so we need to convince her to restart her antibiotics. 08/25/19 11:43 Free Text/Narrative Re-Assessment/Exam: Labs remarkable for a hemoglobin of 7.4. Her BNP is modestly elevated around 300. Chest x-ray my read shows a right pleural effusion. I think most of her lab abnormalities are chronic. Both her edema and low hemoglobin are probably due to her chronic disease and poor nutrition. Start her on a low-dose of furosemide. I strongly encouraged her to restart her antibiotics for her C. difficile. She will self quarantine until her COVID test returns. She will need to follow-up with Dr. Villarreal next week for hemoglobin recheck. 08/25/19 12:21 Departure - Departure Time of Disposition: 12:22 Disposition: Home, Self-Care 01 Clinical Impression: Low hemoglobin Edema Qualifiers: Edema type: due to malnutrition Malnutrition edema type: unspecified malnutrition type Qualified Code(s): E43 - Unspecified severe protein-calorie malnutrition - Discharge Information Instructions: Edema Referrals: Kofi Villarreal Sr, MD [Primary Care Provider] - Forms: ED Department Discharge Additional Instructions: We suspect your edema is due to poor nutrition and your malignancy. Your labs show that you have a low hemoglobin, this is also likely due to malnutrition. Please make a follow-up appointment with Dr. Villarreal. You need to self quarantine until your COVID test returns. We strongly suggest that you take your antibiotics for your C. difficile infection, your labs did confirm this diagnosis while you are hospitalized in [place]. Sepsis Event Note (ED) - Evaluation Sepsis Screening Result: No Definite Risk - Focused Exam Vital Signs: Vital Signs Temp Pulse Resp BP Pulse Ox 08/25/19 10:02 36.0 C L 57 L 20 114/65 100 08/25/19 09:45 36.0 C L 57 L 20 114/65 90 L - My Orders Last 24 Hours: My Active Orders 08/25/19 11:03 CXR [Chest 2V] [CR] Stat 08/25/19 11:04 CORONAVIRUS COVID-19, [facility] Stat - Assessment/Plan Last 24 Hours: My Active Orders 08/25/19 11:03 CXR [Chest 2V] [CR] Stat 08/25/19 11:04 CORONAVIRUS COVID-19, [facility] Stat
[2019-08-25] MEDS ORDERED: LORazepam 1 MG Tab PO ONE (11:54)
--- NOTE | 2019-08-25 12:27 | CR ---
CHEST: 2 view CLINICAL HISTORY:Dyspnea COMPARISON:2019 FINDINGS: Patient has an Udomre-i-Govd from the right subclavian approach. Tip is in the upper right atrium. Heart is mildly enlarged. Pulmonary vascularity is normal. Patient has by basal effusions. There is some patchy airspace disease in both lung bases. This could be atelectasis or infiltrate. This is greater in the right lower lobe. IMPRESSION: Small bilateral pleural effusions Patchy bibasilar airspace disease right greater than left. Some of this may be subsegmental atelectasis but the right lower lobe pneumonic infiltrate is not excluded
== END 2019-08-25 13:10 | disposition home or self-care (01) ==
LOC: JP.ED 09:37
DX: E46 Unspecified protein-calorie malnutrition (principal); R60.9 Edema, unspecified; D64.9 Anemia, unspecified; I10 Essential (primary) hypertension; F41.9 Anxiety disorder, unspecified; F31.9 Bipolar disorder, unspecified; E11.9 Type 2 diabetes mellitus without complications; F17.210 Nicotine dependence, cigarettes, uncomplicated; Z20.828 Contact with and (suspected) exposure to other viral communicable diseases; Z88.8 Allergy status to other drugs, medicaments and biological substances; Z91.018 Allergy to other foods; Z91.010 Allergy to peanuts; Z88.5 Allergy status to narcotic agent; Z91.040 Latex allergy status; Z88.1 Allergy status to other antibiotic agents; Z91.048 Other nonmedicinal substance allergy status; Z79.899 Other long term (current) drug therapy
CPT/HCPCS: 36415; 71046; 80053; 83880; 85027; 87635; 99285; A9270; 99284; U0002

== ENCOUNTER 2019-08-26 17:12 | Emergency (ER) | payer MEDICAID ==
[2019-08-26 17:19] VITALS: BP 101/56; PULSE 122
--- NOTE | 2019-08-26 17:33 | EDM.PDOC ---
ED HPI GENERAL MEDICAL PROBLEM - General Stated Complaint: MEDICAL VIA [facility] Time Seen by Provider: 08/26/19 17:20 Source of Information: Reports: Patient, EMS History Limitations: Reports: No Limitations - History of Present Illness INITIAL COMMENTS - FREE TEXT/NARRATIVE: 48-year-old female who was evaluated yesterday for shortness of breath and found to be anemic. She was supposed to come in and get 2 units of RBCs transfused but called the ambulance and came in because she still short of breath. Her oxygen saturations are 100%, she is in a somewhat manic state but is relatively cooperative. No fever. Onset: Gradual Associated Symptoms: Reports: Other (Anemia, weakness) - Related Data Allergies Allergy/AdvReac Type Severity Reaction Status Date / Time almond Allergy Severe Airway Verified 08/25/19 09:59 Tightness avocado Allergy Severe Airway Verified 08/25/19 09:59 Tightness banana Allergy Severe Airway Verified 08/25/19 09:59 Tightness kiwi Allergy Severe Airway Verified 08/25/19 09:59 Tightness peanut Allergy Severe Anaphylactic Verified 08/25/19 09:59 Shock cat dander Allergy Other Verified 08/25/19 09:59 codeine Allergy Itching Verified 08/25/19 09:59 hydromorphone [From Dilaudid] Allergy Nausea and Verified 08/25/19 09:59 Vomiting latex Allergy Itching Verified 08/25/19 09:59 weed pollen-short ragweed Allergy Other Verified 08/25/19 09:59 [From Ragwitek] erythromycin base AdvReac Nausea and Verified 08/25/19 09:59 Vomiting tramadol AdvReac Anxiety Verified 08/25/19 09:59 Home Meds: Home Meds ALPRAZolam [Alprazolam] 1 mg PO BID PRN 07/31/18 [History] Cholecalciferol (Vitamin D3) [Vitamin D3] 1 tab PO Q7D 07/31/18 [History] Lisinopril/Hydrochlorothiazide [Lisinopril-Hctz 20-12.5 mg Tab] 1 each PO DAILY 12/31/18 [History] Diclofenac Sodium 40 drop TOP Q6H 02/15/19 [History] EPINEPHrine [Epipen] 0.3 ml IM ASDIRECTED PRN 02/15/19 [History] Ondansetron [Zofran ODT] 8 mg PO Q8H PRN 02/15/19 [History] diphenhydrAMINE HCL [Banophen] 25 mg PO Q6H PRN 02/15/19 [History] Acetaminophen [Tylenol] 1 - 2 tab PO Q6H PRN 08/19/19 [History] Escitalopram [Lexapro] 20 mg PO DAILY 08/19/19 [History] Nicotine [Nicotrol] 10 mg INH ASDIRECTED 08/19/19 [History] Pregabalin 75 mg PO BID 08/19/19 [History] Prochlorperazine [Compazine] 10 mg PO Q6H PRN 08/19/19 [History] diphenhydrAMINE HCL [Banophen] 25 mg PO Q6H PRN 08/19/19 [History] Past Medical History HEENT History: Reports: Allergic Rhinitis, Impaired Vision, Sinusitis Other HEENT History: Tooth pain Cardiovascular History: Reports: Hypertension Respiratory History: Reports: Asthma, Bronchitis, Recurrent Gastrointestinal History: Reports: Cholelithiasis, GERD Genitourinary History: Reports: Pyelonephritis, UTI, Recurrent [employer] History: Reports: Musculoskeletal History: Reports: Arthritis, Fracture, Fibromyalgia, Osteoarthritis Neurological History: Reports: Migraines Psychiatric History: Reports: ADHD, Anxiety, Bipolar, Depression, OCD, PTSD Endocrine/Metabolic History: Reports: Diabetes, Type II, Vitamin D Deficiency, Other (See Below) Other Endocrine/Metabolic History: states not diabetic since lap band surgery Hematologic History: Reports: B12 Deficiency, Folic Acid Oncologic (Cancer) History: Reports: Breast Dermatologic History: Reports: Cellulitis, Eczema - Infectious Disease History Infectious Disease History: Reports: Chicken Pox - Past Surgical History Head Surgeries/Procedures: Reports: None HEENT Surgical History: Reports: None Cardiovascular Surgical History: Reports: None Respiratory Surgical History: Reports: None GI Surgical History: Reports: Bariatric Procedure, Cholecystectomy, Colonoscopy, EGD Other GI Surgeries/Procedures: lap band 2007 Female Surgical History: Reports: None Endocrine Surgical History: Reports: None Neurological Surgical History: Reports: None Musculoskeletal Surgical History: Reports: None Other Oncologic Surgeries/Procedures: On chemo at this time Dermatological Surgical History: Reports: None Social & Family History - Family History Family Medical History: Noncontributory - Caffeine Use Caffeine Use: Reports: Coffee - Living Situation & Occupation Living situation: Reports: Single Occupation: Unemployed ED ROS GENERAL - Review of Systems Review Of Systems: See Below Constitutional: Reports: Malaise. Denies: Fever, Chills Respiratory: Reports: Shortness of Breath (Especially with activity) GI/Abdominal: Reports: No Symptoms Skin: Reports: Pallor ED EXAM, GENERAL - Physical Exam Exam: See Below Exam Limited By: No Limitations General Appearance: Alert, No Apparent Distress Head: Atraumatic Respiratory/Chest: No Respiratory Distress, Lungs Clear Cardiovascular: Tachycardia Course - Vital Signs Last Recorded V/S: Last Vital Signs Temp 98.0 F 08/26/19 17:17 Pulse 122 H 08/26/19 17:17 Resp 16 08/26/19 17:17 BP 101/56 L 08/26/19 17:17 Pulse Ox 93 L 08/26/19 17:17 - Re-Assessments/Exams Free Text/Narrative Re-Assessment/Exam: 08/26/19 17:31 Explained to the patient that her shortness of breath is likely related to the anemia and she needs a transfusion. Patient agreed to go stairs and get her RBCs as scheduled and will be rechecked in the next 24 to 48 hours if not improved. Departure - Departure Time of Disposition: 17:25 Disposition: Refer to Observation Clinical Impression: Chronic anemia Dyspnea Qualifiers: Dyspnea type: dyspnea on exertion Qualified Code(s): R06.00 - Dyspnea, unspecified - Discharge Information Referrals: Kofi Villarreal Sr, MD [Primary Care Provider] - Care Plan Goals: Patient will be moved to the floor for observation to receive 2 units of RBCs per her physician's orders. She can be reevaluated afterwards if not improving satisfactorily. Sepsis Event Note (ED) - Focused Exam Vital Signs: Vital Signs Temp Pulse Resp BP Pulse Ox 08/26/19 17:17 98.0 F 122 H 16 101/56 L 93 L
== END 2019-08-26 17:38 ==
LOC: JP.ED 17:12
DX: D64.9 Anemia, unspecified (principal); R06.00 Dyspnea, unspecified; I10 Essential (primary) hypertension; E11.9 Type 2 diabetes mellitus without complications; F41.9 Anxiety disorder, unspecified; F31.9 Bipolar disorder, unspecified; Z91.018 Allergy to other foods; Z91.048 Other nonmedicinal substance allergy status; Z88.5 Allergy status to narcotic agent; Z91.040 Latex allergy status; Z88.1 Allergy status to other antibiotic agents; Z79.899 Other long term (current) drug therapy
CPT/HCPCS: 99284; 99285

== ENCOUNTER 2019-09-01 16:18 | Inpatient (IN) | payer MEDICAID ==
--- NOTE | 2019-09-01 16:50 | PCM.HP.2 ---
H&P History of Present Illness - General Date of Service: 09/01/19 Admit Problem/Dx: Admission Diagnosis/Problem Admission Diagnosis/Problem PE, Pulmonary embolism Source of Information: Patient - History of Present Illness Initial Comments - Free Text/Narative: Lucie was admitted with a history of respiratory distress with inability to walk greater 50 feet without shortness of breath and very dramatic reaction of weakness. She was having chest pain. She has a history of SOB 6 days ago and had 2 units of pac cells as HB was 7.2 prior to the transfusion. She related 2 days ago she was feeling good and improved after the transfusion. She became fore shortness of breather in the last 24 hrs. She was seen by oncology today and they ordered a CT angio. She had come to the office complaining of chest pains. A ECG was done which showed tachycardia. With an exertion her heart rate went up to 120 but oxygen still above 90% pulse ox. I then received a phone call from Dr Grider who reported to me she had blood clots in the lung as well as intracardiac and renal arteries. She also has mets from breast cancer in the bones including the spine. Duration of Symptoms: Reports: Day(s): Location: Reports: Chest Severity: Moderate Improves with: Reports: Immobilization Worsens with: Reports: Movement Associated Symptoms: Reports: Shortness of Breath, Weakness Generalized Pain Score (Numeric/FACES): 2 - Related Data Allergies/Adverse Reactions: Allergies Allergy/AdvReac Type Severity Reaction Status Date / Time almond Allergy Severe Airway Verified 08/25/19 09:59 Tightness avocado Allergy Severe Airway Verified 08/25/19 09:59 Tightness banana Allergy Severe Airway Verified 08/25/19 09:59 Tightness kiwi Allergy Severe Airway Verified 08/25/19 09:59 Tightness peanut Allergy Severe Anaphylactic Verified 08/25/19 09:59 Shock cat dander Allergy Other Verified 08/25/19 09:59 codeine Allergy Itching Verified 08/25/19 09:59 latex Allergy Itching Verified 08/25/19 09:59 weed pollen-short ragweed Allergy Other Verified 08/25/19 09:59 [From Rag[place]] erythromycin base AdvReac Nausea and Verified 08/25/19 09:59 Vomiting hydromorphone [From Dilaudid] AdvReac Nausea and Verified 09/01/19 13:56 Vomiting tramadol AdvReac Anxiety Verified 08/25/19 09:59 Home Medications: Home Meds ALPRAZolam [Alprazolam] 1 mg PO BID PRN 07/31/18 [History] Cholecalciferol (Vitamin D3) [Vitamin D3] 1 tab PO Q7D 07/31/18 [History] Lisinopril/Hydrochlorothiazide [Lisinopril-Hctz 20-12.5 mg Tab] 1 each PO DAILY 12/31/18 [History] Diclofenac Sodium 40 drop TOP Q6H 02/15/19 [History] EPINEPHrine [Epipen] 0.3 ml IM ASDIRECTED PRN 02/15/19 [History] Ondansetron [Zofran ODT] 8 mg PO Q8H PRN 02/15/19 [History] Acetaminophen [Tylenol] 1 - 2 tab PO Q6H PRN 08/19/19 [History] Escitalopram [Lexapro] 20 mg PO DAILY 08/19/19 [History] Nicotine [Nicotrol] 10 mg INH ASDIRECTED 08/19/19 [History] Pregabalin 75 mg PO BID 08/19/19 [History] Past Medical History HEENT History: Reports: Allergic Rhinitis, Impaired Vision, Sinusitis Other HEENT History: Tooth pain Cardiovascular History: Reports: Hypertension Respiratory History: Reports: Asthma, Bronchitis, Recurrent Gastrointestinal History: Reports: Cholelithiasis, GERD Genitourinary History: Reports: Pyelonephritis, UTI, Recurrent SHANK SORTER History: Reports: Musculoskeletal History: Reports: Arthritis, Fracture, Fibromyalgia, Osteoarthritis Neurological History: Reports: Migraines Psychiatric History: Reports: ADHD, Anxiety, Bipolar, Depression, OCD, PTSD Endocrine/Metabolic History: Reports: Diabetes, Type II, Vitamin D Deficiency, Other (See Below) Other Endocrine/Metabolic History: states not diabetic since lap band surgery Hematologic History: Reports: B12 Deficiency, Folic Acid Oncologic (Cancer) History: Reports: Breast Dermatologic History: Reports: Cellulitis, Eczema - Infectious Disease History Infectious Disease History: Reports: Chicken Pox - Past Surgical History Head Surgeries/Procedures: Reports: None HEENT Surgical History: Reports: None Cardiovascular Surgical History: Reports: None Respiratory Surgical History: Reports: None GI Surgical History: Reports: Bariatric Procedure, Cholecystectomy, Colonoscopy, EGD Other GI Surgeries/Procedures: lap band 2007 Female Surgical History: Reports: None Endocrine Surgical History: Reports: None Neurological Surgical History: Reports: None Musculoskeletal Surgical History: Reports: None Other Oncologic Surgeries/Procedures: On chemo at this time Dermatological Surgical History: Reports: None Social & Family History - Family History Family Medical History: Noncontributory - Caffeine Use Caffeine Use: Reports: Coffee - Living Situation & Occupation Living situation: Reports: Single Occupation: Unemployed H&P Review of Systems - Review of Systems: Review Of Systems: See Below General: Reports: Malaise, Weakness, Fatigue HEENT: Reports: No Symptoms Pulmonary: Reports: Shortness of Breath, Cough Cardiovascular: Reports: Dyspnea on Exertion, Orthopnea, Edema. Denies: PND Gastrointestinal: Reports: No Symptoms Genitourinary: Reports: No Symptoms Musculoskeletal: Reports: No Symptoms Skin: Reports: No Symptoms Psychiatric: Reports: Anxiety Neurological: Reports: Difficulty Walking, Weakness Hematologic/Lymphatic: Reports: No Symptoms Immunologic: Reports: No Symptoms Exam - Exam Exam: See Below - Vital Signs Vital Signs: Last Vital Signs Temp 98.3 F 09/01/19 16:27 Pulse 106 H 09/01/19 16:27 Resp 18 09/01/19 16:27 BP 95/38 L 09/01/19 16:27 Pulse Ox 94 L 09/01/19 16:27 Weight: 165 lb 2 oz - Exam General: Alert, Oriented, Moderate Distress HEENT: PERRLA, Hearing Intact, Mucosa Moist & [place], Nares Patent, Normal Nasal Septum, Posterior Pharynx Clear, Conjunctiva Clear, EOMI, EACs Clear, TMs Clear Neck: Supple, Trachea Midline, 2 Lungs: Clear to Auscultation, Normal Respiratory Effort Cardiovascular: Regular Rate, Regular Rhythm GI/Abdominal Exam: Normal Bowel Sounds, Soft, Non-Tender, No Organomegaly, No Distention, No Abnormal Bruit, No Mass, Pelvis Stable Extremities: Pedal Edema Peripheral Pulses: 1+: Radial (L), Radial (R) Skin: Warm, Dry, Intact Neuro Extensive - Mental Status: Alert, Oriented x3 Neuro Extensive - Motor, Sensory, Reflexes: CN II-XII Intact DTR: 1+: Bicep (L), Bicep (R) Psychiatric: Alert, Anxious - Patient Data Result Diagrams: 09/02/19 07:27 09/02/19 07:27 Sepsis Event Note - Focused Exam Vital Signs: Vital Signs Temp Pulse Resp BP Pulse Ox 09/01/19 16:27 98.3 F 106 H 18 95/38 L 94 L Date Exam was Performed: 09/02/19 Time Exam was Performed: 16:09 Problem List Initiated/Reviewed/Updated: Yes Assessment/Plan Comment:: Assessment/PLAN: #1. 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 Cancer of the breast with mets to the bone. #3. Obesity: BMI 34 #4. Borderline personality disorder. #5. Irritable bowel syndrome #6. HTN #7. DM Type 2 #8. History of alcoholism #9. Low back pain #10. Anemia #11. Depression #12. Allergies, Acetylcysteine, Codeine, Dilaudid, Erythromycin, Ketorolac Tromethamine, Tramadol, Metronidazole, Philipp oil, Avocado, Banana, Kiwi fruit, Peanuts, Latex, Ragweed Pollen #13 Meds Acetaminophen 325, Alprazolam 1mg, Vit D3, Diclofenac get, Diphenhydramine 25 mg, Fluticasone-Salmeterol 25/50, Lidocaine-Prilocaine 2.5- 12.5% cream, Lisinopril/HCTZ 20/12.5, Metoprolol Succinate 25 mg, Pregabalin 75 mg - Mortality Measure Prognosis:: Good
[2019-09-01] MEDS ORDERED: Heparin Sodium 5,000 Units/ML Vial IV ONE (17:20)
[2019-09-01] MEDS ORDERED: Ondansetron 4 MG Tab.DIS PO PRN (17:23)
[2019-09-01] MEDS ORDERED: diphenhydrAMINE 25 MG Cap PO PRN ×2 (17:23)
[2019-09-01] MEDS ORDERED: Acetaminophen 325 MG Tab PO PRN ×2 (17:28→18:00)
[2019-09-01] MEDS ORDERED: NICOTINE 10 MG INH SCH (17:30)
[2019-09-01] MEDS ORDERED: EPINEPHrine 1 MG/ML SDV IM PRN (17:32)
[2019-09-01] MEDS: Heparin Sodium/D5W 25,000 UNITS/500 ML BAG IV SCH (18:06)
[2019-09-01] MEDS ORDERED: Potassium Chloride 20 MEQ in Premix Bag 1 BAG IV SCH (18:15)
[2019-09-01] MEDS ORDERED: Potassium Chloride 20 MEQ Tab.ER PO ONE (18:16)
[2019-09-01] MEDS ORDERED: Sodium Chloride 0.9% 1,000 ML IV SCH (18:30)
[2019-09-01] MEDS: Potassium Chloride 100 ML ONE ×2 (19:36→22:13)
[2019-09-01] MEDS: Potassium Chloride 20 MEQ, Lidocaine 1% 2 ML in Sodium Chloride 0.9% 100 ML IV SCH ×2 (19:37→22:17)
[2019-09-01] MEDS: ALPRAZolam 0.5 MG Tab PO PRN (19:55)
[2019-09-01] MEDS: Pregabalin 75 MG Cap PO SCH (22:19)
[2019-09-02] MEDS ORDERED: Heparin Sodium 5,000 Units/ML Vial IVPUSH ONE (01:00)
[2019-09-02] MEDS: Escitalopram 20 MG Tab PO SCH (08:42)
[2019-09-02] MEDS ORDERED: Cholecalciferol (Vitamin D3) 50,000 Unit Cap PO SCH (09:00)
[2019-09-02] MEDS: Lisinopril 20 MG Tab PO SCH (09:04)
[2019-09-02] MEDS: Hydrochlorothiazide 12.5 MG Cap PO SCH (09:04)
[2019-09-02] MEDS: Pregabalin 75 MG Cap PO SCH ×2 (10:24→21:11)
[2019-09-02] MEDS: Heparin Sodium/D5W 25,000 UNITS/500 ML BAG IV SCH (11:21)
[2019-09-02] MEDS: DICLOFENAC SODIUM TOP SCH ×2 (14:07→14:08)
--- NOTE | 2019-09-02 16:17 | PCM.PN ---
- General Info Date of Service: 09/02/19 Functional Status: Reports: Pain Controlled - Review of Systems General: Reports: Weakness HEENT: Reports: No Symptoms Pulmonary: Reports: Shortness of Breath, Wheezing Cardiovascular: Reports: Chest Pain Gastrointestinal: Reports: No Symptoms Genitourinary: Reports: No Symptoms Musculoskeletal: Reports: No Symptoms Skin: Reports: No Symptoms Neurological: Reports: No Symptoms Psychiatric: Reports: Anxiety - Patient Data Vitals - Most Recent: Last Vital Signs Temp 97.1 F 09/02/19 15:00 Pulse 102 H 09/02/19 15:00 Resp 18 09/02/19 15:00 BP 110/77 09/02/19 15:00 Pulse Ox 91 L 09/02/19 15:00 Weight - Most Recent: 165 lb 2 oz I&O - Last 24 Hours: Intake & Output 09/02/19 09/02/19 09/02/19 06:59 14:59 22:59 Intake Total 848 360 Output Total 400 350 Balance 448 10 Lab Results Last 24 Hours: Laboratory Results - last 24 hr 09/01/19 09/01/19 09/01/19 Range/Units 17:30 17:30 17:30 WBC 8.0 (4.5-11.0) K/uL RBC 2.89 L (3.30-5.50) M/uL Hgb 8.7 L (12.0-15.0) g/dL Hct 28.0 L (36.0-48.0) % MCV 97 (80-98) fL MCH 30 (27-31) pg MCHC 31 L (32-36) % Plt Count 504 H (150-400) K/uL Neut % (Auto) 84 H (36-66) % Lymph % (Auto) 9 L (24-44) % [place] % (Auto) 4 (2-6) % Eos % (Auto) 2 (2-4) % Baso % (Auto) 0 (0-1) % PT 10.8 (9.5-12.0) sec INR 1.00 (0.80-1.20) APTT 30.3 (27.0-36.0) sec Sodium (140-148) mmol/L Potassium (3.6-5.2) mmol/L Chloride (100-108) mmol/L Carbon Dioxide (21-32) mmol/L Anion Gap (5.0-14.0) mmol/L BUN (7-18) mg/dL Creatinine (0.6-1.0) mg/dL Est Cr Clr Drug Dosing mL/min Estimated GFR (MDRD) (>60) Glucose (74-106) mg/dL POC Glucose (74-106) MG/DL Calcium (8.5-10.1) mg/dL Total Bilirubin (0.2-1.0) mg/dL AST (15-37) U/L ALT (12-78) U/L Alkaline Phosphatase (46-116) U/L Total Protein (6.4-8.2) g/dL Albumin (3.4-5.0) g/dL Globulin (2.3-3.5) g/dL Albumin/Globulin Ratio (1.2-2.2) Urine Color (YELLOW) Urine Appearance (CLEAR) Urine pH (5.0-8.0) Ur Specific [place] (1.008-1.030) Urine Protein (NEGATIVE) mg/dL Urine Glucose (UA) (NEGATIVE) mg/dL Urine Ketones (NEGATIVE) mg/dL Urine Occult Blood (NEGATIVE) Urine Nitrite (NEGATIVE) Urine Bilirubin (NEGATIVE) Urine Urobilinogen (0.2-1.0) EU/dL Ur Leukocyte Esterase (NEGATIVE) Urine RBC (0-5) Urine WBC (0-5) Ur Epithelial Cells Amorphous Sediment Urine Bacteria Urine Mucus 09/01/19 09/01/19 09/01/19 Range/Units 17:30 17:30 20:50 WBC (4.5-11.0) K/uL RBC (3.30-5.50) M/uL Hgb (12.0-15.0) g/dL Hct (36.0-48.0) % MCV (80-98) fL MCH (27-31) pg MCHC (32-36) % Plt Count (150-400) K/uL Neut % (Auto) (36-66) % Lymph % (Auto) (24-44) % [place] % (Auto) (2-6) % Eos % (Auto) (2-4) % Baso % (Auto) (0-1) % PT (9.5-12.0) sec INR (0.80-1.20) APTT (27.0-36.0) sec Sodium 139 L (140-148) mmol/L Potassium 2.9 L* (3.6-5.2) mmol/L Chloride 100 (100-108) mmol/L Carbon Dioxide 27 (21-32) mmol/L Anion Gap 14.9 H (5.0-14.0) mmol/L BUN 17 D (7-18) mg/dL Creatinine 1.2 H (0.6-1.0) mg/dL Est Cr Clr Drug Dosing 41.63 mL/min Estimated GFR (MDRD) 48 L (>60) Glucose 145 H (74-106) mg/dL POC Glucose 147 H (74-106) MG/DL Calcium 9.0 (8.5-10.1) mg/dL Total Bilirubin 0.3 (0.2-1.0) mg/dL AST 15 (15-37) U/L ALT 28 (12-78) U/L Alkaline Phosphatase 89 (46-116) U/L Total Protein 6.8 (6.4-8.2) g/dL Albumin 2.7 L (3.4-5.0) g/dL Globulin 4.1 H (2.3-3.5) g/dL Albumin/Globulin Ratio 0.7 L (1.2-2.2) Urine Color Yellow (YELLOW) Urine Appearance Clear (CLEAR) Urine pH 5.5 (5.0-8.0) Ur Specific [place] 1.010 (1.008-1.030) Urine Protein Negative (NEGATIVE) mg/dL Urine Glucose (UA) Negative (NEGATIVE) mg/dL Urine Ketones Negative (NEGATIVE) mg/dL Urine Occult Blood Negative (NEGATIVE) Urine Nitrite Negative (NEGATIVE) Urine Bilirubin Negative (NEGATIVE) Urine Urobilinogen 0.2 (0.2-1.0) EU/dL Ur Leukocyte Esterase Negative (NEGATIVE) Urine RBC 0-5 (0-5) Urine WBC 0-5 (0-5) Ur Epithelial Cells Rare Amorphous Sediment Not seen Urine Bacteria Not seen Urine Mucus Not seen 09/01/19 09/02/19 09/02/19 Range/Units 23:59 07:27 07:27 WBC 7.0 (4.5-11.0) K/uL RBC 2.99 L (3.30-5.50) M/uL Hgb 9.0 L (12.0-15.0) g/dL Hct 29.3 L (36.0-48.0) % MCV 98 (80-98) fL MCH 30 (27-31) pg MCHC 31 L (32-36) % Plt Count 523 H (150-400) K/uL Neut % (Auto) (36-66) % Lymph % (Auto) (24-44) % [place] % (Auto) (2-6) % Eos % (Auto) (2-4) % Baso % (Auto) (0-1) % PT (9.5-12.0) sec INR (0.80-1.20) APTT 40.9 H (27.0-36.0) sec Sodium 136 L (140-148) mmol/L Potassium 3.9 (3.6-5.2) mmol/L Chloride 100 (100-108) mmol/L Carbon Dioxide 27 (21-32) mmol/L Anion Gap 12.9 (5.0-14.0) mmol/L BUN 14 (7-18) mg/dL Creatinine 1.0 (0.6-1.0) mg/dL Est Cr Clr Drug Dosing 49.95 mL/min Estimated GFR (MDRD) 59 L (>60) Glucose 117 H (74-106) mg/dL POC Glucose (74-106) MG/DL Calcium 8.8 (8.5-10.1) mg/dL Total Bilirubin (0.2-1.0) mg/dL AST (15-37) U/L ALT (12-78) U/L Alkaline Phosphatase (46-116) U/L Total Protein (6.4-8.2) g/dL Albumin (3.4-5.0) g/dL Globulin (2.3-3.5) g/dL Albumin/Globulin Ratio (1.2-2.2) Urine Color (YELLOW) Urine Appearance (CLEAR) Urine pH (5.0-8.0) Ur Specific [place] (1.008-1.030) Urine Protein (NEGATIVE) mg/dL Urine Glucose (UA) (NEGATIVE) mg/dL Urine Ketones (NEGATIVE) mg/dL Urine Occult Blood (NEGATIVE) Urine Nitrite (NEGATIVE) Urine Bilirubin (NEGATIVE) Urine Urobilinogen (0.2-1.0) EU/dL Ur Leukocyte Esterase (NEGATIVE) Urine RBC (0-5) Urine WBC (0-5) Ur Epithelial Cells Amorphous Sediment Urine Bacteria Urine Mucus 09/02/19 09/02/19 09/02/19 Range/Units 07:27 07:30 11:30 WBC (4.5-11.0) K/uL RBC (3.30-5.50) M/uL Hgb (12.0-15.0) g/dL Hct (36.0-48.0) % MCV (80-98) fL MCH (27-31) pg MCHC (32-36) % Plt Count (150-400) K/uL Neut % (Auto) (36-66) % Lymph % (Auto) (24-44) % [place] % (Auto) (2-6) % Eos % (Auto) (2-4) % Baso % (Auto) (0-1) % PT (9.5-12.0) sec INR (0.80-1.20) APTT 64.7 H (27.0-36.0) sec Sodium (140-148) mmol/L Potassium (3.6-5.2) mmol/L Chloride (100-108) mmol/L Carbon Dioxide (21-32) mmol/L Anion Gap (5.0-14.0) mmol/L BUN (7-18) mg/dL Creatinine (0.6-1.0) mg/dL Est Cr Clr Drug Dosing mL/min Estimated GFR (MDRD) (>60) Glucose (74-106) mg/dL POC Glucose 121 H 129 H (74-106) MG/DL Calcium (8.5-10.1) mg/dL Total Bilirubin (0.2-1.0) mg/dL AST (15-37) U/L ALT (12-78) U/L Alkaline Phosphatase (46-116) U/L Total Protein (6.4-8.2) g/dL Albumin (3.4-5.0) g/dL Globulin (2.3-3.5) g/dL Albumin/Globulin Ratio (1.2-2.2) Urine Color (YELLOW) Urine Appearance (CLEAR) Urine pH (5.0-8.0) Ur Specific [place] (1.008-1.030) Urine Protein (NEGATIVE) mg/dL Urine Glucose (UA) (NEGATIVE) mg/dL Urine Ketones (NEGATIVE) mg/dL Urine Occult Blood (NEGATIVE) Urine Nitrite (NEGATIVE) Urine Bilirubin (NEGATIVE) Urine Urobilinogen (0.2-1.0) EU/dL Ur Leukocyte Esterase (NEGATIVE) Urine RBC (0-5) Urine WBC (0-5) Ur Epithelial Cells Amorphous Sediment Urine Bacteria Urine Mucus 09/02/19 Range/Units 13:33 WBC (4.5-11.0) K/uL RBC (3.30-5.50) M/uL Hgb (12.0-15.0) g/dL Hct (36.0-48.0) % MCV (80-98) fL MCH (27-31) pg MCHC (32-36) % Plt Count (150-400) K/uL Neut % (Auto) (36-66) % Lymph % (Auto) (24-44) % [place] % (Auto) (2-6) % Eos % (Auto) (2-4) % Baso % (Auto) (0-1) % PT (9.5-12.0) sec INR (0.80-1.20) APTT 60.2 H (27.0-36.0) sec Sodium (140-148) mmol/L Potassium (3.6-5.2) mmol/L Chloride (100-108) mmol/L Carbon Dioxide (21-32) mmol/L Anion Gap (5.0-14.0) mmol/L BUN (7-18) mg/dL Creatinine (0.6-1.0) mg/dL Est Cr Clr Drug Dosing mL/min Estimated GFR (MDRD) (>60) Glucose (74-106) mg/dL POC Glucose (74-106) MG/DL Calcium (8.5-10.1) mg/dL Total Bilirubin (0.2-1.0) mg/dL AST (15-37) U/L ALT (12-78) U/L Alkaline Phosphatase (46-116) U/L Total Protein (6.4-8.2) g/dL Albumin (3.4-5.0) g/dL Globulin (2.3-3.5) g/dL Albumin/Globulin Ratio (1.2-2.2) Urine Color (YELLOW) Urine Appearance (CLEAR) Urine pH (5.0-8.0) Ur Specific [place] (1.008-1.030) Urine Protein (NEGATIVE) mg/dL Urine Glucose (UA) (NEGATIVE) mg/dL Urine Ketones (NEGATIVE) mg/dL Urine Occult Blood (NEGATIVE) Urine Nitrite (NEGATIVE) Urine Bilirubin (NEGATIVE) Urine Urobilinogen (0.2-1.0) EU/dL Ur Leukocyte Esterase (NEGATIVE) Urine RBC (0-5) Urine WBC (0-5) Ur Epithelial Cells Amorphous Sediment Urine Bacteria Urine Mucus Med Orders - Current: Current Medications Acetaminophen (Tylenol) 325 - 650 mg PO Q6H PRN PRN Reason: Pain Alprazolam (Xanax) 1 mg PO BID PRN PRN Reason: Anxiety Last Admin: 09/01/19 19:55 Dose: 1 mg Documented by: Cholecalciferol (Vitamin D3) 50,000 unit PO Fr@0900 [facility] Last Admin: 09/02/19 08:42 Dose: 50,000 unit Documented by: Diphenhydramine HCl (Benadryl) 25 mg PO Q6H PRN PRN Reason: other Epinephrine HCl (Adrenalin) 0.3 mg IM ASDIRECTED PRN PRN Reason: Other Escitalopram Oxalate (Lexapro) 20 mg PO DAILY [facility] Last Admin: 09/02/19 08:42 Dose: 20 mg Documented by: Hydrochlorothiazide (Hydrochlorothiazide) 12.5 mg PO DAILY [facility] Last Admin: 09/02/19 09:04 Dose: Not Given Documented by: Heparin Sodium/Dextrose (Heparin 25,000 Units In D5w 500 Ml) 25,000 units in 500 mls @ 26 mls/hr IV TITRATE [facility]; Protocol Last Admin: 09/02/19 11:21 Dose: 29 mls/hr, 29 mls/hr Documented by: Sodium Chloride (Normal Saline) 1,000 mls @ 0 mls/hr IV ASDIRECTED [facility] Lisinopril (Prinivil) 20 mg PO DAILY [facility] Last Admin: 09/02/19 09:04 Dose: Not Given Documented by: Non-Formulary Medication (Nicotine [Nicotrol]) 10 mg INH ASDIRECTED [facility] Ondansetron HCl (Zofran Odt) 8 mg PO Q8H PRN PRN Reason: Nausea/Vomiting Pregabalin (Lyrica) 75 mg PO BID [facility] Last Admin: 09/02/19 10:24 Dose: 75 mg Documented by: Discontinued Medications Diphenhydramine HCl (Benadryl) 25 mg PO Q6H PRN PRN Reason: Sleep Heparin Sodium (Porcine) (Heparin Sodium) 5,000 units IV ONETIME ONE Stop: 09/01/19 17:21 Last Admin: 09/01/19 18:04 Dose: 5,000 units Documented by: Heparin Sodium (Porcine) (Heparin Sodium) 1,500 units IVPUSH .BOLUS ONE Stop: 09/02/19 01:01 Last Admin: 09/02/19 01:16 Dose: 1,500 units Documented by: Potassium Chloride 20 meq/Lidocaine HCl 2 ml/ Sodium Chloride 112 mls @ 50 mls/hr IV Q2H [facility] Stop: 09/01/19 22:44 Last Admin: 09/01/19 22:17 Dose: Not Given Documented by: Potassium Chloride (Kcl 20 Meq In Water 100 Ml) Confirm Administered Dose 100 mls @ as directed .ROUTE .STK-MED ONE Stop: 09/01/19 19:31 Last Admin: 09/01/19 22:13 Dose: 50 mls/hr Documented by: Potassium Chloride (Kcl 20 Meq In Water 100 Ml) Confirm Administered Dose 200 mls @ as directed .ROUTE .STK-MED ONE Stop: 09/01/19 19:45 Last Admin: 09/01/19 22:16 Dose: Not Given Documented by: Non-Formulary Medication (Diclofenac Sodium [Diclofenac Sodium]) 40 drop TOP Q6H [facility] Last Admin: 09/02/19 14:08 Dose: Not Given Documented by: Potassium Chloride (Klor-Con M20) 40 meq PO ONETIME ONE Stop: 09/01/19 18:17 Last Admin: 09/01/19 19:37 Dose: 40 meq Documented by: - Exam General: Alert, Oriented HEENT: Pupils Equal, Pupils Reactive, EOMI, Mucous Membr. Moist/[place] Neck: Supple Lungs: Clear to Auscultation, Normal Respiratory Effort Cardiovascular: Regular Rate, Regular Rhythm GI/Abdominal Exam: Normal Bowel Sounds, Soft, Non-Tender, No Organomegaly, No Distention, No Abnormal Bruit, No Mass, Pelvis Stable Back Exam: Vertebral Tenderness Peripheral Pulses: 1+: Radial (L), Radial (R) Skin: Warm, Dry, Intact Psy/Mental Status: Alert, Normal Affect, Normal Mood, Anxious Sepsis Event Note - Evaluation Sepsis Screening Result: No Definite Risk - Focused Exam Vital Signs: Vital Signs Temp Pulse Resp BP BP Pulse Ox 09/02/19 15:00 97.1 F 102 H 18 110/77 91 L 09/02/19 11:25 97.4 F 95 20 99/57 L 94 L 09/02/19 07:27 97.4 F 89 16 93/46 L 91 L Date Exam was Performed: 09/02/19 Time Exam was Performed: 16:11 - Problem List Review Problem List Initiated/Reviewed/Updated: Yes - My Orders Last 24 Hours: My Active Orders 09/01/19 17:15 Heparin Sodium/D5W [Heparin 25,000 Units in D5W 500 ML] 25,000 units in 500 ml IV TITRATE 09/01/19 17:17 Patient Status [ADT] Routine Blood Glucose Check, Bedside [RC] QIDACANDBED Height and Weight [RC] UPON May Shower [RC] ASDIRECTED Oxygen Therapy [RC] PRN Up to Chair [RC] QID VTE/DVT Education [RC] Per Unit Routine Vital Signs [RC] Q4H Resuscitation Status Routine 09/01/19 17:19 Cardiac Monitoring [RC] .As Directed Intake and Output [RC] QSHIFT 09/01/19 17:23 Ondansetron [Zofran ODT] 8 mg PO Q8H PRN diphenhydrAMINE [Benadryl] 25 mg PO Q6H PRN 09/01/19 17:30 ALPRAZolam [Xanax] 1 mg PO BID PRN Nicotine [Nicotrol] 10 mg INH ASDIRECTED 09/01/19 17:32 EPINEPHrine [Adrenalin] 0.3 mg IM ASDIRECTED PRN 09/01/19 18:00 Acetaminophen [Tylenol] 325 - 650 mg PO Q6H PRN 09/01/19 18:30 Sodium Chloride 0.9% [Normal Saline] 1,000 ml IV ASDIRECTED 09/01/19 21:00 Pregabalin [Lyrica] 75 mg PO BID 09/02/19 08:00 VL Duplex Lwr Ext Veins Comp [US] Routine 09/02/19 09:00 Cholecalciferol (Vitamin D3) [Vitamin D3] 50,000 unit PO Fr@0900 Escitalopram [Lexapro] 20 mg PO DAILY hydroCHLOROthiazide 12.5 mg PO DAILY lisinopriL [Prinivil] 20 mg PO DAILY 09/02/19 16:30 GLUCOSE POC LAB TO COLLECT JPM [POC] QIDACANDBED 09/02/19 19:30 aPTT [PTT,PARTIAL THROMBOPLSTIN TIME] [COAG] Q609/02/19 21:00 GLUCOSE POC LAB TO COLLECT JPM [POC] QIDACANDBED 09/03/19 01:30 aPTT [PTT,PARTIAL THROMBOPLSTIN TIME] [COAG] Q09/03/19 07:30 GLUCOSE POC LAB TO COLLECT JPM [POC] QIDACANDBED aPTT [PTT,PARTIAL THROMBOPLSTIN TIME] [COAG] Q09/03/19 11:30 GLUCOSE POC LAB TO COLLECT JPM [POC] QIDACANDBED 09/03/19 13:30 aPTT [PTT,PARTIAL THROMBOPLSTIN TIME] [COAG] Q09/03/19 16:30 GLUCOSE POC LAB TO COLLECT JPM [POC] QIDACANDBED 09/03/19 19:30 aPTT [PTT,PARTIAL THROMBOPLSTIN TIME] [COAG] Q09/03/19 21:00 GLUCOSE POC LAB TO COLLECT JPM [POC] QIDACANDBED 09/04/19 01:30 aPTT [PTT,PARTIAL THROMBOPLSTIN TIME] [COAG] Q09/04/19 07:30 GLUCOSE POC LAB TO COLLECT JPM [POC] QIDACANDBED aPTT [PTT,PARTIAL THROMBOPLSTIN TIME] [COAG] Q09/04/19 11:30 GLUCOSE POC LAB TO COLLECT JPM [POC] QIDACANDBED 09/04/19 13:30 aPTT [PTT,PARTIAL THROMBOPLSTIN TIME] [COAG] Q09/04/19 16:30 GLUCOSE POC LAB TO COLLECT JPM [POC] QIDACANDBED 09/04/19 19:30 aPTT [PTT,PARTIAL THROMBOPLSTIN TIME] [COAG] Q609/04/19 21:00 GLUCOSE POC LAB TO COLLECT JPM [POC] QIDACANDBED 07/13/20 01:30 aPTT [PTT,PARTIAL THROMBOPLSTIN TIME] [COAG] Q6H 09/05/19 07:30 GLUCOSE POC LAB TO COLLECT JPM [POC] QIDACANDBED 09/05/19 11:30 GLUCOSE POC LAB TO COLLECT JPM [POC] QIDACANDBED 09/05/19 16:30 GLUCOSE POC LAB TO COLLECT JPM [POC] QIDACANDBED 09/05/19 21:00 GLUCOSE POC LAB TO COLLECT JPM [POC] QIDACANDBED 09/06/19 07:30 GLUCOSE POC LAB TO COLLECT JPM [POC] QIDACANDBED 09/06/19 11:30 GLUCOSE POC LAB TO COLLECT JPM [POC] QIDACANDBED 09/06/19 16:30 GLUCOSE POC LAB TO COLLECT JPM [POC] QIDACANDBED 09/06/19 21:00 GLUCOSE POC LAB TO COLLECT JPM [POC] QIDACANDBED 09/07/19 07:30 GLUCOSE POC LAB TO COLLECT JPM [POC] QIDACANDBED 09/07/19 11:30 GLUCOSE POC LAB TO COLLECT JPM [POC] QIDACANDBED 09/07/19 16:30 GLUCOSE POC LAB TO COLLECT JPM [POC] QIDACANDBED 09/07/19 21:00 GLUCOSE POC LAB TO COLLECT JPM [POC] QIDACANDBED - Plan Plan:: Assessment/PLAN: #1. 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 Cancer of the breast with mets to the bone. #3. Obesity: BMI 34 #4. Borderline personality disorder. #5. Irritable bowel syndrome #6. HTN. Low today and have held her medicine. #7. DM Type 2. BS 145 today #8. History of alcoholism #9. Low back pain #10. Anemia. Hb 9.0 today #11. Depression Chironic #12. Hypokalemia: Have corrected it today to 3.9 #13. Allergies, Acetylcysteine, Codeine, Dilaudid, Erythromycin, Ketorolac Tromethamine, Tramadol, Metronidazole, [place] oil, Avocado, Banana, Kiwi fruit, Peanuts, Latex, Ragweed Pollen #14. Meds Acetaminophen 325, Alprazolam 1mg, Vit D3, Diclofenac get, Diphenhydramine 25 mg, Fluticasone-Salmeterol 25/50, Lidocaine-Prilocaine 2.5- 12.5% cream, Lisinopril/HCTZ 20/12.5, Metoprolol Succinate 25 mg, Pregabalin 75 mg
[2019-09-02] MEDS: Potassium Chloride 10 MEQ Cap.ER PO SCH (18:26)
[2019-09-02] MEDS: ALPRAZolam 0.5 MG Tab PO PRN (19:53)
[2019-09-03] MEDS: Heparin Sodium/D5W 25,000 UNITS/500 ML BAG IV SCH (04:57)
[2019-09-03] MEDS: Pregabalin 75 MG Cap PO SCH ×2 (08:45→21:35)
[2019-09-03] MEDS: Hydrochlorothiazide 12.5 MG Cap PO SCH ×2 (08:46→09:29)
[2019-09-03] MEDS: Lisinopril 20 MG Tab PO SCH (08:46)
[2019-09-03] MEDS: Potassium Chloride 10 MEQ Cap.ER PO SCH (08:47)
[2019-09-03] MEDS: Escitalopram 20 MG Tab PO SCH (08:47)
[2019-09-03] MEDS ORDERED: ALPRAZolam 0.5 MG Tab PO SCH (09:15)
--- NOTE | 2019-09-03 10:31 | CRLUS ---
Final Report: INDICATION: Bilateral pulmonary emboli. TECHNIQUE: : Ultrasound venous duplex lower extremity bilateral. Compression venous exam was performed using baker-scale, color Doppler, and spectral Doppler imaging. COMPARISON: No prior ultrasound. FINDINGS: Sonographic imaging demonstrates the common femoral, deep femoral, superficial femoral, popliteal, posterior tibial and greater saphenous veins to be fully compressible with normal color Doppler blood flow in both lower extremities. IMPRESSION: No DVT within either lower extremity. Dictated by Oleg Dunaway MD @ 09/03/2019 10:16:16 AM Dictated by: Oleg Dunaway MD @ 09/03/2019 10:16:23 (Electronic Signature) MTDD
[2019-09-03] MEDS: ALPRAZolam 0.5 MG Tab PO PRN (10:46)
[2019-09-03] MEDS: Acetaminophen/HYDROcodone 325-5 MG Tab PO PRN (10:46)
--- NOTE | 2019-09-03 13:27 | PCM.PN ---
- General Info Date of Service: 09/03/19 Functional Status: Reports: Pain Controlled - Review of Systems General: Reports: Weakness HEENT: Reports: No Symptoms Pulmonary: Reports: Shortness of Breath, Pleuritic Chest Pain Cardiovascular: Reports: No Symptoms Gastrointestinal: Reports: No Symptoms Genitourinary: Reports: No Symptoms Musculoskeletal: Reports: Back Pain Skin: Reports: No Symptoms Neurological: Reports: Difficulty Walking, Gait Disturbance Psychiatric: Reports: Depression, Anxiety - Patient Data Vitals - Most Recent: Last Vital Signs Temp 97.2 F 09/03/19 11:00 Pulse 99 09/03/19 11:00 Resp 18 09/03/19 11:00 BP 124/73 09/03/19 11:00 Pulse Ox 92 L 09/03/19 11:00 Weight - Most Recent: 168 lb 6.4 oz I&O - Last 24 Hours: Intake & Output 09/02/19 09/03/19 09/03/19 22:59 06:59 14:59 Intake Total 1559 552 Output Total 200 Balance 1359 552 Lab Results Last 24 Hours: Laboratory Results - last 24 hr 09/02/19 09/02/19 09/02/19 Range/Units 13:33 16:30 21:00 APTT 60.2 H (27.0-36.0) sec POC Glucose 98 111 H (74-106) MG/DL 09/03/19 09/03/19 Range/Units 07:30 11:30 APTT (27.0-36.0) sec POC Glucose 112 H 189 H (74-106) MG/DL Med Orders - Current: Current Medications Acetaminophen (Tylenol) 325 - 650 mg PO Q6H PRN PRN Reason: Pain Hydrocodone Bitart/Acetaminophen ([place] 325-5 Mg) 1 tab PO Q6H PRN PRN Reason: Pain Last Admin: 09/03/19 10:46 Dose: 1 tab Documented by: Alprazolam (Xanax) 1 mg PO TID PRN PRN Reason: Anxiety Last Admin: 09/03/19 10:46 Dose: 1 mg Documented by: Cholecalciferol (Vitamin D3) 50,000 unit PO Fr@0900 [facility] Last Admin: 09/02/19 08:42 Dose: 50,000 unit Documented by: Diphenhydramine HCl (Benadryl) 25 mg PO Q6H PRN PRN Reason: other Epinephrine HCl (Adrenalin) 0.3 mg IM ASDIRECTED PRN PRN Reason: Other Escitalopram Oxalate (Lexapro) 20 mg PO DAILY [facility] Last Admin: 09/03/19 08:47 Dose: 20 mg Documented by: Hydrochlorothiazide (Hydrochlorothiazide) 12.5 mg PO DAILY [facility] Last Admin: 09/03/19 09:29 Dose: 12.5 mg Documented by: Heparin Sodium/Dextrose (Heparin 25,000 Units In D5w 500 Ml) 25,000 units in 500 mls @ 26 mls/hr IV TITRATE [facility]; Protocol Last Admin: 09/03/19 04:57 Dose: 29 mls/hr, 29 mls/hr Documented by: Sodium Chloride (Normal Saline) 1,000 mls @ 0 mls/hr IV ASDIRECTED [facility] Last Admin: 09/03/19 04:57 Dose: 25 mls/hr Documented by: Lisinopril (Prinivil) 20 mg PO DAILY [facility] Last Admin: 09/03/19 08:46 Dose: Not Given Documented by: Nicotine (Nicotrol) (10 MgPom) 0 mg INH ASDIRECTED [facility] Ondansetron HCl (Zofran Odt) 8 mg PO Q8H PRN PRN Reason: Nausea/Vomiting Potassium Chloride (Potassium Chloride) 10 meq PO DAILY [facility] Last Admin: 09/03/19 08:47 Dose: 10 meq Documented by: Pregabalin (Lyrica) 75 mg PO BID [facility] Last Admin: 09/03/19 08:45 Dose: 75 mg Documented by: Discontinued Medications Alprazolam (Xanax) 1 mg PO BID PRN PRN Reason: Anxiety Last Admin: 09/02/19 19:53 Dose: 1 mg Documented by: Alprazolam (Xanax) 1 mg PO TID [facility] Last Admin: 09/03/19 09:31 Dose: Not Given Documented by: Diphenhydramine HCl (Benadryl) 25 mg PO Q6H PRN PRN Reason: Sleep Heparin Sodium (Porcine) (Heparin Sodium) 5,000 units IV ONETIME ONE Stop: 09/01/19 17:21 Last Admin: 09/01/19 18:04 Dose: 5,000 units Documented by: Heparin Sodium (Porcine) (Heparin Sodium) 1,500 units IVPUSH .BOLUS ONE Stop: 09/02/19 01:01 Last Admin: 09/02/19 01:16 Dose: 1,500 units Documented by: Potassium Chloride 20 meq/Lidocaine HCl 2 ml/ Sodium Chloride 112 mls @ 50 mls/hr IV Q2H [facility] Stop: 09/01/19 22:44 Last Admin: 09/01/19 22:17 Dose: Not Given Documented by: Potassium Chloride (Kcl 20 Meq In Water 100 Ml) Confirm Administered Dose 100 mls @ as directed .ROUTE .STK-MED ONE Stop: 09/01/19 19:31 Last Admin: 09/01/19 22:13 Dose: 50 mls/hr Documented by: Potassium Chloride (Kcl 20 Meq In Water 100 Ml) Confirm Administered Dose 200 mls @ as directed .ROUTE .STK-MED ONE Stop: 09/01/19 19:45 Last Admin: 09/01/19 22:16 Dose: Not Given Documented by: Non-Formulary Medication (Diclofenac Sodium [Diclofenac Sodium]) 40 drop TOP Q6H [facility] Last Admin: 09/02/19 14:08 Dose: Not Given Documented by: Potassium Chloride (Klor-Con M20) 40 meq PO ONETIME ONE Stop: 09/01/19 18:17 Last Admin: 09/01/19 19:37 Dose: 40 meq Documented by: - Exam General: Alert, Oriented, Moderate Distress HEENT: Pupils Equal, Pupils Reactive, EOMI, Mucous Membr. Moist/[place] Neck: Supple Lungs: Clear to Auscultation, Normal Respiratory Effort Cardiovascular: Regular Rate, Regular Rhythm GI/Abdominal Exam: Normal Bowel Sounds, Soft, Non-Tender, No Organomegaly, No Abnormal Bruit, No Mass, Pelvis Stable Back Exam: Vertebral Tenderness Peripheral Pulses: 1+: Radial (L), Radial (R) Psy/Mental Status: Anxious Sepsis Event Note - Evaluation Sepsis Screening Result: No Definite Risk - Focused Exam Vital Signs: Vital Signs Temp Pulse Resp BP Pulse Ox 09/03/19 11:00 97.2 F 99 18 124/73 92 L 09/03/19 07:00 96.9 F 84 18 113/69 96 09/03/19 02:14 97.3 F 94 16 114/67 96 Date Exam was Performed: 09/03/19 Time Exam was Performed: 13:18 - Problem List Review Problem List Initiated/Reviewed/Updated: Yes - My Orders Last 24 Hours: My Active Orders 09/02/19 16:30 Potassium Chloride 10 meq PO DAILY 09/03/19 09:20 ALPRAZolam [Xanax] 1 mg PO TID PRN 09/03/19 09:22 Acetaminophen/HYDROcodone [[place] 325-5 MG] 1 tab PO Q6H PRN 09/03/19 13:30 aPTT [PTT,PARTIAL THROMBOPLSTIN TIME] [COAG] Routine 09/03/19 16:30 GLUCOSE POC LAB TO COLLECT JPM [POC] QIDACANDBED 09/03/19 21:00 GLUCOSE POC LAB TO COLLECT JPM [POC] QIDACANDBED 09/04/19 07:30 GLUCOSE POC LAB TO COLLECT JPM [POC] QIDACANDBED 09/04/19 11:30 GLUCOSE POC LAB TO COLLECT JPM [POC] QIDACANDBED 09/04/19 16:30 GLUCOSE POC LAB TO COLLECT JPM [POC] QIDACANDBED 09/04/19 21:00 GLUCOSE POC LAB TO COLLECT JPM [POC] QIDACANDBED 09/05/19 07:30 GLUCOSE POC LAB TO COLLECT JPM [POC] QIDACANDBED 09/05/19 11:30 GLUCOSE POC LAB TO COLLECT JPM [POC] QIDACANDBED 09/05/19 16:30 GLUCOSE POC LAB TO COLLECT JPM [POC] QIDACANDBED 09/05/19 21:00 GLUCOSE POC LAB TO COLLECT JPM [POC] QIDACANDBED 09/06/19 07:30 GLUCOSE POC LAB TO COLLECT JPM [POC] QIDACANDBED 09/06/19 11:30 GLUCOSE POC LAB TO COLLECT JPM [POC] QIDACANDBED 09/06/19 16:30 GLUCOSE POC LAB TO COLLECT JPM [POC] QIDACANDBED 09/06/19 21:00 GLUCOSE POC LAB TO COLLECT JPM [POC] QIDACANDBED 09/07/19 07:30 GLUCOSE POC LAB TO COLLECT JPM [POC] QIDACANDBED 09/07/19 11:30 GLUCOSE POC LAB TO COLLECT JPM [POC] QIDACANDBED 09/07/19 16:30 GLUCOSE POC LAB TO COLLECT JPM [POC] QIDACANDBED 09/07/19 21:00 GLUCOSE POC LAB TO COLLECT JPM [POC] QIDACANDBED - Plan Plan:: Assessment/PLAN: #1. 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 #2. Cancer of the breast with mets to the bone. #3. Obesity: BMI 34 #4. Borderline personality disorder. #5. Irritable bowel syndrome #6. HTN. Low today and have held her medicine which is the second day today. #7. DM Type 2. BS 145 today #8. History of alcoholism #9. Low back pain #10. Anemia. Hb 9.0 #11. Depression Chironic #12. Hypokalemia: Have corrected 3.9 #13. Allergies, Acetylcysteine, Codeine, Dilaudid, Erythromycin, Ketorolac Tromethamine, Tramadol, Metronidazole, [place] oil, Avocado, Banana, Kiwi fruit, Peanuts, Latex, Ragweed Pollen #14. Meds Acetaminophen 325, Alprazolam 1mg, Vit D3, Diclofenac get, Diphenhydramine 25 mg, Fluticasone-Salmeterol 25/50, Lidocaine-Prilocaine 2.5- 12.5% cream, Lisinopril/HCTZ 20/12.5, Metoprolol Succinate 25 mg, Pregabalin 75 mg She will need to go to the prison until she is stronger as she can not take care of herself at the present time.
[2019-09-03] MEDS ORDERED: Hydrochlorothiazide 12.5 MG Cap PO ONE (14:00)
[2019-09-03] MEDS: Rivaroxaban 15 MG Tab PO SCH ×2 (14:11→21:35)
--- NOTE | 2019-09-04 07:54 | PCM.PN ---
- General Info Date of Service: 09/04/19 Functional Status: Reports: Pain Controlled - Review of Systems General: Reports: Weakness HEENT: Reports: No Symptoms Pulmonary: Reports: No Symptoms Cardiovascular: Reports: Chest Pain Gastrointestinal: Reports: No Symptoms Genitourinary: Reports: No Symptoms Musculoskeletal: Reports: No Symptoms Skin: Reports: No Symptoms Neurological: Reports: No Symptoms - Patient Data Vitals - Most Recent: Last Vital Signs Temp 97.3 F 09/04/19 07:00 Pulse 99 09/04/19 07:00 Resp 18 09/04/19 07:00 BP 124/72 09/04/19 07:00 Pulse Ox 95 09/04/19 07:00 Weight - Most Recent: 168 lb 3.2 oz I&O - Last 24 Hours: Intake & Output 09/03/19 09/04/19 09/04/19 22:59 06:59 14:59 Intake Total 903 Output Total 1000 1300 Balance -97 -1300 Lab Results Last 24 Hours: Laboratory Results - last 24 hr 09/03/19 09/03/19 09/03/19 Range/Units 11:30 13:30 16:30 WBC (4.5-11.0) K/uL RBC (3.30-5.50) M/uL Hgb (12.0-15.0) g/dL Hct (36.0-48.0) % MCV (80-98) fL MCH (27-31) pg MCHC (32-36) % Plt Count (150-400) K/uL PT 10.6 (9.5-12.0) sec INR 0.98 (0.80-1.20) APTT 57.6 H (27.0-36.0) sec Sodium (140-148) mmol/L Potassium (3.6-5.2) mmol/L Chloride (100-108) mmol/L Carbon Dioxide (21-32) mmol/L Anion Gap (5.0-14.0) mmol/L BUN (7-18) mg/dL Creatinine (0.6-1.0) mg/dL Est Cr Clr Drug Dosing mL/min Estimated GFR (MDRD) (>60) Glucose (74-106) mg/dL POC Glucose 189 H 85 (74-106) MG/DL Calcium (8.5-10.1) mg/dL Total Bilirubin (0.2-1.0) mg/dL AST (15-37) U/L ALT (12-78) U/L Alkaline Phosphatase (46-116) U/L Total Protein (6.4-8.2) g/dL Albumin (3.4-5.0) g/dL Globulin (2.3-3.5) g/dL Albumin/Globulin Ratio (1.2-2.2) 09/03/19 09/04/19 09/04/19 Range/Units 21:00 06:15 06:15 WBC 5.7 (4.5-11.0) K/uL RBC 3.18 L (3.30-5.50) M/uL Hgb 9.8 L (12.0-15.0) g/dL Hct 31.4 L (36.0-48.0) % MCV 99 H (80-98) fL MCH 31 (27-31) pg MCHC 31 L (32-36) % Plt Count 599 H (150-400) K/uL PT 11.5 (9.5-12.0) sec INR 1.07 (0.80-1.20) APTT (27.0-36.0) sec Sodium (140-148) mmol/L Potassium (3.6-5.2) mmol/L Chloride (100-108) mmol/L Carbon Dioxide (21-32) mmol/L Anion Gap (5.0-14.0) mmol/L BUN (7-18) mg/dL Creatinine (0.6-1.0) mg/dL Est Cr Clr Drug Dosing mL/min Estimated GFR (MDRD) (>60) Glucose (74-106) mg/dL POC Glucose 124 H (74-106) MG/DL Calcium (8.5-10.1) mg/dL Total Bilirubin (0.2-1.0) mg/dL AST (15-37) U/L ALT (12-78) U/L Alkaline Phosphatase (46-116) U/L Total Protein (6.4-8.2) g/dL Albumin (3.4-5.0) g/dL Globulin (2.3-3.5) g/dL Albumin/Globulin Ratio (1.2-2.2) 09/04/19 09/04/19 Range/Units 06:15 07:30 WBC (4.5-11.0) K/uL RBC (3.30-5.50) M/uL Hgb (12.0-15.0) g/dL Hct (36.0-48.0) % MCV (80-98) fL MCH (27-31) pg MCHC (32-36) % Plt Count (150-400) K/uL PT (9.5-12.0) sec INR (0.80-1.20) APTT (27.0-36.0) sec Sodium 139 L (140-148) mmol/L Potassium 4.0 (3.6-5.2) mmol/L Chloride 104 (100-108) mmol/L Carbon Dioxide 27 (21-32) mmol/L Anion Gap 12.0 (5.0-14.0) mmol/L BUN 8 (7-18) mg/dL Creatinine 0.9 (0.6-1.0) mg/dL Est Cr Clr Drug Dosing 55.51 mL/min Estimated GFR (MDRD) > 60 (>60) Glucose 103 (74-106) mg/dL POC Glucose 129 H (74-106) MG/DL Calcium 9.1 (8.5-10.1) mg/dL Total Bilirubin 0.2 (0.2-1.0) mg/dL AST 12 L (15-37) U/L ALT 24 (12-78) U/L Alkaline Phosphatase 89 (46-116) U/L Total Protein 6.8 (6.4-8.2) g/dL Albumin 2.6 L (3.4-5.0) g/dL Globulin 4.2 H (2.3-3.5) g/dL Albumin/Globulin Ratio 0.6 L (1.2-2.2) Med Orders - Current: Current Medications Acetaminophen (Tylenol) 325 - 650 mg PO Q6H PRN PRN Reason: Pain Hydrocodone Bitart/Acetaminophen ([place] 325-5 Mg) 1 tab PO Q6H PRN PRN Reason: Pain Last Admin: 09/03/19 10:46 Dose: 1 tab Documented by: Alprazolam (Xanax) 1 mg PO TID PRN PRN Reason: Anxiety Last Admin: 09/03/19 10:46 Dose: 1 mg Documented by: Cholecalciferol (Vitamin D3) 50,000 unit PO Fr@0900 [facility] Last Admin: 09/02/19 08:42 Dose: 50,000 unit Documented by: Diphenhydramine HCl (Benadryl) 25 mg PO Q6H PRN PRN Reason: other Epinephrine HCl (Adrenalin) 0.3 mg IM ASDIRECTED PRN PRN Reason: Other Escitalopram Oxalate (Lexapro) 20 mg PO DAILY [facility] Last Admin: 09/03/19 08:47 Dose: 20 mg Documented by: Hydrochlorothiazide (Hydrochlorothiazide) 12.5 mg PO DAILY [facility] Last Admin: 09/03/19 09:29 Dose: 12.5 mg Documented by: Sodium Chloride (Normal Saline) 1,000 mls @ 0 mls/hr IV ASDIRECTED [facility] Last Admin: 09/03/19 04:57 Dose: 25 mls/hr Documented by: Lisinopril (Prinivil) 20 mg PO DAILY [facility] Last Admin: 09/03/19 08:46 Dose: Not Given Documented by: Nicotine (Nicotrol) (10 MgPom) 0 mg INH ASDIRECTED [facility] Ondansetron HCl (Zofran Odt) 8 mg PO Q8H PRN PRN Reason: Nausea/Vomiting Potassium Chloride (Potassium Chloride) 10 meq PO DAILY [facility] Last Admin: 09/03/19 08:47 Dose: 10 meq Documented by: Pregabalin (Lyrica) 75 mg PO BID [facility] Last Admin: 09/03/19 21:35 Dose: 75 mg Documented by: Rivaroxaban (Xarelto) 15 mg PO BID [facility] Last Admin: 09/03/19 21:35 Dose: 15 mg Documented by: Discontinued Medications Alprazolam (Xanax) 1 mg PO BID PRN PRN Reason: Anxiety Last Admin: 09/02/19 19:53 Dose: 1 mg Documented by: Alprazolam (Xanax) 1 mg PO TID [facility] Last Admin: 09/03/19 09:31 Dose: Not Given Documented by: Diphenhydramine HCl (Benadryl) 25 mg PO Q6H PRN PRN Reason: Sleep Heparin Sodium (Porcine) (Heparin Sodium) 5,000 units IV ONETIME ONE Stop: 09/01/19 17:21 Last Admin: 09/01/19 18:04 Dose: 5,000 units Documented by: Heparin Sodium (Porcine) (Heparin Sodium) 1,500 units IVPUSH .BOLUS ONE Stop: 09/02/19 01:01 Last Admin: 09/02/19 01:16 Dose: 1,500 units Documented by: Hydrochlorothiazide (Hydrochlorothiazide) 12.5 mg PO ONETIME ONE Stop: 09/03/19 14:01 Last Admin: 09/03/19 14:11 Dose: 12.5 mg Documented by: Heparin Sodium/Dextrose (Heparin 25,000 Units In D5w 500 Ml) 25,000 units in 500 mls @ 26 mls/hr IV TITRATE [facility]; Protocol Last Admin: 09/03/19 04:57 Dose: 29 mls/hr, 29 mls/hr Documented by: Potassium Chloride 20 meq/Lidocaine HCl 2 ml/ Sodium Chloride 112 mls @ 50 mls/hr IV Q2H [facility] Stop: 09/01/19 22:44 Last Admin: 09/01/19 22:17 Dose: Not Given Documented by: Potassium Chloride (Kcl 20 Meq In Water 100 Ml) Confirm Administered Dose 100 mls @ as directed .ROUTE .STK-MED ONE Stop: 09/01/19 19:31 Last Admin: 09/01/19 22:13 Dose: 50 mls/hr Documented by: Potassium Chloride (Kcl 20 Meq In Water 100 Ml) Confirm Administered Dose 200 mls @ as directed .ROUTE .STK-MED ONE Stop: 09/01/19 19:45 Last Admin: 09/01/19 22:16 Dose: Not Given Documented by: Non-Formulary Medication (Diclofenac Sodium [Diclofenac Sodium]) 40 drop TOP Q6H [facility] Last Admin: 09/02/19 14:08 Dose: Not Given Documented by: Potassium Chloride (Klor-Con M20) 40 meq PO ONETIME ONE Stop: 09/01/19 18:17 Last Admin: 09/01/19 19:37 Dose: 40 meq Documented by: - Exam General: Alert, Oriented HEENT: Pupils Equal, Pupils Reactive, EOMI, Mucous Membr. Moist/[place] Neck: Supple Lungs: Clear to Auscultation, Normal Respiratory Effort Cardiovascular: Regular Rate, Regular Rhythm GI/Abdominal Exam: Normal Bowel Sounds Extremities: Normal Inspection, Normal Range of Motion, Non-Tender, No Pedal Edema, Normal Capillary Refill Peripheral Pulses: 1+: Radial (L), Radial (R) Skin: Warm, Dry, Intact Psy/Mental Status: Alert, Depressed Sepsis Event Note - Evaluation Sepsis Screening Result: No Definite Risk - Focused Exam Vital Signs: Vital Signs Temp Pulse Resp BP Pulse Ox 09/04/19 07:00 97.3 F 99 18 124/72 95 09/04/19 04:30 97.3 F 96 18 119/74 93 L 09/03/19 22:49 98.1 F 100 16 120/68 92 L Date Exam was Performed: 09/04/19 Time Exam was Performed: 07:49 - Problem List Review Problem List Initiated/Reviewed/Updated: Yes - My Orders Last 24 Hours: My Active Orders 09/03/19 09:20 ALPRAZolam [Xanax] 1 mg PO TID PRN 09/03/19 09:22 Acetaminophen/HYDROcodone [[place] 325-5 MG] 1 tab PO Q6H PRN 09/03/19 14:00 Rivaroxaban [Xarelto] 15 mg PO BID 09/04/19 11:30 GLUCOSE POC LAB TO COLLECT JPM [POC] QIDACANDBED 09/04/19 16:30 GLUCOSE POC LAB TO COLLECT JPM [POC] QIDACANDBED 09/04/19 21:00 GLUCOSE POC LAB TO COLLECT JPM [POC] QIDACANDBED 09/05/19 07:30 GLUCOSE POC LAB TO COLLECT JPM [POC] QIDACANDBED 09/05/19 11:30 GLUCOSE POC LAB TO COLLECT JPM [POC] QIDACANDBED 09/05/19 16:30 GLUCOSE POC LAB TO COLLECT JPM [POC] QIDACANDBED 09/05/19 21:00 GLUCOSE POC LAB TO COLLECT JPM [POC] QIDACANDBED 09/06/19 07:30 GLUCOSE POC LAB TO COLLECT JPM [POC] QIDACANDBED 09/06/19 11:30 GLUCOSE POC LAB TO COLLECT JPM [POC] QIDACANDBED 09/06/19 16:30 GLUCOSE POC LAB TO COLLECT JPM [POC] QIDACANDBED 09/06/19 21:00 GLUCOSE POC LAB TO COLLECT JPM [POC] QIDACANDBED 09/07/19 07:30 GLUCOSE POC LAB TO COLLECT JPM [POC] QIDACANDBED 09/07/19 11:30 GLUCOSE POC LAB TO COLLECT JPM [POC] QIDACANDBED 09/07/19 16:30 GLUCOSE POC LAB TO COLLECT JPM [POC] DACANDBED 09/07/19 21:00 GLUCOSE POC LAB TO COLLECT JPM [POC] DACANDBED - Plan Plan:: Assessment/PLAN: #1. 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 #2. Cancer of the breast with mets to the bone. #3. Obesity: BMI 34 #4. Borderline personality disorder. #5. Irritable bowel syndrome #6. HTN. Will give HCTZ only as BP is 120's systolic. #7. DM Type 2. BS good control have stopped BS checks. #8. History of alcoholism #9. Low back pain chronic #10. Anemia. Hb 8.9 #11. Depression Chironic #12. Hypokalemia: Have corrected 4.0 today. #13. Allergies, Acetylcysteine, Codeine, Dilaudid, Erythromycin, Ketorolac Tromethamine, Tramadol, Metronidazole, [place] oil, Avocado, Banana, Kiwi fruit, Peanuts, Latex, Ragweed Pollen #14. Meds Acetaminophen 325, Alprazolam 1mg, Vit D3, Diclofenac get, Diphenhydramine 25 mg, Fluticasone-Salmeterol 25/50, Lidocaine-Prilocaine 2.5- 12.5% cream, Lisinopril/HCTZ 20/12.5, Metoprolol Succinate 25 mg, Pregabalin 75 mg She will need to go to the shelter until she is stronger as she can not take care of herself at the present time.
[2019-09-04] MEDS: Hydrochlorothiazide 12.5 MG Cap PO SCH (08:32)
[2019-09-04] MEDS: Escitalopram 20 MG Tab PO SCH (08:32)
[2019-09-04] MEDS: Acetaminophen/HYDROcodone 325-5 MG Tab PO PRN ×2 (08:33→22:12)
[2019-09-04] MEDS: Rivaroxaban 15 MG Tab PO SCH ×2 (08:33→22:07)
[2019-09-04] MEDS: Pregabalin 75 MG Cap PO SCH ×2 (08:33→22:06)
[2019-09-04] MEDS: Potassium Chloride 10 MEQ Cap.ER PO SCH (08:33)
[2019-09-04] MEDS: ALPRAZolam 0.5 MG Tab PO PRN (08:33)
[2019-09-05] MEDS: Acetaminophen/HYDROcodone 325-5 MG Tab PO PRN (08:32)
[2019-09-05] MEDS: Rivaroxaban 15 MG Tab PO SCH (08:33)
[2019-09-05] MEDS: Escitalopram 20 MG Tab PO SCH (08:33)
[2019-09-05] MEDS: Potassium Chloride 10 MEQ Cap.ER PO SCH (08:33)
[2019-09-05] MEDS: Hydrochlorothiazide 12.5 MG Cap PO SCH (08:34)
[2019-09-05] MEDS: Pregabalin 75 MG Cap PO SCH (08:36)
[2019-09-05] MEDS ORDERED: Magnesium Hydroxide 400 MG/5 ML Susp 30 ML Cup PO PRN (10:18)
[2019-09-05 11:24] VITALS: BP 103/54; PULSE 81
--- NOTE | 2019-09-05 13:39 | CR ---
CHEST: 2 view CLINICAL HISTORY:SOB COMPARISON:08/25/2019 FINDINGS: Patient has persistent bilateral pleural effusions. These appear to have increased slightly since prior study. Heart size is mildly enlarged pulmonary vascularity is normal. [id number] catheter remains in position. Impression: Slight increase in bilateral pleural effusions.
--- NOTE | 2019-09-05 16:50 | PCM.PN ---
- General Info Date of Service: 09/05/19 Functional Status: Reports: Pain Controlled - Review of Systems General: Reports: Weakness, Fatigue HEENT: Reports: No Symptoms Pulmonary: Reports: Shortness of Breath Cardiovascular: Reports: Chest Pain, Dyspnea on Exertion Gastrointestinal: Reports: No Symptoms Genitourinary: Reports: No Symptoms Musculoskeletal: Reports: No Symptoms Skin: Reports: No Symptoms Neurological: Reports: Difficulty Walking, Weakness, Gait Disturbance Psychiatric: Reports: Depression, Anxiety - Patient Data Vitals - Most Recent: Last Vital Signs Temp 97.9 F 09/05/19 11:22 Pulse 81 09/05/19 11:22 Resp 16 09/05/19 11:22 BP 103/54 L 09/05/19 11:22 Pulse Ox 97 09/05/19 11:22 Weight - Most Recent: 166 lb 3.2 oz I&O - Last 24 Hours: Intake & Output 09/05/19 09/05/19 09/05/19 06:59 14:59 22:59 Intake Total 120 600 Output Total 300 500 Balance -180 100 Med Orders - Current: Current Medications Discontinued Medications Acetaminophen (Tylenol) 325 - 650 mg PO Q6H PRN PRN Reason: Pain Hydrocodone Bitart/Acetaminophen ([place] 325-5 Mg) 1 tab PO Q6H PRN PRN Reason: Pain Last Admin: 09/05/19 08:32 Dose: 1 tab Documented by: Alprazolam (Xanax) 1 mg PO BID PRN PRN Reason: Anxiety Last Admin: 09/02/19 19:53 Dose: 1 mg Documented by: Alprazolam (Xanax) 1 mg PO TID [facility] Last Admin: 09/03/19 09:31 Dose: Not Given Documented by: Alprazolam (Xanax) 1 mg PO TID PRN PRN Reason: Anxiety Last Admin: 09/04/19 08:33 Dose: 1 mg Documented by: Cholecalciferol (Vitamin D3) 50,000 unit PO Fr@0900 [facility] Last Admin: 09/02/19 08:42 Dose: 50,000 unit Documented by: Diphenhydramine HCl (Benadryl) 25 mg PO Q6H PRN PRN Reason: other Diphenhydramine HCl (Benadryl) 25 mg PO Q6H PRN PRN Reason: Sleep Epinephrine HCl (Adrenalin) 0.3 mg IM ASDIRECTED PRN PRN Reason: Other Escitalopram Oxalate (Lexapro) 20 mg PO DAILY [facility] Last Admin: 09/05/19 08:33 Dose: 20 mg Documented by: Heparin Sodium (Porcine) (Heparin Sodium) 5,000 units IV ONETIME ONE Stop: 09/01/19 17:21 Last Admin: 09/01/19 18:04 Dose: 5,000 units Documented by: Heparin Sodium (Porcine) (Heparin Sodium) 1,500 units IVPUSH .BOLUS ONE Stop: 09/02/19 01:01 Last Admin: 09/02/19 01:16 Dose: 1,500 units Documented by: Heparin Sodium (Porcine) (Heparin Lock Flush 100 Units/Ml) 500 units FLUSH ASDIRECTED PRN PRN Reason: hep lock port Last Admin: 09/05/19 13:19 Dose: 500 units Documented by: Hydrochlorothiazide (Hydrochlorothiazide) 12.5 mg PO DAILY [facility] Last Admin: 09/05/19 08:34 Dose: 12.5 mg Documented by: Hydrochlorothiazide (Hydrochlorothiazide) 12.5 mg PO ONETIME ONE Stop: 09/03/19 14:01 Last Admin: 09/03/19 14:11 Dose: 12.5 mg Documented by: Heparin Sodium/Dextrose (Heparin 25,000 Units In D5w 500 Ml) 25,000 units in 500 mls @ 26 mls/hr IV TITRATE [facility]; Protocol Last Admin: 09/03/19 04:57 Dose: 29 mls/hr, 29 mls/hr Documented by: Sodium Chloride (Normal Saline) 1,000 mls @ 0 mls/hr IV ASDIRECTED [facility] Last Admin: 09/03/19 04:57 Dose: 25 mls/hr Documented by: Potassium Chloride 20 meq/Lidocaine HCl 2 ml/ Sodium Chloride 112 mls @ 50 mls/hr IV Q2H [facility] Stop: 09/01/19 22:44 Last Admin: 09/01/19 22:17 Dose: Not Given Documented by: Potassium Chloride (Kcl 20 Meq In Water 100 Ml) Confirm Administered Dose 100 mls @ as directed .ROUTE .STK-MED ONE Stop: 09/01/19 19:31 Last Admin: 09/01/19 22:13 Dose: 50 mls/hr Documented by: Potassium Chloride (Kcl 20 Meq In Water 100 Ml) Confirm Administered Dose 200 mls @ as directed .ROUTE .STK-MED ONE Stop: 09/01/19 19:45 Last Admin: 09/01/19 22:16 Dose: Not Given Documented by: Lisinopril (Prinivil) 20 mg PO DAILY [facility] Last Admin: 09/03/19 08:46 Dose: Not Given Documented by: Magnesium Hydroxide (Milk Of Magnesia) 30 ml PO BID PRN PRN Reason: Constipation Non-Formulary Medication (Diclofenac Sodium [Diclofenac Sodium]) 40 drop TOP Q6H [facility] Last Admin: 09/02/19 14:08 Dose: Not Given Documented by: Nicotine (Nicotrol) (10 MgPom) 0 mg INH ASDIRECTED [facility] Ondansetron HCl (Zofran Odt) 8 mg PO Q8H PRN PRN Reason: Nausea/Vomiting Potassium Chloride (Klor-Con M20) 40 meq PO ONETIME ONE Stop: 09/01/19 18:17 Last Admin: 09/01/19 19:37 Dose: 40 meq Documented by: Potassium Chloride (Potassium Chloride) 10 meq PO DAILY [facility] Last Admin: 09/05/19 08:33 Dose: 10 meq Documented by: Pregabalin (Lyrica) 75 mg PO BID [facility] Last Admin: 09/05/19 08:36 Dose: 75 mg Documented by: Rivaroxaban (Xarelto) 15 mg PO BID [facility] Last Admin: 09/05/19 08:33 Dose: 15 mg Documented by: - Exam General: Alert, Oriented, Cooperative, Mild Distress HEENT: Pupils Equal Neck: Supple Lungs: Clear to Auscultation, Normal Respiratory Effort Cardiovascular: Regular Rate, Regular Rhythm GI/Abdominal Exam: Normal Bowel Sounds, Soft, Non-Tender, No Organomegaly, No Distention, No Abnormal Bruit, No Mass, Pelvis Stable Extremities: Normal Inspection, Normal Range of Motion, Non-Tender, No Pedal Edema, Normal Capillary Refill Peripheral Pulses: 1+: Radial (L), Radial (R) Skin: Warm, Dry, Intact Neurological: No New Focal Deficit Psy/Mental Status: Alert, Anxious, Depressed Sepsis Event Note - Evaluation Sepsis Screening Result: No Definite Risk - Focused Exam Vital Signs: Vital Signs Temp Pulse Resp BP Pulse Ox 09/05/19 11:22 97.9 F 81 16 103/54 L 97 09/05/19 08:20 97.0 F 89 16 111/63 97 Date Exam was Performed: 09/05/19 Time Exam was Performed: 16:46 - Problem List Review Problem List Initiated/Reviewed/Updated: Yes - Plan Plan:: Assessment/PLAN: #1. 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 #2. Cancer of the breast with mets to the bone/spine. #3. Obesity: BMI 34 #4. Borderline personality disorder. #5. Irritable bowel syndrome #6. HTN. Will give HCTZ only as BP is 120's systolic. #7. DM Type 2. BS good control have stopped BS checks. #8. History of alcoholism #9. Low back pain chronic #10. Anemia. Hb 8.9 #11. Depression Chironic #12. Hypokalemia: Have corrected 4.0.. #13. Allergies, Acetylcysteine, Codeine, Dilaudid, Erythromycin, Ketorolac Tromethamine, Tramadol, Metronidazole, [place] oil, Avocado, Banana, Kiwi fruit, Peanuts, Latex, Ragweed Pollen #14. Meds Acetaminophen 325, Alprazolam 1mg, Vit D3, Diclofenac get, Dip henhydramine 25 mg, Fluticasone-Salmeterol 25/50, Lidocaine-Prilocaine 2.5-12.5% cream, Lisinopril/HCTZ 20/12.5, Metoprolol Succinate 25 mg, Pregabalin 75 mg She [facility] need [facility] stronger as she can not take care of herself at the present time.
--- NOTE | 2019-09-05 16:51 | PCM.DCSUM1 ---
Discharge Summary - Hospital Course Brief History: Lucie was admitted with a history of respiratory distress with inability to walk greater than 50 feet without shortness of breath and very dramatic reaction of weakness. She was having chest pain. She has a history of SOB 6 days ago and had 2 units of pac cells as HB was 7.2 prior to the transfusion. She related 2 days ago she was feeling good and improved after the transfusion. She became more shortness of breather in the last 24 hrs. She was seen by oncology today and they ordered a CT angio. She had come to the office complaining of chest pains. A ECG was done which showed tachycardia. With an exertion her heart rate went up to 120 but oxygen still above 90% pulse ox. I then received a phone call from Dr Grider who reported to me she had blood clots in the lung as well as intracardiac and renal arteries. She also has mets from breast cancer in the bones including the spine. Diagnosis: Stroke: No - Discharge Data Discharge Date: 09/05/19 Discharge Disposition: DC/Tfer to SNF 03 Condition: Good - Referral to Home Health Primary Care Physician: Tete Villarreal MD - Patient Summary/Data Hospital Course: She was placed on Heparin for 2 days then started on Xarelto. She had increased pain while in the hospital and did very well with Vicodin. She was crying often due to her breast cancer which is spread to her bones/spine. She is unable to take care of herself so placed into the local NH until she is stronger and able to take care of herself. Her blood sugars were good control while in the hospital. Ultrasound of the legs showed no DVT. - Patient Instructions Diet: Heart Healthy Diet Activity: As Tolerated - Discharge Plan *PRESCRIPTION DRUG MONITORING PROGRAM REVIEWED*: No *COPY OF PRESCRIPTION DRUG MONITORING REPORT IN PATIENT KRISTIN: No Home Medications: Home Meds ALPRAZolam [Alprazolam] 1 mg PO BID PRN 07/31/18 [History] Cholecalciferol (Vitamin D3) [Vitamin D3] 1 tab PO Q7D 07/31/18 [History] Lisinopril/Hydrochlorothiazide [Lisinopril-Hctz 20-12.5 mg Tab] 1 each PO DAILY 12/31/18 [History] Diclofenac Sodium 40 drop TOP Q6H 02/15/19 [History] Acetaminophen [Tylenol] 1 - 2 tab PO Q6H PRN 08/19/19 [History] Escitalopram [Lexapro] 20 mg PO DAILY 08/19/19 [History] Nicotine [Nicotrol] 10 mg INH ASDIRECTED 08/19/19 [History] Pregabalin 75 mg PO BID 08/19/19 [History] Acetaminophen/HYDROcodone [[place] 325-5 MG] 1 tab PO 14 PRN 14 Days #28 tablet 09/05/19 [Rx] Magnesium Hydroxide [Milk of Magnesia] 30 ml PO BID PRN cup 09/05/19 [Rx] Ondansetron [Zofran ODT] 8 mg PO Q8H PRN tab.dis 09/05/19 [Rx] Potassium Chloride 10 meq PO DAILY cap.er 09/05/19 [Rx] Rivaroxaban [Xarelto] 15 mg PO BID tablet 09/05/19 [Rx] diphenhydrAMINE [Benadryl] 25 mg PO Q6H PRN cap 09/05/19 [Rx] hydroCHLOROthiazide [Hydrochlorothiazide] 12.5 mg PO DAILY cap 09/05/19 [Rx] Patient Handouts: Pulmonary Embolism - Discharge Summary/Plan Comment DC Time >30 min.: Yes Discharge Summary/Plan Comment: Assessment/PLAN: #1. 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 #2. Cancer of the breast with mets to the bone/spine. #3. Obesity: BMI 34 #4. Borderline personality disorder. #5. Irritable bowel syndrome #6. HTN. Will give HCTZ only as BP is 120's systolic. #7. DM Type 2. BS good control have stopped BS checks. #8. History of alcoholism #9. Low back pain chronic #10. Anemia. Hb 8.9 #11. Depression Chironic #12. Hypokalemia: Have corrected 4.0.. #13. Allergies, Acetylcysteine, Codeine, Dilaudid, Erythromycin, Ketorolac Tromethamine, Tramadol, Metronidazole, [place] oil, Avocado, Banana, Kiwi fruit, Peanuts, Latex, Ragweed Pollen #14. Meds Acetaminophen 325, Alprazolam 1mg, Vit D3, Diclofenac get, Diphenhydramine 25 mg, Fluticasone-Salmeterol 25/50, Lidocaine-Prilocaine 2.5- 12.5% cream, Lisinopril/HCTZ 11/02.5, Metoprolol Succinate 25 mg, Pregabalin 75 mg She will need to go to the longterm until she is stronger as she can not take care of herself at the present time. - General Info Date of Service: 09/05/19 Functional Status: Reports: Pain Controlled - Review of Systems General: Reports: Weakness HEENT: Reports: No Symptoms Pulmonary: Reports: Shortness of Breath Cardiovascular: Reports: Chest Pain Gastrointestinal: Reports: No Symptoms Genitourinary: Reports: No Symptoms Musculoskeletal: Reports: No Symptoms Skin: Reports: No Symptoms Neurological: Reports: No Symptoms Psychiatric: Reports: No Symptoms, Depression, Anxiety - Patient Data Vitals - Most Recent: Last Vital Signs Temp 97.9 F 09/05/19 11:22 Pulse 81 09/05/19 11:22 Resp 16 09/05/19 11:22 BP 103/54 L 09/05/19 11:22 Pulse Ox 97 09/05/19 11:22 Weight - Most Recent: 166 lb 3.2 oz I&O - Last 24 hours: Intake & Output 09/05/19 09/05/19 09/05/19 06:59 14:59 22:59 Intake Total 120 600 Output Total 300 500 Balance -180 100 Med Orders - Current: Current Medications Discontinued Medications Acetaminophen (Tylenol) 325 - 650 mg PO Q6H PRN PRN Reason: Pain Hydrocodone Bitart/Acetaminophen ([place] 325-5 Mg) 1 tab PO Q6H PRN PRN Reason: Pain Last Admin: 09/05/19 08:32 Dose: 1 tab Documented by: Alprazolam (Xanax) 1 mg PO BID PRN PRN Reason: Anxiety Last Admin: 09/02/19 19:53 Dose: 1 mg Documented by: Alprazolam (Xanax) 1 mg PO TID [facility] Last Admin: 09/03/19 09:31 Dose: Not Given Documented by: Alprazolam (Xanax) 1 mg PO TID PRN PRN Reason: Anxiety Last Admin: 09/04/19 08:33 Dose: 1 mg Documented by: Cholecalciferol (Vitamin D3) 50,000 unit PO Fr@0900 [facility] Last Admin: 09/02/19 08:42 Dose: 50,000 unit Documented by: Diphenhydramine HCl (Benadryl) 25 mg PO Q6H PRN PRN Reason: other Diphenhydramine HCl (Benadryl) 25 mg PO Q6H PRN PRN Reason: Sleep Epinephrine HCl (Adrenalin) 0.3 mg IM ASDIRECTED PRN PRN Reason: Other Escitalopram Oxalate (Lexapro) 20 mg PO DAILY [facility] Last Admin: 09/05/19 08:33 Dose: 20 mg Documented by: Heparin Sodium (Porcine) (Heparin Sodium) 5,000 units IV ONETIME ONE Stop: 09/01/19 17:21 Last Admin: 09/01/19 18:04 Dose: 5,000 units Documented by: Heparin Sodium (Porcine) (Heparin Sodium) 1,500 units IVPUSH .BOLUS ONE Stop: 09/02/19 01:01 Last Admin: 09/02/19 01:16 Dose: 1,500 units Documented by: Heparin Sodium (Porcine) (Heparin Lock Flush 100 Units/Ml) 500 units FLUSH ASDIRECTED PRN PRN Reason: hep lock port Last Admin: 09/05/19 13:19 Dose: 500 units Documented by: Hydrochlorothiazide (Hydrochlorothiazide) 12.5 mg PO DAILY [facility] Last Admin: 09/05/19 08:34 Dose: 12.5 mg Documented by: Hydrochlorothiazide (Hydrochlorothiazide) 12.5 mg PO ONETIME ONE Stop: 09/03/19 14:01 Last Admin: 09/03/19 14:11 Dose: 12.5 mg Documented by: Heparin Sodium/Dextrose (Heparin 25,000 Units In D5w 500 Ml) 25,000 units in 500 mls @ 26 mls/hr IV TITRATE [facility]; Protocol Last Admin: 09/03/19 04:57 Dose: 29 mls/hr, 29 mls/hr Documented by: Sodium Chloride (Normal Saline) 1,000 mls @ 0 mls/hr IV ASDIRECTED [facility] Last Admin: 09/03/19 04:57 Dose: 25 mls/hr Documented by: Potassium Chloride 20 meq/Lidocaine HCl 2 ml/ Sodium Chloride 112 mls @ 50 mls/hr IV Q2H [facility] Stop: 09/01/19 22:44 Last Admin: 09/01/19 22:17 Dose: Not Given Documented by: Potassium Chloride (Kcl 20 Meq In Water 100 Ml) Confirm Administered Dose 100 mls @ as directed .ROUTE .[facility] ONE Stop: 09/01/19 19:31 Last Admin: 09/01/19 22:13 Dose: 50 mls/hr Documented by: Potassium Chloride (Kcl 20 Meq In Water 100 Ml) Confirm Administered Dose 200 mls @ as directed .ROUTE .[facility] ONE Stop: 09/01/19 19:45 Last Admin: 09/01/19 22:16 Dose: Not Given Documented by: Lisinopril (Prinivil) 20 mg PO DAILY [facility] Last Admin: 09/03/19 08:46 Dose: Not Given Documented by: Magnesium Hydroxide (Milk Of Magnesia) 30 ml PO BID PRN PRN Reason: Constipation Non-Formulary Medication (Diclofenac Sodium [Diclofenac Sodium]) 40 drop TOP Q6H [facility] Last Admin: 09/02/19 14:08 Dose: Not Given Documented by: Nicotine (Nicotrol) (10 MgPom) 0 mg INH ASDIRECTED [facility] Ondansetron HCl (Zofran Odt) 8 mg PO Q8H PRN PRN Reason: Nausea/Vomiting Potassium Chloride (Klor-Con M20) 40 meq PO ONETIME ONE Stop: 09/01/19 18:17 Last Admin: 09/01/19 19:37 Dose: 40 meq Documented by: Potassium Chloride (Potassium Chloride) 10 meq PO DAILY [facility] Last Admin: 09/05/19 08:33 Dose: 10 meq Documented by: Pregabalin (Lyrica) 75 mg PO BID [facility] Last Admin: 09/05/19 08:36 Dose: 75 mg Documented by: Rivaroxaban (Xarelto) 15 mg PO BID [facility] Last Admin: 09/05/19 08:33 Dose: 15 mg Documented by: - Exam General: Reports: Alert, Oriented, Cooperative, Mild Distress HEENT: Reports: Pupils Equal, Pupils Reactive, EOMI, Mucous Membr. Moist/[place] Neck: Reports: Supple Lungs: Reports: Clear to Auscultation, Normal Respiratory Effort Cardiovascular: Reports: Regular Rate, Regular Rhythm GI/Abdominal Exam: Normal Bowel Sounds, Soft, Non-Tender, No Organomegaly, No Distention, No Abnormal Bruit, No Mass, Pelvis Stable Back Exam: Reports: Normal Inspection, Full Range of Motion Extremities: Normal Inspection, Normal Range of Motion, Non-Tender, No Pedal Edema, Normal Capillary Refill Skin: Reports: Warm, Dry, Intact Psy/Mental Status: Reports: Alert, Normal Affect, Anxious, Depressed
== END 2019-09-05 13:35 | DRG 176 ==
LOC: JP.MS 16:18
PROVIDERS: ADMIT Internal Medicine; ATTEND Internal Medicine
DX: I26.99 Other pulmonary embolism without acute cor pulmonale (principal); N28.0 Ischemia and infarction of kidney; I74.8 Embolism and thrombosis of other arteries; C79.51 Secondary malignant neoplasm of bone; C50.919 Malignant neoplasm of unspecified site of unspecified female breast; E66.9 Obesity, unspecified; F60.3 Borderline personality disorder; K58.9 Irritable bowel syndrome, unspecified; I10 Essential (primary) hypertension; E11.9 Type 2 diabetes mellitus without complications; F10.21 Alcohol dependence, in remission; G89.29 Other chronic pain; M54.5 Low back pain; D64.9 Anemia, unspecified; E87.6 Hypokalemia; M19.90 Unspecified osteoarthritis, unspecified site; M79.7 Fibromyalgia; F90.9 Attention-deficit hyperactivity disorder, unspecified type; F41.9 Anxiety disorder, unspecified; F31.9 Bipolar disorder, unspecified; F42.9 Obsessive-compulsive disorder, unspecified; F43.10 Post-traumatic stress disorder, unspecified; E55.9 Vitamin D deficiency, unspecified; Z20.828 Contact with and (suspected) exposure to other viral communicable diseases; Z88.5 Allergy status to narcotic agent; Z79.899 Other long term (current) drug therapy; Z68.34 Body mass index [BMI] 34.0-34.9, adult; Z88.6 Allergy status to analgesic agent; Z88.1 Allergy status to other antibiotic agents; Z91.018 Allergy to other foods; Z91.010 Allergy to peanuts; Z90.49 Acquired absence of other specified parts of digestive tract
CPT/HCPCS: 36415; 71046; 71046-26; 80048; 80053; 81001; 82962; 85025; 85027; 85610; 85730; 93970; A9270-GY; C1751; J1642; J1644; J3480; J7030; U0002

== ENCOUNTER 2020-02-11 09:19 | Emergency (ER) | payer MEDICAID ==
[2020-02-11 09:31] VITALS: BP 122/82; PULSE 112
[2020-02-11] MEDS ORDERED: HYDROmorphone 0.5 MG/0.5 ML Syringe IM ONE (09:55)
[2020-02-11] MEDS ORDERED: Baclofen 10 MG Tab PO ONE (09:55)
[2020-02-11] MEDS ORDERED: Ondansetron 4 MG Tab.DIS PO ONE (09:58)
--- NOTE | 2020-02-11 10:03 | EDM.PDOC ---
ED HPI GENERAL MEDICAL PROBLEM - General Chief Complaint: General Stated Complaint: HIP PAIN, HISTORY OF BONE CANCER Time Seen by Provider: 02/11/20 10:02 Source of Information: Reports: Patient History Limitations: Reports: No Limitations - History of Present Illness INITIAL COMMENTS - FREE TEXT/NARRATIVE: pt arrived with pain in the rt hip and upper leg. She has been doing alot of cleaning and she thinks she over did. She does have a history of metastatic bone CA Onset: Gradual Duration: Day(s): Location: Reports: Lower Extremity, Right Associated Symptoms: Reports: No Other Symptoms Right Hip Pain Score (Numeric/FACES): 7 - Related Data Allergies Allergy/AdvReac Type Severity Reaction Status Date / Time almond Allergy Severe Airway Verified 02/11/20 09:27 Tightness avocado Allergy Severe Airway Verified 02/11/20 09:27 Tightness banana Allergy Severe Airway Verified 02/11/20 09:27 Tightness kiwi Allergy Severe Airway Verified 02/11/20 09:27 Tightness peanut Allergy Severe Anaphylactic Verified 02/11/20 09:27 Shock cat dander Allergy Other Verified 02/11/20 09:27 codeine Allergy Itching Verified 02/11/20 09:27 latex Allergy Itching Verified 02/11/20 09:27 weed pollen-short ragweed Allergy Other Verified 02/11/20 09:27 [From Ragwitek] erythromycin base AdvReac Nausea and Verified 02/11/20 09:27 Vomiting tramadol AdvReac Anxiety Verified 02/11/20 09:27 Home Meds: Home Meds ALPRAZolam [Alprazolam] 1 mg PO BID PRN 07/31/18 [History] Cholecalciferol (Vitamin D3) [Vitamin D3] 1 tab PO Q7D 07/31/18 [History] Lisinopril/Hydrochlorothiazide [Lisinopril-Hctz 20-12.5 mg Tab] 1 each PO DAILY 12/31/18 [History] Diclofenac Sodium 40 drop TOP Q6H 02/15/19 [History] Acetaminophen [Tylenol] 1 - 2 tab PO Q6H PRN 08/19/19 [History] Escitalopram [Lexapro] 20 mg PO DAILY 08/19/19 [History] Nicotine [Nicotrol] 10 mg INH ASDIRECTED 08/19/19 [History] Pregabalin 75 mg PO BID 08/19/19 [History] Magnesium Hydroxide [Milk of Magnesia] 30 ml PO BID PRN cup 09/05/19 [Rx] Ondansetron [Zofran ODT] 8 mg PO Q8H PRN tab.dis 09/05/19 [Rx] Potassium Chloride 10 meq PO DAILY cap.er 09/05/19 [Rx] Rivaroxaban [Xarelto] 15 mg PO BID tablet 09/05/19 [Rx] diphenhydrAMINE [Benadryl] 25 mg PO Q6H PRN cap 09/05/19 [Rx] hydroCHLOROthiazide [Hydrochlorothiazide] 12.5 mg PO DAILY cap 09/05/19 [Rx] Palbociclib [Ibrance] 100 mg PO DAILY 02/11/20 [History] Past Medical History HEENT History: Reports: Allergic Rhinitis, Impaired Vision, Sinusitis Other HEENT History: Tooth pain Cardiovascular History: Reports: Hypertension Respiratory History: Reports: Asthma, Bronchitis, Recurrent Gastrointestinal History: Reports: Cholelithiasis, GERD Genitourinary History: Reports: Pyelonephritis, UTI, Recurrent ENT NURSE History: Reports: Musculoskeletal History: Reports: Arthritis, Fracture, Fibromyalgia, Osteoarthritis Neurological History: Reports: Migraines Psychiatric History: Reports: ADHD, Anxiety, Bipolar, Depression, OCD, PTSD Endocrine/Metabolic History: Reports: Diabetes, Type II, Vitamin D Deficiency, Other (See Below) Other Endocrine/Metabolic History: states not diabetic since lap band surgery Hematologic History: Reports: B12 Deficiency, Folic Acid Oncologic (Cancer) History: Reports: Breast, Other (See Below) Other Oncologic History: metastatic bone CA Dermatologic History: Reports: Cellulitis, Eczema - Infectious Disease History Infectious Disease History: Reports: Chicken Pox - Past Surgical History Head Surgeries/Procedures: Reports: None HEENT Surgical History: Reports: None Cardiovascular Surgical History: Reports: None Respiratory Surgical History: Reports: None GI Surgical History: Reports: Bariatric Procedure, Cholecystectomy, Colonoscopy, EGD Other GI Surgeries/Procedures: lap band 2006 Endocrine Surgical History: Reports: None Neurological Surgical History: Reports: None Musculoskeletal Surgical History: Reports: None Other Oncologic Surgeries/Procedures: On chemo at this time Dermatological Surgical History: Reports: None Social & Family History - Family History Family Medical History: No Pertinent Family History - Tobacco Use Tobacco Use Status *Q: Current Every Day Tobacco User Years of Tobacco use: 30 Packs/Tins Daily: 0.5 Used Tobacco, but Quit: No Second Hand Smoke Exposure: Yes - Caffeine Use Caffeine Use: Reports: Coffee, Energy Drinks, Tea - Alcohol Use Days Per Week of Alcohol Use: 3 Number of Drinks Per Day: 2 Total Drinks Per Week: 6 - Recreational Drug Use Recreational Drug Use: Yes Recreational Drug Type: Reports: Marijuana/Hashish Recreational Drug Use Frequency: Weekly - Living Situation & Occupation Living situation: Reports: Single Occupation: Unemployed ED ROS GENERAL - Review of Systems Review Of Systems: See Below Constitutional: Reports: No Symptoms HEENT: Reports: No Symptoms Respiratory: Reports: No Symptoms Cardiovascular: Reports: No Symptoms Endocrine: Reports: No Symptoms GI/Abdominal: Reports: No Symptoms : Reports: No Symptoms Musculoskeletal: Reports: Other (increased pain in the rt hip and rt leg. ) Skin: Reports: No Symptoms ED EXAM, GENERAL - Physical Exam Exam: See Below Free Text/Narrative:: pt arrived with pain in the rt hip and rt leg. She has known metastatic bone ca. She states she has been over working. Exam Limited By: No Limitations General Appearance: Alert, Anxious, Moderate Distress Ears: Normal TMs Nose: Normal Inspection Throat/Mouth: Normal Inspection Head: Atraumatic Neck: Normal Inspection Respiratory/Chest: No Respiratory Distress Cardiovascular: Regular Rate, Rhythm Extremities: Other (t is tender over the anterior rt hip. ) Neurological: Alert, Oriented, Normal Cognition Course - Vital Signs Last Recorded V/S: Last Vital Signs Temp 37.6 C 02/11/20 09:36 Pulse 112 H 02/11/20 09:36 Resp 20 02/11/20 09:36 BP 122/82 02/11/20 09:36 Pulse Ox 99 02/11/20 09:36 - Orders/Labs/Meds Orders: Active Orders 24 hr Category Date Time Status Hip Min 2V or 3V Rt [CR] Stat Exams 02/11/20 09:56 Taken UA W/MICROSCOPIC [URIN] Urgent Lab 02/11/20 10:22 Ordered Meds: Medications Discontinued Medications Generic Name Dose Route Start Last Admin Trade Name Freq PRN Reason Stop Dose Admin Baclofen 10 mg 02/11/20 09:55 02/11/20 10:05 Lioresal PO 02/11/20 09:56 10 mg ONETIME ONE Administration Hydromorphone HCl 0.5 mg 02/11/20 09:55 02/11/20 10:06 Dilaudid IM 02/11/20 09:56 0.5 mg ONETIME ONE Administration Ondansetron HCl 4 mg 02/11/20 09:58 02/11/20 10:05 Zofran Odt PO 02/11/20 09:59 4 mg ONETIME ONE Administration - Re-Assessments/Exams Free Text/Narrative Re-Assessment/Exam: 02/11/20 10:49 xray reveals no fracture of obvious metastic disease. Departure - Departure Time of Disposition: 10:39 Disposition: Home, Self-Care 01 Condition: Fair Clinical Impression: Metastatic adenocarcinoma, Pain in hip joint - Discharge Information Referrals: Kofi Villarreal Sr, [Primary Care Provider] - Forms: ED Department Discharge Care Plan Goals: tub soak, moist heat to the area, tylenol between the norco tabs,low activity, norco 5/325 # 10. If persistent problems with pain see dr Villarreal for further worjkup, Sepsis Event Note (ED) - Evaluation Sepsis Screening Result: No Definite Risk - Focused Exam Vital Signs: Vital Signs Temp Pulse Resp BP Pulse Ox 02/11/20 09:36 37.6 C 112 H 20 122/82 99 02/11/20 09:30 37.6 C 112 H 20 122/82 99 - My Orders Last 24 Hours: My Active Orders 02/11/20 09:56 Hip Min 2V or 3V Rt [CR] Stat 02/11/20 10:22 UA W/MICROSCOPIC [URIN] Urgent - Assessment/Plan Last 24 Hours: My Active Orders 02/11/20 09:56 Hip Min 2V or 3V Rt [CR] Stat 02/11/20 10:22 UA W/MICROSCOPIC [URIN] Urgent
--- NOTE | 2020-02-13 09:33 | CR ---
Hip Min 2V or 3V Rt CLINICAL HISTORY: Metastatic breast carcinoma, right hip pain FINDINGS: There is moderate joint space narrowing in the hip there is some subcortical sclerosis. This is seen on prior CT. No bony destruction is identified. Patient has known bone metastasis which were described on CT in December IMPRESSION: Moderate to severe osteoarthritic change No fracture Known metastatic breast carcinoma. Sclerotic lesions are better seen on prior CT
== END 2020-02-11 10:53 | disposition home or self-care (01) ==
LOC: JP.ED 09:19
DX: M25.551 Pain in right hip (principal); C80.1 Malignant (primary) neoplasm, unspecified; C79.51 Secondary malignant neoplasm of bone; I10 Essential (primary) hypertension; J45.909 Unspecified asthma, uncomplicated; F41.9 Anxiety disorder, unspecified; F32.9 Major depressive disorder, single episode, unspecified; E11.9 Type 2 diabetes mellitus without complications; F17.210 Nicotine dependence, cigarettes, uncomplicated; Z91.018 Allergy to other foods; Z91.010 Allergy to peanuts; Z91.048 Other nonmedicinal substance allergy status; Z88.5 Allergy status to narcotic agent; Z91.040 Latex allergy status; Z88.1 Allergy status to other antibiotic agents; Z79.899 Other long term (current) drug therapy; Z79.01 Long term (current) use of anticoagulants
CPT/HCPCS: 73502; 96372; 99283; A9270; J1170

== ENCOUNTER 2020-02-14 09:35 | Emergency (ER) | payer MEDICAID ==
[2020-02-14 09:40] VITALS: BP 146/89; PULSE 99
[2020-02-14] MEDS ORDERED: Acetaminophen 325 MG Tab PO PRN (10:35)
--- NOTE | 2020-02-14 10:39 | EDM.PDOC ---
ED HPI GENERAL MEDICAL PROBLEM - General Chief Complaint: Respiratory Problem Stated Complaint: COVID SYMP. Time Seen by Provider: 02/14/20 10:06 Source of Information: Reports: Patient, RN Notes Reviewed History Limitations: Reports: No Limitations - History of Present Illness INITIAL COMMENTS - FREE TEXT/NARRATIVE: 49-year-old female presents emergency department today with concerns about Covid type symptoms she does have a known history of adenocarcinoma as well as history of pulmonary embolism she is currently on Xarelto. States over the last couple of days she has had some fevers she feels short of breath she has had body aches she still has her taste and smell no nausea vomiting does feel more short of breath than usual - Related Data Allergies Allergy/AdvReac Type Severity Reaction Status Date / Time almond Allergy Severe Airway Verified 02/11/20 09:27 Tightness avocado Allergy Severe Airway Verified 02/11/20 09:27 Tightness banana Allergy Severe Airway Verified 02/11/20 09:27 Tightness kiwi Allergy Severe Airway Verified 02/11/20 09:27 Tightness peanut Allergy Severe Anaphylactic Verified 02/11/20 09:27 Shock cat dander Allergy Other Verified 02/11/20 09:27 codeine Allergy Itching Verified 02/11/20 09:27 latex Allergy Itching Verified 02/11/20 09:27 weed pollen-short ragweed Allergy Other Verified 02/11/20 09:27 [From [employer]] erythromycin base AdvReac Nausea and Verified 02/11/20 09:27 Vomiting tramadol AdvReac Anxiety Verified 02/11/20 09:27 Home Meds: Home Meds ALPRAZolam [Alprazolam] 1 mg PO BID PRN 07/31/18 [History] Cholecalciferol (Vitamin D3) [Vitamin D3] 1 tab PO Q7D 07/31/18 [History] Lisinopril/Hydrochlorothiazide [Lisinopril-Hctz 20-12.5 mg Tab] 1 each PO DAILY 12/31/18 [History] Diclofenac Sodium 40 drop TOP Q6H 02/15/19 [History] Acetaminophen [Tylenol] 1 - 2 tab PO Q6H PRN 08/19/19 [History] Escitalopram [Lexapro] 20 mg PO DAILY 08/19/19 [History] Nicotine [Nicotrol] 10 mg INH ASDIRECTED 08/19/19 [History] Pregabalin 75 mg PO BID 08/19/19 [History] Magnesium Hydroxide [Milk of Magnesia] 30 ml PO BID PRN cup 09/05/19 [Rx] Ondansetron [Zofran ODT] 8 mg PO Q8H PRN tab.dis 09/05/19 [Rx] Potassium Chloride 10 meq PO DAILY cap.er 09/05/19 [Rx] Rivaroxaban [Xarelto] 15 mg PO BID tablet 09/05/19 [Rx] diphenhydrAMINE [Benadryl] 25 mg PO Q6H PRN cap 09/05/19 [Rx] hydroCHLOROthiazide [Hydrochlorothiazide] 12.5 mg PO DAILY cap 09/05/19 [Rx] Palbociclib [Ibrance] 100 mg PO DAILY 02/11/20 [History] Hydrocodone/Acetaminophen [Hydrocodon-Acetaminophen 5-325] 1 tab PO ASDIRECTED PRN 02/14/20 [History] Past Medical History HEENT History: Reports: Allergic Rhinitis, Impaired Vision, Sinusitis Other HEENT History: Tooth pain Cardiovascular History: Reports: Hypertension Respiratory History: Reports: Asthma, Bronchitis, Recurrent Gastrointestinal History: Reports: Cholelithiasis, GERD Genitourinary History: Reports: Pyelonephritis, UTI, Recurrent [employer] O[employer] History: Reports: Musculoskeletal History: Reports: Arthritis, Fracture, Fibromyalgia, Osteoa rthritis Neurological History: Reports: Migraines Psychiatric History: Reports: ADHD, Anxiety, Bipolar, Depression, OCD, PTSD Endocrine/Metabolic History: Reports: Diabetes, Type II, Vitamin D Deficiency, Other (See Below) Other Endocrine/Metabolic History: states not diabetic since lap band surgery Hematologic History: Reports: B12 Deficiency, Folic Acid Oncologic (Cancer) History: Reports: Breast, Other (See Below) Other Oncologic History: metastatic bone CA Dermatologic History: Reports: Cellulitis, Eczema - Infectious Disease History Infectious Disease History: Reports: Chicken Pox - Past Surgical History Head Surgeries/Procedures: Reports: None HEENT Surgical History: Reports: None Cardiovascular Surgical History: Reports: None Respiratory Surgical History: Reports: None GI Surgical History: Reports: Bariatric Procedure, Cholecystectomy, Colonoscopy, EGD Other GI Surgeries/Procedures: lap band 2007 Female Surgical History: Reports: None Endocrine Surgical History: Reports: None Neurological Surgical History: Reports: None Musculoskeletal Surgical History: Reports: None Other Oncologic Surgeries/Procedures: On chemo at this time Dermatological Surgical History: Reports: None Social & Family History - Family History Family Medical History: No Pertinent Family History - Caffeine Use Caffeine Use: Reports: Coffee - Recreational Drug Use Recreational Drug Use: No - Living Situation & Occupation Living situation: Reports: Single Occupation: Unemployed ED ROS GENERAL - Review of Systems Review Of Systems: See Below Constitutional: Reports: Fever, Weakness, Fatigue HEENT: Reports: No Symptoms Respiratory: Reports: Shortness of Breath. Denies: Wheezing, Cough, Sputum Cardiovascular: Reports: Dyspnea on Exertion GI/Abdominal: Reports: No Symptoms : Reports: No Symptoms Musculoskeletal: Reports: Muscle Pain ED EXAM, GENERAL - Physical Exam Exam: See Below Exam Limited By: No Limitations General Appearance: Alert, WD/WN, No Apparent Distress Respiratory/Chest: No Respiratory Distress, Lungs Clear, Normal Breath Sounds, No Accessory Muscle Use, Chest Non-Tender Cardiovascular: Regular Rate, Rhythm, No Murmur GI/Abdominal: Soft, Non-Tender Course - Vital Signs Last Recorded V/S: Last Vital Signs Temp 98 F 02/14/20 09:40 Pulse 99 02/14/20 09:40 Resp 16 02/14/20 09:40 BP 146/89 H 02/14/20 09:40 Pulse Ox 95 02/14/20 09:40 - Orders/Labs/Meds Orders: Active Orders 24 hr Category Date Time Status Nurse Communication: Isolation [RC] ASDIRECTED Care 02/14/20 10:36 Active INFLUENZA A+B AG SCREEN [RM] Stat Lab 02/14/20 10:35 Stop Req Acetaminophen [TylenoL] Med 02/14/20 10:35 Active 650 mg PO Q4H PRN Isolation [COMM] Routine Oth 02/14/20 10:36 Ordered Isolation [COMM] Stat Oth 02/14/20 10:35 Ordered Medication Orders Acetaminophen (Tylenol) 650 mg PO Q4H PRN PRN Reason: Fever Greater Than 101 Last Admin: 02/14/20 10:43 Dose: 650 mg Documented by: [id number] Labs: Laboratory Tests 02/14/20 02/14/20 02/14/20 Range/Units 10:36 10:52 10:52 WBC 1.9 L (4.5-11.0) K/uL RBC 3.06 L (3.30-5.50) M/uL Hgb 11.0 L (12.0-15.0) g/dL Hct 33.2 L (36.0-48.0) % MCV 109 H (80-98) fL MCH 36 H (27-31) pg MCHC 33 (32-36) % Plt Count 342 (150-400) K/uL Neut % (Auto) 38 (36-66) % Lymph % (Auto) 47 H (24-44) % Dunn % (Auto) 9 H (2-6) % Eos % (Auto) 1 L (2-4) % Baso % (Auto) 5 H (0-1) % D-Dimer, Quantitative (0.0-500.0) ng/mL Sodium (140-148) mmol/L Potassium (3.6-5.2) mmol/L Chloride (100-108) mmol/L Carbon Dioxide (21-32) mmol/L Anion Gap (5.0-14.0) mmol/L BUN (7-18) mg/dL Creatinine (0.6-1.0) mg/dL Est Cr Clr Drug Dosing mL/min Estimated GFR (MDRD) (>60) Glucose (74-106) mg/dL Lactic Acid (0.4-2.0) mmol/L Calcium (8.5-10.1) mg/dL Ferritin 113 (8-388) ng/ml Total Bilirubin (0.2-1.0) mg/dL Direct Bilirubin (0.0-0.2) mg/dL Indirect Bilirubin AST (15-37) U/L ALT (12-78) U/L Alkaline Phosphatase (46-116) U/L Lactate Dehydrogenase (82-234) U/L Troponin I < 0.017 (0.000-0.056) ng/mL C-Reactive Protein (0.0-0.3) mg/dL Total Protein (6.4-8.2) g/dL Albumin (3.4-5.0) g/dL Globulin (2.3-3.5) g/dL Albumin/Globulin Ratio (1.2-2.2) Procalcitonin ng/mL SARS CoV-2 RNA Rapid [facility] 02/14/20 02/14/20 02/14/20 Range/Units 10:52 10:52 10:52 WBC (4.5-11.0) K/uL RBC (3.30-5.50) M/uL Hgb (12.0-15.0) g/dL Hct (36.0-48.0) % MCV (80-98) fL MCH (27-31) pg MCHC (32-36) % Plt Count (150-400) K/uL Neut % (Auto) (36-66) % Lymph % (Auto) (24-44) % Dunn % (Auto) (2-6) % Eos % (Auto) (2-4) % Baso % (Auto) (0-1) % D-Dimer, Quantitative 1041.50 H (0.0-500.0) ng/mL Sodium 141 (140-148) mmol/L Potassium 3.6 (3.6-5.2) mmol/L Chloride 103 (100-108) mmol/L Carbon Dioxide 28 (21-32) mmol/L Anion Gap 9.9 (5.0-14.0) mmol/L BUN 6 L (7-18) mg/dL Creatinine 0.8 (0.6-1.0) mg/dL Est Cr Clr Drug Dosing 61.77 mL/min Estimated GFR (MDRD) > 60 (>60) Glucose 114 H (74-106) mg/dL Lactic Acid 0.9 (0.4-2.0) mmol/L Calcium 8.8 (8.5-10.1) mg/dL Ferritin (8-388) ng/ml Total Bilirubin 0.3 (0.2-1.0) mg/dL Direct Bilirubin 0.08 (0.0-0.2) mg/dL Indirect Bilirubin TNP AST 31 D (15-37) U/L ALT 46 D (12-78) U/L Alkaline Phosphatase 85 (46-116) U/L Lactate Dehydrogenase 214 (82-234) U/L Troponin I (0.000-0.056) ng/mL C-Reactive Protein 3.17 H (0.0-0.3) mg/dL Total Protein 6.4 (6.4-8.2) g/dL Albumin 3.0 L (3.4-5.0) g/dL Globulin 3.4 (2.3-3.5) g/dL Albumin/Globulin Ratio 0.9 L (1.2-2.2) Procalcitonin ng/mL SARS CoV-2 RNA Rapid [facility] 02/14/20 02/14/20 Range/Units 10:52 10:54 WBC (4.5-11.0) K/uL RBC (3.30-5.50) M/uL Hgb (12.0-15.0) g/dL Hct (36.0-48.0) % MCV (80-98) fL MCH (27-31) pg MCHC (32-36) % Plt Count (150-400) K/uL Neut % (Auto) (36-66) % Lymph % (Auto) (24-44) % Dunn % (Auto) (2-6) % Eos % (Auto) (2-4) % Baso % (Auto) (0-1) % D-Dimer, Quantitative (0.0-500.0) ng/mL Sodium (140-148) mmol/L Potassium (3.6-5.2) mmol/L Chloride (100-108) mmol/L Carbon Dioxide (21-32) mmol/L Anion Gap (5.0-14.0) mmol/L BUN (7-18) mg/dL Creatinine (0.6-1.0) mg/dL Est Cr Clr Drug Dosing mL/min Estimated GFR (MDRD) (>60) Glucose (74-106) mg/dL Lactic Acid (0.4-2.0) mmol/L Calcium (8.5-10.1) mg/dL Ferritin (8-388) ng/ml Total Bilirubin (0.2-1.0) mg/dL Direct Bilirubin (0.0-0.2) mg/dL Indirect Bilirubin AST (15-37) U/L ALT (12-78) U/L Alkaline Phosphatase (46-116) U/L Lactate Dehydrogenase (82-234) U/L Troponin I (0.000-0.056) ng/mL C-Reactive Protein (0.0-0.3) mg/dL Total Protein (6.4-8.2) g/dL Albumin (3.4-5.0) g/dL Globulin (2.3-3.5) g/dL Albumin/Globulin Ratio (1.2-2.2) Procalcitonin 0.06 ng/mL SARS CoV-2 RNA Rapid [facility] Positive H Meds: Medications Generic Name Dose Route Start Last Admin Trade Name Freq PRN Reason Stop Dose Admin Acetaminophen 650 mg 02/14/20 10:35 02/14/20 10:43 Tylenol PO 650 mg Q4H PRN Administration Fever Greater Than 101 Departure - Departure Time of Disposition: 11:58 Disposition: Home, Self-Care 01 Condition: Fair Clinical Impression: COVID-19 - Discharge Information Instructions: COVID-19 Referrals: PCP,None [Primary Care Provider] - Forms: ED Department Discharge Additional Instructions: The outpatient surgery center will contact you tomorrow for an appointment time for your monoclonal antibody infusion Sepsis Event Note (ED) - Evaluation Sepsis Screening Result: No Definite Risk - Focused Exam Vital Signs: Vital Signs Temp Pulse Resp BP Pulse Ox 02/14/20 09:40 98 F 99 16 146/89 H 95 02/14/20 09:39 98 F 99 16 146/89 H 95 - My Orders Last 24 Hours: My Active Orders 02/14/20 10:35 INFLUENZA A+B AG SCREEN [RM] Stat Acetaminophen [TylenoL] 650 mg PO Q4H PRN Isolation [COMM] Stat 02/14/20 10:36 Nurse Communication: Isolation [RC] ASDIRECTED Isolation [COMM] Routine - Assessment/Plan Last 24 Hours: My Active Orders 02/14/20 10:35 INFLUENZA A+B AG SCREEN [RM] Stat Acetaminophen [TylenoL] 650 mg PO Q4H PRN Isolation [COMM] Stat 02/14/20 10:36 Nurse Communication: Isolation [RC] ASDIRECTED Isolation [COMM] Routine Plan: Assessment Acuity = acute Site and laterality = viral syndrome Etiology = COVID-19 Manifestations = body aches, fever Location of injury = Home Lab values = WBC low at 1.9 consistent leukopenia hemoglobin low 11.0 consistent with normochromic anemia D-dimer slightly elevated 1041 consistent with inflammatory response lactic acid normal at 0.9 troponin was negative remainder of CMP also unremarkable CRP slightly elevated 3.17+ for COVID-19 Plan She was never hypoxic while in the emergency department maintain oxygen saturation 97% however she is a candidate for monoclonal antibody therapy in order was placed she will receive that infusion tomorrow This note was dictated using [employer] voice recognition software please call with any questions on syntax or grammar.
== END 2020-02-14 12:17 | disposition home or self-care (01) ==
LOC: JP.ED 09:35
DX: U07.1 COVID-19 (principal); I10 Essential (primary) hypertension; J45.909 Unspecified asthma, uncomplicated; F31.9 Bipolar disorder, unspecified; F41.9 Anxiety disorder, unspecified; E11.9 Type 2 diabetes mellitus without complications; Z91.018 Allergy to other foods; Z91.010 Allergy to peanuts; Z88.5 Allergy status to narcotic agent; Z91.040 Latex allergy status; Z91.048 Other nonmedicinal substance allergy status; Z88.1 Allergy status to other antibiotic agents; Z79.899 Other long term (current) drug therapy; Z79.01 Long term (current) use of anticoagulants
CPT/HCPCS: 36415; 80048; 80076; 82728; 83605; 83615; 84145; 84484; 85025; 85379; 86140; 87635; 99284; A9270; U0002

== ENCOUNTER 2020-04-07 14:33 | Emergency (ER) | payer MEDICAID ==
[2020-04-07 15:27] VITALS: BP 125/76; PULSE 100
[2020-04-07] MEDS ORDERED: HYDROmorphone 0.5 MG/0.5 ML Syringe IM ONE (16:15)
[2020-04-07] MEDS ORDERED: Baclofen 10 MG Tab PO ONE (16:15)
--- NOTE | 2020-04-07 16:26 | EDM.PDOC ---
ED HPI GENERAL MEDICAL PROBLEM - General Chief Complaint: General Stated Complaint: CANT WALK Time Seen by Provider: 04/07/20 15:45 Source of Information: Reports: Patient, Old Records History Limitations: Reports: No Limitations - History of Present Illness INITIAL COMMENTS - FREE TEXT/NARRATIVE: Lucie is a 49-year-old female appearing much older than her stated age presenting to the ED with the inability to walk. The patient has a history for breast cancer with metastasis to the thoracolumbar spine and pelvis. She recently had imaging last month showing some progression of her disease involving the bones of the spine and pelvis. In addition she had a work-up of her left hip for pain and was found to have severe osteoarthritis. She does not see anyone on a regular basis for management of her pain. Her primary care provider is Dr. Kofi Villarreal. Patient was at the [employer] today walking around with a cart and she says at 1 point she had to stop and lean against the cart because she could no longer stand the pain. She then went home and was unloading her groceries and had to stop again because of significant pain. Patient denies any trauma. Pelvic Pain Score (Numeric/FACES): 5 - Related Data Allergies Allergy/AdvReac Type Severity Reaction Status Date / Time almond Allergy Severe Airway Verified 04/07/20 15:36 Tightness avocado Allergy Severe Airway Verified 04/07/20 15:36 Tightness banana Allergy Severe Airway Verified 04/07/20 15:36 Tightness kiwi Allergy Severe Airway Verified 04/07/20 15:36 Tightness peanut Allergy Severe Anaphylactic Verified 04/07/20 15:36 Shock cat dander Allergy Other Verified 04/07/20 15:36 codeine Allergy Itching Verified 04/07/20 15:36 latex Allergy Itching Verified 04/07/20 15:36 weed pollen-short ragweed Allergy Other Verified 04/07/20 15:36 [From Ragwitek] erythromycin base AdvReac Nausea and Verified 04/07/20 15:36 Vomiting tramadol AdvReac Anxiety Verified 04/07/20 15:36 Home Meds: Home Meds ALPRAZolam [Alprazolam] 1 mg PO BID PRN 07/31/18 [History] Cholecalciferol (Vitamin D3) [Vitamin D3] 1 tab PO Q7D 07/31/18 [History] Diclofenac Sodium 40 drop TOP Q6H 02/15/19 [History] Acetaminophen [Tylenol] 1 - 2 tab PO Q6H PRN 08/19/19 [History] Escitalopram [Lexapro] 20 mg PO DAILY 08/19/19 [History] Nicotine [Nicotrol] 10 mg INH ASDIRECTED PRN 08/19/19 [History] Ondansetron [Zofran ODT] 8 mg PO Q8H PRN tab.dis 09/05/19 [Rx] Potassium Chloride 10 meq PO DAILY cap.er 09/05/19 [Rx] Rivaroxaban [Xarelto] 15 mg PO BID tablet 09/05/19 [Rx] diphenhydrAMINE [Benadryl] 25 mg PO Q6H PRN cap 09/05/19 [Rx] Palbociclib [Ibrance] 100 mg PO DAILY 02/11/20 [History] Hydrocodone/Acetaminophen [Hydrocodon-Acetaminophen 5-325] 1 tab PO ASDIRECTED PRN 02/14/20 [History] Furosemide [Lasix] 20 mg PO DAILY 04/07/20 [History] Pregabalin [Lyrica] 150 mg PO BID 04/07/20 [History] Past Medical History HEENT History: Reports: Allergic Rhinitis, Impaired Vision, Sinusitis Other HEENT History: Tooth pain Cardiovascular History: Reports: Heart Failure, Hypertension Respiratory History: Reports: Asthma, Bronchitis, Recurrent Gastrointestinal History: Reports: Cholelithiasis, GERD Genitourinary History: Reports: Pyelonephritis, UTI, Recurrent 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: Musculoskeletal History: Reports: Arthritis, Fracture, Fibromyalgia, Osteoarthritis Neurological History: Reports: Migraines Psychiatric History: Reports: ADHD, Anxiety, Bipolar, Depression, OCD, PTSD Endocrine/Metabolic History: Reports: Diabetes, Type II, Vitamin D Deficiency, Other (See Below) Other Endocrine/Metabolic History: states not diabetic since lap band surgery Hematologic History: Reports: B12 Deficiency, Folic Acid Oncologic (Cancer) History: Reports: Bone, Breast, Other (See Below) Other Oncologic History: metastatic bone CA Dermatologic History: Reports: Cellulitis, Eczema - Infectious Disease History Infectious Disease History: Reports: Chicken Pox - Past Surgical History Head Surgeries/Procedures: Reports: None GI Surgical History: Reports: Bariatric Procedure, Cholecystectomy, Colonoscopy, EGD Other GI Surgeries/Procedures: lap band 2007 Other Oncologic Surgeries/Procedures: On chemo at this time Social & Family History - Family History Family Medical History: No Pertinent Family History - Tobacco Use Tobacco Use Status *Q: Current Every Day Tobacco User Years of Tobacco use: 30 Packs/Tins Daily: 0.5 - Caffeine Use Caffeine Use: Reports: Coffee - Recreational Drug Use Recreational Drug Use: Yes Recreational Drug Type: Reports: Marijuana/Hashish Recreational Drug Use Frequency: Socially - Living Situation & Occupation Living situation: Reports: Single Occupation: Unemployed ED ROS GENERAL - Review of Systems Review Of Systems: See Below Constitutional: Reports: No Symptoms HEENT: Reports: No Symptoms Respiratory: Reports: No Symptoms Cardiovascular: Reports: No Symptoms Endocrine: Reports: No Symptoms GI/Abdominal: Reports: No Symptoms : Reports: No Symptoms Musculoskeletal: Reports: Back Pain, Joint Pain (Left hip pain, pelvic pain. Patient has a history of severe osteoarthritis of the left hip worked up in February 2020.), Other (Unable to walk. Patient has metastatic adenocarcinoma of primary breast with metastasis to the spine and pelvis.) Skin: Reports: No Symptoms Neurological: Reports: No Symptoms Psychiatric: Reports: Anxiety Hematologic/Lymphatic: Reports: No Symptoms Immunologic: Reports: No Symptoms ED EXAM, GENERAL - Physical Exam Exam: See Below Exam Limited By: No Limitations General Appearance: Alert, Mild Distress Back Exam: Decreased Range of Motion (Secondary to pain), Muscle Spasm (Bilateral lumbar paraspinal), Paraspinal Tenderness (Bilateral lumbar). No: Vertebral Tenderness Extremities: Limited Range of Motion (Left hip secondary to pain) Neurological: Alert, Oriented, Normal Cognition, No Motor/Sensory Deficits Psychiatric: Anxious, Depressed Mood Course - Vital Signs Last Recorded V/S: Last Vital Signs Temp 36.2 C 04/07/20 15:46 Pulse 100 04/07/20 15:46 Resp 18 04/07/20 15:46 BP 125/76 04/07/20 15:46 Pulse Ox 96 04/07/20 15:46 - Orders/Labs/Meds Meds: Medications Discontinued Medications Generic Name Dose Route Start Last Admin Trade Name Freq PRN Reason Stop Dose Admin Baclofen 10 mg 04/07/20 16:15 04/07/20 16:22 Lioresal PO 04/07/20 16:16 10 mg ONETIME ONE Administration Hydromorphone HCl 0.5 mg 04/07/20 16:15 02/13/21 16:22 Dilaudid IM 04/07/20 16:16 0.5 mg ONETIME ONE Administration - Re-Assessments/Exams Free Text/Narrative Re-Assessment/Exam: 04/07/20 16:46 the patient is primarily looking for a walker to help with ambulation and pain medicine to help with her pain. She does have breast evelin ocarcinoma with metastasis to the lumbar spine and pelvis. She had a work-up in February showing worsening of the lesions in the pelvis. She also had a work-up of her left hip showing severe osteoarthritis. The patient has not yet been referred to a pain specialist and is not scheduled to see her oncologist for some time. My plan is to give her a small amount of oxycodone as the hydrocodone is "inadequate to control her pain". I did explain to her that I would be limited to a total of 6 tablets as we do not dispense narcotics for chronic pain out of the ED even for cancer treatment. She will need to contact Dr. Villarreal to arrange for a consult to the pain medicine. We did provide her with a walker today. I did not pursue much of a work-up as she recently had this performed last month. There is been no incremental worsening of her symptoms other than today and there is been no trauma warranting aggressive work-up. Patient is in agreement with this plan and suitable for discharge in satisfactory condition. Indications return to the ED were discussed. Departure - Departure Time of Disposition: 16:50 Disposition: Home, Self-Care 01 Clinical Impression: Metastatic adenocarcinoma, Malignant neoplasm of breast metastatic to bone, Pelvic pain, Difficulty walking Osteoarthritis of left hip Qualifiers: Osteoarthritis type: primary Qualified Code(s): M16.12 - Unilateral primary ost eoarthritis, left hip - Discharge Information *PRESCRIPTION DRUG MONITORING PROGRAM REVIEWED*: Yes *COPY OF PRESCRIPTION DRUG MONITORING REPORT IN PATIENT KRISTIN: No Instructions: Decision Aid - Osteoarthritis, Hip, Pelvic Pain, Female, Bone Metastasis Referrals: Kofi Villarreal Sr, MD [Primary Care Provider] - Forms: ED Department Discharge Care Plan Goals: I have prescribed Percocet which is stronger than the hydrocodone you previously received. You are limited to 6 tablets in this prescription so use them wisely. I have also prescribed for you to have a wheeled walker which she will go home with today. I encourage you to follow-up on Thursday with Dr. Villarreal for referral to pain management. Even though this is cancer related pain and it is ongoing, the emergency room is not an effective source for your pain management and we are significantly limited by state statues on what we can prescribe from the ED. You may discuss with Dr. Villarreal whether or not a wheelchair would be appropriate. I would also touch base with your oncologist given years significant change in symptoms. Sepsis Event Note (ED) - Evaluation Sepsis Screening Result: No Definite Risk - Focused Exam Vital Signs: Vital Signs Temp Pulse Resp BP Pulse Ox 04/07/20 15:46 36.2 C 100 18 125/76 96 04/07/20 15:26 36.2 C 100 18 125/76 96 - Problem List & Annotations (1) Metastatic adenocarcinoma SNOMED Code(s): 598846623, 566232913, 277661427 Code(s): C79.9 - SECONDARY MALIGNANT NEOPLASM OF UNSPECIFIED SITE Status: Chronic Priority: Medium Current Visit: Yes (2) Pain in hip joint SNOMED Code(s): 89756828 Code(s): M25.559 - PAIN IN UNSPECIFIED HIP Status: Chronic Priority: Medium Current Visit: No Qualifiers: Laterality: left Qualified Code(s): M25.552 - Pain in left hip (3) Malignant neoplasm of breast metastatic to bone SNOMED Code(s): 292823834, 096181895 Code(s): C50.919 - MALIGNANT NEOPLASM OF UNSP SITE OF UNSPECIFIED FEMALE BREAST; C79.51 - SECONDARY MALIGNANT NEOPLASM OF BONE Status: Chronic Priority: Medium Current Visit: Yes (4) Pelvic pain SNOMED Code(s): 68333781 Code(s): R10.2 - PELVIC AND PERINEAL PAIN Status: Chronic Priority: Medium Current Visit: Yes - Problem List Review Problem List Initiated/Reviewed/Updated: Yes
== END 2020-04-07 17:12 | disposition home or self-care (01) ==
LOC: JP.ED 14:33
DX: R26.2 Difficulty in walking, not elsewhere classified (principal); M16.12 Unilateral primary osteoarthritis, left hip; C48.1 Malignant neoplasm of specified parts of peritoneum; C50.919 Malignant neoplasm of unspecified site of unspecified female breast; C79.51 Secondary malignant neoplasm of bone; I11.0 Hypertensive heart disease with heart failure; I50.9 Heart failure, unspecified; J45.909 Unspecified asthma, uncomplicated; R10.2 Pelvic and perineal pain; E11.9 Type 2 diabetes mellitus without complications; Z91.013 Allergy to seafood; Z91.010 Allergy to peanuts; Z88.5 Allergy status to narcotic agent; Z91.048 Other nonmedicinal substance allergy status; Z88.1 Allergy status to other antibiotic agents; Z79.01 Long term (current) use of anticoagulants; Z79.899 Other long term (current) drug therapy; Z72.0 Tobacco use
CPT/HCPCS: 96372; 99283; A9270-GY; J1170

== ENCOUNTER 2020-06-19 21:43 | Emergency (ER) | payer MEDICAID ==
[2020-06-19 21:47] VITALS: BP 139/84; PULSE 104
--- NOTE | 2020-06-19 22:56 | EDM.PDOCBH ---
ED HPI GENERAL MEDICAL PROBLEM - General Chief Complaint: Drug or Alcohol Abuse Stated Complaint: MEDICAL VIA [facility] Time Seen by Provider: 06/19/20 21:50 Source of Information: Reports: Patient, EMS History Limitations: Reports: Altered Mental Status, Intoxication - History of Present Illness INITIAL COMMENTS - FREE TEXT/NARRATIVE: 49-year-old female called the ambulance tonight because she was having difficulty using her phone. She has a long history of depression, but also is getting treatment for metastatic bone cancer. When EMS arrived they found her anxious, tearful, with a large bottle of oxycodone right next to an open bottle of vodka. Vitals are stable, she was carrying on a normal conversation in route but was tearful and anxious. I am not really sure what her complaint is. Onset: Unknown/Unsure Associated Symptoms: Reports: Confusion, Malaise. Denies: Fever/Chills, Headaches, Nausea/Vomiting, Shortness of Breath - Related Data Allergies Allergy/AdvReac Type Severity Reaction Status Date / Time almond Allergy Severe Airway Verified 06/19/20 21:57 Tightness avocado Allergy Severe Airway Verified 06/19/20 21:57 Tightness banana Allergy Severe Airway Verified 06/19/20 21:57 Tightness kiwi Allergy Severe Airway Verified 06/19/20 21:57 Tightness peanut Allergy Severe Anaphylactic Verified 06/19/20 21:57 Shock cat dander Allergy Other Verified 06/19/20 21:57 codeine Allergy Itching Verified 06/19/20 21:57 latex Allergy Itching Verified 06/19/20 21:57 weed pollen-short ragweed Allergy Other Verified 06/19/20 21:57 [From [employer]] erythromycin base AdvReac Nausea and Verified 06/19/20 21:57 Vomiting tramadol AdvReac Anxiety Verified 06/19/20 21:57 Home Meds: Home Meds ALPRAZolam [Alprazolam] 1 mg PO BEDTIME PRN 07/31/18 [History] Cholecalciferol (Vitamin D3) [Vitamin D3] 1 tab PO Q7D 07/31/18 [History] Diclofenac Sodium 4 gram TOP Q6H 02/15/19 [History] Escitalopram [Lexapro] 20 mg PO DAILY 08/19/19 [History] Ondansetron [Zofran ODT] 8 mg PO Q8H PRN tab.dis 09/05/19 [Rx] diphenhydrAMINE [Benadryl] 25 mg PO Q6H PRN cap 09/05/19 [Rx] Palbociclib [Ibrance] 100 mg PO BEDTIME 02/11/20 [History] Hydrocodone/Acetaminophen [Hydrocodon-Acetaminophen 5-325] 1 tab PO ASDIRECTED PRN 02/14/20 [History] Furosemide [Lasix] 20 mg PO DAILY 04/07/20 [History] ALPRAZolam [Xanax] 1 mg PO DAILY PRN 06/19/20 [History] Albuterol Sulfate [Proair Hfa] 2 puff INH TID PRN 06/19/20 [History] Cetirizine HCl [Zyrtec] 10 mg PO BID 06/19/20 [History] Fluticasone Propion/Salmeterol [Wixela 250-50 Inhub] 1 puff INH BID 06/19/20 [History] Lidocaine/Kinesiology Tape [Lidopure Patch 5% Combo Pack] 1 patch TOP DAILY 06/19/20 [History] Omeprazole 40 mg PO DAILY 06/19/20 [History] Potassium Chloride 20 meq PO DAILY 06/19/20 [History] Prochlorperazine Maleate [Compazine] 10 mg PO Q6H PRN 06/19/20 [History] Rivaroxaban [Xarelto] 10 mg PO BID 06/19/20 [History] dexAMETHasone [Dexamethasone] 4 mg PO ASDIRECTED 06/19/20 [History] oxyCODONE 5 mg PO Q4H PRN 06/19/20 [History] Past Medical History HEENT History: Reports: Allergic Rhinitis, Impaired Vision, Sinusitis Other HEENT History: Tooth pain Cardiovascular History: Reports: Heart Failure, Hypertension Respiratory History: Reports: Asthma, Bronchitis, Recurrent Gastrointestinal History: Reports: Cholelithiasis, GERD Genitourinary History: Reports: Pyelonephritis, UTI, Recurrent 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: Musculoskeletal History: Reports: Arthritis, Fracture, Fibromyalgia, Osteoarthritis Neurological History: Reports: Migraines Psychiatric History: Reports: ADHD, Addiction, Anxiety, Bipolar, Depression, OCD, PTSD Endocrine/Metabolic History: Reports: Diabetes, Type II, Vitamin D Deficiency, Other (See Below) Other Endocrine/Metabolic History: states not diabetic since lap band surgery Hematologic History: Reports: B12 Deficiency, Folic Acid Oncologic (Cancer) History: Reports: Bone, Breast, Other (See Below) Other Oncologic History: metastatic bone CA Dermatologic History: Reports: Cellulitis, Eczema - Infectious Disease History Infectious Disease History: Reports: Chicken Pox - Past Surgical History Head Surgeries/Procedures: Reports: None HEENT Surgical History: Reports: None Cardiovascular Surgical History: Reports: None Respiratory Surgical History: Reports: None GI Surgical History: Reports: Bariatric Procedure, Cholecystectomy, Colonoscopy, EGD Other GI Surgeries/Procedures: lap band 2007 Female Surgical History: Reports: None Endocrine Surgical History: Reports: None Neurological Surgical History: Reports: None Musculoskeletal Surgical History: Reports: None Other Oncologic Surgeries/Procedures: On chemo at this time Dermatological Surgical History: Reports: None Social & Family History - Family History Family Medical History: No Pertinent Family History - Tobacco Use Tobacco Use Status *Q: Current Every Day Tobacco User Years of Tobacco use: 30 Packs/Tins Daily: 1 - Caffeine Use Caffeine Use: Reports: Coffee - Alcohol Use Days Per Week of Alcohol Use: 7 Number of Drinks Per Day: 2 Total Drinks Per Week: 14 - Recreational Drug Use Recreational Drug Use: Yes Recreational Drug Type: Reports: Marijuana/Hashish, Methamphetamine - Living Situation & Occupation Living situation: Reports: Single Occupation: Unemployed ED ROS GENERAL - Review of Systems Review Of Systems: See Below Constitutional: Reports: Malaise. Denies: Fever, Chills HEENT: Denies: Vision Change Respiratory: Denies: Shortness of Breath GI/Abdominal: Reports: Nausea. Denies: Abdominal Pain, Vomiting Skin: Reports: Pallor Neurological: Reports: Confusion, Dizziness Psychiatric: Reports: Anxiety, Depression ED EXAM, BEHAVIORAL HEALTH - Physical Exam Exam: See Below Exam Limited By: Intoxication General Appearance: Alert, No Apparent Distress Eye Exam: Bilateral Eye: PERRL Head: Atraumatic Neck: Non-Tender Respiratory/Chest: Lungs Clear Cardiovascular: Regular Rate, Rhythm Extremities: Other (Symptoms some scattered bruises on her arms but strength is symmetric, no asymmetric weakness or abnormality) Neurological: No Motor/Sensory Deficits, Oriented x 3 Psychiatric: Depressed Mood, Tearful COURSE, BEHAVIORAL HEALTH COMP - Course Vital Signs: Last Vital Signs Temp 96.8 F L 06/19/20 21:45 Pulse 104 H 06/19/20 21:45 Resp 18 06/19/20 21:45 BP 139/84 06/19/20 21:45 Pulse Ox 97 06/19/20 21:45 Orders, Labs, Meds: Laboratory Tests 06/19/20 06/19/20 06/19/20 Range/Units 21:54 21:54 21:54 WBC 2.3 L (4.5-11.0) K/uL RBC 3.47 (3.30-5.50) M/uL Hgb 11.9 L (12.0-15.0) g/dL Hct 35.8 L (36.0-48.0) % MCV 103 H (80-98) fL MCH 34 H (27-31) pg MCHC 33 (32-36) % Plt Count 380 (150-400) K/uL Neut % (Auto) 74 H (36-66) % Lymph % (Auto) 21 L (24-44) % [place] % (Auto) 3 (2-6) % Eos % (Auto) 0 L (2-4) % Baso % (Auto) 1 (0-1) % Sodium 149 H (140-148) mmol/L Potassium 4.9 (3.6-5.2) mmol/L Chloride 103 (100-108) mmol/L Carbon Dioxide 30 (21-32) mmol/L Anion Gap 20.9 H (5.0-14.0) mmol/L BUN 16 D (7-18) mg/dL Creatinine 1.1 H (0.6-1.0) mg/dL Est Cr Clr Drug Dosing 44.93 mL/min Estimated GFR (MDRD) 53 L (>60) Glucose 154 H (74-106) mg/dL Calcium 9.6 (8.5-10.1) mg/dL Total Bilirubin 0.2 (0.2-1.0) mg/dL AST 98 H D (15-37) U/L ALT 94 H (12-78) U/L Alkaline Phosphatase 107 (46-116) U/L Total Protein 7.6 (6.4-8.2) g/dL Albumin 3.8 (3.4-5.0) g/dL Globulin 3.8 H (2.3-3.5) g/dL Albumin/Globulin Ratio 1.0 L (1.2-2.2) Urine Opiates Screen (NEGATIVE) Ur Oxycodone Screen (NEGATIVE) Urine Methadone Screen (NEGATIVE) Ur Propoxyphene Screen (NEGATIVE) Ur Barbiturates Screen (NEGATIVE) Ur Tricyclics Screen (NEGATIVE) Ur Phencyclidine Scrn (NEGATIVE) Ur Amphetamine Screen (NEGATIVE) U Methamphetamines Scrn (NEGATIVE) Urine MDMA Screen (NEGATIVE) U Benzodiazepines Scrn (NEGATIVE) U Cocaine Metab Screen (NEGATIVE) U Marijuana (THC) Screen (NEGATIVE) Ethyl Alcohol 334 mg/dL 06/19/20 Range/Units 22:52 WBC (4.5-11.0) K/uL RBC (3.30-5.50) M/uL Hgb (12.0-15.0) g/dL Hct (36.0-48.0) % MCV (80-98) fL MCH (27-31) pg MCHC (32-36) % Plt Count (150-400) K/uL Neut % (Auto) (36-66) % Lymph % (Auto) (24-44) % [place] % (Auto) (2-6) % Eos % (Auto) (2-4) % Baso % (Auto) (0-1) % Sodium (140-148) mmol/L Potassium (3.6-5.2) mmol/L Chloride (100-108) mmol/L Carbon Dioxide (21-32) mmol/L Anion Gap (5.0-14.0) mmol/L BUN (7-18) mg/dL Creatinine (0.6-1.0) mg/dL Est Cr Clr Drug Dosing mL/min Estimated GFR (MDRD) (>60) Glucose (74-106) mg/dL Calcium (8.5-10.1) mg/dL Total Bilirubin (0.2-1.0) mg/dL AST (15-37) U/L ALT (12-78) U/L Alkaline Phosphatase (46-116) U/L Total Protein (6.4-8.2) g/dL Albumin (3.4-5.0) g/dL Globulin (2.3-3.5) g/dL Albumin/Globulin Ratio (1.2-2.2) Urine Opiates Screen Negative (NEGATIVE) Ur Oxycodone Screen Presumptive positive H (NEGATIVE) Urine Methadone Screen Negative (NEGATIVE) Ur Propoxyphene Screen Negative (NEGATIVE) Ur Barbiturates Screen Negative (NEGATIVE) Ur Tricyclics Screen Negative (NEGATIVE) Ur Phencyclidine Scrn Negative (NEGATIVE) Ur Amphetamine Screen Presumptive positive H (NEGATIVE) U Methamphetamines Scrn Presumptive positive H (NEGATIVE) Urine MDMA Screen Presumptive positive H (NEGATIVE) U Benzodiazepines Scrn Presumptive positive H (NEGATIVE) U Cocaine Metab Screen Negative (NEGATIVE) U Marijuana (THC) Screen Presumptive positive H (NEGATIVE) Ethyl Alcohol mg/dL Re-Assessment/Re-Exam: CBC shows a mildly low white count, CMP shows mildly elevated LFTs. EtOH is 0.334. Her chief complaint when calling the ambulance where she "could not use her phone" but she is using it fine now calling several family members and talking with them. Urine drug screen is pending. Urine drug screen is positive for methamphetamine, marijuana, and her prescribed medications. She readily admits to abusing all these substances as well as alcohol. Her mother is coming tomorrow, she does not want to be hospitalized at this time and is not suicidal so was discharged. Departure - Departure Time of Disposition: 23:55 Disposition: Home, Self-Care 01 Clinical Impression: Polysubstance abuse Alcohol intoxication Qualifiers: Complication of substance-induced condition: uncomplicated Qualified Code(s): F10.920 - Alcohol use, unspecified with intoxication, uncomplicated - Discharge Information Instructions: Alcohol Intoxication, [id number] Referrals: PCP,None [Primary Care Provider] - Forms: ED Department Discharge Care Plan Goals: Avoid alcohol intake and take your medications only as prescribed. Also avoid other illegal drug use such as methamphetamine. Sepsis Event Note (ED) - Evaluation Sepsis Screening Result: No Definite Risk - Focused Exam Vital Signs: Vital Signs Temp Pulse Resp BP Pulse Ox 06/19/20 21:45 96.8 F L 104 H 18 139/84 97
== END 2020-06-19 23:54 | disposition home or self-care (01) ==
LOC: JP.ED 21:43
DX: F10.129 Alcohol abuse with intoxication, unspecified (principal); F19.10 Other psychoactive substance abuse, uncomplicated; Y90.8 Blood alcohol level of 240 mg/100 ml or more; E11.9 Type 2 diabetes mellitus without complications; I11.0 Hypertensive heart disease with heart failure; I50.9 Heart failure, unspecified; Z91.040 Latex allergy status; Z72.0 Tobacco use; Z88.5 Allergy status to narcotic agent; Z88.6 Allergy status to analgesic agent; Z91.09 Other allergy status, other than to drugs and biological substances; Z91.010 Allergy to peanuts; Z91.018 Allergy to other foods
CPT/HCPCS: 36415; 80053; 80305-QW; 80307; 85025; 99285

== ENCOUNTER 2020-07-05 08:38 | Emergency (ER) | payer MEDICAID ==
[2020-07-05 09:14] VITALS: BP 135/84; PULSE 101
--- NOTE | 2020-07-05 09:39 | EDM.PDOC ---
ED HPI GENERAL MEDICAL PROBLEM - General Chief Complaint: General Stated Complaint: STOMACH PROBLEMS DR THOMPSON PATIENT Time Seen by Provider: 07/05/20 09:25 Source of Information: Reports: Patient, Old Records, RN History Limitations: Reports: No Limitations - History of Present Illness INITIAL COMMENTS - FREE TEXT/NARRATIVE: 49 yo female s/p gastric banding in the past at an outside facility recently was referred by Dr. Cline to [place] to have her gastric band reinflated for increased weight gain. Since then she has not been able to keep anything down and so comes to the ER requesting that we let the air out of her gastric band. She thinks she may be getting dehydrated, is unable to tell me the color of her urine. Is not dizzy with standing. Onset: Sudden (since her gastric band was reinflated) Onset Date: 07/02/20 Duration: Day(s):, Constant Location: Reports: Abdomen Quality: Reports: Dull Severity: Mild Improves with: Reports: Other (not vomiting) Worsens with: Reports: None Context: Reports: Other (See HPI) Associated Symptoms: Reports: Nausea/Vomiting. 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) (none) Epigastric Pain Score (Numeric/FACES): 5 - Related Data Allergies Allergy/AdvReac Type Severity Reaction Status Date / Time almond Allergy Severe Airway Verified 07/05/20 09:07 Tightness avocado Allergy Severe Airway Verified 07/05/20 09:07 Tightness banana Allergy Severe Airway Verified 07/05/20 09:07 Tightness kiwi Allergy Severe Airway Verified 07/05/20 09:07 Tightness peanut Allergy Severe Anaphylactic Verified 07/05/20 09:07 Shock cat dander Allergy Other Verified 07/05/20 09:07 codeine Allergy Itching Verified 07/05/20 09:07 latex Allergy Itching Verified 07/05/20 09:07 weed pollen-short ragweed Allergy Other Verified 07/05/20 09:07 [From Ragw[employer]k] erythromycin base AdvReac Nausea and Verified 07/05/20 09:07 Vomiting tramadol AdvReac Anxiety Verified 07/05/20 09:07 Home Meds: Home Meds ALPRAZolam [Alprazolam] 1 mg PO BEDTIME PRN 07/31/18 [History] Cholecalciferol (Vitamin D3) [Vitamin D3] 1 tab PO Q7D 07/31/18 [History] Diclofenac Sodium 4 gram TOP Q6H 02/15/19 [History] Escitalopram [Lexapro] 20 mg PO DAILY 08/19/19 [History] Ondansetron [Zofran ODT] 8 mg PO Q8H PRN tab.dis 09/05/19 [Rx] diphenhydrAMINE [Benadryl] 25 mg PO Q6H PRN cap 09/05/19 [Rx] Palbociclib [Ibrance] 100 mg PO BEDTIME 02/11/20 [History] Furosemide [Lasix] 20 mg PO DAILY 04/07/20 [History] ALPRAZolam [Xanax] 1 mg PO DAILY PRN 06/19/20 [History] Albuterol Sulfate [Proair Hfa] 2 puff INH TID PRN 06/19/20 [History] Cetirizine HCl [Zyrtec] 10 mg PO BID 06/19/20 [History] Lidocaine/Kinesiology Tape [Lidopure Patch 5% Combo Pack] 1 patch TOP DAILY 06/19/20 [History] Omeprazole 40 mg PO DAILY 06/19/20 [History] Potassium Chloride 20 meq PO DAILY 06/19/20 [History] Prochlorperazine Maleate [Compazine] 10 mg PO Q6H PRN 06/19/20 [History] Rivaroxaban [Xarelto] 10 mg PO BID 06/19/20 [History] dexAMETHasone [Dexamethasone] 4 mg PO ASDIRECTED 06/19/20 [History] oxyCODONE 5 mg PO Q4H PRN 06/19/20 [History] Past Medical History HEENT History: Reports: Allergic Rhinitis, Impaired Vision, Sinusitis Other HEENT History: Tooth pain Cardiovascular History: Reports: Heart Failure, Hypertension Respiratory History: Reports: Asthma, Bronchitis, Recurrent Gastrointestinal History: Reports: Cholelithiasis, GERD Genitourinary History: Reports: Pyelonephritis, UTI, Recurrent 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: Musculoskeletal History: Reports: Arthritis, Fracture, Fibromyalgia, Osteoarthritis Neurological History: Reports: Migraines Psychiatric History: Reports: ADHD, Addiction, Anxiety, Bipolar, Depression, OCD, PTSD Endocrine/Metabolic History: Reports: Diabetes, Type II, Vitamin D Deficiency, Other (See Below) Other Endocrine/Metabolic History: states not diabetic since lap band surgery Hematologic History: Reports: B12 Deficiency, Folic Acid Oncologic (Cancer) History: Reports: Bone, Breast, Other (See Below) Other Oncologic History: metastatic bone CA Dermatologic History: Reports: Cellulitis, Eczema - Infectious Disease History Infectious Disease History: Reports: Chicken Pox, Novel Coronavirus - Past Surgical History Head Surgeries/Procedures: Reports: None HEENT Surgical History: Reports: None Cardiovascular Surgical History: Reports: None Respiratory Surgical History: Reports: None GI Surgical History: Reports: Bariatric Procedure, Cholecystectomy, Colonoscopy, EGD Other GI Surgeries/Procedures: lap band 2007 Female Surgical History: Reports: None Endocrine Surgical History: Reports: None Neurological Surgical History: Reports: None Musculoskeletal Surgical History: Reports: None Other Oncologic Surgeries/Procedures: On chemo at this time Dermatological Surgical History: Reports: None Social & Family History - Family History Family Medical History: No Pertinent Family History - Tobacco Use Tobacco Use Status *Q: Current Every Day Tobacco User Years of Tobacco use: 33 Packs/Tins Daily: 0.5 - Caffeine Use Caffeine Use: Reports: Coffee, Energy Drinks - Recreational Drug Use Recreational Drug Use: Yes Recreational Drug Type: Reports: Marijuana/Hashish, Methamphetamine - Living Situation & Occupation Living situation: Reports: Single Occupation: Unemployed ED ROS GENERAL - Review of Systems Review Of Systems: See Below Constitutional: Reports: No Symptoms HEENT: Reports: No Symptoms Respiratory: Reports: No Symptoms Cardiovascular: Reports: No Symptoms GI/Abdominal: Reports: Abdominal Pain (wall pain from frequent vomiting), Diarrhea (chronic), Vomiting. Denies: Black Stool, Bloody Stool, Hematemesis, Hematochezia, Melena, Nausea : Reports: No Symptoms Musculoskeletal: Reports: No Symptoms Skin: Reports: No Symptoms Neurological: Reports: No Symptoms ED EXAM, GENERAL - Physical Exam Exam: See Below Exam Limited By: No Limitations General Appearance: Alert, WD/WN, No Apparent Distress, Obese Eye Exam: Bilateral Eye: Normal Inspection Ears: Normal External Exam, Normal Canal, Hearing Grossly Normal, Normal TMs Ear Exam: Bilateral Ear: Auricle Normal, Canal Normal, TM normal Nose: Normal Inspection, No Blood Throat/Mouth: Normal Inspection, Normal Lips, Normal Oropharynx, Normal Voice, No Airway Compromise Head: Atraumatic, Normocephalic Neck: Normal Inspection Respiratory/Chest: No Respiratory Distress, Lungs Clear, Normal Breath Sounds, No Accessory Muscle Use Cardiovascular: Regular Rate, Rhythm, No Edema GI/Abdominal: Normal Bowel Sounds, Soft, Non-Tender, No Distention Extremities: Normal Inspection, Normal Range of Motion, Non-Tender, No Pedal Edema Neurological: Alert, Oriented, CN II-XII Intact, Normal Cognition, No Motor/Sensory Deficits Psychiatric: Normal Affect, Normal Mood Skin Exam: Warm, Dry, Intact, Normal Color, No Rash Course - Vital Signs Text/Narrative:: Dr. Zazueta called @ 1015 Last Recorded V/S: Last Vital Signs Temp 36.4 C 07/05/20 08:58 Pulse 101 H 07/05/20 08:58 Resp 18 07/05/20 08:58 BP 135/84 07/05/20 08:58 Pulse Ox 99 07/05/20 08:58 Orthostatic Blood Pressure [ 113/79 Standing] Orthostatic Blood Pressure [ 124/88 Sitting] Orthostatic Blood Pressure [ 128/86 Supine] - Orders/Labs/Meds Orders: Active Orders 24 hr Category Date Time Status Orthostatic Vital Signs [RC] ASDIRECTED Care 07/05/20 09:20 Active Labs: Laboratory Tests 07/05/20 Range/Units 09:49 Sodium 143 (140-148) mmol/L Potassium 3.5 L (3.6-5.2) mmol/L Chloride 102 (100-108) mmol/L Carbon Dioxide 27 (21-32) mmol/L Anion Gap 17.5 H (5.0-14.0) mmol/L BUN 14 (7-18) mg/dL Creatinine 1.2 H (0.6-1.0) mg/dL Est Cr Clr Drug Dosing 41.18 mL/min Estimated GFR (MDRD) 48 L (>60) Glucose 96 (74-106) mg/dL Calcium 9.2 (8.5-10.1) mg/dL Departure - Departure Time of Disposition: 10:46 Disposition: Home, Self-Care 01 Condition: Fair Clinical Impression: Complication of gastric banding - Discharge Information *PRESCRIPTION DRUG MONITORING PROGRAM REVIEWED*: Not Applicable *COPY OF PRESCRIPTION DRUG MONITORING REPORT IN PATIENT KRISTIN: Not Applicable Referrals: PCP,None [Primary Care Provider] - Forms: ED Department Discharge Additional Instructions: Go to Dr. Thompson's office and his staff with let some pressure off your gastric banding. Sepsis Event Note (ED) - Evaluation Sepsis Screening Result: No Definite Risk - Focused Exam Vital Signs: Vital Signs Temp Pulse Resp BP Pulse Ox 07/05/20 08:58 36.4 C 101 H 18 135/84 99 - My Orders Last 24 Hours: My Active Orders 07/05/20 09:20 Orthostatic Vital Signs [RC] ASDIRECTED - Assessment/Plan Last 24 Hours: My Active Orders 07/05/20 09:20 Orthostatic Vital Signs [RC] ASDIRECTED
== END 2020-07-05 10:56 | disposition home or self-care (01) ==
LOC: JP.ED 08:38
DX: K95.09 Other complications of gastric band procedure (principal); K21.9 Gastro-esophageal reflux disease without esophagitis; I11.0 Hypertensive heart disease with heart failure; I50.9 Heart failure, unspecified; E11.9 Type 2 diabetes mellitus without complications; Z91.018 Allergy to other foods; Z88.6 Allergy status to analgesic agent; Z88.5 Allergy status to narcotic agent; Z91.040 Latex allergy status; Z91.010 Allergy to peanuts; Z91.048 Other nonmedicinal substance allergy status; Z79.01 Long term (current) use of anticoagulants; Z72.0 Tobacco use
CPT/HCPCS: 36415; 80048; 99282; 99284

== ENCOUNTER 2020-07-23 14:03 | Emergency (ER) | payer MEDICAID ==
[2020-07-23 15:13] VITALS: PULSE 87
[2020-07-23 16:23] VITALS: BP 119/71
--- NOTE | 2020-07-23 16:44 | EDM.PDOC ---
ED HPI GENERAL MEDICAL PROBLEM - General Chief Complaint: Cardiovascular Problem Stated Complaint: SHORTNESS OF BREATH Time Seen by Provider: 07/23/20 15:30 Source of Information: Reports: Patient History Limitations: Reports: No Limitations - History of Present Illness INITIAL COMMENTS - FREE TEXT/NARRATIVE: This is a 49-year-old female with history of PE, breast cancer, C. difficile colitis, drug use and alcoholism who presents with concerns of shortness of breath. She reports that her breathing has never felt the same since being diagnosed with PE couple months ago. She has been taking her Xarelto as prescribed. She reports that she is having a difficult time getting around her apartment currently. She becomes dyspneic with minimal exertion. She denies any chest pain. No wheezing, does report history of asthma. No cough. No fevers. She does endorse some increased swelling in her legs and generalized edema. She denies history of cardiac disease. She reports she recently had a bone scan for her breast cancer and that was encouraging. denies Pain Score (Numeric/FACES): 0 - Related Data Allergies Allergy/AdvReac Type Severity Reaction Status Date / Time almond Allergy Severe Airway Verified 07/23/20 15:05 Tightness avocado Allergy Severe Airway Verified 07/23/20 15:05 Tightness banana Allergy Severe Airway Verified 07/23/20 15:05 Tightness kiwi Allergy Severe Airway Verified 07/23/20 15:05 Tightness peanut Allergy Severe Anaphylactic Verified 07/23/20 15:05 Shock cat dander Allergy Other Verified 07/23/20 15:05 codeine Allergy Itching Verified 07/23/20 15:05 latex Allergy Itching Verified 07/23/20 15:05 weed pollen-short ragweed Allergy Other Verified 07/23/20 15:05 [From Rag[employer]] erythromycin base AdvReac Nausea and Verified 07/23/20 15:05 Vomiting tramadol AdvReac Anxiety Verified 07/23/20 15:05 Home Meds: Home Meds Cholecalciferol (Vitamin D3) [Vitamin D3] 1 tab PO Q7D 07/31/18 [History] Diclofenac Sodium 4 gram TOP Q6H 02/15/19 [History] Escitalopram [Lexapro] 20 mg PO DAILY 08/19/19 [History] Ondansetron [Zofran ODT] 8 mg PO Q8H PRN tab.dis 09/05/19 [Rx] Palbociclib [Ibrance] 100 mg PO BEDTIME 02/11/20 [History] Furosemide [Lasix] 20 mg PO DAILY 04/07/20 [History] ALPRAZolam [Xanax] 1 mg PO DAILY PRN 06/19/20 [History] Albuterol Sulfate [Proair Hfa] 2 puff INH TID PRN 06/19/20 [History] Cetirizine HCl [Zyrtec] 10 mg PO BID PRN 06/19/20 [History] Lidocaine/Kinesiology Tape [Lidopure Patch 5% Combo Pack] 1 patch TOP DAILY 06/19/20 [History] Omeprazole 40 mg PO DAILY 06/19/20 [History] Potassium Chloride 20 meq PO DAILY 06/19/20 [History] Prochlorperazine Maleate [Compazine] 10 mg PO Q6H PRN 06/19/20 [History] Rivaroxaban [Xarelto] 10 mg PO DAILY 06/19/20 [History] oxyCODONE 5 mg PO Q4H PRN 06/19/20 [History] Past Medical History HEENT History: Reports: Allergic Rhinitis, Impaired Vision, Sinusitis Other HEENT History: Tooth pain Cardiovascular History: Reports: Heart Failure, Hypertension Respiratory History: Reports: Asthma, Bronchitis, Recurrent Gastrointestinal History: Reports: Cholelithiasis, GERD Genitourinary History: Reports: Pyelonephritis, UTI, Recurrent 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: Musculoskeletal History: Reports: Arthritis, Fracture, Fibromyalgia, Osteoarthritis Neurological History: Reports: Migraines Psychiatric History: Reports: ADHD, Addiction, Anxiety, Bipolar, Depression, OCD, PTSD Endocrine/Metabolic History: Reports: Diabetes, Type II, Vitamin D Deficiency, Other (See Below) Other Endocrine/Metabolic History: states not diabetic since lap band surgery Hematologic History: Reports: B12 Deficiency, Folic Acid Oncologic (Cancer) History: Reports: Bone, Breast, Other (See Below) Other Oncologic History: metastatic bone CA Dermatologic History: Reports: Cellulitis, Eczema - Infectious Disease History Infectious Disease History: Reports: Chicken Pox, Novel Coronavirus - Past Surgical History Head Surgeries/Procedures: Reports: None HEENT Surgical History: Reports: None Cardiovascular Surgical History: Reports: None Respiratory Surgical History: Reports: None GI Surgical History: Reports: Bariatric Procedure, Cholecystectomy, Colonoscopy, EGD Other GI Surgeries/Procedures: lap band 2007 Female Surgical History: Reports: None Endocrine Surgical History: Reports: None Neurological Surgical History: Reports: None Musculoskeletal Surgical History: Reports: None Dermatological Surgical History: Reports: None Social & Family History - Family History Family Medical History: No Pertinent Family History - Tobacco Use Tobacco Use Status *Q: Current Every Day Tobacco User Years of Tobacco use: 35 Packs/Tins Daily: 1 Used Tobacco, but Quit: No Tobacco Use Comment: Now only smokes 4 to 5 cig per day. Second Hand Smoke Exposure: Yes - Caffeine Use Caffeine Use: Reports: Coffee, Energy Drinks - Alcohol Use Days Per Week of Alcohol Use: 7 Number of Drinks Per Day: 2 Total Drinks Per Week: 14 - Recreational Drug Use Recreational Drug Use: Yes Recreational Drug Type: Reports: Marijuana/Hashish Recreational Drug Use Frequency: Daily - Living Situation & Occupation Living situation: Reports: Single Occupation: Unemployed ED ROS GENERAL - Review of Systems Review Of Systems: See Below Constitutional: Reports: No Symptoms HEENT: Reports: No Symptoms Respiratory: Reports: Shortness of Breath. Denies: Wheezing, Cough, Hemoptysis Cardiovascular: Reports: Edema. Denies: Chest Pain Endocrine: Reports: No Symptoms GI/Abdominal: Reports: No Symptoms : Reports: No Symptoms Musculoskeletal: Reports: No Symptoms Skin: Reports: No Symptoms Neurological: Reports: No Symptoms Psychiatric: Reports: No Symptoms Hematologic/Lymphatic: Reports: No Symptoms Immunologic: Reports: No Symptoms ED EXAM, GENERAL - Physical Exam Exam: See Below Exam Limited By: No Limitations General Appearance: Alert, No Apparent Distress Ears: Normal External Exam Nose: Normal Inspection Throat/Mouth: Normal Inspection Head: Atraumatic, Normocephalic Neck: Normal Inspection Respiratory/Chest: No Respiratory Distress, Lungs Clear. No: Crackles, Wheezing Cardiovascular: Regular Rate, Rhythm, Other (Bilateral lower extremity pitting edema, generalized pitting edema notably in the face.) GI/Abdominal: Soft, Non-Tender Rectal (Female) Exam: Normal Exam Back Exam: Normal Inspection Extremities: Pedal Edema Neurological: Alert, Oriented Psychiatric: Normal Affect, Normal Mood Skin Exam: Warm, Dry #1 Interpretation Rhythm: NSR QRS: Normal ST-T: Other (T wave flattening in lead III, otherwise no ischemic change) Comparison: NA - No Prior EKG Course - Vital Signs Last Recorded V/S: Last Vital Signs Temp 36.3 C 07/23/20 15:12 Pulse 87 07/23/20 15:12 Resp 22 H 07/23/20 15:12 BP 119/71 07/23/20 15:26 Pulse Ox 93 L 07/23/20 15:12 - Orders/Labs/Meds Orders: Active Orders 24 hr Category Date Time Status EKG Documentation Completion [RC] ASDIRECTED Care 07/23/20 15:37 Active CXR [Chest 1V Frontal] [CR] Stat Exams 07/23/20 15:36 Taken TSH ULTRASENSITIVE [CHEM] Stat Lab 07/23/20 16:46 Ordered EKG 12 Lead [EK] Routine Ther 07/23/20 15:37 Ordered Labs: Laboratory Tests 07/23/20 07/23/20 07/23/20 Range/Units 16:03 16:03 16:03 WBC 2.0 L (4.5-11.0) K/uL RBC 2.86 L (3.30-5.50) M/uL Hgb 10.2 L (12.0-15.0) g/dL Hct 31.9 L (36.0-48.0) % MCV 112 H (80-98) fL MCH 36 H (27-31) pg MCHC 32 (32-36) % Plt Count 301 (150-400) K/uL Sodium 142 (140-148) mmol/L Potassium 3.7 (3.6-5.2) mmol/L Chloride 98 L (100-108) mmol/L Carbon Dioxide 28 (21-32) mmol/L Anion Gap 19.7 H (5.0-14.0) mmol/L BUN 5 L D (7-18) mg/dL Creatinine 1.1 H (0.6-1.0) mg/dL Est Cr Clr Drug Dosing 44.93 mL/min Estimated GFR (MDRD) 53 L (>60) Glucose 139 H (74-106) mg/dL Calcium 9.0 (8.5-10.1) mg/dL Total Bilirubin 0.3 (0.2-1.0) mg/dL AST 109 H (15-37) U/L ALT 126 H (12-78) U/L Alkaline Phosphatase 94 (46-116) U/L Troponin I < 0.017 (0.000-0.056) ng/mL NT-Pro-B Natriuret Pep 74 (5-125) pg/mL Total Protein 7.0 (6.4-8.2) g/dL Albumin 3.3 L (3.4-5.0) g/dL Globulin 3.7 H (2.3-3.5) g/dL Albumin/Globulin Ratio 0.9 L (1.2-2.2) Ethyl Alcohol 91 mg/dL - Re-Assessments/Exams Free Text/Narrative Re-Assessment/Exam: 49-year-old with extensive medical history as outlined presents with concerns of dyspnea. On exam she has normal vitals, cardiopulmonary exam is unremarkable with exception of generalized pitting edema. EKG is obtained and shows T wave flattening in lead III, no prior for comparison, otherwise no concerning changes. She does have a history of PE but has been taking her Xarelto. Screening labs obtained and overall reassuring, does have some downtrending values and her white blood cell count hemoglobin, platelets, likely due to alcoholism and poor nutrition. Troponin negative. BNP is not elevated. She is noted to have some ethanol on board Chest x-ray perhaps with some mild volume overload. Overall I think she is stable for discharge. Not clear what etiology of her symptoms are, perhaps just deconditioning. I do not think we need to reinvestigate PE given her normal vitals and that she is already anticoagulated without evidence of any submassive or massive emboli by cardiac markers. Although her BNP is negative I think we could still diurese her some as she is obviously whole-body volume overloaded. We will double her home Lasix from 20 to 40 mg. I have placed referral for her to follow-up with her primary care doctor office this week. 07/23/20 16:49 Departure - Departure Time of Disposition: 16:52 Disposition: Home, Self-Care 01 Clinical Impression: Shortness of breath Instructions: Shortness of Breath, Adult, [id number] Referrals: Madelyn Cline DO [Primary Care Provider] - Forms: ED Department Discharge Additional Instructions: Your work-up in the ER today was reassuring. We did not find any emergent cause of your symptoms. I think your breathing may feel better if we get some of the extra volume off of your body, please double the dose of your Lasix to 40 mg daily. We have placed a referral for you to be seen by your primary care doctor this week. If you feel that your breathing significantly worsens in the meantime please to return to the ER for reevaluation. Thank you for trusting us to care for you today. Sepsis Event Note (ED) - Evaluation Sepsis Screening Result: No Definite Risk - Focused Exam Vital Signs: Vital Signs Temp Pulse Resp BP Pulse Ox 07/23/20 15:26 119/71 07/23/20 15:12 36.3 C 87 22 H 151/95 H 93 L 07/23/20 15:05 36.3 C 22 H 151/95 H 93 L - My Orders Last 24 Hours: My Active Orders 07/23/20 15:36 CXR [Chest 1V Frontal] [CR] Stat 07/23/20 15:37 EKG Documentation Completion [RC] ASDIRECTED EKG 12 Lead [EK] Routine 07/23/20 16:46 TSH ULTRASENSITIVE [CHEM] Stat - Assessment/Plan Last 24 Hours: My Active Orders 07/23/20 15:36 CXR [Chest 1V Frontal] [CR] Stat 07/23/20 15:37 EKG Documentation Completion [RC] ASDIRECTED EKG 12 Lead [EK] Routine 07/23/20 16:46 TSH ULTRASENSITIVE [CHEM] Stat
--- NOTE | 2020-07-24 11:38 | CR ---
CHEST: Portable 07/23/2020 at 4:14 PM CLINICAL HISTORY:SOB COMPARISON:Heart size and pulmonary vascularity are normal. Patient has an Kaunba-z-Yoac catheter from the right subclavian approach. No infiltrates are seen FINDINGS: No infiltrates are seen Right subclavian [id number]-a-[id number] catheter.
== END 2020-07-23 17:19 | disposition home or self-care (01) ==
LOC: JP.ED 14:03
DX: R06.02 Shortness of breath (principal); I11.0 Hypertensive heart disease with heart failure; I50.9 Heart failure, unspecified; J45.909 Unspecified asthma, uncomplicated; K21.9 Gastro-esophageal reflux disease without esophagitis; E11.9 Type 2 diabetes mellitus without complications; Z91.018 Allergy to other foods; Z91.010 Allergy to peanuts; Z91.048 Other nonmedicinal substance allergy status; Z91.040 Latex allergy status; Z88.5 Allergy status to narcotic agent; Z88.1 Allergy status to other antibiotic agents; Z79.01 Long term (current) use of anticoagulants; Z86.711 Personal history of pulmonary embolism; Z72.0 Tobacco use
CPT/HCPCS: 36415; 71045; 71045-26; 80053; 80307; 83880; 84443; 84484; 85027; 93005; 99285-25

== ENCOUNTER 2020-12-25 17:46 | Inpatient (IN) | payer MEDICAID ==
--- NOTE | 2020-12-25 18:31 | EDM.PDOC ---
ED HPI GENERAL MEDICAL PROBLEM - General Chief Complaint: Respiratory Problem Stated Complaint: SOB, DIZZY, FATIGUE Time Seen by Provider: 12/25/20 18:09 Source of Information: Reports: Patient, Old Records History Limitations: Reports: No Limitations - History of Present Illness INITIAL COMMENTS - FREE TEXT/NARRATIVE: Minal is a 50-year-old female appearing much older than her stated age who presents to the ED with a multitude of concerns including shortness of breath, abdominal pain, body aches, anxiety, nausea, and chest heaviness. Patient states that it feels very similar to when she had a pulmonary embolism in the past. Patient has a past medical history significant for metastatic breast cancer from the left breast metastasizing to the thoracolumbar spine and pelvis. She has not had any fever or chills. The patient does smoke a half a pack of cigarettes a day, use marijuana for pain control (not medical marijuana), drinks several times a week and does use caffeine. Patient does report that she had COVID-19 in January and that she subsequently has been vaccinated with 1 shot of the [employer] vaccine. Right Shoulder Pain Score (Numeric/FACES): 5 - Related Data Allergies Allergy/AdvReac Type Severity Reaction Status Date / Time almond Allergy Severe Airway Verified 12/25/20 18:13 Tightness avocado Allergy Severe Airway Verified 12/25/20 18:13 Tightness banana Allergy Severe Airway Verified 12/25/20 18:13 Tightness kiwi Allergy Severe Airway Verified 12/25/20 18:13 Tightness peanut Allergy Severe Anaphylactic Verified 12/25/20 18:13 Shock cat dander Allergy Other Verified 12/25/20 18:13 codeine Allergy Itching Verified 12/25/20 18:13 latex Allergy Itching Verified 12/25/20 18:13 weed pollen-short ragweed Allergy Other Verified 12/25/20 18:13 [From [employer]] erythromycin base AdvReac Nausea and Verified 12/25/20 18:13 Vomiting tramadol AdvReac Anxiety Verified 12/25/20 18:13 Home Meds: Home Meds Cholecalciferol (Vitamin D3) [Vitamin D3] 1 tab PO Q7D 07/31/18 [History] Diclofenac Sodium 4 gram TOP Q6H 02/15/19 [History] Escitalopram [Lexapro] 20 mg PO DAILY 08/19/19 [History] Ondansetron [Zofran ODT] 8 mg PO Q8H PRN tab.dis 09/05/19 [Rx] Palbociclib [Ibrance] 100 mg PO BEDTIME 02/11/20 [History] Furosemide [Lasix] 20 mg PO DAILY 04/07/20 [History] ALPRAZolam [Xanax] 1 mg PO DAILY PRN 06/19/20 [History] Albuterol Sulfate [Proair Hfa] 2 puff INH TID PRN 06/19/20 [History] Cetirizine HCl [Zyrtec] 10 mg PO BID PRN 06/19/20 [History] Lidocaine/Kinesiology Tape [Lidopure Patch 5% Combo Pack] 1 patch TOP DAILY 06/19/20 [History] Omeprazole 40 mg PO DAILY 06/19/20 [History] Potassium Chloride 20 meq PO DAILY 06/19/20 [History] Prochlorperazine Maleate [Compazine] 10 mg PO Q6H PRN 06/19/20 [History] Rivaroxaban [Xarelto] 10 mg PO DAILY 06/19/20 [History] oxyCODONE 5 mg PO Q4H PRN 06/19/20 [History] Past Medical History HEENT History: Reports: Allergic Rhinitis, Impaired Vision, Sinusitis Other HEENT History: Tooth pain Cardiovascular History: Reports: Heart Failure, Hypertension Respiratory History: Reports: Asthma, Bronchitis, Recurrent Gastrointestinal History: Reports: Cholelithiasis, GERD Genitourinary History: Reports: Pyelonephritis, UTI, Recurrent H[employer] History: Reports: Musculoskeletal History: Reports: Arthritis, Fracture, Fibromyalgia, Osteoarthritis Neurological History: Reports: Migraines Psychiatric History: Reports: ADHD, Addiction, Anxiety, Bipolar, Depression, OCD, PTSD Endocrine/Metabolic History: Reports: Diabetes, Type II, Vitamin D Deficiency, Other (See Below) Other Endocrine/Metabolic History: states not diabetic since lap band surgery Hematologic History: Reports: B12 Deficiency, Folic Acid Oncologic (Cancer) History: Reports: Bone, Breast, Other (See Below) Other Oncologic History: metastatic bone CA Dermatologic History: Reports: Cellulitis, Eczema - Infectious Disease History Infectious Disease History: Reports: Chicken Pox, Novel Coronavirus - Past Surgical History Head Surgeries/Procedures: Reports: None GI Surgical History: Reports: Bariatric Procedure, Cholecystectomy, Colonoscopy, EGD Other GI Surgeries/Procedures: lap band 2007 Female Surgical History: Reports: None Endocrine Surgical History: Reports: None Neurological Surgical History: Reports: None Other Oncologic Surgeries/Procedures: On chemo at this time Dermatological Surgical History: Reports: None Social & Family History - Family History Family Medical History: No Pertinent Family History - Tobacco Use Tobacco Use Status *Q: Light Tobacco User Years of Tobacco use: 30 Packs/Tins Daily: 0.5 - Caffeine Use Caffeine Use: Reports: None - Alcohol Use Days Per Week of Alcohol Use: 3 Number of Drinks Per Day: 2 Total Drinks Per Week: 6 - Recreational Drug Use Recreational Drug Use: Yes Recreational Drug Use Frequency: Daily - Living Situation & Occupation Living situation: Reports: Single Occupation: Unemployed ED ROS GENERAL - Review of Systems Review Of Systems: See Below Constitutional: Reports: No Symptoms, Malaise, Weakness HEENT: Reports: No Symptoms Respiratory: Reports: Shortness of Breath Cardiovascular: Reports: Chest Pain (Chest heaviness) Endocrine: Reports: No Symptoms GI/Abdominal: Reports: Abdominal Pain, Nausea. Denies: Diarrhea, Vomiting : Reports: No Symptoms Musculoskeletal: Reports: Muscle Pain Skin: Reports: No Symptoms Neurological: Reports: Headache Psychiatric: Reports: Anxiety Hematologic/Lymphatic: Reports: Anemia (Patient is concerned that she is again anemic.) Immunologic: Reports: No Symptoms ED EXAM, GENERAL - Physical Exam Exam: See Below Exam Limited By: No Limitations General Appearance: Alert, Anxious, Mild Distress, Obese Eye Exam: Bilateral Eye: EOMI, PERRL Throat/Mouth: Normal Oropharynx, Normal Voice, No Airway Compromise Head: Atraumatic, Normocephalic Neck: Normal Inspection, Supple, Non-Tender, Full Range of Motion. No: Lymphadenopathy (R), Lymphadenopathy (L) Respiratory/Chest: No Respiratory Distress, Lungs Clear, Normal Breath Sounds, No Accessory Muscle Use. No: Crackles, Rales, Rhonchi, Wheezing Cardiovascular: Normal Peripheral Pulses, Regular Rate, Rhythm, No Murmur Peripheral Pulses: 2+: Radial (L), Radial (R), Posterior Tibial (L), Posterior Tibial (R) GI/Abdominal: Normal Bowel Sounds, Soft, Non-Tender Back Exam: Normal Inspection, Full Range of Motion Extremities: Normal Inspection Neurological: Alert, Oriented, Normal Cognition, No Motor/Sensory Deficits Psychiatric: Normal Affect, Anxious Skin Exam: Warm, Dry, Intact, Normal Color Course - Vital Signs Last Recorded V/S: Last Vital Signs Temp 36.5 C 12/25/20 18:16 Pulse 106 H 12/25/20 18:16 Resp 26 H 12/25/20 18:16 BP 126/65 12/25/20 18:16 Pulse Ox 100 12/25/20 18:16 - Orders/Labs/Meds Orders: Active Orders 24 hr Category Date Time Status Ang Chest [CT] Stat Exams 12/25/20 19:22 Stop Req Chest 1V Frontal [CR] Stat Exams 12/25/20 18:10 Taken RED BLOOD CELLS LP [BBK] Stat Lab 12/25/20 19:22 Ordered TYPE AND SCREEN [BBK] Stat Lab 12/25/20 19:22 Ordered Enoxaparin [Lovenox] Med 12/25/20 19:30 Ordered 80 mg SUBCUT Q12H Sodium Chloride 0.9% [Saline Flush] Med 12/25/20 19:22 Ordered 10 ml FLUSH ASDIRECTED PRN Isolation [COMM] Stat Oth 12/25/20 18:10 Ordered Saline Lock Insert [OM.PC] Routine Oth 12/25/20 19:22 Ordered Transfuse Red Blood Cells [COMM] Urgent Oth 12/25/20 19:22 Ordered Medication Orders Sodium Chloride (Sodium Chloride 0.9% 10 Ml Syringe) 10 ml FLUSH ASDIRECTED PRN PRN Reason: Keep Vein Open Labs: Laboratory Tests 12/25/20 12/25/20 12/25/20 Range/Units 18:28 18:28 18:28 WBC 5.0 (4.5-11.0) K/uL RBC 2.15 L (3.30-5.50) M/uL Hgb 7.5 L D (12.0-15.0) g/dL Hct 22.3 L (36.0-48.0) % MCV 104 H (80-98) fL MCH 35 H (27-31) pg MCHC 34 (32-36) % Plt Count 61 L (150-400) K/uL Add Manual Diff Yes Neutrophils % (Manual) 49 (36-66) % Band Neutrophils % 4 L (5-11) % Lymphocytes % (Manual) 44 (24-44) % Monocytes % (Manual) 3 (2-6) % Polychromasia PT (9.2-10.6) sec INR APTT (21.4-31.8) sec D-Dimer, Quantitative (0.0-500.0) ng/mL Sodium 134 L (140-148) mmol/L Potassium 3.4 L (3.6-5.2) mmol/L Chloride 94 L (100-108) mmol/L Carbon Dioxide 22 (21-32) mmol/L Anion Gap 21.4 H (5.0-14.0) mmol/L BUN 20 H D (7-18) mg/dL Creatinine 1.7 H D (0.6-1.0) mg/dL Est Cr Clr Drug Dosing 28.75 mL/min Estimated GFR (MDRD) 32 L (>60) Glucose 162 H (74-106) mg/dL Lactic Acid (0.4-2.0) mmol/L Calcium 9.0 (8.5-10.1) mg/dL Ferritin 1645 H (8-388) ng/ml Total Bilirubin 0.8 D (0.2-1.0) mg/dL AST 51 H (15-37) U/L ALT 44 (12-78) U/L Alkaline Phosphatase 105 (46-116) U/L Lactate Dehydrogenase 594 H (82-234) U/L C-Reactive Protein 2.25 H (0.0-0.3) mg/dL Total Protein 7.0 (6.4-8.2) g/dL Albumin 3.5 (3.4-5.0) g/dL Globulin 3.5 (2.3-3.5) g/dL Albumin/Globulin Ratio 1.0 L (1.2-2.2) Procalcitonin ng/mL Influenza Type A RNA Negative (NEGATIVE) RSV RNA (INAAT) Negative (NEGATIVE) Influenza Type B RNA Negative (NEGATIVE) SARS-CoV-2 RNA ([facility]) Negative (NEGATIVE) 12/25/20 12/25/20 12/25/20 Range/Units 18:28 18:28 18:28 WBC (4.5-11.0) K/uL RBC (3.30-5.50) M/uL Hgb (12.0-15.0) g/dL Hct (36.0-48.0) % MCV (80-98) fL MCH (27-31) pg MCHC (32-36) % Plt Count (150-400) K/uL Add Manual Diff Neutrophils % (Manual) (36-66) % Band Neutrophils % (5-11) % Lymphocytes % (Manual) (24-44) % Monocytes % (Manual) (2-6) % Polychromasia PT 11.1 H (9.2-10.6) sec INR 1.1 APTT 21.1 L (21.4-31.8) sec D-Dimer, Quantitative (0.0-500.0) ng/mL Sodium (140-148) mmol/L Potassium (3.6-5.2) mmol/L Chloride (100-108) mmol/L Carbon Dioxide (21-32) mmol/L Anion Gap (5.0-14.0) mmol/L BUN (7-18) mg/dL Creatinine (0.6-1.0) mg/dL Est Cr Clr Drug Dosing mL/min Estimated GFR (MDRD) (>60) Glucose (74-106) mg/dL Lactic Acid 4.4 H (0.4-2.0) mmol/L Calcium (8.5-10.1) mg/dL Ferritin (8-388) ng/ml Total Bilirubin (0.2-1.0) mg/dL AST (15-37) U/L ALT (12-78) U/L Alkaline Phosphatase (46-116) U/L Lactate Dehydrogenase (82-234) U/L C-Reactive Protein (0.0-0.3) mg/dL Total Protein (6.4-8.2) g/dL Albumin (3.4-5.0) g/dL Globulin (2.3-3.5) g/dL Albumin/Globulin Ratio (1.2-2.2) Procalcitonin 0.27 ng/mL Influenza Type A RNA (NEGATIVE) RSV RNA (INAAT) (NEGATIVE) Influenza Type B RNA (NEGATIVE) SARS-CoV-2 RNA ([facility]) (NEGATIVE) 12/25/20 Range/Units 18:28 WBC (4.5-11.0) K/uL RBC (3.30-5.50) M/uL Hgb (12.0-15.0) g/dL Hct (36.0-48.0) % MCV (80-98) fL MCH (27-31) pg MCHC (32-36) % Plt Count (150-400) K/uL Add Manual Diff Neutrophils % (Manual) (36-66) % Band Neutrophils % (5-11) % Lymphocytes % (Manual) (24-44) % Monocytes % (Manual) (2-6) % Polychromasia PT (9.2-10.6) sec INR APTT (21.4-31.8) sec D-Dimer, Quantitative 1255.77 H (0.0-500.0) ng/mL Sodium (140-148) mmol/L Potassium (3.6-5.2) mmol/L Chloride (100-108) mmol/L Carbon Dioxide (21-32) mmol/L Anion Gap (5.0-14.0) mmol/L BUN (7-18) mg/dL Creatinine (0.6-1.0) mg/dL Est Cr Clr Drug Dosing mL/min Estimated GFR (MDRD) (>60) Glucose (74-106) mg/dL Lactic Acid (0.4-2.0) mmol/L Calcium (8.5-10.1) mg/dL Ferritin (8-388) ng/ml Total Bilirubin (0.2-1.0) mg/dL AST (15-37) U/L ALT (12-78) U/L Alkaline Phosphatase (46-116) U/L Lactate Dehydrogenase (82-234) U/L C-Reactive Protein (0.0-0.3) mg/dL Total Protein (6.4-8.2) g/dL Albumin (3.4-5.0) g/dL Globulin (2.3-3.5) g/dL Albumin/Globulin Ratio (1.2-2.2) Procalcitonin ng/mL Influenza Type A RNA (NEGATIVE) RSV RNA (INAAT) (NEGATIVE) Influenza Type B RNA (NEGATIVE) SARS-CoV-2 RNA ([facility]) (NEGATIVE) Meds: Medications Generic Name Dose Route Start Last Admin Trade Name Freq PRN Reason Stop Dose Admin Sodium Chloride 10 ml 12/25/20 19:22 Sodium Chloride 0.9% 10 Ml Syringe FLUSH ASDIRECTED PRN Keep Vein Open - Re-Assessments/Exams Free Text/Narrative Re-Assessment/Exam: 12/25/20 18:32 labs were drawn including a COVID-19/RSV/influenza quadrivalent swab, CBC, comprehensive metabolic panel, D-dimer, LDH, lactate, PTT, INR, ferritin, and C-reactive protein. In addition, a 1 view chest x-ray was obtained. 12/25/20 19:35 I reviewed the patient's labs showing a leukocyte count of 5.0, hemoglobin of 7.5, hematocrit 22.3 and a platelet count of 61,000. These are substantially down from her previous CBC done in 12/05/2020 when her hemoglobin was 9.3. Her previous platelet count was 68,000. The patient is on Xarelto but despite that has a markedly elevated D-dimer at 1255. Unfortunately, the patient's creatinine is 1.7 with a GFR of [address] angiogram of the chest is not possible. She will need a VQ scan which can be ordered. She has not taken her Xarelto today so I am initiating antiplatelet therapy with Lovenox 1 mg/kg every 12 hours. I have also ordered 2 units of packed red cells to be transfused. I will contact Dr. Calvin to admit the patient at 2000 hrs. This was discussed with the patient who is in agreement with this plan. Departure - Departure Time of Disposition: 20:00 Disposition: Admitted As Inpatient 67 Clinical Impression: Shortness of breath, Malignant neoplasm of breast metastatic to bone, Gastric banding status, Generalized anxiety disorder, Elevated d-dimer, History of pulmonary embolism Anemia Qualifiers: Chronic kidney disease stage: stage 4 (severe) Breast cancer metastasized to axillary lymph node Qualifiers: Laterality: left Qualified Code(s): C50.912 - Malignant neoplasm of unspecified site of left female breast; C77.3 - Secondary and unspecified malignant neoplasm of axilla and upper limb lymph nodes - Discharge Information Referrals: Madelyn Cline DO [Primary Care Provider] - Forms: ED Department Discharge Sepsis Event Note (ED) - Evaluation Sepsis Screening Result: No Definite Risk - Focused Exam Vital Signs: Vital Signs Temp Pulse Resp BP Pulse Ox 12/25/20 18:16 36.5 C 106 H 26 H 126/65 100 12/25/20 18:12 36.5 C 106 H 26 H 126/65 100 - Problem List & Annotations (1) Shortness of breath SNOMED Code(s): 795705934 Code(s): R06.02 - SHORTNESS OF BREATH Status: Acute Priority: High Current Visit: Yes (2) Metastatic adenocarcinoma SNOMED Code(s): 886755133, 842441989, 701394467 Code(s): C79.9 - SECONDARY MALIGNANT NEOPLASM OF UNSPECIFIED SITE Status: Chronic Priority: Medium Current Visit: Yes (3) Malignant neoplasm of breast metastatic to bone SNOMED Code(s): 716888345, 292504676 Code(s): C50.919 - MALIGNANT NEOPLASM OF UNSP SITE OF UNSPECIFIED FEMALE BREAST; C79.51 - SECONDARY MALIGNANT NEOPLASM OF BONE Status: Chronic Priority: Medium Current Visit: Yes (4) Chronic anemia SNOMED Code(s): 358484902 Code(s): D64.9 - ANEMIA, UNSPECIFIED Status: Chronic Current Visit: Yes (5) Breast cancer metastasized to axillary lymph node SNOMED Code(s): 856902425, 955165191, 641696344 Code(s): C50.919 - MALIGNANT NEOPLASM OF UNSP SITE OF UNSPECIFIED FEMALE BREAST; C77.3 - SEC AND UNSP MALIG NEOPLASM OF AXILLA AND UPPER LIMB NODES Status: Chronic Priority: High Current Visit: Yes Qualifiers: Laterality: left Qualified Code(s): C50.912 - Malignant neoplasm of unspecified site of left female breast; C77.3 - Secondary and unspecified malignant neoplasm of axilla and upper limb lymph nodes (6) Gastric banding status SNOMED Code(s): 927808554, 132417581 Code(s): Z98.84 - BARIATRIC SURGERY STATUS Status: Chronic Priority: Medium Current Visit: Yes (7) Generalized anxiety disorder SNOMED Code(s): 97393523 Code(s): F41.1 - GENERALIZED ANXIETY DISORDER Status: Chronic Priority: Medium Current Visit: Yes (8) Anemia SNOMED Code(s): 999540871 Code(s): D64.9 - ANEMIA, UNSPECIFIED Status: Acute Priority: High Current Visit: Yes Qualifiers: Anemia type: due to chronic kidney disease Chronic kidney disease stage: stage 4 (severe) Qualified Code(s): N18.4 - Chronic kidney disease, stage 4 (severe); D63.1 - Anemia in chronic kidney disease (9) Elevated d-dimer SNOMED Code(s): 586780177 Code(s): R79.89 - OTHER SPECIFIED ABNORMAL FINDINGS OF BLOOD CHEMISTRY Status: Acute Priority: High Current Visit: Yes - Problem List Review Problem List Initiated/Reviewed/Updated: Yes - My Orders Last 24 Hours: My Active Orders 12/25/20 18:10 Chest 1V Frontal [CR] Stat Isolation [COMM] Stat 12/25/20 19:22 Ang Chest [CT] Stat RED BLOOD CELLS LP [BBK] Stat TYPE AND SCREEN [BBK] Stat Sodium Chloride 0.9% [Saline Flush] 10 ml FLUSH ASDIRECTED PRN Saline Lock Insert [OM.PC] Routine Transfuse Red Blood Cells [COMM] Urgent 12/25/20 19:30 Enoxaparin [Lovenox] 80 mg SUBCUT Q12H - Assessment/Plan Last 24 Hours: My Active Orders 12/25/20 18:10 Chest 1V Frontal [CR] Stat Isolation [COMM] Stat 12/25/20 19:22 Ang Chest [CT] Stat RED BLOOD CELLS LP [BBK] Stat TYPE AND SCREEN [BBK] Stat Sodium Chloride 0.9% [Saline Flush] 10 ml FLUSH ASDIRECTED PRN Saline Lock Insert [OM.PC] Routine Transfuse Red Blood Cells [COMM] Urgent 12/25/20 19:30 Enoxaparin [Lovenox] 80 mg SUBCUT Q12H
[2020-12-25 18:59] LABS: CORONAVIRUS COVID-19 NAA NEGATIVE (NEGATIVE)
[2020-12-25] MEDS ORDERED: Sodium Chloride 0.9% 10 ML Syringe FLUSH PRN (19:22)
[2020-12-25] MEDS ORDERED: Enoxaparin 80 MG/0.8 ML Syringe SUBCUT SCH (19:30)
[2020-12-25] MEDS ORDERED: ALPRAZolam 0.25 MG Tab PO ONE (21:11)
[2020-12-25] MEDS ORDERED: Albuterol 8 GM Inhaler INH PRN (21:25)
[2020-12-25] MEDS ORDERED: Cetirizine 10 MG Tab PO PRN (21:25)
[2020-12-25] MEDS ORDERED: ALPRAZolam 0.5 MG Tab PO PRN (21:25)
[2020-12-25] MEDS ORDERED: oxyCODONE 5 MG Tab PO PRN (21:25)
[2020-12-25] MEDS ORDERED: Prochlorperazine 10 MG Tab PO PRN (21:25)
[2020-12-25] MEDS ORDERED: Ondansetron 4 MG Tab.DIS PO PRN (21:25)
[2020-12-25] MEDS ORDERED: Cholecalciferol (Vitamin D3) 50,000 Unit Cap PO SCH (21:30)
[2020-12-25] MEDS ORDERED: Carbidopa/Levodopa 25-100 MG Tab PO ONE (22:28)
[2020-12-25] MEDS ORDERED: Escitalopram 10 MG Tab ONE (22:43)
[2020-12-25] MEDS: ALPRAZolam 0.5 MG Tab PO PRN (22:58)
[2020-12-25] MEDS ORDERED: Escitalopram 20 MG Tab PO ONE (23:00)
--- NOTE | 2020-12-26 00:58 | HP ---
IDENTIFYING DATA: Lucie Castillo is a 50-year-old single female from [place]. CHIEF COMPLAINTS: Constitutional symptoms including shortness of breath, general weakness, myalgias, nausea, and anorexia. HISTORY OF PRESENT ILLNESS: Adult female has a noted history of primary breast cancer identified in February of 2018. She underwent initial treatment and was felt to be in remission. However, in 2019, was found to have evidence of recurrent metastases to the bones. Just within the past month, followup imaging has again suggested progressive bony metastases. She has been scheduled for consultation with Oncology Services on 12/26/2020 to discuss resumption of therapeutic treatment. Additionally, she noted in August of 2019, development of multiple bilateral pulmonary emboli. Has been maintained on anticoagulant therapy since that time with generalized chest discomfort, chest heaviness, and shortness of breath with minimal exertion. She has questioned the possibility of recurrent PEs, though she does use Xarelto as chronic anticoagulant therapy. By her admission, she has had occasional missed doses including earlier today. She has had no fevers, chills, or pleuritic sputum production. She did have active COVID disease in January of 2020 and underwent COVID vaccination with single-dose Jonathan vaccine earlier this year. PAST MEDICAL HISTORY: Long-standing history of ongoing tobacco use with respiratory disease. Additionally, she has a history of previous morbid obesity with a lap band procedure in the remote past at [facility] in the [facility]. She admits to history of alcohol and substance abuse including methamphetamine use. Continues to use marijuana on a regular basis for moderation of symptoms. Reports current alcohol use estimated at 6 to 10 drinks weekly. Does admit to methamphetamine use as recently as 1 week ago. Additional health problems include asthmatic lung disease, GE reflux disease with PPI therapy, and recurrent depressive disorder. ALLERGIES: INCLUDE ENVIRONMENTAL SENSITIVITIES TO ALMONDS, AVOCADO, BANANA, KIWI, PEANUT, CAT DANDER, CODEINE, LATEX, WEED POLLENS. GI UPSET WITH NAUSEA AND EMESIS SECONDARY TO ERYTHROMYCIN AND INCREASED ANXIETY WITH USE OF TRAMADOL. CURRENT MEDICATIONS: Include: 1. Escitalopram 40 mg daily. 2. Docusate 200 mg daily p.r.n. constipation. 3. MiraLAX 17 g daily p.r.n. constipation. 4. Oxycodone 5 mg q.4 hours p.r.n. pain. 5. Dexamethasone 4 mg twice weekly. 6. Xiidra 5% ophthalmic drops 1 drop to each eye b.i.d. 7. Potassium chloride 10 mEq daily. 8. Ibrance 100 mg tablet daily for 21 days, followed by 7-day drug-free period, then recycle. 9. Albuterol metered-dose inhaler 2 puffs 3 times daily p.r.n. shortness of breath. 10.Alphagan 0.2% ophthalmic solution, dose unknown. 11.Xarelto 20 mg daily. 12.Nystatin cream to be applied b.i.d. p.r.n. Shoshana infections. 13.Alprazolam 1 mg b.i.d. p.r.n. anxiety. 14.Furosemide 20 mg daily. 15.Zofran ODT 8 mg q.8 hours p.r.n. nausea. 16.Cetirizine 10 mg 2 times daily. 17.Compazine 10 mg q.6 hours p.r.n. nausea. 18.Wixela 250/50 mcg powder 1 puff b.i.d. 19.Diclofenac 1% topical gel applied 4 times daily p.r.n. to arthralgias. 20.Vitamin D3 50,000 units every 7 days. 21.EpiPen p.r.n. anaphylactic reaction. SOCIAL HISTORY: She is single. Has 4 grown children. Currently residing with an acquaintance. Generally performs ADLs independently. FAMILY HISTORY: Unable to provide, extensive family history. REVIEW OF SYSTEMS: NEUROLOGIC: Generalized anxiety with accompanying depressive symptoms. Record suggests a history of personality disorder and substance abuse. No headaches or visual distortion. Denies hearing loss. CARDIAC: No history of hypertension, diabetes, congenital heart disease, rheumatic fever, [place], or cardiac arrest. RESPIRATORY: History of chronic respiratory disease exacerbated by ongoing tobacco use. Previous COVID infection January of 2020 with subsequent resolution of symptoms, now COVID vaccinated. Chest discomfort noted with the patient questioning possibility of recurrent pulmonary emboli. GI: Previous lap band surgical procedure for reasons of morbid obesity. She does have mild dysphagia secondary to lap band procedure requiring dietary restrictions. No history of hepatitis, jaundice, melena or hematochezia reported. : Current acute renal insufficiency, rises repeatedly at night to void. No urinary incontinence. Previous labs do not reveal evidence of chronic renal disease. MUSCULOSKELETAL: General arthralgias and myalgias, widespread, most significantly noting discomfort at the right shoulder reportedly at the site of recently identified metastatic disease. PHYSICAL EXAMINATION: GENERAL: Appearance is that of a mildly fatigued adult female, seen in hospital bed. No outward signs of pain currently noted. VITAL SIGNS: Initial vitals; blood pressure 126/65, O2 sats 100% on room air, respiratory rate 26, pulse 106, temperature is 36.5 degrees centigrade. HEENT: Hearing is intact with normal canals. Sclerae anicteric. Extraocular eye movements are symmetric. No oropharyngeal lesions. No facial asymmetry. Speech is clear. NECK: Brisk carotid pulses. No stridor, nuchal rigidity or JVD. LUNGS: Symmetrical, clear, resonant, slightly diminished sounds. No wheezes or retractions. No rales or pleuritic rubs. HEART: Regular without murmurs or gallops noted. ABDOMEN: Moderately obese, soft, no organomegaly. No guarding, rebound, or referred pain. No CVA tenderness. Active bowel sounds are noted. Mild epigastric discomfort to deep palpation. Good femoral pulses. : Omitted. RECTAL: Omitted. EXTREMITIES: Somewhat pale. Strong radial, posterior, tibial, and dorsal pedal pulses are noted. No pitting edema or jaundice. Brisk capillary refill. No open ischemic skin lesions. LABORATORY DATA: On admission; WBC 5.0, hemoglobin 7.5, hematocrit 22.3, platelet count 61,000. Sodium 134, potassium 3.4, BUN 20, creatinine elevated at 1.7 with estimated GFR of 32, glucose 162, calcium 9.0, AST 51, ALT 44, alkaline phosphatase 105. Lactate dehydrogenase 594. C-reactive protein moderately elevated at 2.25. Influenza A and B, RSV, and COVID screen negative. INR 1.1. Lactic acid 4.4. Procalcitonin 0.27. D-dimer elevated at 1256. IMPRESSION: 1. Noted history of primary breast cancer with bony metastases, recent progressive disease by radiographic studies. 2. Past history of pulmonary emboli in smoking female with known malignant disease, currently on anticoagulant therapy with Xarelto, though has had interruption in treatment by patient report. 3. General myalgias, arthralgias, chest pain and shortness of breath, likely multifactorial. Cannot exclude progressive malignant disease or recurrent pulmonary emboli. 4. Ongoing tobacco use with chronic lung disease. 5. Persistent cannabis use. 6. Alcohol abuse with ongoing consumption. 7. History of substance abuse. Admits to sporadic use of methamphetamine recently. 8. History of generalized anxiety with chronic depression. PLAN: The patient is admitted to the medical floor for ongoing supportive and diagnostic cares with recently developing hemoglobin having fallen from 9.3 to 7.5 in a period of approximately 3 weeks. Two units of packed red blood cells are to be infused overnight. Additionally, we will provide IV fluids to increase intravascular volume. Note that creatinine has risen from 0.88 to 1.7, and GFR has fallen from greater than 60 to 32 over that 3-week period of time, may be secondary to volume depletion. Followup CBC and BMP will be repeated in the morning following blood transfusions. If renal function has shown correction, we will obtain CT imaging of the chest with contrast to investigate for potential progression of previously recognized pulmonary emboli. Continue with subcu Lovenox and resumption of regular scheduled dose of oral Xarelto in the interim. We will maintain on oral medications including her scheduled oxycodone doses and request consultative services from Oncology Services for review and discussion of ongoing management of progressive malignant disease. Smoking cessation is advised. She does not desire nicotine products noting previous intolerance to adhesive patches. We will continue to provide supportive cares, assist with ambulation, allow low-sodium diet as tolerated, and monitor routine vitals. Full code status has been instituted. She has not completed a previous health care directive. Spiritual consultation with certified composites technician services is requested. Rudy Calvin MD /[id number]
[2020-12-26] MEDS: Sodium Chloride 0.9% 1,000 ML IV SCH ×2 (02:48→09:11)
[2020-12-26] MEDS ORDERED: Pantoprazole 40 MG Tab.CR PO SCH (07:30)
--- NOTE | 2020-12-26 07:31 | PN ---
DATE OF SERVICE: 12/26/2020 SUBJECTIVE: 50-year-old female with noted history of chronic respiratory disease secondary to ongoing tobacco use, metastatic primary breast cancer with bony involvement, and previous history of multiple pulmonary emboli in August of 2019 with ongoing anticoagulant therapy was admitted with weakness, general discomfort, shortness of breath, and chest pain. She is resting comfortably through the night. Has had 2 units of packed red blood cells transfused. She is voiding with good regularity. Denies dysuria. No fevers, chills, hypoxia, or tachypnea noted. OBJECTIVE: GENERAL: Arousable, resting comfortably. Offers no new complaints. NECK: Brisk carotid pulses. No bruits or JVD. LUNGS: Mild expiratory wheezes noted. Nontachypneic. No rales or rhonchi. HEART: Regular without murmurs or gallops. ABDOMEN: Obese, soft, and nontender. No organomegaly noted. No guarding or rebound. EXTREMITIES: Warm and pink. No pitting edema. Good arterial pulses. VITALS: This a.m. include a temperature of 36.7 degrees centigrade, pulse rate 96, blood pressure 90/65 with respiratory rate of 16. Post transfusion, hemoglobin has risen to 9.7. Platelet count remains depressed at 56,000. WBC 4.9. Repeat lactic acid 1.8. General chemistries are pending. Urinalysis revealed trace ketones, positive nitrites, small amount of bilirubin, large leukocyte esterase with 0- 5 wbc's, and few bacteria and epithelial cells. Urine drug screen was positive for regularly prescribed oxycodone and benzodiazepines. Additionally noted to be positive for THC and methamphetamine. IMPRESSION AND PLAN: Chest discomfort, shortness of breath, generalized weakness, may be secondary to underlying chronic health problems including chronic respiratory disease with ongoing tobacco use, metastatic primary breast cancer with bony involvement including the right shoulder as well as moderate anemia with hemoglobin of 7.5 on admission. Cannot exclude the possibility of new pulmonary emboli in spite of use of oral anticoagulant therapy. We will await followup general chemistries if renal function has shown interval improvement with rehydration with blood products and IV fluids. We will consider CT imaging of the chest with contrast agent. If followup studies are negative, anticipate discharge to home. Note, she does have a pending outpatient appointment today with Oncology Services at [facility]. Rudy Calvin MD /[id number]
[2020-12-26] MEDS ORDERED: Potassium Chloride 20 MEQ Tab.ER PO SCH (08:00)
[2020-12-26] MEDS ORDERED: Rivaroxaban 10 MG Tab PO SCH ×3 (09:00→17:00)
[2020-12-26] MEDS ORDERED: Escitalopram 20 MG Tab PO SCH (09:00)
[2020-12-26] MEDS ORDERED: Enoxaparin 80 MG/0.8 ML Syringe SUBCUT SCH (09:00)
--- NOTE | 2020-12-26 09:11 | CR ---
CHEST: Portable 12/25/2020 at 6:35 PM CLINICAL HISTORY:Covid like symptoms COMPARISON:07/23/2020 FINDINGS: Heart size and pulmonary vascularity are normal. There is some minimal streaky density in the lung bases which is similar to the prior study. Patient has an Azdiwe-i-Yiec catheter from the right subclavian approach. Heart size and pulmonary vascularity are normal. Impression: Mild prominent lung markings in both lower lobes. This may be chronic
[2020-12-26] MEDS ORDERED: Acetaminophen 325 MG Tab PO PRN (10:40)
[2020-12-26 11:16] VITALS: BP 101/65; PULSE 83
[2020-12-26] MEDS: ALPRAZolam 0.5 MG Tab PO PRN (12:56)
--- NOTE | 2020-12-26 13:43 | PCM.DCSUM1 ---
Discharge Summary - Hospital Course Brief History: 50-year-old female with breast cancer metastatic to the bone, chronic pain and chronic mental illness who presented with progressive shortness of breath and fatigue. She was admitted for management of anemia and further work-up of her shortness of breath was some concern that she may have pulmonary emboli. Diagnosis: Stroke: No - Discharge Data Discharge Date: 12/26/20 Discharge Disposition: Home, Self-Care 01 Condition: Fair - Referral to Home Health Primary Care Physician: Madelyn Cline DO - Discharge Diagnosis/Problem(s) (1) Anemia of chronic disease SNOMED Code(s): 827944244 ICD Code: D63.8 - ANEMIA IN OTHER CHRONIC DISEASES CLASSIFIED ELSEWHERE Status: Acute (2) Shortness of breath SNOMED Code(s): 945533303 ICD Code: R06.02 - SHORTNESS OF BREATH Status: Acute Priority: High (3) Malignant neoplasm of breast metastatic to bone SNOMED Code(s): 768313675, 456536872 ICD Code: C50.919 - MALIGNANT NEOPLASM OF UNSP SITE OF UNSPECIFIED FEMALE BREAST; C79.51 - SECONDARY MALIGNANT NEOPLASM OF BONE Status: Chronic Priority: Medium (4) History of pulmonary embolism SNOMED Code(s): 459529455 ICD Code: Z86.711 - PERSONAL HISTORY OF PULMONARY EMBOLISM Status: Acute (5) Methamphetamine abuse SNOMED Code(s): 408549152 ICD Code: F15.10 - OTHER STIMULANT ABUSE, UNCOMPLICATED Status: Chronic (6) Tobacco dependence SNOMED Code(s): 41969842 ICD Code: F17.200 - NICOTINE DEPENDENCE, UNSPECIFIED, UNCOMPLICATED Status: Chronic - Patient Summary/Data Consults: Consultations 12/26/20 03:41 Consult to Spiritual Care [CONS] Routine Spiritual Care Reason for Consult: Spiritual Distress Special Instructions: advance care directive Hospital Course: Lucie presented to the emergency room with progressive dyspnea and fatigue. Work-up in the emergency room revealed a hemoglobin of 7.5, significantly elevated D-dimer and ferritin. Chest x-ray was unremarkable. Creatinine was elevated at 1.7. CRP was mildly elevated. There was concern that she may have pulmonary embolism leading to her chest discomfort and dyspnea. She was not hypoxic or tachycardic. She did receive 2 units of blood via transfusion the night following admission. There were no acute issues overnight following ad mission. The morning after admission her hemoglobin is now up over 9. Her vital signs have all remained stable with no hypoxia or tachycardia. The patient's fatigue and dyspnea have resolved. She reports that she feels better than she has in months. She has been on rivaroxaban though she has been taking this somewhat intermittently. I think if she were to have a clinically significant pulmonary embolism we would see derangement of her vital signs. I would also not expect her symptoms to improve so dramatically overnight with just 1 dose of enoxaparin provided in the emergency room. I suspect her dyspnea and fatigue were related to her anemia which is related to her chronic disease/inflammation with her metastatic breast cancer. She feels very well and would like to go home. I think she is safe to go home at this point. Encouraged her to continue her rivaroxaban. I suppose it is possible that she has some very small pulmonary emboli but I do not believe if they are present t hat they are clinically significant and additional imaging such as a VQ scan or CT pulmonary angiogram would not alter our treatment plan at this time. This was discussed with the patient and she was comfortable with the plan to continue her rivaroxaban and avoid additional work-up unless her clinical condition changes. We did also discuss smoking cessation. She was interested in Nicotrol inhalers to help reduce cravings and a prescription for this was sent to her pharmacy. We did also have evidence to suggest a urinary tract infection and a prescription for antibiotics was sent to her pharmacy. She did also mention her recent methamphetamine use and is going to work on avoiding this illicit substance knowing its not good for her. She has early follow-up with primary care as well as oncology. - Patient Instructions Diet: Regular Diet as Tolerated Activity: As Tolerated Showering/Bathing: May Shower Other/Special Instructions: 1. You were in the hospital for evaluation of shortness of breath. We discovered that your hemoglobin level was quite low and you received 2 units of blood via transfusion. Your condition seems to have improved immensely after the blood transfusion. I think it would be highly unlikely that you have significant blood clots given your prescription for rivaroxaban (Xarelto) and normal heart rate and oxygen levels. I recommend that you continue your rivaroxaban. We should recheck your hemoglobin in 1 or 2 weeks to make sure that it has remained stable. If you have progressive shortness of breath prior to that time we should recheck your hemoglobin sooner. 2. Continue your other home medications as previously prescribed. 3. Follow up with the oncology folks as well as primary care as scheduled. 4. I have sent a prescription to the pharmacy for Nicotrol inhalers. I would encourage you to use these in place of smoking cigarettes. Quitting smoking can improve your lung function as well as reduce your risk for a variety of cancers and reduce your risk of heart disease and stroke. There is a variety of other information available including [employer]. - Discharge Plan *PRESCRIPTION DRUG MONITORING PROGRAM REVIEWED*: No *COPY OF PRESCRIPTION DRUG MONITORING REPORT IN PATIENT KRISTIN: No Prescriptions/Med Rec: cephALEXin [Keflex] 500 mg PO BID #6 cap Nicotine [Nicotrol] 10 mg IH Q2H PRN #168 cartridge PRN Reason: nicotine craving Tobacco Cessation Medication: Prescription Given Home Medications: Home Meds Cholecalciferol (Vitamin D3) [Vitamin D3] 1 tab PO Q7D 07/31/18 [History] Diclofenac Sodium 4 gram TOP Q6H 02/15/19 [History] Escitalopram [Lexapro] 20 mg PO DAILY 08/19/19 [History] Ondansetron [Zofran ODT] 8 mg PO Q8H PRN tab.dis 09/05/19 [Rx] Palbociclib [Ibrance] 100 mg PO BEDTIME 02/11/20 [History] Furosemide [Lasix] 20 mg PO DAILY 04/07/20 [History] ALPRAZolam [Xanax] 1 mg PO DAILY PRN 06/19/20 [History] Albuterol Sulfate [Proair Hfa] 2 puff INH TID PRN 06/19/20 [History] Cetirizine HCl [Zyrtec] 10 mg PO BID PRN 06/19/20 [History] Omeprazole 40 mg PO DAILY 06/19/20 [History] Potassium Chloride 20 meq PO DAILY 06/19/20 [History] Prochlorperazine Maleate [Compazine] 10 mg PO Q6H PRN 06/19/20 [History] oxyCODONE 5 mg PO Q4H PRN 06/19/20 [History] Nicotine [Nicotrol] 10 mg IH Q2H PRN #168 cartridge 12/26/20 [Rx] Rivaroxaban [Xarelto] 20 mg PO DAILY 12/26/20 [History] cephALEXin [Keflex] 500 mg PO BID #6 cap 12/26/20 [Rx] Oxygen Therapy Mode: Room Air Patient Handouts: Steps to Quit Smoking, [id number], Fall Prevention in the Home, Adult, Hyek-ur-Kofn, Anemia, Nicotine inhaler, Cephalexin Tablets or Capsules Referrals: Madelyn Cline DO [Primary Care Provider] - 12/31/20 11:00 am (f/u in 1-2 weeks - f/u hospital stay for anemia ) Cherelle Saravia PA-C [Ordering Only Provider] - 01/02/21 12:30 pm (Please arrive 30 minutes early to have labs drawn prior to appointment with provider.) - Discharge Summary/Plan Comment DC Time >30 min.: Yes Total # of Minutes for Discharge Time: 40 - complex discharge, smoking cessation info - Patient Data Vitals - Most Recent: Last Vital Signs Temp 36.1 C 12/26/20 11:00 Pulse 83 12/26/20 11:00 Resp 16 12/26/20 11:00 BP 101/65 12/26/20 11:00 Pulse Ox 94 L 12/26/20 11:00 Weight - Most Recent: 74.843 kg I&O - Last 24 hours: Intake & Output 12/25/20 12/26/20 12/26/20 22:59 06:59 14:59 Intake Total 480 1085 800 Output Total 450 110 Balance 480 635 690 Lab Results - Last 24 hrs: Laboratory Results - last 24 hr 12/25/20 12/25/20 12/25/20 Range/Units 18:28 18:28 18:28 WBC 5.0 (4.5-11.0) K/uL RBC 2.15 L (3.30-5.50) M/uL Hgb 7.5 L D (12.0-15.0) g/dL Hct 22.3 L (36.0-48.0) % MCV 104 H (80-98) fL MCH 35 H (27-31) pg MCHC 34 (32-36) % Plt Count 61 L (150-400) K/uL Add Manual Diff Yes Neutrophils % (Manual) 49 (36-66) % Band Neutrophils % 4 L (5-11) % Lymphocytes % (Manual) 44 (24-44) % Monocytes % (Manual) 3 (2-6) % Polychromasia PT (9.2-10.6) sec INR APTT (21.4-31.8) sec D-Dimer, Quantitative (0.0-500.0) ng/mL Sodium 134 L (140-148) mmol/L Potassium 3.4 L (3.6-5.2) mmol/L Chloride 94 L (100-108) mmol/L Carbon Dioxide 22 (21-32) mmol/L Anion Gap 21.4 H (5.0-14.0) mmol/L BUN 20 H D (7-18) mg/dL Creatinine 1.7 H D (0.6-1.0) mg/dL Est Cr Clr Drug Dosing 28.75 mL/min Estimated GFR (MDRD) 32 L (>60) Glucose 162 H (74-106) mg/dL Lactic Acid (0.4-2.0) mmol/L Calcium 9.0 (8.5-10.1) mg/dL Ferritin 1645 H (8-388) ng/ml Total Bilirubin 0.8 D (0.2-1.0) mg/dL AST 51 H (15-37) U/L ALT 44 (12-78) U/L Alkaline Phosphatase 105 (46-116) U/L Lactate Dehydrogenase 594 H (82-234) U/L C-Reactive Protein 2.25 H (0.0-0.3) mg/dL Total Protein 7.0 (6.4-8.2) g/dL Albumin 3.5 (3.4-5.0) g/dL Globulin 3.5 (2.3-3.5) g/dL Albumin/Globulin Ratio 1.0 L (1.2-2.2) Procalcitonin ng/mL Urine Color (YELLOW) Urine Appearance (CLEAR) Urine pH (5.0-8.0) Ur Specific [place] (1.008-1.030) Urine Protein (NEGATIVE) mg/dL Urine Glucose (UA) (NEGATIVE) mg/dL Urine Ketones (NEGATIVE) mg/dL Urine Occult Blood (NEGATIVE) Urine Nitrite (NEGATIVE) Urine Bilirubin (NEGATIVE) Urine Urobilinogen (0.2-1.0) EU/dL Ur Leukocyte Esterase (NEGATIVE) Urine RBC (0-5) Urine WBC (0-5) Ur Epithelial Cells Amorphous Sediment Urine Bacteria Urine Mucus Urine Other Urine Opiates Screen (NEGATIVE) Ur Oxycodone Screen (NEGATIVE) Urine Methadone Screen (NEGATIVE) Ur Propoxyphene Screen (NEGATIVE) Ur Barbiturates Screen (NEGATIVE) Ur Tricyclics Screen (NEGATIVE) Ur Phencyclidine Scrn (NEGATIVE) Ur Amphetamine Screen (NEGATIVE) U Methamphetamines Scrn (NEGATIVE) Urine MDMA Screen (NEGATIVE) U Benzodiazepines Scrn (NEGATIVE) U Cocaine Metab Screen (NEGATIVE) U Marijuana (THC) Screen (NEGATIVE) Influenza Type A RNA Negative (NEGATIVE) RSV RNA (INAAT) Negative (NEGATIVE) Influenza Type B RNA Negative (NEGATIVE) SARS-CoV-2 RNA (CIERA) Negative (NEGATIVE) Blood Type Gel Antibody Screen Crossmatch 12/25/20 12/25/20 12/25/20 Range/Units 18:28 18:28 18:28 WBC (4.5-11.0) K/uL RBC (3.30-5.50) M/uL Hgb (12.0-15.0) g/dL Hct (36.0-48.0) % MCV (80-98) fL MCH (27-31) pg MCHC (32-36) % Plt Count (150-400) K/uL Add Manual Diff Neutrophils % (Manual) (36-66) % Band Neutrophils % (5-11) % Lymphocytes % (Manual) (24-44) % Monocytes % (Manual) (2-6) % Polychromasia PT 11.1 H (9.2-10.6) sec INR 1.1 APTT 21.1 L (21.4-31.8) sec D-Dimer, Quantitative (0.0-500.0) ng/mL Sodium (140-148) mmol/L Potassium (3.6-5.2) mmol/L Chloride (100-108) mmol/L Carbon Dioxide (21-32) mmol/L Anion Gap (5.0-14.0) mmol/L BUN (7-18) mg/dL Creatinine (0.6-1.0) mg/dL Est Cr Clr Drug Dosing mL/min Estimated GFR (MDRD) (>60) Glucose (74-106) mg/dL Lactic Acid 4.4 H (0.4-2.0) mmol/L Calcium (8.5-10.1) mg/dL Ferritin (8-388) ng/ml Total Bilirubin (0.2-1.0) mg/dL AST (15-37) U/L ALT (12-78) U/L Alkaline Phosphatase (46-116) U/L Lactate Dehydrogenase (82-234) U/L C-Reactive Protein (0.0-0.3) mg/dL Total Protein (6.4-8.2) g/dL Albumin (3.4-5.0) g/dL Globulin (2.3-3.5) g/dL Albumin/Globulin Ratio (1.2-2.2) Procalcitonin 0.27 ng/mL Urine Color (YELLOW) Urine Appearance (CLEAR) Urine pH (5.0-8.0) Ur Specific [place] (1.008-1.030) Urine Protein (NEGATIVE) mg/dL Urine Glucose (UA) (NEGATIVE) mg/dL Urine Ketones (NEGATIVE) mg/dL Urine Occult Blood (NEGATIVE) Urine Nitrite (NEGATIVE) Urine Bilirubin (NEGATIVE) Urine Urobilinogen (0.2-1.0) EU/dL Ur Leukocyte Esterase (NEGATIVE) Urine RBC (0-5) Urine WBC (0-5) Ur Epithelial Cells Amorphous Sediment Urine Bacteria Urine Mucus Urine Other Urine Opiates Screen (NEGATIVE) Ur Oxycodone Screen (NEGATIVE) Urine Methadone Screen (NEGATIVE) Ur Propoxyphene Screen (NEGATIVE) Ur Barbiturates Screen (NEGATIVE) Ur Tricyclics Screen (NEGATIVE) Ur Phencyclidine Scrn (NEGATIVE) Ur Amphetamine Screen (NEGATIVE) U Methamphetamines Scrn (NEGATIVE) Urine MDMA Screen (NEGATIVE) U Benzodiazepines Scrn (NEGATIVE) U Cocaine Metab Screen (NEGATIVE) U Marijuana (THC) Screen (NEGATIVE) Influenza Type A RNA (NEGATIVE) RSV RNA (INAAT) (NEGATIVE) Influenza Type B RNA (NEGATIVE) SARS-CoV-2 RNA (CIERA) (NEGATIVE) Blood Type Gel Antibody Screen Crossmatch 12/25/20 12/25/20 12/25/20 Range/Units 18:28 19:22 21:43 WBC (4.5-11.0) K/uL RBC (3.30-5.50) M/uL Hgb (12.0-15.0) g/dL Hct (36.0-48.0) % MCV (80-98) fL MCH (27-31) pg MCHC (32-36) % Plt Count (150-400) K/uL Add Manual Diff Neutrophils % (Manual) (36-66) % Band Neutrophils % (5-11) % Lymphocytes % (Manual) (24-44) % Monocytes % (Manual) (2-6) % Polychromasia PT (9.2-10.6) sec INR APTT (21.4-31.8) sec D-Dimer, Quantitative 1255.77 H (0.0-500.0) ng/mL Sodium (140-148) mmol/L Potassium (3.6-5.2) mmol/L Chloride (100-108) mmol/L Carbon Dioxide (21-32) mmol/L Anion Gap (5.0-14.0) mmol/L BUN (7-18) mg/dL Creatinine (0.6-1.0) mg/dL Est Cr Clr Drug Dosing mL/min Estimated GFR (MDRD) (>60) Glucose (74-106) mg/dL Lactic Acid (0.4-2.0) mmol/L Calcium (8.5-10.1) mg/dL Ferritin (8-388) ng/ml Total Bilirubin (0.2-1.0) mg/dL AST (15-37) U/L ALT (12-78) U/L Alkaline Phosphatase (46-116) U/L Lactate Dehydrogenase (82-234) U/L C-Reactive Protein (0.0-0.3) mg/dL Total Protein (6.4-8.2) g/dL Albumin (3.4-5.0) g/dL Globulin (2.3-3.5) g/dL Albumin/Globulin Ratio (1.2-2.2) Procalcitonin ng/mL Urine Color [place] A (YELLOW) Urine Appearance Clear (CLEAR) Urine pH 5.0 (5.0-8.0) Ur Specific [place] 1.015 (1.008-1.030) Urine Protein 30 H (NEGATIVE) mg/dL Urine Glucose (UA) 100 H (NEGATIVE) mg/dL Urine Ketones Trace H (NEGATIVE) mg/dL Urine Occult Blood Negative (NEGATIVE) Urine Nitrite Positive H (NEGATIVE) Urine Bilirubin Small H (NEGATIVE) Urine Urobilinogen 2.0 H (0.2-1.0) EU/dL Ur Leukocyte Esterase Large H (NEGATIVE) Urine RBC 0-5 (0-5) Urine WBC 0-5 (0-5) Ur Epithelial Cells Few Amorphous Sediment Not seen Urine Bacteria Few Urine Mucus Not seen Urine Other Urine Opiates Screen (NEGATIVE) Ur Oxycodone Screen (NEGATIVE) Urine Methadone Screen (NEGATIVE) Ur Propoxyphene Screen (NEGATIVE) Ur Barbiturates Screen (NEGATIVE) Ur Tricyclics Screen (NEGATIVE) Ur Phencyclidine Scrn (NEGATIVE) Ur Amphetamine Screen (NEGATIVE) U Methamphetamines Scrn (NEGATIVE) Urine MDMA Screen (NEGATIVE) U Benzodiazepines Scrn (NEGATIVE) U Cocaine Metab Screen (NEGATIVE) U Marijuana (THC) Screen (NEGATIVE) Influenza Type A RNA (NEGATIVE) RSV RNA (INAAT) (NEGATIVE) Influenza Type B RNA (NEGATIVE) SARS-CoV-2 RNA (CIERA) (NEGATIVE) Blood Type A POSITIVE Gel Antibody Screen Negative Crossmatch See Detail 12/25/20 12/26/20 12/26/20 Range/Units 21:43 05:55 05:55 WBC 4.9 (4.5-11.0) K/uL RBC 3.01 L (3.30-5.50) M/uL Hgb 9.7 L D (12.0-15.0) g/dL Hct 29.2 L (36.0-48.0) % MCV 97 (80-98) fL MCH 32 H (27-31) pg MCHC 33 (32-36) % Plt Count 56 L (150-400) K/uL Add Manual Diff Neutrophils % (Manual) (36-66) % Band Neutrophils % (5-11) % Lymphocytes % (Manual) (24-44) % Monocytes % (Manual) (2-6) % Polychromasia PT (9.2-10.6) sec INR APTT (21.4-31.8) sec D-Dimer, Quantitative (0.0-500.0) ng/mL Sodium 138 L (140-148) mmol/L Potassium 3.6 (3.6-5.2) mmol/L Chloride 97 L (100-108) mmol/L Carbon Dioxide 29 (21-32) mmol/L Anion Gap 15.6 H (5.0-14.0) mmol/L BUN 21 H (7-18) mg/dL Creatinine 1.5 H (0.6-1.0) mg/dL Est Cr Clr Drug Dosing 32.59 mL/min Estimated GFR (MDRD) 37 L (>60) Glucose 117 H (74-106) mg/dL Lactic Acid (0.4-2.0) mmol/L Calcium 8.4 L (8.5-10.1) mg/dL Ferritin (8-388) ng/ml Total Bilirubin (0.2-1.0) mg/dL AST (15-37) U/L ALT (12-78) U/L Alkaline Phosphatase (46-116) U/L Lactate Dehydrogenase (82-234) U/L C-Reactive Protein (0.0-0.3) mg/dL Total Protein (6.4-8.2) g/dL Albumin (3.4-5.0) g/dL Globulin (2.3-3.5) g/dL Albumin/Globulin Ratio (1.2-2.2) Procalcitonin ng/mL Urine Color (YELLOW) Urine Appearance (CLEAR) Urine pH (5.0-8.0) Ur Specific [place] (1.008-1.030) Urine Protein (NEGATIVE) mg/dL Urine Glucose (UA) (NEGATIVE) mg/dL Urine Ketones (NEGATIVE) mg/dL Urine Occult Blood (NEGATIVE) Urine Nitrite (NEGATIVE) Urine Bilirubin (NEGATIVE) Urine Urobilinogen (0.2-1.0) EU/dL Ur Leukocyte Esterase (NEGATIVE) Urine RBC (0-5) Urine WBC (0-5) Ur Epithelial Cells Amorphous Sediment Urine Bacteria Urine Mucus Urine Other Urine Opiates Screen Negative (NEGATIVE) Ur Oxycodone Screen Presumptive positive H (NEGATIVE) Urine Methadone Screen Negative (NEGATIVE) Ur Propoxyphene Screen Negative (NEGATIVE) Ur Barbiturates Screen Negative (NEGATIVE) Ur Tricyclics Screen Negative (NEGATIVE) Ur Phencyclidine Scrn Negative (NEGATIVE) Ur Amphetamine Screen Presumptive positive H (NEGATIVE) U Methamphetamines Scrn Presumptive positive H (NEGATIVE) Urine MDMA Screen Presumptive positive H (NEGATIVE) U Benzodiazepines Scrn Presumptive positive H (NEGATIVE) U Cocaine Metab Screen Negative (NEGATIVE) U Marijuana (THC) Screen Presumptive positive H (NEGATIVE) Influenza Type A RNA (NEGATIVE) RSV RNA (INAAT) (NEGATIVE) Influenza Type B RNA (NEGATIVE) SARS-CoV-2 RNA (CIERA) (NEGATIVE) Blood Type Gel Antibody Screen Crossmatch 12/26/20 Range/Units 05:55 WBC (4.5-11.0) K/uL RBC (3.30-5.50) M/uL Hgb (12.0-15.0) g/dL Hct (36.0-48.0) % MCV (80-98) fL MCH (27-31) pg MCHC (32-36) % Plt Count (150-400) K/uL Add Manual Diff Neutrophils % (Manual) (36-66) % Band Neutrophils % (5-11) % Lymphocytes % (Manual) (24-44) % Monocytes % (Manual) (2-6) % Polychromasia PT (9.2-10.6) sec INR APTT (21.4-31.8) sec D-Dimer, Quantitative (0.0-500.0) ng/mL Sodium (140-148) mmol/L Potassium (3.6-5.2) mmol/L Chloride (100-108) mmol/L Carbon Dioxide (21-32) mmol/L Anion Gap (5.0-14.0) mmol/L BUN (7-18) mg/dL Creatinine (0.6-1.0) mg/dL Est Cr Clr Drug Dosing mL/min Estimated GFR (MDRD) (>60) Glucose (74-106) mg/dL Lactic Acid 1.8 (0.4-2.0) mmol/L Calcium (8.5-10.1) mg/dL Ferritin (8-388) ng/ml Total Bilirubin (0.2-1.0) mg/dL AST (15-37) U/L ALT (12-78) U/L Alkaline Phosphatase (46-116) U/L Lactate Dehydrogenase (82-234) U/L C-Reactive Protein (0.0-0.3) mg/dL Total Protein (6.4-8.2) g/dL Albumin (3.4-5.0) g/dL Globulin (2.3-3.5) g/dL Albumin/Globulin Ratio (1.2-2.2) Procalcitonin ng/mL Urine Color (YELLOW) Urine Appearance (CLEAR) Urine pH (5.0-8.0) Ur Specific [place] (1.008-1.030) Urine Protein (NEGATIVE) mg/dL Urine Glucose (UA) (NEGATIVE) mg/dL Urine Ketones (NEGATIVE) mg/dL Urine Occult Blood (NEGATIVE) Urine Nitrite (NEGATIVE) Urine Bilirubin (NEGATIVE) Urine Urobilinogen (0.2-1.0) EU/dL Ur Leukocyte Esterase (NEGATIVE) Urine RBC (0-5) Urine WBC (0-5) Ur Epithelial Cells Amorphous Sediment Urine Bacteria Urine Mucus Urine Other Urine Opiates Screen (NEGATIVE) Ur Oxycodone Screen (NEGATIVE) Urine Methadone Screen (NEGATIVE) Ur Propoxyphene Screen (NEGATIVE) Ur Barbiturates Screen (NEGATIVE) Ur Tricyclics Screen (NEGATIVE) Ur Phencyclidine Scrn (NEGATIVE) Ur Amphetamine Screen (NEGATIVE) U Methamphetamines Scrn (NEGATIVE) Urine MDMA Screen (NEGATIVE) U Benzodiazepines Scrn (NEGATIVE) U Cocaine Metab Screen (NEGATIVE) U Marijuana (THC) Screen (NEGATIVE) Influenza Type A RNA (NEGATIVE) RSV RNA (INAAT) (NEGATIVE) Influenza Type B RNA (NEGATIVE) SARS-CoV-2 RNA (CIERA) (NEGATIVE) Blood Type Gel Antibody Screen Crossmatch Med Orders - Current: Current Medications Acetaminophen (Acetaminophen 325 Mg Tab) 650 mg PO Q4H PRN PRN Reason: Pain/Fever Albuterol (Albuterol 8 Gm Inhaler) 0 gm INH TID PRN PRN Reason: Shortness of Breath Alprazolam (Alprazolam 0.5 Mg Tab) 1 mg PO BID PRN PRN Reason: Anxiety Last Admin: 12/26/20 12:56 Dose: 1 mg Documented by: Cetirizine HCl (Cetirizine 10 Mg Tab) 10 mg PO BID PRN PRN Reason: Allergies Last Admin: 12/25/20 22:57 Dose: 10 mg Documented by: Cholecalciferol (Cholecalciferol (Vitamin D3) 50,000 Unit Cap) 50,000 unit PO Kaye@0900 [facility] Escitalopram Oxalate (Escitalopram 20 Mg Tab) 20 mg PO DAILY [facility]AN Last Admin: 12/26/20 09:04 Dose: 20 mg Documented by: Ondansetron HCl (Ondansetron 4 Mg Tab.Dis) 8 mg PO Q8H PRN PRN Reason: Nausea/Vomiting Oxycodone HCl (Oxycodone 5 Mg Tab) 5 mg PO Q4H PRN PRN Reason: Pain Last Admin: 12/26/20 08:09 Dose: 5 mg Documented by: Pantoprazole Sodium (Pantoprazole 40 Mg Tab.Cr) 40 mg PO ACBREAKFAST [facility] Last Admin: 12/26/20 08:08 Dose: 40 mg Documented by: Potassium Chloride (Potassium Chloride 20 Meq Tab.Er) 20 meq PO DAILY@0800 [facility] Last Admin: 12/26/20 08:08 Dose: 20 meq Documented by: Prochlorperazine Maleate (Prochlorperazine 10 Mg Tab) 10 mg PO Q6H PRN PRN Reason: Nausea Rivaroxaban (Rivaroxaban 10 Mg Tab) 20 mg PO QPM [facility] Sodium Chloride (Sodium Chloride 0.9% 10 Ml Syringe) 10 ml FLUSH ASDIRECTED PRN PRN Reason: Keep Vein Open Last Admin: 12/25/20 20:45 Dose: 10 ml Documented by: Discontinued Medications Alprazolam (Alprazolam 0.25 Mg Tab) 1 mg PO ONETIME ONE Stop: 12/25/20 21:12 Last Admin: 12/25/20 23:28 Dose: Not Given Documented by: Alprazolam (Alprazolam 0.5 Mg Tab) 1 mg PO DAILY PRN PRN Reason: Anxiety Carbidopa/Levodopa (Carbidopa/Levodopa 25-100 Mg Tab) 1 tab PO ONETIME ONE Stop: 12/25/20 22:29 Last Admin: 12/25/20 22:56 Dose: 1 tab Documented by: Cholecalciferol (Cholecalciferol (Vitamin D3) 50,000 Unit Cap) 50,000 unit PO Q7D [facility] Last Admin: 12/25/20 22:32 Dose: Not Given Documented by: Enoxaparin Sodium (Enoxaparin 80 Mg/0.8 Ml Syringe) 80 mg SUBCUT Q12H [facility] Last Admin: 12/25/20 20:45 Dose: 80 mg Documented by: Enoxaparin Sodium (Enoxaparin 80 Mg/0.8 Ml Syringe) 80 mg SUBCUT Q12H [facility] Last Admin: 12/26/20 09:05 Dose: 80 mg Documented by: Escitalopram Oxalate (Escitalopram 20 Mg Tab) 20 mg PO ONETIME ONE Stop: 12/25/20 23:01 Last Admin: 12/25/20 22:57 Dose: 20 mg Documented by: Escitalopram Oxalate (Escitalopram 10 Mg Tab) Confirm Administered Dose 20 mg .ROUTE .STK-MED ONE Stop: 12/25/20 22:44 Last Admin: 12/25/20 22:57 Dose: Not Given Documented by: Sodium Chloride (Normal Saline) 1,000 mls @ 150 mls/hr IV ASDIRECTED [facility] Last Admin: 12/26/20 09:11 Dose: 150 mls/hr Documented by: Rivaroxaban (Rivaroxaban 10 Mg Tab) 10 mg PO DAILY [facility] Last Admin: 12/26/20 10:51 Dose: Not Given Documented by: Rivaroxaban (Rivaroxaban 10 Mg Tab) 20 mg PO DAILY [facility] Last Admin: 12/26/20 11:07 Dose: Not Given Documented by:
[2020-12-30] MEDS ORDERED: Cholecalciferol (Vitamin D3) 50,000 Unit Cap PO SCH (09:00)
== END 2020-12-26 14:35 | disposition home or self-care (01) | DRG 598 ==
LOC: JP.ED 17:46 → JP.MS 20:07
PROVIDERS: ADMIT Family Medicine; ATTEND Internal Medicine
PROC: 30233N1 Transfusion of Nonautologous Red Blood Cells into Peripheral Vein, Percutaneous Approach (ICD-10-PCS; principal; 2020-12-25)
DX: C50.912 Malignant neoplasm of unspecified site of left female breast (principal); C79.51 Secondary malignant neoplasm of bone; N18.4 Chronic kidney disease, stage 4 (severe); C77.3 Secondary and unspecified malignant neoplasm of axilla and upper limb lymph nodes; N39.0 Urinary tract infection, site not specified; F15.10 Other stimulant abuse, uncomplicated; F17.210 Nicotine dependence, cigarettes, uncomplicated; E66.01 Morbid (severe) obesity due to excess calories; D63.0 Anemia in neoplastic disease; K21.9 Gastro-esophageal reflux disease without esophagitis; F41.9 Anxiety disorder, unspecified; K59.00 Constipation, unspecified; F12.90 Cannabis use, unspecified, uncomplicated; F10.10 Alcohol abuse, uncomplicated; Z20.822 Contact with and (suspected) exposure to COVID-19; F90.9 Attention-deficit hyperactivity disorder, unspecified type; E55.9 Vitamin D deficiency, unspecified; F31.9 Bipolar disorder, unspecified; E11.9 Type 2 diabetes mellitus without complications; F41.1 Generalized anxiety disorder; D63.1 Anemia in chronic kidney disease; R79.89 Other specified abnormal findings of blood chemistry; Z86.711 Personal history of pulmonary embolism; Z91.018 Allergy to other foods; Z91.040 Latex allergy status; Z88.8 Allergy status to other drugs, medicaments and biological substances; Z88.6 Allergy status to analgesic agent; Z79.899 Other long term (current) drug therapy; Z79.01 Long term (current) use of anticoagulants; Z90.49 Acquired absence of other specified parts of digestive tract; Z68.33 Body mass index [BMI] 33.0-33.9, adult
CPT/HCPCS: 0241U; 36415; 36430; 71045; 71045-26; 80048; 80053; 80305-QW; 81001; 82728; 83605; 83615; 84145; 85025; 85027; 85379; 85610; 85730; 86140; 86850; 86900; 86901; 86920; 86922; 87086; 99285-25; A9270-GY; J1650; J7030; P9016

== ENCOUNTER 2021-01-23 16:40 | Emergency (ER) | payer MEDICAID ==
[2021-01-23] MEDS ORDERED: ALPRAZolam 0.25 MG Tab PO ONE (17:53)
--- NOTE | 2021-01-23 18:05 | EDM.PDOC ---
<Aashish Jonas - Last Filed: 01/24/21 02:47> ED HPI GENERAL MEDICAL PROBLEM - General Chief Complaint: Gastrointestinal Problem Stated Complaint: TROUBLE BREATHING Time Seen by Provider: 01/23/21 17:50 Source of Information: Reports: Patient, Old Records, RN History Limitations: Reports: No Limitations - History of Present Illness INITIAL COMMENTS - FREE TEXT/NARRATIVE: 50 yo female with a pHx of metastatic adenoCA presents with complaints of ERICKSON, constipation, mild dysuria, and an occasional cough. She has a pHx of anemia and was transfused last about a week ago. She was in [place] most of the past week staying with her mother so not able to make it back to [place] to see her primary, Madelyn Cline. She tried Colace, Miralax(once daily), and a bottle of Mag Citrate without results. Has not tried enemas because she said she is too fat to reach back there. Her last chemo was a week ago. Has been taking her potassium as prescribed. Is still on Xarelto. Onset: Gradual Duration: Week(s): (1), Getting Worse Location: Reports: Abdomen (she has a variety of complaints, but her worse sx is her constipation) Quality: Reports: Pressure (mild) Severity: Mild Improves with: Reports: None Worsens with: Reports: Other (time) Context: Reports: Other (See HPI) Associated Symptoms: Reports: Cough, Shortness of Breath (with exertion). Denies: Chest Pain, Fever/Chills, Nausea/Vomiting, Rash Treatments COMPLIANCE MGR: Reports: Other (see below) (See HPI) Abdomen Pain Score (Numeric/FACES): 5 - Related Data Allergies Allergy/AdvReac Type Severity Reaction Status Date / Time almond Allergy Severe Airway Verified 01/23/21 17:13 Tightness avocado Allergy Severe Airway Verified 01/23/21 17:13 Tightness banana Allergy Severe Airway Verified 01/23/21 17:13 Tightness kiwi Allergy Severe Airway Verified 01/23/21 17:13 Tightness peanut Allergy Severe Anaphylactic Verified 01/23/21 17:13 Shock cat dander Allergy Other Verified 01/23/21 17:13 codeine Allergy Itching Verified 01/23/21 17:13 latex Allergy Itching Verified 01/23/21 17:13 weed pollen-short ragweed Allergy Other Verified 01/23/21 17:13 [From [employer]] erythromycin base AdvReac Nausea and Verified 01/23/21 17:13 Vomiting tramadol AdvReac Anxiety Verified 01/23/21 17:13 Home Meds: Home Meds Cholecalciferol (Vitamin D3) [Vitamin D3] 1 tab PO Q7D 07/31/18 [History] Diclofenac Sodium 4 gram TOP Q6H PRN 02/15/19 [History] Escitalopram [Lexapro] 20 mg PO DAILY 08/19/19 [History] Ondansetron [Zofran ODT] 8 mg PO Q8H PRN tab.dis 09/05/19 [Rx] Palbociclib [Ibrance] 100 mg PO BEDTIME 02/11/20 [History] Furosemide [Lasix] 20 mg PO DAILY 04/07/20 [History] ALPRAZolam [Xanax] 1 mg PO DAILY PRN 06/19/20 [History] Albuterol Sulfate [Proair Hfa] 2 puff INH TID PRN 06/19/20 [History] Cetirizine HCl [Zyrtec] 10 mg PO BID PRN 06/19/20 [History] Omeprazole 40 mg PO DAILY 06/19/20 [History] Potassium Chloride 20 meq PO DAILY 06/19/20 [History] Prochlorperazine Maleate [Compazine] 10 mg PO Q6H PRN 06/19/20 [History] oxyCODONE 5 mg PO Q4H PRN 06/19/20 [History] Nicotine [Nicotrol] 10 mg IH Q2H PRN #168 cartridge 12/26/20 [Rx] Rivaroxaban [Xarelto] 20 mg PO DAILY 12/26/20 [History] Fluconazole 150 mg PO ONETIME #1 tablet 12/28/20 [Rx] Past Medical History HEENT History: Reports: Allergic Rhinitis, Impaired Vision, Sinusitis Other HEENT History: Tooth pain Cardiovascular History: Reports: Heart Failure, Hypertension Respiratory History: Reports: Asthma, Bronchitis, Recurrent Gastrointestinal History: Reports: Cholelithiasis, GERD Genitourinary History: Reports: Pyelonephritis, UTI, Recurrent [employer] History: Reports: Musculoskeletal History: Reports: Arthritis, Fracture, Fibromyalgia, Osteoarthritis Neurological History: Reports: Migraines Psychiatric History: Reports: ADHD, Addiction, Anxiety, Bipolar, Depression, OCD, PTSD Endocrine/Metabolic History: Reports: Diabetes, Type II, Vitamin D Deficiency, Other (See Below) Other Endocrine/Metabolic History: states not diabetic since lap band surgery Hematologic History: Reports: B12 Deficiency, Folic Acid Oncologic (Cancer) History: Reports: Bone, Breast, Other (See Below) Other Oncologic History: metastatic bone CA Dermatologic History: Reports: Cellulitis, Eczema - Infectious Disease History Infectious Disease History: Reports: Chicken Pox, Novel Coronavirus - Past Surgical History Head Surgeries/Procedures: Reports: None HEENT Surgical History: Reports: None Cardiovascular Surgical History: Reports: None Respiratory Surgical History: Reports: None GI Surgical History: Reports: Bariatric Procedure, Cholecystectomy, Colonoscopy, EGD Other GI Surgeries/Procedures: lap band 2007 Female Surgical History: Reports: None Endocrine Surgical History: Reports: None Neurological Surgical History: Reports: None Musculoskeletal Surgical History: Reports: None Other Oncologic Surgeries/Procedures: On chemo at this time Dermatological Surgical History: Reports: None Social & Family History - Family History Family Medical History: No Pertinent Family History - Tobacco Use Tobacco Use Status *Q: Light Tobacco User Years of Tobacco use: 35 Packs/Tins Daily: 0.2 - Caffeine Use Caffeine Use: Reports: None - Recreational Drug Use Recreational Drug Use: Yes Recreational Drug Type: Reports: Marijuana/Hashish Recreational Drug Use Frequency: Daily - Living Situation & Occupation Living situation: Reports: Single Occupation: Unemployed ED ROS GENERAL - Review of Systems Review Of Systems: See Below Constitutional: Reports: No Symptoms HEENT: Reports: No Symptoms Respiratory: Reports: No Symptoms Cardiovascular: Reports: Dyspnea on Exertion GI/Abdominal: Reports: Constipation, Distension (mild). Denies: Black Stool, Bloody Stool, Diarrhea (occasional small squirt), Hematemesis, Hematochezia, Melena, Nausea, Vomiting : Reports: Dysuria (mild) Musculoskeletal: Reports: No Symptoms Skin: Reports: No Symptoms Neurological: Reports: No Symptoms Psychiatric: Reports: Anxiety (chronic) ED EXAM, GI/ABD - Physical Exam Exam: See Below Exam Limited By: No Limitations General Appearance: Alert, WD/WN, No Apparent Distress, Obese Eyes: Bilateral: Normal Appearance Ears: Normal External Exam, Normal Canal, Hearing Grossly Normal, Normal TMs Nose: Normal Inspection, No Blood Throat/Mouth: Normal Inspection, Normal Lips, Normal Oropharynx, Normal Voice, No Airway Compromise Head: Atraumatic, Normocephalic Neck: Normal Inspection Respiratory/Chest: No Respiratory Distress, Lungs Clear, Normal Breath Sounds, No Accessory Muscle Use Cardiovascular: Regular Rate, Rhythm, No Edema, Tachycardia (mild) GI/Abdominal Exam: Normal Bowel Sounds, Soft, Non-Tender, No Distention, Other (obese). No: Distended Back Exam: No: CVA Tenderness (R), CVA Tenderness (L) Extremities: Normal Inspection, Normal Range of Motion, Non-Tender, No Pedal Edema Neurological: Alert, Oriented, CN II-XII Intact, Normal Cognition, No Motor/Sensory Deficits Psychiatric: Normal Affect, Normal Mood Skin Exam: Warm, Dry, Intact, Normal Color, Other (scattered purpura) Course - Vital Signs Text/Narrative:: Tashi Connolly called @ Departure - Departure Disposition: Home, Self-Care 01 Condition: Serious Clinical Impression: Thrombocytopenia, Occult blood in stools, Hypokalemia Anemia Qualifiers: Anemia type: due to chronic kidney disease Chronic kidney disease stage: stage 4 (severe) Qualified Code(s): N18.4 - Chronic kidney disease, stage 4 (severe); D63.1 - Anemia in chronic kidney disease Constipation Qualifiers: Constipation type: slow transit constipation Qualified Code(s): K59.01 - Slow transit constipation Urinary tract infection Qualifiers: Urinary tract infection type: acute cystitis Hematuria presence: with hematuria Qualified Code(s): N30.01 - Acute cystitis with hematuria - Discharge Information Instructions: Anemia Referrals: Madelyn Cline DO [Primary Care Provider] - Forms: ED Department Discharge Additional Instructions: Take full course of antibiotics, please follow-up with your primary care in the next 3 to 5 days for reevaluation call return to the emergency department worsening of symptoms Sepsis Event Note (ED) - Evaluation Sepsis Screening Result: Possible Sepsis Risk <BerkleyrRoberto - Last Filed: 01/24/21 12:48> Course - Vital Signs Last Recorded V/S: Last Vital Signs Temp 98 F 01/24/21 06:17 Pulse 92 01/24/21 11:57 Resp 18 01/24/21 09:08 BP 120/74 01/24/21 11:57 Pulse Ox 93 L 01/24/21 09:08 - Orders/Labs/Meds Orders: Active Orders 24 hr Category Date Time Status Enema [RC] ASDIRECTED Care 01/23/21 17:59 Active CULTURE URINE [RM] Urgent Lab 01/24/21 09:28 Received Sodium Chloride 0.9% [Normal Saline] 90 ml Med 01/24/21 09:45 Active IV ASDIRECTED Sodium Chloride 0.9% [Saline Flush] Med 01/23/21 18:24 Active 10 ml FLUSH ASDIRECTED PRN Sucralfate [Carafate] Med 01/24/21 07:00 Active 1 gm PO QIDACANDBED Saline Lock Insert [OM.PC] Routine Oth 01/23/21 18:24 Ordered Transfuse Platelets [COMM] Routine Oth 01/23/21 18:28 Ordered Transfuse Red Blood Cells [COMM] Routine Oth 01/23/21 18:26 Ordered Medication Orders Sodium Chloride (Normal Saline) 90 mls @ 4 mls/sec IV ASDIRECTED COUNT INCLUDES THE [facility] Last Admin: 01/24/21 10:11 Dose: 4 mls/sec Documented by: ALEJA Sodium Chloride (Sodium Chloride 0.9% 10 Ml Syringe) 10 ml FLUSH ASDIRECTED PRN PRN Reason: Keep Vein Open Last Admin: 01/23/21 21:16 Dose: 10 ml Documented by: JOYCE Sucralfate (Sucralfate 1 Gm Tab) 1 gm PO QIDACANDBED COUNT INCLUDES THE [facility] Last Admin: 01/24/21 11:04 Dose: 1 gm Documented by: Admin: 01/24/21 09:10 Dose: Not Given Documented by: BRANDEE Labs: Laboratory Tests 01/23/21 01/23/21 01/23/21 Range/Units 18:06 18:06 18:10 WBC 7.3 (4.5-11.0) K/uL RBC 2.30 L (3.30-5.50) M/uL Hgb 7.2 L D (12.0-15.0) g/dL Hct 22.2 L (36.0-48.0) % MCV 97 (80-98) fL MCH 31 (27-31) pg MCHC 32 (32-36) % Plt Count 10 L* (150-400) K/uL Add Manual Diff Neutrophils % (Manual) (36-66) % Lymphocytes % (Manual) (24-44) % Monocytes % (Manual) (2-6) % Eosinophils % (Manual) (2-4) % Nucleated RBCs D-Dimer, Quantitative (0.0-500.0) ng/mL Sodium (140-148) mmol/L Potassium (3.6-5.2) mmol/L Chloride (100-108) mmol/L Carbon Dioxide (21-32) mmol/L Anion Gap (5.0-14.0) mmol/L BUN (7-18) mg/dL Creatinine (0.6-1.0) mg/dL Est Cr Clr Drug Dosing mL/min Estimated GFR (MDRD) (>60) Glucose (74-106) mg/dL Calcium (8.5-10.1) mg/dL Magnesium 1.8 (1.8-2.4) mg/dL Urine Color (YELLOW) Urine Appearance (CLEAR) Urine pH (5.0-8.0) Ur Specific Morgan (1.008-1.030) Urine Protein (NEGATIVE) mg/dL Urine Glucose (UA) (NEGATIVE) mg/dL Urine Ketones (NEGATIVE) mg/dL Urine Occult Blood (NEGATIVE) Urine Nitrite (NEGATIVE) Urine Bilirubin (NEGATIVE) Urine Urobilinogen (0.2-1.0) EU/dL Ur Leukocyte Esterase (NEGATIVE) Urine RBC (0-5) Urine WBC (0-5) Ur Epithelial Cells Amorphous Sediment Urine Bacteria Urine Mucus SARS CoV-2 RNA Rapid CIERA Blood Type A POSITIVE Gel Antibody Screen Negative Crossmatch See Detail 01/23/21 01/23/21 01/23/21 Range/Units 18:10 20:17 20:17 WBC (4.5-11.0) K/uL RBC (3.30-5.50) M/uL Hgb (12.0-15.0) g/dL Hct (36.0-48.0) % MCV (80-98) fL MCH (27-31) pg MCHC (32-36) % Plt Count (150-400) K/uL Add Manual Diff Neutrophils % (Manual) (36-66) % Lymphocytes % (Manual) (24-44) % Monocytes % (Manual) (2-6) % Eosinophils % (Manual) (2-4) % Nucleated RBCs D-Dimer, Quantitative (0.0-500.0) ng/mL Sodium 137 L (140-148) mmol/L Potassium 3.1 L (3.6-5.2) mmol/L Chloride 101 (100-108) mmol/L Carbon Dioxide 24 (21-32) mmol/L Anion Gap 15.1 H (5.0-14.0) mmol/L BUN 12 (7-18) mg/dL Creatinine 1.0 (0.6-1.0) mg/dL Est Cr Clr Drug Dosing 48.88 mL/min Estimated GFR (MDRD) 59 L (>60) Glucose 125 H (74-106) mg/dL Calcium 9.0 (8.5-10.1) mg/dL Magnesium (1.8-2.4) mg/dL Urine Color Yellow (YELLOW) Urine Appearance Slightly cloudy A (CLEAR) Urine pH 6.0 (5.0-8.0) Ur Specific Morgan 1.010 (1.008-1.030) Urine Protein Negative (NEGATIVE) mg/dL Urine Glucose (UA) Negative (NEGATIVE) mg/dL Urine Ketones Negative (NEGATIVE) mg/dL Urine Occult Blood Trace-lysed H (NEGATIVE) Urine Nitrite Positive H (NEGATIVE) Urine Bilirubin Negative (NEGATIVE) Urine Urobilinogen 0.2 (0.2-1.0) EU/dL Ur Leukocyte Esterase Small H (NEGATIVE) Urine RBC 0-5 (0-5) Urine WBC 5-10 H (0-5) Ur Epithelial Cells Rare Amorphous Sediment Not seen Urine Bacteria Many Urine Mucus Not seen SARS CoV-2 RNA Rapid CIERA Negative Blood Type Gel Antibody Screen Crossmatch 01/24/21 01/24/21 Range/Units 08:15 08:15 WBC 7.6 (4.5-11.0) K/uL RBC 3.33 (3.30-5.50) M/uL Hgb 10.4 L D (12.0-15.0) g/dL Hct 31.3 L (36.0-48.0) % MCV 94 (80-98) fL MCH 31 (27-31) pg MCHC 33 (32-36) % Plt Count 60 L (150-400) K/uL Add Manual Diff Yes Neutrophils % (Manual) 21 L (36-66) % Lymphocytes % (Manual) 73 H (24-44) % Monocytes % (Manual) 5 (2-6) % Eosinophils % (Manual) 1 L (2-4) % Nucleated RBCs 11 D-Dimer, Quantitative 3614.52 H (0.0-500.0) ng/mL Sodium (140-148) mmol/L Potassium (3.6-5.2) mmol/L Chloride (100-108) mmol/L Carbon Dioxide (21-32) mmol/L Anion Gap (5.0-14.0) mmol/L BUN (7-18) mg/dL Creatinine (0.6-1.0) mg/dL Est Cr Clr Drug Dosing mL/min Estimated GFR (MDRD) (>60) Glucose (74-106) mg/dL Calcium (8.5-10.1) mg/dL Magnesium (1.8-2.4) mg/dL Urine Color (YELLOW) Urine Appearance (CLEAR) Urine pH (5.0-8.0) Ur Specific Morgan (1.008-1.030) Urine Protein (NEGATIVE) mg/dL Urine Glucose (UA) (NEGATIVE) mg/dL Urine Ketones (NEGATIVE) mg/dL Urine Occult Blood (NEGATIVE) Urine Nitrite (NEGATIVE) Urine Bilirubin (NEGATIVE) Urine Urobilinogen (0.2-1.0) EU/dL Ur Leukocyte Esterase (NEGATIVE) Urine RBC (0-5) Urine WBC (0-5) Ur Epithelial Cells Amorphous Sediment Urine Bacteria Urine Mucus SARS CoV-2 RNA Rapid CIERA Blood Type Gel Antibody Screen Crossmatch Meds: Medications Generic Name Dose Route Start Last Admin Trade Name Freq PRN Reason Stop Dose Admin Sodium Chloride 90 mls @ 4 mls/sec 01/24/21 09:45 01/24/21 10:11 Normal Saline IV 4 mls/sec ASDIRECTED ESTEVAN Administration Sodium Chloride 10 ml 01/23/21 18:24 01/23/21 21:16 Sodium Chloride 0.9% 10 Ml Syringe FLUSH 10 ml ASDIRECTED PRN Administration Keep Vein Open Sucralfate 1 gm 01/24/21 07:00 01/24/21 11:04 Sucralfate 1 Gm Tab PO 1 gm QIDACANDBED ESTEVAN Administration Discontinued Medications Generic Name Dose Route Start Last Admin Trade Name Freq PRN Reason Stop Dose Admin Acetaminophen 1,000 mg 01/23/21 18:27 01/23/21 20:25 Acetaminophen 500 Mg Tab PO 01/23/21 18:28 1,000 mg ONETIME ONE Administration Acetaminophen 1,000 mg 01/24/21 02:53 01/24/21 03:05 Acetaminophen 500 Mg Tab PO 01/24/21 02:54 1,000 mg ONETIME ONE Administration Alprazolam 0.5 mg 01/23/21 17:53 01/23/21 20:25 Alprazolam 0.25 Mg Tab PO 01/23/21 17:54 0.5 mg ONETIME ONE Administration Alprazolam Confirm 01/23/21 20:17 01/23/21 20:25 Alprazolam 0.5 Mg Tab Administered 01/23/21 20:18 Not Given Dose 0.5 mg .ROUTE .STK-MED ONE Alprazolam 0.5 mg 01/24/21 04:26 01/24/21 04:41 Alprazolam 0.25 Mg Tab PO 01/24/21 04:27 0.5 mg ONETIME ONE Administration Famotidine 20 mg 01/23/21 20:20 01/23/21 21:13 Famotidine 20 Mg/2 Ml Sdv IVPUSH 01/23/21 20:21 20 mg ONETIME ONE Administration Iopamidol 66 ml 01/24/21 09:42 01/24/21 10:11 Iopamidol 755 Mg/Ml 100 Ml Bottle IV 01/24/21 09:43 66 ml . DIRECTED ONE Administration Lorazepam 1 mg 01/24/21 10:42 01/24/21 11:00 Lorazepam 2 Mg/Ml Sdv IVPUSH 01/24/21 10:43 1 mg ONETIME ONE Administration Oxycodone HCl 5 mg 01/24/21 04:26 01/24/21 04:42 Oxycodone 5 Mg Tab PO 01/24/21 04:27 5 mg ONETIME ONE Administration Potassium Chloride 40 meq 01/23/21 18:49 01/23/21 20:26 Potassium Chloride 20 Meq Tab.Er PO 01/23/21 18:50 40 meq ONETIME ONE Administration Sucralfate 1 gm 01/23/21 20:20 01/23/21 21:16 Sucralfate 1 Gm Tab PO 01/23/21 20:21 1 gm ONETIME ONE Administration Departure - Departure Time of Disposition: 12:47 Sepsis Event Note (ED) - Focused Exam Vital Signs: Vital Signs Temp Temp Pulse Resp BP Pulse Ox 01/24/21 11:57 92 120/74 01/24/21 09:08 79 18 136/70 93 L 01/24/21 06:17 98 F 76 22 H 118/71 01/24/21 06:02 97.7 F 72 16 98/62 96 01/24/21 05:58 97.9 F 75 16 110/65 90 L 01/24/21 05:50 97.7 F 71 16 112/54 L 91 L 01/24/21 05:47 97.7 F 14 112/54 L 91 L 01/24/21 05:45 97.7 F 14 112/54 L 01/24/21 04:51 97.1 F 74 16 140/55 L 93 L 01/24/21 03:40 97.6 F 72 16 140/78 95 01/24/21 03:20 97.8 F 80 14 130/72 01/24/21 03:05 98.2 F 72 14 161/37 H 01/24/21 01:20 95 123/67 - My Orders Last 24 Hours: My Active Orders 01/24/21 09:28 CULTURE URINE [RM] Urgent - Assessment/Plan Last 24 Hours: My Active Orders 01/24/21 09:28 CULTURE URINE [RM] Urgent Plan: Took over care from Dr. Clark at 7 AM Assessment Acuity = acute Site and laterality = urinary tract infection complicated patient known history of breast cancer with metastases history of thrombocytopenia and recurrent anemia Etiology = probable bacterial cause Manifestations = none Location of injury = Home Lab values = hemoglobin low at 7.2 consistent normochromic anemia transfusion 2 units now 10.4, platelets initially low at 10 now increased to 60 still consistent with thrombocytopenia, D-dimer elevated 3614 unclear significance potassium low 3.1 consistent hypokalemia urinalysis positive for nitrates cultures pending consistent with urinary tract infection, Covid is negative CT scan shows no pulmonary embolism Plan I did review lab work with her she is willing to try going home therefore prescription written for Bactrim DS one tab p.o. twice daily x5 days follow-up primary care 3 to 5 days for reevaluation This note was dictated using [employer] voice recognition software please call with any questions on syntax or grammar.
[2021-01-23] MEDS ORDERED: Sodium Chloride 0.9% 10 ML Syringe FLUSH PRN (18:24)
[2021-01-23] MEDS ORDERED: Acetaminophen 500 MG Tab PO ONE (18:27)
[2021-01-23] MEDS ORDERED: Potassium Chloride 20 MEQ Tab.ER PO ONE (18:49)
[2021-01-23] MEDS ORDERED: ALPRAZolam 0.5 MG Tab ONE (20:17)
[2021-01-23] MEDS ORDERED: Sucralfate 1 GM Tab PO ONE (20:20)
[2021-01-23] MEDS ORDERED: Famotidine 20 MG/2 ML SDV IVPUSH ONE (20:20)
[2021-01-24] MEDS ORDERED: Acetaminophen 500 MG Tab PO ONE (02:53)
[2021-01-24] MEDS ORDERED: ALPRAZolam 0.25 MG Tab PO ONE (04:26)
[2021-01-24] MEDS ORDERED: oxyCODONE 5 MG Tab PO ONE (04:26)
[2021-01-24] MEDS: Sucralfate 1 GM Tab PO SCH ×3 (09:09→11:04)
[2021-01-24] MEDS ORDERED: Iopamidol 755 Mg/ML 100 ML Bottle IV ONE (09:42)
[2021-01-24] MEDS ORDERED: Sodium Chloride 0.9% 90 ML IV SCH (09:45)
[2021-01-24] MEDS ORDERED: LORazepam 2 MG/ML SDV IVPUSH ONE (10:42)
--- NOTE | 2021-01-24 10:54 | CRLCR ---
For Patients: As a result of the Century Cures Act, medical imaging exams and procedure reports are released immediately into your electronic medical record. You may view this report before your referring provider. If you have questions, please contact your health care provider. INDICATION: Pain x3 weeks TECHNIQUE: Upright and supine views. COMPARISON: None available FINDINGS: There is a nonspecific bowel gas pattern with minimal air-fluid level seen within the colon. Satisfactory position of gastric banding device. Demonstration of airspace opacities within the lung bases commensurate with likely basilar atelectasis and/or infiltrates. There is no acute osseous abnormality. IMPRESSION: Nonobstructive bowel gas pattern with minimal air-fluid levels throughout the colon which may represent mild colitis changes. Dictated by Michael Salas MD @ 01/24/2021 10:54:10 AM (Electronically Signed)
--- NOTE | 2021-01-24 11:05 | CRLCT ---
For Patients: As a result of the Century Cures Act, medical imaging exams and procedure reports are released immediately into your electronic medical record. You may view this report before your referring provider. If you have questions, please contact your health care provider. Indication: Shortness of breath, history of lung cancer Technique: Volumetric multidetector CT images of the chest were obtained after the administration of IV contrast. 66 cc Isovue 370 low osmolar intravenous contrast Comparison: CT chest abdomen and pelvis January 07, 2021 Findings: The thoracic inlet and thyroid gland are unremarkable. The thoracic aorta is non aneurysmal with scattered atherosclerotic calcification. There are extensive collateral vessels seen throughout the right superficial chest wall, right lateral thoracic and upper abdomen with a markedly diminutive superior vena cava likely representing stenosis and/or sequela of prior obstruction. Diffuse thickening of the left breast is again seen. There is no central filling defect to suggest pulmonary embolism. There is no mediastinal, hilar or axillary adenopathy. The trachea and bronchi are well aerated without significant bronchiectasis. There are bibasilar pleural effusions with adjacent compressive atelectasis and mild interlobular septal thickening commensurate with minimal pulmonary vascular congestion. There is no pneumothorax or dense consolidation. There is no evidence of pulmonary mass or suspicious pulmonary nodule. The partially visualized upper abdomen demonstrates hepatic steatosis and mild perihepatic fluid seen predominantly in the upper quadrants. There is demonstration of an intact gastric banding device. Extensive sclerotic metastatic changes throughout the axial and appendicular skeleton are again appreciated. Impression: Interval development of bibasilar pleural effusions and likely mild pulmonary edema without evidence of pulmonary embolus. 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 Stable thickening of the left breast. Partially visualized ascites fluid in the upper quadrants of the abdomen. Please note that all CT scans at this facility use dose modulation, iterative reconstruction, and/or weight-based dosing when appropriate to reduce radiation dose to as low as reasonably achievable. Dictated by Michael Salas MD @ 01/24/2021 11:03:02 AM (Electronically Signed)
[2021-01-24 11:57] VITALS: BP 120/74; PULSE 92
== END 2021-01-24 13:40 | disposition home or self-care (01) ==
LOC: JP.ED 16:40
DX: N30.01 Acute cystitis with hematuria (principal); K59.00 Constipation, unspecified; E87.6 Hypokalemia; K92.1 Melena; I13.0 Hypertensive heart and chronic kidney disease with heart failure and stage 1 through stage 4 chronic kidney disease, or unspecified chronic kidney disease; E11.22 Type 2 diabetes mellitus with diabetic chronic kidney disease; N18.4 Chronic kidney disease, stage 4 (severe); I50.9 Heart failure, unspecified; D63.1 Anemia in chronic kidney disease; D69.6 Thrombocytopenia, unspecified; K21.9 Gastro-esophageal reflux disease without esophagitis; M19.90 Unspecified osteoarthritis, unspecified site; Z79.899 Other long term (current) drug therapy; Z91.018 Allergy to other foods; Z91.010 Allergy to peanuts; Z91.040 Latex allergy status; Z88.5 Allergy status to narcotic agent; Z88.8 Allergy status to other drugs, medicaments and biological substances; Z79.01 Long term (current) use of anticoagulants; Z20.822 Contact with and (suspected) exposure to COVID-19
CPT/HCPCS: 36415; 36430; 71275; 74018; 80048; 81001; 82272; 83735; 85025; 85027; 85379; 86850; 86900; 86901; 86920; 86922; 87086; 87088; 87186; 87635; 96374; 96375; 99284; A9270; J2060; J3490; P9016; P9034; Q9967; U0002

== ENCOUNTER 2021-01-26 18:28 | Emergency (ER) | payer MEDICAID ==
[2021-01-26 18:51] VITALS: BP 140/88; PULSE 111
[2021-01-26] MEDS ORDERED: Aluminum Hydroxide/Magnesium Hydroxide/Simethicone Susp 30 ML Cup PO STA (20:39)
--- NOTE | 2021-01-26 21:21 | EDM.PDOC ---
ED HPI GENERAL MEDICAL PROBLEM - General Chief Complaint: Gastrointestinal Problem Stated Complaint: CONSTIPATED Time Seen by Provider: 01/26/21 18:44 Source of Information: Reports: Patient, Old Records History Limitations: Reports: No Limitations - History of Present Illness INITIAL COMMENTS - FREE TEXT/NARRATIVE: Lucie is a 50-year-old female presenting to the ED by private vehicle for evaluation of generalized abdominal pain and constipation. The patient states that is she has felt more bloated and has had much more upper abdominal discomfort today. The patient was recently hospitalized for pancytopenia and was transfused earlier this week. She does have a history for metastatic breast cancer with metastasis to the bones, thrombocytopenia, anemia, chronic pain and was recently started on Keflex for a urinary tract infection 2 days ago. She denies any fever or chills, does have some nausea but no vomiting, and denies any diarrhea or passing gas. Does state again that she is feeling bloated and constipated. She has taken some MiraLAX without improvement. She has been doing suppositories for her constipation as well and did reportedly take 2 bottles of magnesium citrate today to try to help her go. Of these without much result. Upper Abdomen Pain Score (Numeric/FACES): 8 - Related Data Allergies Allergy/AdvReac Type Severity Reaction Status Date / Time almond Allergy Severe Airway Verified 01/26/21 18:47 Tightness avocado Allergy Severe Airway Verified 01/26/21 18:47 Tightness banana Allergy Severe Airway Verified 01/26/21 18:47 Tightness kiwi Allergy Severe Airway Verified 01/26/21 18:47 Tightness peanut Allergy Severe Anaphylactic Verified 01/26/21 18:47 Shock cat dander Allergy Other Verified 01/26/21 18:47 codeine Allergy Itching Verified 01/26/21 18:47 latex Allergy Itching Verified 01/26/21 18:47 weed pollen-short ragweed Allergy Other Verified 01/26/21 18:47 [From Ragwitek] erythromycin base AdvReac Nausea and Verified 01/26/21 18:47 Vomiting tramadol AdvReac Anxiety Verified 01/26/21 18:47 Home Meds: Home Meds Cholecalciferol (Vitamin D3) [Vitamin D3] 1 tab PO Q7D 07/31/18 [History] Diclofenac Sodium 4 gram TOP Q6H PRN 02/15/19 [History] Escitalopram [Lexapro] 20 mg PO DAILY 08/19/19 [History] Ondansetron [Zofran ODT] 8 mg PO Q8H PRN tab.dis 09/05/19 [Rx] Palbociclib [Ibrance] 100 mg PO BEDTIME 02/11/20 [History] Furosemide [Lasix] 20 mg PO DAILY 04/07/20 [History] ALPRAZolam [Xanax] 1 mg PO DAILY PRN 06/19/20 [History] Albuterol Sulfate [Proair Hfa] 2 puff INH TID PRN 06/19/20 [History] Cetirizine HCl [Zyrtec] 10 mg PO BID PRN 06/19/20 [History] Omeprazole 40 mg PO DAILY 06/19/20 [History] Potassium Chloride 20 meq PO DAILY 06/19/20 [History] Prochlorperazine Maleate [Compazine] 10 mg PO Q6H PRN 06/19/20 [History] oxyCODONE 5 mg PO Q4H PRN 06/19/20 [History] Nicotine [Nicotrol] 10 mg IH Q2H PRN #168 cartridge 12/26/20 [Rx] Rivaroxaban [Xarelto] 20 mg PO DAILY 12/26/20 [History] Fluconazole 150 mg PO ONETIME #1 tablet 12/28/20 [Rx] Sulfamethoxazole/Trimethoprim [Sulfamethoxazole-Tmp Ds Tablet] 1 each PO BID 01/26/21 [History] Past Medical History HEENT History: Reports: Allergic Rhinitis, Impaired Vision, Sinusitis Other HEENT History: Tooth pain Cardiovascular History: Reports: Heart Failure, Hypertension Respiratory History: Reports: Asthma, Bronchitis, Recurrent Gastrointestinal History: Reports: Cholelithiasis, GERD Genitourinary History: Reports: Pyelonephritis, UTI, 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: Musculoskeletal History: Reports: Arthritis, Fracture, Fibromyalgia, Osteoarthritis Neurological History: Reports: Migraines Psychiatric History: Reports: ADHD, Addiction, Anxiety, Bipolar, Depression, OCD, PTSD Endocrine/Metabolic History: Reports: Diabetes, Type II, Vitamin D Deficiency, Other (See Below) Other Endocrine/Metabolic History: states not diabetic since lap band surgery Hematologic History: Reports: B12 Deficiency, Folic Acid Oncologic (Cancer) History: Reports: Bone, Breast, Other (See Below) Other Oncologic History: metastatic bone CA Dermatologic History: Reports: Cellulitis, Eczema - Infectious Disease History Infectious Disease History: Reports: Chicken Pox, Novel Coronavirus - Past Surgical History Head Surgeries/Procedures: Reports: None HEENT Surgical History: Reports: None Cardiovascular Surgical History: Reports: None Respiratory Surgical History: Reports: None GI Surgical History: Reports: Bariatric Procedure, Cholecystectomy, Colonoscopy, EGD Other GI Surgeries/Procedures: lap band 2007 Female Surgical History: Reports: None Endocrine Surgical History: Reports: None Neurological Surgical History: Reports: None Musculoskeletal Surgical History: Reports: None Other Oncologic Surgeries/Procedures: On chemo at this time Dermatological Surgical History: Reports: None Social & Family History - Family History Family Medical History: No Pertinent Family History - Tobacco Use Tobacco Use Status *Q: Current Every Day Tobacco User Years of Tobacco use: 30 Packs/Tins Daily: 1 - Caffeine Use Caffeine Use: Reports: Coffee - Alcohol Use Days Per Week of Alcohol Use: 7 Number of Drinks Per Day: 2 Total Drinks Per Week: 14 - Recreational Drug Use Recreational Drug Use: Yes Drug Use in Last 12 Months: Yes Recreational Drug Type: Reports: Marijuana/Hashish Recreational Drug Use Frequency: Daily - Living Situation & Occupation Living situation: Reports: Single Occupation: Unemployed ED ROS GENERAL - Review of Systems Review Of Systems: See Below Constitutional: Reports: Decreased Appetite HEENT: Reports: No Symptoms Respiratory: Reports: No Symptoms Cardiovascular: Reports: No Symptoms Endocrine: Reports: No Symptoms GI/Abdominal: Reports: Abdominal Pain (Generalized), Constipation, Decreased Appetite, Distension, Nausea. Denies: Flatus : Reports: No Symptoms Musculoskeletal: Reports: No Symptoms Skin: Reports: No Symptoms Neurological: Reports: No Symptoms Psychiatric: Reports: Anxiety Hematologic/Lymphatic: Reports: Anemia, Other (Thrombocytopenia) Immunologic: Reports: No Symptoms ED EXAM, GI/ABD - Physical Exam Exam: See Below Exam Limited By: No Limitations General Appearance: Alert, Anxious, Moderate Distress Eyes: Bilateral: EOMI Throat/Mouth: Normal Oropharynx Head: Atraumatic Neck: Normal Inspection, Supple Respiratory/Chest: No Respiratory Distress, Lungs Clear, Normal Breath Sounds Cardiovascular: Normal Peripheral Pulses, Regular Rate, Rhythm, No Murmur GI/Abdominal Exam: Normal Bowel Sounds, Soft, Distended (Tympany to percussion throughout the upper abdomen), Tender. No: Guarding, Rigid, Rebound Extremities: Normal Inspection Neurological: Alert, Oriented, Normal Cognition, No Motor/Sensory Deficits Psychiatric: Anxious Skin Exam: Warm, Dry Course - Vital Signs Last Recorded V/S: Last Vital Signs Temp 36.6 C 01/26/21 18:48 Pulse 111 H 01/26/21 18:48 Resp 16 01/26/21 18:48 BP 140/88 01/26/21 18:48 Pulse Ox 96 01/26/21 18:48 - Orders/Labs/Meds Orders: Active Orders 24 hr Category Date Time Status Enema [RC] ASDIRECTED Care 01/26/21 20:02 Active Abdomen 2V AP Flat Upright [CR] Stat Exams 01/26/21 18:44 Taken UA W/MICROSCOPIC [URIN] Stat Lab 01/26/21 18:44 Ordered Labs: Laboratory Tests 01/26/21 01/26/21 Range/Units 18:44 18:44 WBC 6.9 (4.5-11.0) K/uL RBC 3.44 (3.30-5.50) M/uL Hgb 10.6 L (12.0-15.0) g/dL Hct 32.0 L (36.0-48.0) % MCV 93 (80-98) fL MCH 31 (27-31) pg MCHC 33 (32-36) % Plt Count 10 L* (150-400) K/uL Add Manual Diff Yes Neutrophils % (Manual) 43 (36-66) % Band Neutrophils % 5 (5-11) % Lymphocytes % (Manual) 40 (24-44) % Monocytes % (Manual) 12 H (2-6) % Atypical Lymphocytes Few Polychromasia Few Hypochromasia Few Anisocytosis Few Macrocytosis Few Sodium 140 (140-148) mmol/L Potassium 3.7 (3.6-5.2) mmol/L Chloride 102 (100-108) mmol/L Carbon Dioxide 27 (21-32) mmol/L Anion Gap 10.8 (5.0-14.0) mmol/L BUN 11 (7-18) mg/dL Creatinine 1.1 H (0.6-1.0) mg/dL Est Cr Clr Drug Dosing 44.44 mL/min Estimated GFR (MDRD) 53 L (>60) Glucose 119 H (74-106) mg/dL Calcium 10.7 H D (8.5-10.1) mg/dL Total Bilirubin 1.2 H (0.2-1.0) mg/dL AST 66 H (15-37) U/L ALT 60 (12-78) U/L Alkaline Phosphatase 160 H (46-116) U/L Total Protein 6.0 L (6.4-8.2) g/dL Albumin 2.6 L (3.4-5.0) g/dL Globulin 3.4 (2.3-3.5) g/dL Albumin/Globulin Ratio 0.8 L (1.2-2.2) Meds: Medications Discontinued Medications Generic Name Dose Route Start Last Admin Trade Name Joaquimq PRN Reason Stop Dose Admin Al Hydroxide/Mg Hydroxide 30 ml 01/26/21 20:39 01/26/21 20:47 Aluminum Hydroxide/Magnesium Hydroxide/Simethicone Susp 30 Ml Cup PO 01/26/21 20:40 30 ml ONETIME STA Administration - Radiology Interpretation Free Text/Narrative:: I reviewed the two-view x-ray of the abdomen showing a copious amount of colonic flatus without evidence for obstruction. There is a small amount of formed stool in the rectum. Certainly nothing that would be consistent with a constipation picture. - Re-Assessments/Exams Free Text/Narrative Re-Assessment/Exam: 01/26/21 21:20 the x-ray of the abdomen showed very little stool with some being in the rectum but a copious amount of colonic flatus. There is no evidence for obstruction. 01/26/21 21:21 the patient was given a tap water enema with the ability to expel the stool that was in the rectum. She did pass a small amount of gas but still feels significant abdominal distention and pain. She was given Maalox 30 mL to help dispel the flatus. Departure - Departure Time of Disposition: 21:31 Disposition: Home, Self-Care 01 Clinical Impression: Excessive flatus, Thrombocytopenia Abdominal pain Qualifiers: Abdominal location: generalized Qualified Code(s): R10.84 - Generalized abdominal pain - Discharge Information Instructions: Thrombocytopenia, Abdominal Pain, Adult, [id number], Abdominal Bloating Referrals: Madelyn Cline DO [Primary Care Provider] - Care Plan Goals: Your work-up today has shown that your abdominal pain is most likely coming from the excessive amount of colonic gas (flatus) causing distention of the colon. There was very little stool seen throughout your colon so this is not evidence for constipation. I would recommend taking Maalox, Mylanta, [place], Di-Gel, or Gas-X to help disperse the excessive flatus. We will send you home with Maalox to use tonight. Your blood count today again showed that you have significant thrombocytopenia with a platelet count of 10,000. I would recommend talking to your oncologist about what to do with a low platelet count. Sepsis Event Note (ED) - Evaluation Sepsis Screening Result: No Definite Risk - Focused Exam Vital Signs: Vital Signs Temp Pulse Resp BP Pulse Ox 01/26/21 18:48 36.6 C 111 H 16 140/88 96 - Problem List & Annotations (1) Abdominal pain SNOMED Code(s): 29925414 Code(s): R10.9 - UNSPECIFIED ABDOMINAL PAIN Status: Acute Priority: Medium Current Visit: Yes Qualifiers: Abdominal location: generalized Qualified Code(s): R10.84 - Generalized abdominal pain (2) Excessive flatus SNOMED Code(s): 58785930 Code(s): R14.3 - FLATULENCE Status: Acute Priority: Medium Current Visit: Yes - Problem List Review Problem List Initiated/Reviewed/Updated: Yes - My Orders Last 24 Hours: My Active Orders 01/26/21 18:44 Abdomen 2V AP Flat Upright [CR] Stat UA W/MICROSCOPIC [URIN] Stat 01/26/21 20:02 Enema [RC] ASDIRECTED - Assessment/Plan Last 24 Hours: My Active Orders 01/26/21 18:44 Abdomen 2V AP Flat Upright [CR] Stat UA W/MICROSCOPIC [URIN] Stat 01/26/21 20:02 Enema [RC] ASDIRECTED
[2021-01-26] MEDS ORDERED: Aluminum Hydroxide/Magnesium Hydroxide/Simethicone Susp 30 ML Cup PO ONE (21:31)
--- NOTE | 2021-01-28 10:35 | CR ---
Abdomen 2V AP Flat Upright CLINICAL HISTORY: Constipation FINDINGS: Small intestinal gas pattern is nonacute. No free air is identified. There is gas and feces throughout the colon. Patient has a lap band IMPRESSION: Nonacute intestinal gas pattern
== END 2021-01-26 21:40 | disposition home or self-care (01) ==
LOC: JP.ED 18:28
DX: D69.6 Thrombocytopenia, unspecified (principal); R14.3 Flatulence; I11.0 Hypertensive heart disease with heart failure; I50.9 Heart failure, unspecified; K21.9 Gastro-esophageal reflux disease without esophagitis; E11.9 Type 2 diabetes mellitus without complications; Z72.0 Tobacco use; Z91.018 Allergy to other foods; Z91.010 Allergy to peanuts; Z91.040 Latex allergy status; Z88.5 Allergy status to narcotic agent; Z88.1 Allergy status to other antibiotic agents; Z79.899 Other long term (current) drug therapy
CPT/HCPCS: 36415; 74019; 80053; 85025; 99284; A9270

== ENCOUNTER 2021-01-28 11:16 | Emergency (ER) | payer MEDICAID ==
[2021-01-28 11:36] VITALS: BP 90/56; PULSE 110
--- NOTE | 2021-01-28 12:40 | EDM.PDOC ---
ED HPI GENERAL MEDICAL PROBLEM - General Chief Complaint: Respiratory Problem Stated Complaint: SOB AND COUGH Time Seen by Provider: 01/28/21 11:45 Source of Information: Reports: Patient History Limitations: Reports: No Limitations - History of Present Illness INITIAL COMMENTS - FREE TEXT/NARRATIVE: 50-year-old female with numerous medical problems, including metastatic cancer is on chemotherapy. She was in 2 days ago and treated for constipation although she had a loose bowel movement this morning. She says she is more short of breath, can't keep her pills straight, feels bloated, and is worried about her platelets. She says she was just discharged from inpatient yesterday but we reviewed the records and she was treated in the emergency room and discharged. No fevers or chills, generalized weakness but her main concern is constipation and shortness of breath. Her vitals are all normal other than mild tachycardia. Onset: Gradual Duration: Day(s): (Constipation and abdominal discomfort seems to be worsening over the past several days) Location: Reports: Abdomen Improves with: Reports: None Associated Symptoms: Reports: Confusion, Malaise, Shortness of Breath, Weakness. Denies: Fever/Chills, Nausea/Vomiting Abdomen Pain Score (Numeric/FACES): 5 - Related Data Allergies Allergy/AdvReac Type Severity Reaction Status Date / Time almond Allergy Severe Airway Verified 01/26/21 18:47 Tightness avocado Allergy Severe Airway Verified 01/26/21 18:47 Tightness banana Allergy Severe Airway Verified 01/26/21 18:47 Tightness kiwi Allergy Severe Airway Verified 01/26/21 18:47 Tightness peanut Allergy Severe Anaphylactic Verified 01/26/21 18:47 Shock cat dander Allergy Other Verified 01/26/21 18:47 codeine Allergy Itching Verified 01/26/21 18:47 latex Allergy Itching Verified 01/26/21 18:47 weed pollen-short ragweed Allergy Other Verified 01/26/21 18:47 [From Ragw[employer]k] erythromycin base AdvReac Nausea and Verified 01/26/21 18:47 Vomiting tramadol AdvReac Anxiety Verified 01/26/21 18:47 Home Meds: Home Meds Cholecalciferol (Vitamin D3) [Vitamin D3] 1 tab PO Q7D 07/31/18 [History] Diclofenac Sodium 4 gram TOP Q6H PRN 02/15/19 [History] Escitalopram [Lexapro] 20 mg PO DAILY 08/19/19 [History] Ondansetron [Zofran ODT] 8 mg PO Q8H PRN tab.dis 09/05/19 [Rx] Palbociclib [Ibrance] 100 mg PO BEDTIME 02/11/20 [History] Furosemide [Lasix] 20 mg PO DAILY 04/07/20 [History] ALPRAZolam [Xanax] 1 mg PO DAILY PRN 06/19/20 [History] Albuterol Sulfate [Proair Hfa] 2 puff INH TID PRN 06/19/20 [History] Cetirizine HCl [Zyrtec] 10 mg PO BID PRN 06/19/20 [History] Omeprazole 40 mg PO DAILY 06/19/20 [History] Potassium Chloride 20 meq PO DAILY 06/19/20 [History] Prochlorperazine Maleate [Compazine] 10 mg PO Q6H PRN 06/19/20 [History] oxyCODONE 5 mg PO Q4H PRN 06/19/20 [History] Nicotine [Nicotrol] 10 mg IH Q2H PRN #168 cartridge 12/26/20 [Rx] Rivaroxaban [Xarelto] 20 mg PO DAILY 12/26/20 [History] Fluconazole 150 mg PO ONETIME #1 tablet 12/28/20 [Rx] Sulfamethoxazole/Trimethoprim [Sulfamethoxazole-Tmp Ds Tablet] 1 each PO BID 01/26/21 [History] Past Medical History HEENT History: Reports: Allergic Rhinitis, Impaired Vision, Sinusitis Other HEENT History: Tooth pain Cardiovascular History: Reports: Heart Failure, Hypertension Respiratory History: Reports: Asthma, Bronchitis, Recurrent Gastrointestinal History: Reports: Cholelithiasis, GERD Genitourinary History: Reports: Pyelonephritis, UTI, 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: Musculoskeletal History: Reports: Arthritis, Fracture, Fibromyalgia, Osteoarthritis Neurological History: Reports: Migraines Psychiatric History: Reports: ADHD, Addiction, Anxiety, Bipolar, Depression, OCD, PTSD Endocrine/Metabolic History: Reports: Diabetes, Type II, Vitamin D Deficiency, Other (See Below) Other Endocrine/Metabolic History: states not diabetic since lap band surgery Hematologic History: Reports: B12 Deficiency, Folic Acid Oncologic (Cancer) History: Reports: Bone, Breast, Other (See Below) Other Oncologic History: metastatic bone CA Dermatologic History: Reports: Cellulitis, Eczema - Infectious Disease History Infectious Disease History: Reports: Chicken Pox, Novel Coronavirus - Past Surgical History Head Surgeries/Procedures: Reports: None HEENT Surgical History: Reports: None Cardiovascular Surgical History: Reports: None Respiratory Surgical History: Reports: None GI Surgical History: Reports: Bariatric Procedure, Cholecystectomy, Colonoscopy, EGD Other GI Surgeries/Procedures: lap band 2007 Female Surgical History: Reports: None Endocrine Surgical History: Reports: None Neurological Surgical History: Reports: None Musculoskeletal Surgical History: Reports: None Other Oncologic Surgeries/Procedures: On chemo at this time Dermatological Surgical History: Reports: None Social & Family History - Family History Family Medical History: No Pertinent Family History - Tobacco Use Tobacco Use Status *Q: Current Every Day Tobacco User Years of Tobacco use: 32 Packs/Tins Daily: 0.5 - Caffeine Use Caffeine Use: Reports: Coffee - Living Situation & Occupation Living situation: Reports: Single Occupation: Unemployed ED ROS GENERAL - Review of Systems Review Of Systems: See Below Constitutional: Reports: Malaise. Denies: Fever, Chills HEENT: Denies: Vision Change Respiratory: Reports: Shortness of Breath (Especially when trying to take a deep breath). Denies: Cough Cardiovascular: Denies: Chest Pain GI/Abdominal: Reports: Abdominal Pain, Distension, Nausea. Denies: Vomiting : Reports: No Symptoms Skin: Reports: Bruising (Bruising easily) Neurological: Reports: Weakness. Denies: Headache Psychiatric: Reports: Depression, Other (Chronic chemical dependency) ED EXAM, GENERAL - Physical Exam Exam: See Below Exam Limited By: No Limitations General Appearance: Alert, No Apparent Distress (Looks tired, somewhat pale but not distressed) Eye Exam: Bilateral Eye: EOMI, Normal Inspection Head: Atraumatic Neck: Supple, Non-Tender Respiratory/Chest: Lungs Clear (Slight decreased breath sounds on the right side compared to the left) Cardiovascular: Regular Rate, Rhythm, Tachycardia (Mild tachycardia) GI/Abdominal: Normal Bowel Sounds, Distended (Abdomen is somewhat distended, diffusely uncomfortable to palpation but no focal tenderness and no peritoneal irritation. A few superficial bruises are present) Extremities: Other (Extremities are thin, no peripheral edema is present) Neurological: Alert, Oriented, No Motor/Sensory Deficits Psychiatric: Depressed Mood, Flat Affect Skin Exam: Warm, Dry Course - Vital Signs Last Recorded V/S: Last Vital Signs Temp 97.2 F 01/28/21 11:31 Pulse 110 H 01/28/21 11:31 Resp 30 H 01/28/21 11:31 BP 90/56 L 01/28/21 11:31 Pulse Ox 98 01/28/21 11:31 - Orders/Labs/Meds Orders: Active Orders 24 hr Category Date Time Status Abdomen Ltd [US] Stat Exams 01/28/21 14:14 Taken Labs: Laboratory Tests 01/28/21 01/28/21 01/28/21 Range/Units 12:06 12:24 12:24 WBC 8.9 (4.5-11.0) K/uL RBC 3.38 (3.30-5.50) M/uL Hgb 10.3 L (12.0-15.0) g/dL Hct 31.8 L (36.0-48.0) % MCV 94 (80-98) fL MCH 31 (27-31) pg MCHC 32 (32-36) % Plt Count 9 L* (150-400) K/uL Add Manual Diff Yes Neutrophils % (Manual) 32 L (36-66) % Band Neutrophils % 3 L (5-11) % Lymphocytes % (Manual) 50 H (24-44) % Monocytes % (Manual) 7 H (2-6) % Basophils % (Manual) 4 H (0-1) % Blast Cells % 4 % Nucleated RBCs 6 Sodium 138 L (140-148) mmol/L Potassium 3.9 (3.6-5.2) mmol/L Chloride 101 (100-108) mmol/L Carbon Dioxide 26 (21-32) mmol/L Anion Gap 14.9 H (5.0-14.0) mmol/L BUN 9 (7-18) mg/dL Creatinine 1.2 H (0.6-1.0) mg/dL Est Cr Clr Drug Dosing 40.73 mL/min Estimated GFR (MDRD) 48 L (>60) Glucose 215 H (74-106) mg/dL Calcium 10.6 H (8.5-10.1) mg/dL Urine Opiates Screen (NEGATIVE) Ur Oxycodone Screen (NEGATIVE) Urine Methadone Screen (NEGATIVE) Ur Propoxyphene Screen (NEGATIVE) Ur Barbiturates Screen (NEGATIVE) Ur Tricyclics Screen (NEGATIVE) Ur Phencyclidine Scrn (NEGATIVE) Ur Amphetamine Screen (NEGATIVE) U Methamphetamines Scrn (NEGATIVE) Urine MDMA Screen (NEGATIVE) U Benzodiazepines Scrn (NEGATIVE) U Cocaine Metab Screen (NEGATIVE) U Marijuana (THC) Screen (NEGATIVE) Ethyl Alcohol < 3 mg/dL 01/28/21 Range/Units 13:08 WBC (4.5-11.0) K/uL RBC (3.30-5.50) M/uL Hgb (12.0-15.0) g/dL Hct (36.0-48.0) % MCV (80-98) fL MCH (27-31) pg MCHC (32-36) % Plt Count (150-400) K/uL Add Manual Diff Neutrophils % (Manual) (36-66) % Band Neutrophils % (5-11) % Lymphocytes % (Manual) (24-44) % Monocytes % (Manual) (2-6) % Basophils % (Manual) (0-1) % Blast Cells % % Nucleated RBCs Sodium (140-148) mmol/L Potassium (3.6-5.2) mmol/L Chloride (100-108) mmol/L Carbon Dioxide (21-32) mmol/L Anion Gap (5.0-14.0) mmol/L BUN (7-18) mg/dL Creatinine (0.6-1.0) mg/dL Est Cr Clr Drug Dosing mL/min Estimated GFR (MDRD) (>60) Glucose (74-106) mg/dL Calcium (8.5-10.1) mg/dL Urine Opiates Screen Negative (NEGATIVE) Ur Oxycodone Screen Presumptive positive H (NEGATIVE) Urine Methadone Screen Negative (NEGATIVE) Ur Propoxyphene Screen Negative (NEGATIVE) Ur Barbiturates Screen Negative (NEGATIVE) Ur Tricyclics Screen Negative (NEGATIVE) Ur Phencyclidine Scrn Negative (NEGATIVE) Ur Amphetamine Screen Negative (NEGATIVE) U Methamphetamines Scrn Negative (NEGATIVE) Urine MDMA Screen Negative (NEGATIVE) U Benzodiazepines Scrn Negative (NEGATIVE) U Cocaine Metab Screen Negative (NEGATIVE) U Marijuana (THC) Screen Presumptive positive H (NEGATIVE) Ethyl Alcohol mg/dL - Re-Assessments/Exams Free Text/Narrative Re-Assessment/Exam: 01/28/21 14:16 CBC and BMP were obtained as well as a 1 view chest x-ray. Chest x-ray looked clear. Platelets are only 9000, hemoglobin 10.3. Electrolytes are reasonably normal. Bedside ultrasound was done to the abdomen and did confirms ascites which is a new finding for this patient. This was not present 3 weeks ago on her abdominal CT scan. 01/28/21 15:00 Had a phone consultation with oncology. It was recommended that she follow-up with a clinic visit tomorrow as she missed 1 last week and when I asked the patient about it she said she "forgot". They also told me that she was supposed to have stopped her Ibrance, and she told nursing that she took it last night. She then changed her story and said that she has not taken it for a week, however her platelet count is still low and that should have responded to holding the Ibrance. I asked her to make sure she is not taking that. I did have a formal ultrasound done, which confirmed ascites, not a significant amount but there was definitely some present around the liver. She will recheck with oncology tomorrow. 01/28/21 15:15 Urine was obtained by straight cath, urine drug screen was positive only for oxycodone which is prescribed to her, and marijuana. EtOH is 0. Departure - Departure Time of Disposition: 15:00 Disposition: Home, Self-Care 01 Clinical Impression: Shortness of breath, Thrombocytopenia Abdominal ascites Qualifiers: Ascites type: other type Qualified Code(s): R18.8 - Other ascites - Discharge Information Instructions: Thrombocytopenia Referrals: PCP,None [Primary Care Provider] - Forms: ED Department Discharge Care Plan Goals: Resume your regular medications but do not take Ibrance. Avoid extra sodium intake, and recheck tomorrow at 12:30 with the oncologist as scheduled. Sepsis Event Note (ED) - Evaluation Sepsis Screening Result: No Definite Risk - Focused Exam Vital Signs: Vital Signs Temp Pulse Resp BP Pulse Ox 01/28/21 11:31 97.2 F 110 H 30 H 90/56 L 98 - My Orders Last 24 Hours: My Active Orders 01/28/21 14:14 Abdomen Invivodata [US] Stat - Assessment/Plan Last 24 Hours: My Active Orders 01/28/21 14:14 Abdomen Ltd [US] Stat
--- NOTE | 2021-01-28 13:17 | CR ---
CHEST: Portable 01/28/2021 at 12:33 PM CLINICAL HISTORY:SOB COMPARISON:CT 03/27/2020 FINDINGS: Right screening catheter remains in place. Heart size and pulmonary vascularity are normal. No infiltrate, effusion or pneumothorax seen. Impression: No acute cardiopulmonary process
--- NOTE | 2021-01-28 15:21 | US ---
Abdomen Ltd CLINICAL HISTORY: Ascites COMPARISON: February 2020. FINDINGS: Limited scans were performed to evaluate for ascites. There is a small amount of perihepatic ascitic fluid. No other significant collection is identified IMPRESSION: Minimal perihepatic ascitic fluid
== END 2021-01-28 14:58 | disposition home or self-care (01) ==
LOC: JP.ED 11:16
DX: R06.02 Shortness of breath (principal); R18.8 Other ascites; D69.6 Thrombocytopenia, unspecified; I10 Essential (primary) hypertension; I11.0 Hypertensive heart disease with heart failure; K21.9 Gastro-esophageal reflux disease without esophagitis; E11.9 Type 2 diabetes mellitus without complications; Z72.0 Tobacco use; Z91.010 Allergy to peanuts; Z91.018 Allergy to other foods; Z88.5 Allergy status to narcotic agent; Z88.1 Allergy status to other antibiotic agents; Z91.048 Other nonmedicinal substance allergy status; Z91.040 Latex allergy status; Z79.01 Long term (current) use of anticoagulants; Z79.899 Other long term (current) drug therapy
CPT/HCPCS: 36415; 71045; 71045-26; 76705; 76705-26; 80048; 80305-QW; 80307; 85025; 99285-25

== ENCOUNTER 2021-02-06 11:39 | Inpatient (IN) | payer MEDICAID ==
--- NOTE | 2021-02-06 12:59 | EDM.PDOC ---
<Aashish Jonas - Last Filed: 02/06/21 12:54> ED HPI GENERAL MEDICAL PROBLEM - General Chief Complaint: General Stated Complaint: WEAKNESS, PAIN Time Seen by Provider: 02/06/21 12:45 Source of Information: Reports: Patient, Old Records, Other (nursing) History Limitations: Reports: Other (patient is a very complicated patient and is a very poor historian) - History of Present Illness INITIAL COMMENTS - FREE TEXT/NARRATIVE: 50 yo female with metastatic breast CA who has been seen weekly lately by oncology. She was seen today and it was felt that she was not safe to send home so she was referred to the ER. There is concern about a possible UTI. Is lethargic and minimally conversant today. Lives alone. Has a pHx of alcohol, tobacco, and street drug use. Last street drug use was supposedly a week ago. Had testing for infectious hepatitis ordered today via the oncology clinic. Has not been compliant with her meds. Onset: Gradual Duration: Day(s):, Getting Worse Location: Reports: Generalized Quality: Reports: Other (unknown) Severity: Moderate Improves with: Reports: None Worsens with: Reports: Other (time) Context: Reports: Other (See HPI) Associated Symptoms: Reports: Confusion, Malaise, Weakness (generalized). Denies: Fever/Chills Treatments IMMIGRATION GUARD: Reports: Other (see below) (Zolmeta 3 mg IV today for hypercalcemia) - Related Data Allergies Allergy/AdvReac Type Severity Reaction Status Date / Time almond Allergy Severe Airway Verified 02/06/21 11:53 Tightness avocado Allergy Severe Airway Verified 02/06/21 11:53 Tightness banana Allergy Severe Airway Verified 02/06/21 11:53 Tightness kiwi Allergy Severe Airway Verified 02/06/21 11:53 Tightness peanut Allergy Severe Anaphylactic Verified 02/06/21 11:53 Shock cat dander Allergy Other Verified 02/06/21 11:53 codeine Allergy Itching Verified 02/06/21 11:53 latex Allergy Itching Verified 02/06/21 11:53 weed pollen-short ragweed Allergy Other Verified 02/06/21 11:53 [From [facility]] erythromycin base AdvReac Nausea and Verified 02/06/21 11:53 Vomiting tramadol AdvReac Anxiety Verified 02/06/21 11:53 Home Meds: Home Meds Cholecalciferol (Vitamin D3) [Vitamin D3] 1 tab PO Q7D 07/31/18 [History] Diclofenac Sodium 4 gram TOP Q6H PRN 02/15/19 [History] Escitalopram [Lexapro] 20 mg PO DAILY 08/19/19 [History] Ondansetron [Zofran ODT] 8 mg PO Q8H PRN tab.dis 09/05/19 [Rx] Furosemide [Lasix] 20 mg PO DAILY 04/07/20 [History] ALPRAZolam [Xanax] 1 mg PO DAILY PRN 06/19/20 [History] Albuterol Sulfate [Proair Hfa] 2 puff INH TID PRN 06/19/20 [History] Cetirizine HCl [Zyrtec] 10 mg PO BID PRN 06/19/20 [History] Omeprazole 40 mg PO DAILY 06/19/20 [History] Potassium Chloride 10 meq PO DAILY 06/19/20 [History] Prochlorperazine Maleate [Compazine] 10 mg PO Q6H PRN 06/19/20 [History] oxyCODONE 5 mg PO Q4H PRN 06/19/20 [History] Rivaroxaban [Xarelto] 20 mg PO DAILY 12/26/20 [History] Sulfamethoxazole/Trimethoprim [Sulfamethoxazole-Tmp Ds Tablet] 1 each PO BID 01/26/21 [History] Brimonidine [Alphagan 0.2% Ophth Soln] 1 drop EYEBOTH ASDIRECTED 02/06/21 [History] Docusate Sodium 200 mg PO DAILY 02/06/21 [History] EPINEPHrine [Epinephrine] 0.3 mg IJ ASDIRECTED 02/06/21 [History] Fluticasone Propion/Salmeterol [Wixela 250-50 Inhub] 1 puff INH BID 02/06/21 [History] Lifitegrast [Xiidra] 1 drop EYEBOTH BID 02/06/21 [History] Nystatin 1 applic TOP QID 02/06/21 [History] Pregabalin 75 mg PO BID 02/06/21 [History] Tamoxifen [Nolvadex] 20 mg PO DAILY 02/06/21 [History] polyethylene glycoL 3350 [Polyethylene Glycol 3350] 1 dose PO DAILY 02/06/21 [History] rOPINIRole [Requip] 0.5 mg PO TID 02/06/21 [History] Past Medical History HEENT History: Reports: Allergic Rhinitis, Impaired Vision, Sinusitis Other HEENT History: Tooth pain Cardiovascular History: Reports: Heart Failure, Hypertension Respiratory History: Reports: Asthma, Bronchitis, Recurrent Gastrointestinal History: Reports: Cholelithiasis, GERD Genitourinary History: Reports: Pyelonephritis, UTI, Recurrent HOSPITAL LIAISON History: Reports: Musculoskeletal History: Reports: Arthritis, Fracture, Fibromyalgia, Osteoarthritis Neurological History: Reports: Migraines Psychiatric History: Reports: ADHD, Addiction, Anxiety, Bipolar, Depression, OCD, PTSD Endocrine/Metabolic History: Reports: Diabetes, Type II, Vitamin D Deficiency, Other (See Below) Other Endocrine/Metabolic History: states not diabetic since lap band surgery Hematologic History: Reports: B12 Deficiency, Folic Acid Oncologic (Cancer) History: Reports: Bone, Breast, Other (See Below) Other Oncologic History: metastatic bone CA Dermatologic History: Reports: Cellulitis, Eczema - Infectious Disease History Infectious Disease History: Reports: Chicken Pox, Novel Coronavirus - Past Surgical History Head Surgeries/Procedures: Reports: None HEENT Surgical History: Reports: None Cardiovascular Surgical History: Reports: None Respiratory Surgical History: Reports: None GI Surgical History: Reports: Bariatric Procedure, Cholecystectomy, Colonoscopy, EGD Other GI Surgeries/Procedures: lap band 2007 Female Surgical History: Reports: None Endocrine Surgical History: Reports: None Neurological Surgical History: Reports: None Musculoskeletal Surgical History: Reports: None Other Oncologic Surgeries/Procedures: On chemo at this time Dermatological Surgical History: Reports: None Social & Family History - Family History Family Medical History: No Pertinent Family History - Tobacco Use Tobacco Use Status *Q: Former Tobacco User Used Tobacco, but Quit: Yes Month/Year Tobacco Last Used: 2020 - Caffeine Use Caffeine Use: Reports: Coffee - Alcohol Use Days Per Week of Alcohol Use: 7 Number of Drinks Per Day: 2 Total Drinks Per Week: 14 - Recreational Drug Use Recreational Drug Use: Yes Drug Use in Last 12 Months: Yes Recreational Drug Type: Reports: Marijuana/Hashish, Methamphetamine - Living Situation & Occupation Living situation: Reports: Single Occupation: Unemployed ED ROS GENERAL - Review of Systems Review Of Systems: Unable To Obtain (patient not able to verbalize) ED EXAM, GENERAL - Physical Exam Exam: See Below Exam Limited By: Altered Mental Status General Appearance: Lethargic, Obese Eye Exam: Bilateral Eye: Normal Inspection Ears: Normal External Exam, Normal Canal, Hearing Grossly Normal, Normal TMs Ear Exam: Bilateral Ear: Auricle Normal, Canal Normal, TM normal Nose: Normal Inspection, No Blood Throat/Mouth: Normal Inspection, Normal Lips, Normal Oropharynx, Normal Voice, No Airway Compromise Head: Atraumatic, Normocephalic Neck: Normal Inspection Respiratory/Chest: No Respiratory Distress, Lungs Clear, Normal Breath Sounds, No Accessory Muscle Use Cardiovascular: Regular Rate, Rhythm, No Edema GI/Abdominal: Soft Back Exam: Normal Inspection. No: CVA Tenderness (R), CVA Tenderness (L) Extremities: Normal Inspection, Normal Range of Motion, Non-Tender, No Pedal Edema. No: Pedal Edema Neurological: Alert, Oriented, CN II-XII Intact, Normal Cognition, No Motor/Sensory Deficits Psychiatric: Normal Affect, Normal Mood Skin Exam: Warm, Dry, Intact, Normal Color, No Rash Departure - Departure Disposition: Admitted As Inpatient 67 Clinical Impression: Hypocalcemia, Thrombocytopenia Metastatic cancer Qualifiers: Area of secondary neoplastic involvement: breast Qualified Code(s): C79.81 - Secondary malignant neoplasm of breast - Discharge Information Sepsis Event Note (ED) - Evaluation Sepsis Screening Result: No Definite Risk <Ulises Montoya - Last Filed: 02/06/21 22:46> Course - Vital Signs Last Recorded V/S: Last Vital Signs Temp 97.7 F 02/06/21 22:11 Pulse 104 H 02/06/21 22:11 Resp 18 02/06/21 22:11 BP 103/83 02/06/21 22:11 Pulse Ox 93 L 02/06/21 22:11 - Orders/Labs/Meds Orders: Active Orders 24 hr Category Date Time Status cefTRIAXone [Rocephin] 1 gm Med 02/06/21 22:00 Active Sodium Chloride 0.9% [Normal Saline AdvBag] 50 ml IV Q24H Medication Orders Acetaminophen (Acetaminophen 325 Mg Tab) 650 mg PO Q4H PRN PRN Reason: Pain (Mild 1-3)/fever Acetaminophen (Acetaminophen 650 Mg Supp) 650 mg RECTAL Q4H PRN PRN Reason: Mild pain/fever Albuterol (Albuterol 0.083% 2.5 Mg/3 Ml Neb Soln) 2.5 mg NEB Q4H PRN PRN Reason: Shortness Of Breath/wheezing Albuterol/Ipratropium (Albuterol/Ipratropium 3.0-0.5 Mg/3 Ml Neb Soln) 3 ml NEB QID PRN PRN Reason: Shortness Of Breath/wheezing Bisacodyl (Bisacodyl 5 Mg Tab) 5 mg PO DAILY PRN PRN Reason: Constipation Brimonidine Tartrate (Brimonidine 0.2% Ophth Soln 5 Ml Bottle) 0 ml EYEBOTH ASDIRECTED [facility] Calcitonin [place] (Calcitonin ([place]) Nasal [place] 3.7 Ml Bottle) 0 ml ENRIQUE DAILY [facility] Cetirizine HCl (Cetirizine 10 Mg Tab) 10 mg PO BID PRN PRN Reason: Allergies Docusate Sodium (Docusate Sodium 100 Mg Cap) 100 mg PO BID PRN PRN Reason: Constipation Escitalopram Oxalate (Escitalopram 20 Mg Tab) 20 mg PO DAILY [facility] Furosemide (Furosemide 40 Mg/4 Ml Vial) 40 mg IVPUSH ONETIME ONE Stop: 02/07/21 04:11 Ceftriaxone Sodium 1 gm/ (Sodium Chloride) 50 mls @ 100 mls/hr IV Q24H [facility] Sodium Chloride (Normal Saline) 1,000 mls @ 200 mls/hr IV ASDIRECTED [facility] Influenza Virus Vaccine (Flu Vacc [id number](6mos Up)/Pf 60 Mcg/0.5 Ml Syringe) 60 mcg IM .ONCE ONE Stop: 02/07/21 10:01 Mometasone Furoate/Formoterol Fumar (Formoterol/Mometasone 200-5 Mcg 8.8 Gm Inhaler) 1 puff IH BID [facility] Morphine Sulfate (Morphine 2 Mg/Ml Syringe) 2 mg IVPUSH Q2H PRN PRN Reason: Pain (severe 7-10) Non-Formulary Medication (Lifitegrast [Xiidra]) 1 drop EYEBOTH BID [facility] Nystatin (Nystatin Topical Powder 15 Gm Bottle) 1 gm TOP QID [facility] Ondansetron HCl (Ondansetron 4 Mg Tab.Dis) 8 mg PO Q8H PRN PRN Reason: Nausea/Vomiting Oxycodone HCl (Oxycodone 5 Mg Tab) 5 mg PO Q4H PRN PRN Reason: Pain Pantoprazole Sodium (Pantoprazole 40 Mg Tab.Cr) 40 mg PO ACBREAKFAST [facility] Pneumococcal Polyvalent Vaccine (Pneumococcal Polyvalent-23 Vaccine 0.5 Ml Sdv) 0.5 ml IM .ONCE ONE Stop: 02/08/21 10:01 Potassium Chloride (Potassium Chloride 10 Meq Cap.Er) 10 meq PO DAILY [facility] Pregabalin (Pregabalin 75 Mg Cap) 75 mg PO BID [facility] Ropinirole HCl (Ropinirole 0.5 Mg Tab) 0.5 mg PO TID [facility] Tamoxifen Citrate (Tamoxifen 10 Mg Tab) 20 mg PO DAILY [facility] Trimethoprim/Sulfamethoxazole (Sulfamethoxazole/Trimethoprim 800-160 Mg Tab) 1 tab PO BID [facility] Labs: Laboratory Tests 02/06/21 02/06/21 02/06/21 Range/Units 15:29 15:29 17:56 WBC 9.4 (4.5-11.0) K/uL RBC 2.55 L (3.30-5.50) M/uL Hgb 7.8 L D (12.0-15.0) g/dL Hct 24.4 L (36.0-48.0) % MCV 96 (80-98) fL MCH 31 (27-31) pg MCHC 32 (32-36) % Plt Count 13 L* (150-400) K/uL Sodium (140-148) mmol/L Potassium (3.6-5.2) mmol/L Chloride (100-108) mmol/L Carbon Dioxide (21-32) mmol/L Anion Gap (5.0-14.0) mmol/L BUN (7-18) mg/dL Creatinine (0.6-1.0) mg/dL Est Cr Clr Drug Dosing mL/min Estimated GFR (MDRD) (>60) Glucose (74-106) mg/dL Calcium (8.5-10.1) mg/dL Total Bilirubin (0.2-1.0) mg/dL AST (15-37) U/L ALT (12-78) U/L Alkaline Phosphatase (46-116) U/L Ammonia (11-32) umol/L Total Protein (6.4-8.2) g/dL Albumin (3.4-5.0) g/dL Globulin (2.3-3.5) g/dL Albumin/Globulin Ratio (1.2-2.2) Urine Color Yellow (YELLOW) Urine Appearance Clear (CLEAR) Urine pH 5.5 (5.0-8.0) Ur Specific [place] >= 1.030 (1.008-1.030) Urine Protein Negative (NEGATIVE) mg/dL Urine Glucose (UA) Negative (NEGATIVE) mg/dL Urine Ketones Negative (NEGATIVE) mg/dL Urine Occult Blood Negative (NEGATIVE) Urine Nitrite Negative (NEGATIVE) Urine Bilirubin Negative (NEGATIVE) Urine Urobilinogen 0.2 (0.2-1.0) EU/dL Ur Leukocyte Esterase Negative (NEGATIVE) Urine RBC 0-5 (0-5) Urine WBC 0-5 (0-5) Ur Epithelial Cells Rare Amorphous Sediment Not seen Urine Bacteria Rare Urine Mucus Not seen Urine Other Urine Opiates Screen Negative (NEGATIVE) Ur Oxycodone Screen Presumptive positive H (NEGATIVE) Urine Methadone Screen Negative (NEGATIVE) Ur Propoxyphene Screen Negative (NEGATIVE) Ur Barbiturates Screen Negative (NEGATIVE) Ur Tricyclics Screen Negative (NEGATIVE) Ur Phencyclidine Scrn Negative (NEGATIVE) Ur Amphetamine Screen Negative (NEGATIVE) U Methamphetamines Scrn Negative (NEGATIVE) Urine MDMA Screen Negative (NEGATIVE) U Benzodiazepines Scrn Presumptive positive H (NEGATIVE) U Cocaine Metab Screen Negative (NEGATIVE) U Marijuana (THC) Screen Presumptive positive H (NEGATIVE) SARS CoV-2 RNA Rapid [facility]A 02/06/21 02/06/21 02/06/21 Range/Units 17:56 17:56 17:56 WBC (4.5-11.0) K/uL RBC (3.30-5.50) M/uL Hgb (12.0-15.0) g/dL Hct (36.0-48.0) % MCV (80-98) fL MCH (27-31) pg MCHC (32-36) % Plt Count (150-400) K/uL Sodium 131 L (140-148) mmol/L Potassium 4.0 (3.6-5.2) mmol/L Chloride 96 L (100-108) mmol/L Carbon Dioxide 24 (21-32) mmol/L Anion Gap 15.0 H (5.0-14.0) mmol/L BUN 25 H D (7-18) mg/dL Creatinine 1.6 H (0.6-1.0) mg/dL Est Cr Clr Drug Dosing 30.55 mL/min Estimated GFR (MDRD) 34 L (>60) Glucose 119 H (74-106) mg/dL Calcium 12.4 H* D (8.5-10.1) mg/dL Total Bilirubin 0.9 (0.2-1.0) mg/dL AST 158 H D (15-37) U/L ALT 66 (12-78) U/L Alkaline Phosphatase 227 H (46-116) U/L Ammonia 33 H (11-32) umol/L Total Protein 5.8 L (6.4-8.2) g/dL Albumin 2.6 L (3.4-5.0) g/dL Globulin 3.2 (2.3-3.5) g/dL Albumin/Globulin Ratio 0.8 L (1.2-2.2) Urine Color (YELLOW) Urine Appearance (CLEAR) Urine pH (5.0-8.0) Ur Specific [place] (1.008-1.030) Urine Protein (NEGATIVE) mg/dL Urine Glucose (UA) (NEGATIVE) mg/dL Urine Ketones (NEGATIVE) mg/dL Urine Occult Blood (NEGATIVE) Urine Nitrite (NEGATIVE) Urine Bilirubin (NEGATIVE) Urine Urobilinogen (0.2-1.0) EU/dL Ur Leukocyte Esterase (NEGATIVE) Urine RBC (0-5) Urine WBC (0-5) Ur Epithelial Cells Amorphous Sediment Urine Bacteria Urine Mucus Urine Other Urine Opiates Screen (NEGATIVE) Ur Oxycodone Screen (NEGATIVE) Urine Methadone Screen (NEGATIVE) Ur Propoxyphene Screen (NEGATIVE) Ur Barbiturates Screen (NEGATIVE) Ur Tricyclics Screen (NEGATIVE) Ur Phencyclidine Scrn (NEGATIVE) Ur Amphetamine Screen (NEGATIVE) U Methamphetamines Scrn (NEGATIVE) Urine MDMA Screen (NEGATIVE) U Benzodiazepines Scrn (NEGATIVE) U Cocaine Metab Screen (NEGATIVE) U Marijuana (THC) Screen (NEGATIVE) SARS CoV-2 RNA Rapid CIERA Negative Meds: Medications Generic Name Dose Route Start Last Admin Trade Name Freq PRN Reason Stop Dose Admin Acetaminophen 650 mg 02/06/21 21:56 Acetaminophen 325 Mg Tab PO Q4H PRN Pain (Mild 1-3)/fever Acetaminophen 650 mg 02/06/21 21:56 Acetaminophen 650 Mg Supp RECTAL Q4H PRN Mild pain/fever Albuterol 2.5 mg 02/06/21 21:56 Albuterol 0.083% 2.5 Mg/3 Ml Neb Soln NEB Q4H PRN Shortness Of Breath/wheezing Albuterol/Ipratropium 3 ml 02/06/21 21:56 Albuterol/Ipratropium 3.0-0.5 Mg/3 Ml Neb Soln NEB QID PRN Shortness Of Breath/wheezing Bisacodyl 5 mg 02/06/21 21:56 Bisacodyl 5 Mg Tab PO DAILY PRN Constipation Brimonidine Tartrate 0 ml 02/06/21 21:56 Brimonidine 0.2% Ophth Soln 5 Ml Bottle EYEBOTH ASDIRECTED [facility] Calcitonin [place] 0 ml 02/06/21 21:56 Calcitonin ([place]) Nasal [place] 3.7 Ml Bottle ENRIQUE DAILY [facility] Cetirizine HCl 10 mg 02/06/21 22:07 Cetirizine 10 Mg Tab PO BID PRN Allergies Docusate Sodium 100 mg 02/06/21 21:56 Docusate Sodium 100 Mg Cap PO BID PRN Constipation Escitalopram Oxalate 20 mg 02/07/21 09:00 Escitalopram 20 Mg Tab PO DAILY [facility] Furosemide 40 mg 02/07/21 04:10 Furosemide 40 Mg/4 Ml Vial IVPUSH 02/07/21 04:11 ONETIME ONE Ceftriaxone Sodium 1 gm/ 50 mls @ 100 mls/hr 02/06/21 22:00 Sodium Chloride IV Q24H [facility] Sodium Chloride 1,000 mls @ 200 mls/hr 02/06/21 21:56 Normal Saline IV ASDIRECTED [facility] Influenza Virus Vaccine 60 mcg 02/07/21 10:00 Flu Vacc [id number](6mos Up)/Pf 60 Mcg/0.5 Ml Syringe IM 02/07/21 10:01 .ONCE ONE Mometasone Furoate/Formoterol Fumar 1 puff 02/07/21 09:00 Formoterol/Mometasone 200-5 Mcg 8.8 Gm Inhaler IH BID [facility] Morphine Sulfate 2 mg 02/06/21 21:56 Morphine 2 Mg/Ml Syringe IVPUSH Q2H PRN Pain (severe 7-10) Non-Formulary Medication 1 drop 02/07/21 09:00 Lifitegrast [Xiidra] EYEBOTH BID [facility] Nystatin 1 gm 02/07/21 06:00 Nystatin Topical Powder 15 Gm Bottle TOP QID [facility] Ondansetron HCl 8 mg 02/06/21 21:56 Ondansetron 4 Mg Tab.Dis PO Q8H PRN Nausea/Vomiting Oxycodone HCl 5 mg 02/06/21 21:56 Oxycodone 5 Mg Tab PO Q4H PRN Pain Pantoprazole Sodium 40 mg 02/07/21 07:30 Pantoprazole 40 Mg Tab.Cr PO ACBREAKFAST [facility] Pneumococcal Polyvalent Vaccine 0.5 ml 02/08/21 10:00 Pneumococcal Polyvalent-23 Vaccine 0.5 Ml Sdv IM 02/08/21 10:01 .ONCE ONE Potassium Chloride 10 meq 02/07/21 09:00 Potassium Chloride 10 Meq Cap.Er PO DAILY [facility] Pregabalin 75 mg 02/07/21 09:00 Pregabalin 75 Mg Cap PO BID [facility] Ropinirole HCl 0.5 mg 02/07/21 09:00 Ropinirole 0.5 Mg Tab PO TID [facility] Tamoxifen Citrate 20 mg 02/07/21 09:00 Tamoxifen 10 Mg Tab PO DAILY [facility] Trimethoprim/Sulfamethoxazole 1 tab 02/07/21 09:00 Sulfamethoxazole/Trimethoprim 800-160 Mg Tab PO BID [facility] Discontinued Medications Generic Name Dose Route Start Last Admin Trade Name Freq PRN Reason Stop Dose Admin Furosemide 40 mg 02/06/21 22:30 Furosemide 40 Mg/4 Ml Vial IVPUSH 02/06/21 22:31 ONETIME ONE Hydromorphone HCl 1 mg 02/06/21 21:11 02/06/21 21:38 Hydromorphone 1 Mg/Ml Syringe IVPUSH 02/06/21 21:12 1 mg ONETIME ONE Administration Sodium Chloride 1,000 mls @ 1,000 mls/hr 02/06/21 16:33 02/06/21 16:54 Normal Saline IV 02/06/21 17:32 1,000 mls/hr .BOLUS ONE Administration Sodium Chloride 1,000 mls @ 999 mls/hr 02/06/21 21:10 02/06/21 21:23 Normal Saline IV 02/06/21 22:10 999 mls/hr .BOLUS ONE Administration Influenza Virus Vaccine 1 each 02/08/21 10:00 Pharmacy To Dose - Influenza Vaccine IM 02/08/21 10:01 ONETIME ONE - Re-Assessments/Exams Free Text/Narrative Re-Assessment/Exam: 02/06/21 20:42 Care turned over from Dr. Jonas pending labs and CT scan. CT of the head showed a chronic appearing hygroma. Calcium is going up, it is at 12.4. This is a significant elevation from 9 which it was 2 weeks ago. [facility] was called and informed that there oncology patient needed transfer for thrombocytopenia, worsening anemia, uncontrolled metastatic cancer and developing hypercalcemia with resultant weakness but they were unable to accept the transfer because the hospital was full as well as the ER was full. They were put her on the list to try to get her transferred tomorrow. I contacted and they could only take care of their "own patients". This was discussed with the hospitalist service, patient will be admitted and hydrated and given Lasix to see if the calcium can be reduced, hopefully she can be transferred tomorrow for more definitive care Departure - Departure Time of Disposition: 21:39 Sepsis Event Note (ED) - Focused Exam Vital Signs: Vital Signs Temp Pulse Resp BP Pulse Ox 02/06/21 20:50 90 89/51 L 94 L 02/06/21 19:58 96 104/57 L 91 L 02/06/21 19:45 98 107/61 93 L 02/06/21 18:46 96 112/56 L 89 L 02/06/21 17:50 96 127/82 90 L 02/06/21 11:48 97.6 F 105 H 18 106/77 95
[2021-02-06] MEDS ORDERED: Sodium Chloride 0.9% 1,000 ML IV ONE ×2 (16:33→21:10)
--- NOTE | 2021-02-06 19:22 | CRLCT ---
For Patients: As a result of the Cures Act, medical imaging exams and procedure reports are released immediately into your electronic medical record. You may view this report before your referring provider. If you have questions, please contact your health care provider. INDICATION: Mental status change. TECHNIQUE: CT head without contrast. COMPARISON: CT head without contrast from 12/13/2016. FINDINGS: CSF spaces: Within normal limits for age. Brain parenchyma and extra-axial spaces: The baker-white differentiation is normal. Curvilinear area of low density tracks along the right frontal convexity and measures approximately 0.7 cm in AP dimension (2/40). No midline shift. Skull base and calvarium: The visualized paranasal sinuses and mastoid air cells demonstrate no acute or significant findings. The visualized orbits are grossly unremarkable. No skull fractures. IMPRESSION: 1. Fluid density collection along the right frontal convexity is most suggestive of a chronic hygroma. Alternatively, this could be a hyperacute subdural hematoma in the appropriate clinical setting 2. No other important change from prior. Please note that all CT scans at this facility use dose modulation, iterative reconstruction, and/or weight-based dosing when appropriate to reduce radiation dose to as low as reasonably achievable. Dictated by Edwin Brito MD @ 02/06/2021 7:20:36 PM (Electronically Signed)
[2021-02-06] MEDS ORDERED: HYDROmorphone 1 MG/ML Syringe IVPUSH ONE (21:11)
--- NOTE | 2021-02-06 21:53 | PCM.HP.2 ---
H&P History of Present Illness - General Date of Service: 02/06/21 Admit Problem/Dx: Admission Diagnosis/Problem Admission Diagnosis/Problem Hypercalcemia Source of Information: Family (Sabas-friend at bedside), Provider, RN History Limitations: Reports: Altered Mental Status, Other (profound weakness) - History of Present Illness Initial Comments - Free Text/Narative: chief complaint: weakness This is a 50 year old female present to the ER with family friend. He gives rep ort of present illness. States about 4 to 5 days ago began a quick decline in health. She just stopped eating and became weaker and weaker. She has been seen weekly in Oncology for treatment. She is unable to care for herself due to weakness. no nausea or vomiting is noted. She is taking Septra for a UTI. In Emergency she was noted to be lethargic- very limited communication- answers in one word sentence. Labs WBC 9.4, HBG 7.8 (LAST HGB 10.3 ON 01/28/2021), HCT 24.4, PLATELETS 13, Chemistries Na 131, K 4.0, cl 96, anion gap 15, bun 25, creatine 1.6, glucose 119, co2 24, urine normal. covid negative. Imaging Head CT- subdural hematoma Plan was to transfer to [place], [place] Oncology Dept.- but due no beds available will admit here pending bed availability. Consult with Dr. Vargas, Hospitalist Onset of Symptoms: Reports: Gradual Symptom Onset Date: 02/02/21 Duration of Symptoms: Reports: Day(s): (4 to 5 days), Getting Worse Location: Reports: Generalized Quality: Reports: Other (sharp abdominal pain) Severity: Moderate Improves with: Reports: None Worsens with: Reports: None Context: Reports: Other (Metastatic breast cancer with bone metastases) Associated Symptoms: Reports: Confusion, Loss of Appetite, Weakness (lethargic) - Related Data Allergies/Adverse Reactions: Allergies Allergy/AdvReac Type Severity Reaction Status Date / Time almond Allergy Severe Airway Verified 02/06/21 11:53 Tightness avocado Allergy Severe Airway Verified 02/06/21 11:53 Tightness banana Allergy Severe Airway Verified 02/06/21 11:53 Tightness kiwi Allergy Severe Airway Verified 02/06/21 11:53 Tightness peanut Allergy Severe Anaphylactic Verified 02/06/21 11:53 Shock cat dander Allergy Other Verified 02/06/21 11:53 codeine Allergy Itching Verified 02/06/21 11:53 latex Allergy Itching Verified 02/06/21 11:53 weed pollen-short ragweed Allergy Other Verified 02/06/21 11:53 [From [place]] erythromycin base AdvReac Nausea and Verified 02/06/21 11:53 Vomiting tramadol AdvReac Anxiety Verified 02/06/21 11:53 Home Medications: Home Meds Cholecalciferol (Vitamin D3) [Vitamin D3] 1 tab PO Q7D 07/31/18 [History] Diclofenac Sodium 4 gram TOP Q6H PRN 02/15/19 [History] Escitalopram [Lexapro] 20 mg PO DAILY 08/19/19 [History] Ondansetron [Zofran ODT] 8 mg PO Q8H PRN tab.dis 09/05/19 [Rx] Furosemide [Lasix] 20 mg PO DAILY 04/07/20 [History] ALPRAZolam [Xanax] 1 mg PO DAILY PRN 06/19/20 [History] Albuterol Sulfate [Proair Hfa] 2 puff INH TID PRN 06/19/20 [History] Cetirizine HCl [Zyrtec] 10 mg PO BID PRN 06/19/20 [History] Omeprazole 40 mg PO DAILY 06/19/20 [History] Potassium Chloride 10 meq PO DAILY 06/19/20 [History] Prochlorperazine Maleate [Compazine] 10 mg PO Q6H PRN 06/19/20 [History] oxyCODONE 5 mg PO Q4H PRN 06/19/20 [History] Rivaroxaban [Xarelto] 20 mg PO DAILY 12/26/20 [History] Sulfamethoxazole/Trimethoprim [Sulfamethoxazole-Tmp Ds Tablet] 1 each PO BID 01/26/21 [History] Brimonidine [Alphagan 0.2% Ophth Soln] 1 drop EYEBOTH ASDIRECTED 02/06/21 [History] Docusate Sodium 200 mg PO DAILY 02/06/21 [History] EPINEPHrine [Epinephrine] 0.3 mg IJ ASDIRECTED 02/06/21 [History] Fluticasone Propion/Salmeterol [Wixela 250-50 Inhub] 1 puff INH BID 02/06/21 [History] Lifitegrast [Xiidra] 1 drop EYEBOTH BID 02/06/21 [History] Nystatin 1 applic TOP QID 02/06/21 [History] Pregabalin 75 mg PO BID 02/06/21 [History] Tamoxifen [Nolvadex] 20 mg PO DAILY 02/06/21 [History] polyethylene glycoL 3350 [Polyethylene Glycol 3350] 1 dose PO DAILY 02/06/21 [History] rOPINIRole [Requip] 0.5 mg PO TID 02/06/21 [History] Past Medical History HEENT History: Reports: Allergic Rhinitis, Impaired Vision, Sinusitis Other HEENT History: Tooth pain Cardiovascular History: Reports: Heart Failure, Hypertension Respiratory History: Reports: Asthma, Bronchitis, Recurrent Gastrointestinal History: Reports: Cholelithiasis, GERD Genitourinary History: Reports: Pyelonephritis, UTI, Recurrent 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: Musculoskeletal History: Reports: Arthritis, Fracture, Fibromyalgia, Osteoarthritis Neurological History: Reports: Migraines Psychiatric History: Reports: ADHD, Addiction, Anxiety, Bipolar, Depression, OCD, PTSD Endocrine/Metabolic History: Reports: Diabetes, Type II, Vitamin D Deficiency, Other (See Below) Other Endocrine/Metabolic History: states not diabetic since lap band surgery Hematologic History: Reports: B12 Deficiency, Folic Acid Oncologic (Cancer) History: Reports: Bone, Breast, Other (See Below) Other Oncologic History: metastatic bone CA Dermatologic History: Reports: Cellulitis, Eczema - Infectious Disease History Infectious Disease History: Reports: Chicken Pox, Novel Coronavirus - Past Surgical History Head Surgeries/Procedures: Reports: None HEENT Surgical History: Reports: None Cardiovascular Surgical History: Reports: None Respiratory Surgical History: Reports: None GI Surgical History: Reports: Bariatric Procedure, Cholecystectomy, Colonoscopy, EGD Other GI Surgeries/Procedures: lap band 2007 Female Surgical History: Reports: None Endocrine Surgical History: Reports: None Neurological Surgical History: Reports: None Musculoskeletal Surgical History: Reports: None Other Oncologic Surgeries/Procedures: On chemo at this time Dermatological Surgical History: Reports: None Social & Family History - Family History Family Medical History: No Pertinent Family History - Tobacco Use Tobacco Use Status *Q: Former Tobacco User Used Tobacco, but Quit: Yes Month/Year Tobacco Last Used: 2020 - Caffeine Use Caffeine Use: Reports: Coffee - Alcohol Use Days Per Week of Alcohol Use: 7 Number of Drinks Per Day: 2 Total Drinks Per Week: 14 - Recreational Drug Use Recreational Drug Use: Yes Drug Use in Last 12 Months: Yes Recreational Drug Type: Reports: Marijuana/Hashish, Methamphetamine - Living Situation & Occupation Living situation: Reports: Single Occupation: Unemployed H&P Review of Systems - Review of Systems: Review Of Systems: Unable To Obtain (lethargic) Reason Not Obtained: lethargic General: Reports: Weakness, Fatigue, Other (Sabas reports for the past 4 to 5 days- quickly declined in function to care for self ie eat, bath, movement, communicate) Cardiovascular: Reports: Chest Pain Gastrointestinal: Reports: Abdominal Pain Skin: Reports: Pallor Psychiatric: Reports: Confusion Neurological: Reports: Confusion, Difficulty Walking, Weakness Hematologic/Lymphatic: Reports: Anemia, Easy Bleeding, Easy Bruising Immunologic: Reports: Anaphylaxis Exam - Exam Exam: See Below - Vital Signs Vital Signs: Last Vital Signs Temp 97.6 F 02/06/21 11:48 Pulse 90 02/06/21 20:50 Resp 18 02/06/21 11:48 BP 89/51 L 02/06/21 20:50 Pulse Ox 94 L 02/06/21 20:50 Weight: 165 lb - Exam Quality Assessment: Supplemental Oxygen, DVT Prophylaxis, Other (portcath noted to right upper chest) General: Lethargic (answers question with one word, appear very tired, pale and fragile.) HEENT: Hearing Intact, Nares Patent, Pupils Equal (2mm equal), Pupils Reactive, Other (mouth is dry) Neck: Supple, Trachea Midline Lungs: Clear to Auscultation, Normal Respiratory Effort Cardiovascular: Regular Rate, Regular Rhythm, Normal S1, Normal S2 GI/Abdominal Exam: Normal Bowel Sounds, Distended, Guarding, Rebound, Tender (generalized pain and moaning with slight palpation of abdomen. breast and abdominal veins are dark and distended) (Female) Exam: Deferred Rectal (Female) Exam: Deferred Back Exam: Normal Inspection Extremities: Normal Inspection, Normal Range of Motion, Non-Tender, No Pedal Edema, Slow Capillary Refill, Pallor Peripheral Pulses: 2+: Radial (L), Radial (R), Dorsalis Pedis (L), Dorsalis Pedis (R) Skin: Warm, Dry, Intact Neurological: Strength Equal Bilateral Neuro Extensive - Mental Status: Disorientation to Time, Inattentive, Opens Eyes to Commands Neuro Extensive - Motor, Sensory, Reflexes: Motor/Sensory Deficits Psychiatric: Other (lethargic) - Patient Data Lab Results Last 24 hrs: Laboratory Results - last 24 hr 02/06/21 02/06/21 02/06/21 Range/Units 15:29 15:29 17:56 WBC 9.4 (4.5-11.0) K/uL RBC 2.55 L (3.30-5.50) M/uL Hgb 7.8 L D (12.0-15.0) g/dL Hct 24.4 L (36.0-48.0) % MCV 96 (80-98) fL MCH 31 (27-31) pg MCHC 32 (32-36) % Plt Count 13 L* (150-400) K/uL Sodium (140-148) mmol/L Potassium (3.6-5.2) mmol/L Chloride (100-108) mmol/L Carbon Dioxide (21-32) mmol/L Anion Gap (5.0-14.0) mmol/L BUN (7-18) mg/dL Creatinine (0.6-1.0) mg/dL Est Cr Clr Drug Dosing mL/min Estimated GFR (MDRD) (>60) Glucose (74-106) mg/dL Calcium (8.5-10.1) mg/dL Total Bilirubin (0.2-1.0) mg/dL AST (15-37) U/L ALT (12-78) U/L Alkaline Phosphatase (46-116) U/L Ammonia (11-32) umol/L Total Protein (6.4-8.2) g/dL Albumin (3.4-5.0) g/dL Globulin (2.3-3.5) g/dL Albumin/Globulin Ratio (1.2-2.2) Urine Color Yellow (YELLOW) Urine Appearance Clear (CLEAR) Urine pH 5.5 (5.0-8.0) Ur Specific [place] >= 1.030 (1.008-1.030) Urine Protein Negative (NEGATIVE) mg/dL Urine Glucose (UA) Negative (NEGATIVE) mg/dL Urine Ketones Negative (NEGATIVE) mg/dL Urine Occult Blood Negative (NEGATIVE) Urine Nitrite Negative (NEGATIVE) Urine Bilirubin Negative (NEGATIVE) Urine Urobilinogen 0.2 (0.2-1.0) EU/dL Ur Leukocyte Esterase Negative (NEGATIVE) Urine RBC 0-5 (0-5) Urine WBC 0-5 (0-5) Ur Epithelial Cells Rare Amorphous Sediment Not seen Urine Bacteria Rare Urine Mucus Not seen Urine Other Urine Opiates Screen Negative (NEGATIVE) Ur Oxycodone Screen Presumptive positive H (NEGATIVE) Urine Methadone Screen Negative (NEGATIVE) Ur Propoxyphene Screen Negative (NEGATIVE) Ur Barbiturates Screen Negative (NEGATIVE) Ur Tricyclics Screen Negative (NEGATIVE) Ur Phencyclidine Scrn Negative (NEGATIVE) Ur Amphetamine Screen Negative (NEGATIVE) U Methamphetamines Scrn Negative (NEGATIVE) Urine MDMA Screen Negative (NEGATIVE) U Benzodiazepines Scrn Presumptive positive H (NEGATIVE) U Cocaine Metab Screen Negative (NEGATIVE) U Marijuana (THC) Screen Presumptive positive H (NEGATIVE) SARS CoV-2 RNA Rapid CIERA 02/06/21 02/06/21 02/06/21 Range/Units 17:56 17:56 17:56 WBC (4.5-11.0) K/uL RBC (3.30-5.50) M/uL Hgb (12.0-15.0) g/dL Hct (36.0-48.0) % MCV (80-98) fL MCH (27-31) pg MCHC (32-36) % Plt Count (150-400) K/uL Sodium 131 L (140-148) mmol/L Potassium 4.0 (3.6-5.2) mmol/L Chloride 96 L (100-108) mmol/L Carbon Dioxide 24 (21-32) mmol/L Anion Gap 15.0 H (5.0-14.0) mmol/L BUN 25 H D (7-18) mg/dL Creatinine 1.6 H (0.6-1.0) mg/dL Est Cr Clr Drug Dosing 30.55 mL/min Estimated GFR (MDRD) 34 L (>60) Glucose 119 H (74-106) mg/dL Calcium 12.4 H* D (8.5-10.1) mg/dL Total Bilirubin 0.9 (0.2-1.0) mg/dL AST 158 H D (15-37) U/L ALT 66 (12-78) U/L Alkaline Phosphatase 227 H (46-116) U/L Ammonia 33 H (11-32) umol/L Total Protein 5.8 L (6.4-8.2) g/dL Albumin 2.6 L (3.4-5.0) g/dL Globulin 3.2 (2.3-3.5) g/dL Albumin/Globulin Ratio 0.8 L (1.2-2.2) Urine Color (YELLOW) Urine Appearance (CLEAR) Urine pH (5.0-8.0) Ur Specific [place] (1.008-1.030) Urine Protein (NEGATIVE) mg/dL Urine Glucose (UA) (NEGATIVE) mg/dL Urine Ketones (NEGATIVE) mg/dL Urine Occult Blood (NEGATIVE) Urine Nitrite (NEGATIVE) Urine Bilirubin (NEGATIVE) Urine Urobilinogen (0.2-1.0) EU/dL Ur Leukocyte Esterase (NEGATIVE) Urine RBC (0-5) Urine WBC (0-5) Ur Epithelial Cells Amorphous Sediment Urine Bacteria Urine Mucus Urine Other Urine Opiates Screen (NEGATIVE) Ur Oxycodone Screen (NEGATIVE) Urine Methadone Screen (NEGATIVE) Ur Propoxyphene Screen (NEGATIVE) Ur Barbiturates Screen (NEGATIVE) Ur Tricyclics Screen (NEGATIVE) Ur Phencyclidine Scrn (NEGATIVE) Ur Amphetamine Screen (NEGATIVE) U Methamphetamines Scrn (NEGATIVE) Urine MDMA Screen (NEGATIVE) U Benzodiazepines Scrn (NEGATIVE) U Cocaine Metab Screen (NEGATIVE) U Marijuana (THC) Screen (NEGATIVE) SARS CoV-2 RNA Rapid CIERA Negative Result Diagrams: 02/06/21 17:56 02/06/21 17:56 Sepsis Event Note - Evaluation Sepsis Screening Result: No Definite Risk - Focused Exam Vital Signs: Vital Signs Temp Pulse Resp BP Pulse Ox 02/06/21 20:50 90 89/51 L 94 L 02/06/21 19:58 96 104/57 L 91 L 02/06/21 19:45 98 107/61 93 L 02/06/21 18:46 96 112/56 L 89 L 02/06/21 17:50 96 127/82 90 L 02/06/21 11:48 97.6 F 105 H 18 106/77 95 - Problem List (1) Hypercalcemia SNOMED Code(s): 78276734 ICD Code: E83.52 - HYPERCALCEMIA Status: Acute Priority: High Current Visit: Yes (2) Renal failure SNOMED Code(s): 28250574 ICD Code: N19 - UNSPECIFIED KIDNEY FAILURE Status: Acute Priority: High Current Visit: Yes Qualifiers: Renal failure chronicity: acute (3) Metastatic cancer SNOMED Code(s): 776359056 ICD Code: C79.9 - SECONDARY MALIGNANT NEOPLASM OF UNSPECIFIED SITE Status: Acute Priority: High Current Visit: Yes Qualifiers: Area of secondary neoplastic involvement: breast Qualified Code(s): C79.81 - Secondary malignant neoplasm of breast (4) Abdominal ascites SNOMED Code(s): 667670862 ICD Code: R18.8 - OTHER ASCITES Status: Acute Priority: High Current Visit: Yes Qualifiers: Ascites type: other type Qualified Code(s): R18.8 - Other ascites (5) Anemia SNOMED Code(s): 110815539 ICD Code: D64.9 - ANEMIA, UNSPECIFIED Status: Acute Priority: High Current Visit: Yes Qualifiers: Anemia type: due to chronic kidney disease Chronic kidney disease stage: stage 4 (severe) Qualified Code(s): N18.4 - Chronic kidney disease, stage 4 (severe); D63.1 - Anemia in chronic kidney disease Problem List Initiated/Reviewed/Updated: Yes Orders Last 24hrs: Active Orders 24 hr Category Date Time Status Patient Status Manage Transfer [TRANSFER] Routine ADT 02/06/21 21:16 Active Sodium Chloride 0.9% [Normal Saline] 1,000 ml Med 02/06/21 21:10 Active IV .BOLUS cefTRIAXone [Rocephin] 1 gm Med 02/06/21 22:00 Active Sodium Chloride 0.9% [Normal Saline AdvBag] 50 ml IV Q24H Resuscitation Status Routine Resus Stat 02/06/21 21:18 Ordered Medication Orders Sodium Chloride (Normal Saline) 1,000 mls @ 999 mls/hr IV .BOLUS ONE Stop: 02/06/21 22:10 Last Admin: 02/06/21 21:23 Dose: 999 mls/hr Documented by: MATTHEW Ceftriaxone Sodium 1 gm/ (Sodium Chloride) 50 mls @ 100 mls/hr IV Q24H [facility] Assessment/Plan Comment:: Assessment/Plan Comment:: HYPERCALCEMIA, RENAL FAILURE, METASTATIC CANCER, ASCITES, ANEMIA chief complaint: weakness This is a 50 year old female present to the ER with family friend. He gives report of present illness. States about 4 to 5 days ago began a quick decline in health. She just stopped eating and became weaker and weaker. She has been seen weekly in Oncology for treatment. She is unable to care for herself due to weakness. no nausea or vomiting is noted. She is taking Septra for a UTI. In Emergency she was noted to be lethargic- very limited communication- answers in one word sentence. Labs WBC 9.4, HBG 7.8 (LAST HGB 10.3 ON 01/28/2021), HCT 24.4, PLATELETS 13, Chemistries Na 131, K 4.0, cl 96, anion gap 15, bun 25, cre atine 1.6, glucose 119, co2 24, urine normal. covid negative. Imaging Head CT- subdural hematoma Plan was to transfer to [place], [place] Oncology Dept.- but due no beds available will admit here pending bed availability. Consult with Dr. Vargas, Hospitalist HYPERCALCEMIA -Admit to [address] [place] [address] for further monitoring -IV Fluids- Give 2 liters bolus at 999/hrs. then 3rd liter at 200 ml/hr -IV Lasix 40 mg. after 2nd IV fluid and repeat in 6 hours one time -IV Antibiotic; Rocephin 1 gram IV every 24 hours -oxygen to keep sats greater than 95% -Calcitonin nasal spray one spray each nostril daily - a.m. labs: CBC, CMP RENAL FAILURE- creatine 1.6 Gfr 30 -IV fluids -Monitor I & O METASTATIC CANCER-diagnosed with left breast cancer which has metastases to the bone -continue pain management -continue outpatient medications ASCITES- upon exam- the abdomen is distended, bowel sounds hypoactive, distended veins on abdomen and chest, generalized tenderness to light palpation- moans and pulls hand away. -IV Rocephin 1 gram every 24 hours -medicate for pain -abdominal ultrasound limited to right upper quadrant to evaluate hepatic blood flow in am -am labs CBC, CMP, AMMONIA ANEMIA- noted to have hemoglobin of 7.8, last hemoglobin on 01/28/2021 was 10.3, Hematocrit 24.4, platelets 13 -consider blood transfusion -recheck hemoglobin in am Maintenance issues -Orders home meds: chronic medication -Nutrition: soft diet -Pineda catheter -not indicated at this time -DVT - SCD -PPI - Prilosec 40mg daily CODE STATUS: FULL Admission status: Admit to [address] [place] [address] Admission justification. This patient will be admitted for inpatient services and is medically appropriate meeting medical necessity for inpatient admission as outlined in my documentation. I reasonably expect the patient will require inpatient services that span. Time over 2 midnights. I reasonably expect this patient to be discharged or transferred within 96 hours after admission to the critical [facility]. Disposition: home or extended care facility Primary care provider: Dr. Cline, [facility], [place], [place]. Hospitalist: Dr. Vargas - Mortality Measure Prognosis:: Poor
[2021-02-06] MEDS ORDERED: Ondansetron 4 MG Tab.DIS PO PRN (21:56)
[2021-02-06] MEDS ORDERED: Acetaminophen 325 MG Tab PO PRN (21:56)
[2021-02-06] MEDS ORDERED: Albuterol/Ipratropium 3.0-0.5 MG/3 ML Neb Soln NEB PRN (21:56)
[2021-02-06] MEDS ORDERED: Docusate Sodium 100 MG Cap PO PRN (21:56)
[2021-02-06] MEDS ORDERED: Bisacodyl 5 MG Tab PO PRN (21:56)
[2021-02-06] MEDS ORDERED: Brimonidine 0.2% Ophth Soln 5 ML Bottle EYEBOTH SCH (21:56)
[2021-02-06] MEDS ORDERED: Acetaminophen 650 MG Supp RECTAL PRN (21:56)
[2021-02-06] MEDS ORDERED: Albuterol 0.083% 2.5 MG/3 ML Neb Soln NEB PRN (21:56)
[2021-02-06] MEDS ORDERED: Cetirizine 10 MG Tab PO PRN (22:07)
[2021-02-06] MEDS ORDERED: Furosemide 40 MG/4 ML VIAL IVPUSH ONE (22:30)
[2021-02-06] MEDS: cefTRIAXone 1 GM in Sodium Chloride 0.9% 50 ML IV SCH (22:52)
[2021-02-06] MEDS: Sodium Chloride 0.9% 1,000 ML IV SCH (22:54)
[2021-02-06] MEDS: Calcitonin (Salmon) Nasal Spray 3.7 ML Bottle NAS SCH (22:55)
[2021-02-07] MEDS: Sodium Chloride 0.9% 1,000 ML IV SCH ×3 (04:03→16:57)
[2021-02-07] MEDS ORDERED: Furosemide 40 MG/4 ML VIAL IVPUSH ONE ×2 (04:10→12:00)
[2021-02-07] MEDS: Nystatin Topical Powder 15 GM Bottle TOP SCH ×4 (06:18→21:11)
[2021-02-07] MEDS: Calcitonin (Salmon) Nasal Spray 3.7 ML Bottle NAS SCH (08:19)
[2021-02-07] MEDS: Formoterol/Mometasone 200-5 MCG 8.8 GM Inhaler IH SCH ×2 (08:23→21:12)
[2021-02-07] MEDS: Escitalopram 20 MG Tab PO SCH (08:24)
[2021-02-07] MEDS: rOPINIRole 0.5 MG Tab PO SCH ×3 (08:24→21:10)
[2021-02-07] MEDS: Potassium Chloride 10 MEQ Cap.ER PO SCH (08:24)
[2021-02-07] MEDS: Tamoxifen 10 MG Tab PO SCH (08:24)
[2021-02-07] MEDS: Pantoprazole 40 MG Tab.CR PO SCH (08:24)
[2021-02-07] MEDS ORDERED: Pregabalin 75 MG Cap PO SCH (09:00)
[2021-02-07] MEDS ORDERED: Sulfamethoxazole/Trimethoprim 800-160 MG Tab PO SCH (09:00)
--- NOTE | 2021-02-07 09:41 | US ---
VL Duplex Abd Pel Ret Ltd, Abdomen Ltd CLINICAL HISTORY: Ascites FINDINGS: Study is limited due to the patient's inability to be positioned a large body habitus. There is moderate abdominal ascites. There is a hepatopedal flow in the right and left portal veins and main portal vein. The splenic vein is unable to be visualized to evaluate for flow. IVC is not identified IMPRESSION: Limited study due to patient body habitus and inability to be positioned Normal flow in the right, left and main portal veins Moderate ascites Splenic vein and the IVC are not seen
--- NOTE | 2021-02-07 10:54 | PCM.PN ---
- General Info Date of Service: 02/07/21 Subjective Update: No acute events overnight. Patient has been lethargic. She did not wake up during our attempted a conversation this morning. She appears comfortable for the most part. She has been up intermittently to use the bathroom but goes right back to sleep. Vital signs have been stable. Calcium level is slightly better today. Kidney function is similar to yesterday. She has not had any fevers. Uric acid and LDH are quite elevated raising concern for rapid cell turnover. - Patient Data Vitals - Most Recent: Last Vital Signs Temp 36.2 C 02/07/21 10:45 Pulse 96 02/07/21 10:45 Resp 18 02/07/21 10:45 BP 102/52 L 02/07/21 10:45 Pulse Ox 94 L 02/07/21 10:45 Weight - Most Recent: 73.482 kg I&O - Last 24 Hours: Intake & Output 02/06/21 02/07/21 02/07/21 22:59 06:59 14:59 Intake Total 2817 340 Output Total 200 325 Balance 2617 15 Lab Results Last 24 Hours: Laboratory Results - last 24 hr 02/06/21 02/06/21 02/06/21 Range/Units 15:29 15:29 17:56 WBC 9.4 (4.5-11.0) K/uL RBC 2.55 L (3.30-5.50) M/uL Hgb 7.8 L D (12.0-15.0) g/dL Hct 24.4 L (36.0-48.0) % MCV 96 (80-98) fL MCH 31 (27-31) pg MCHC 32 (32-36) % Plt Count 13 L* (150-400) K/uL Add Manual Diff Neutrophils % (Manual) (36-66) % Band Neutrophils % (5-11) % Lymphocytes % (Manual) (24-44) % Monocytes % (Manual) (2-6) % Eosinophils % (Manual) (2-4) % Basophils % (Manual) (0-1) % Myelocytes % % Nucleated RBCs Microcytosis Macrocytosis Schistocytes Sodium (140-148) mmol/L Potassium (3.6-5.2) mmol/L Chloride (100-108) mmol/L Carbon Dioxide (21-32) mmol/L Anion Gap (5.0-14.0) mmol/L BUN (7-18) mg/dL Creatinine (0.6-1.0) mg/dL Est Cr Clr Drug Dosing mL/min Estimated GFR (MDRD) (>60) Glucose (74-106) mg/dL Uric Acid (2.6-6.2) mg/dL Calcium (8.5-10.1) mg/dL Total Bilirubin (0.2-1.0) mg/dL AST (15-37) U/L ALT (12-78) U/L Alkaline Phosphatase (46-116) U/L Ammonia (11-32) umol/L Lactate Dehydrogenase (82-234) U/L Total Protein (6.4-8.2) g/dL Albumin (3.4-5.0) g/dL Globulin (2.3-3.5) g/dL Albumin/Globulin Ratio (1.2-2.2) Urine Color Yellow (YELLOW) Urine Appearance Clear (CLEAR) Urine pH 5.5 (5.0-8.0) Ur Specific [place] >= 1.030 (1.008-1.030) Urine Protein Negative (NEGATIVE) mg/dL Urine Glucose (UA) Negative (NEGATIVE) mg/dL Urine Ketones Negative (NEGATIVE) mg/dL Urine Occult Blood Negative (NEGATIVE) Urine Nitrite Negative (NEGATIVE) Urine Bilirubin Negative (NEGATIVE) Urine Urobilinogen 0.2 (0.2-1.0) EU/dL Ur Leukocyte Esterase Negative (NEGATIVE) Urine RBC 0-5 (0-5) Urine WBC 0-5 (0-5) Ur Epithelial Cells Rare Amorphous Sediment Not seen Urine Bacteria Rare Urine Mucus Not seen Urine Other Urine Opiates Screen Negative (NEGATIVE) Ur Oxycodone Screen Presumptive positive H (NEGATIVE) Urine Methadone Screen Negative (NEGATIVE) Ur Propoxyphene Screen Negative (NEGATIVE) Ur Barbiturates Screen Negative (NEGATIVE) Ur Tricyclics Screen Negative (NEGATIVE) Ur Phencyclidine Scrn Negative (NEGATIVE) Ur Amphetamine Screen Negative (NEGATIVE) U Methamphetamines Scrn Negative (NEGATIVE) Urine MDMA Screen Negative (NEGATIVE) U Benzodiazepines Scrn Presumptive positive H (NEGATIVE) U Cocaine Metab Screen Negative (NEGATIVE) U Marijuana (THC) Screen Presumptive positive H (NEGATIVE) SARS CoV-2 RNA Rapid [facility] 02/06/21 02/06/21 02/06/21 Range/Units 17:56 17:56 17:56 WBC (4.5-11.0) K/uL RBC (3.30-5.50) M/uL Hgb (12.0-15.0) g/dL Hct (36.0-48.0) % MCV (80-98) fL MCH (27-31) pg MCHC (32-36) % Plt Count (150-400) K/uL Add Manual Diff Neutrophils % (Manual) (36-66) % Band Neutrophils % (5-11) % Lymphocytes % (Manual) (24-44) % Monocytes % (Manual) (2-6) % Eosinophils % (Manual) (2-4) % Basophils % (Manual) (0-1) % Myelocytes % % Nucleated RBCs Microcytosis Macrocytosis Schistocytes Sodium 131 L (140-148) mmol/L Potassium 4.0 (3.6-5.2) mmol/L Chloride 96 L (100-108) mmol/L Carbon Dioxide 24 (21-32) mmol/L Anion Gap 15.0 H (5.0-14.0) mmol/L BUN 25 H D (7-18) mg/dL Creatinine 1.6 H (0.6-1.0) mg/dL Est Cr Clr Drug Dosing 30.55 mL/min Estimated GFR (MDRD) 34 L (>60) Glucose 119 H (74-106) mg/dL Uric Acid (2.6-6.2) mg/dL Calcium 12.4 H* D (8.5-10.1) mg/dL Total Bilirubin 0.9 (0.2-1.0) mg/dL AST 158 H D (15-37) U/L ALT 66 (12-78) U/L Alkaline Phosphatase 227 H (46-116) U/L Ammonia 33 H (11-32) umol/L Lactate Dehydrogenase (82-234) U/L Total Protein 5.8 L (6.4-8.2) g/dL Albumin 2.6 L (3.4-5.0) g/dL Globulin 3.2 (2.3-3.5) g/dL Albumin/Globulin Ratio 0.8 L (1.2-2.2) Urine Color (YELLOW) Urine Appearance (CLEAR) Urine pH (5.0-8.0) Ur Specific [place] (1.008-1.030) Urine Protein (NEGATIVE) mg/dL Urine Glucose (UA) (NEGATIVE) mg/dL Urine Ketones (NEGATIVE) mg/dL Urine Occult Blood (NEGATIVE) Urine Nitrite (NEGATIVE) Urine Bilirubin (NEGATIVE) Urine Urobilinogen (0.2-1.0) EU/dL Ur Leukocyte Esterase (NEGATIVE) Urine RBC (0-5) Urine WBC (0-5) Ur Epithelial Cells Amorphous Sediment Urine Bacteria Urine Mucus Urine Other Urine Opiates Screen (NEGATIVE) Ur Oxycodone Screen (NEGATIVE) Urine Methadone Screen (NEGATIVE) Ur Propoxyphene Screen (NEGATIVE) Ur Barbiturates Screen (NEGATIVE) Ur Tricyclics Screen (NEGATIVE) Ur Phencyclidine Scrn (NEGATIVE) Ur Amphetamine Screen (NEGATIVE) U Methamphetamines Scrn (NEGATIVE) Urine MDMA Screen (NEGATIVE) U Benzodiazepines Scrn (NEGATIVE) U Cocaine Metab Screen (NEGATIVE) U Marijuana (THC) Screen (NEGATIVE) SARS CoV-2 RNA Rapid [facility] Negative 02/07/21 02/07/21 02/07/21 Range/Units 06:11 06:11 08:21 WBC 9.1 (4.5-11.0) K/uL RBC 2.61 L (3.30-5.50) M/uL Hgb 7.9 L (12.0-15.0) g/dL Hct 25.4 L (36.0-48.0) % MCV 97 (80-98) fL MCH 30 (27-31) pg MCHC 31 L (32-36) % Plt Count 22 L* (150-400) K/uL Add Manual Diff Yes Neutrophils % (Manual) 42 (36-66) % Band Neutrophils % 8 (5-11) % Lymphocytes % (Manual) 43 (24-44) % Monocytes % (Manual) 5 (2-6) % Eosinophils % (Manual) 0 L (2-4) % Basophils % (Manual) 0 (0-1) % Myelocytes % 2 % Nucleated RBCs 16 Microcytosis Few Macrocytosis Few Schistocytes Moderate H Sodium 134 L (140-148) mmol/L Potassium 4.2 (3.6-5.2) mmol/L Chloride 99 L (100-108) mmol/L Carbon Dioxide 26 (21-32) mmol/L Anion Gap 13.2 (5.0-14.0) mmol/L BUN 28 H (7-18) mg/dL Creatinine 1.8 H (0.6-1.0) mg/dL Est Cr Clr Drug Dosing 27.16 mL/min Estimated GFR (MDRD) 30 L (>60) Glucose 117 H (74-106) mg/dL Uric Acid (2.6-6.2) mg/dL Calcium 12.0 H (8.5-10.1) mg/dL Total Bilirubin 0.8 (0.2-1.0) mg/dL AST 170 H (15-37) U/L ALT 71 (12-78) U/L Alkaline Phosphatase 239 H (46-116) U/L Ammonia (11-32) umol/L Lactate Dehydrogenase 729 H (82-234) U/L Total Protein 6.2 L (6.4-8.2) g/dL Albumin 2.7 L (3.4-5.0) g/dL Globulin 3.5 (2.3-3.5) g/dL Albumin/Globulin Ratio 0.8 L (1.2-2.2) Urine Color (YELLOW) Urine Appearance (CLEAR) Urine pH (5.0-8.0) Ur Specific [place] (1.008-1.030) Urine Protein (NEGATIVE) mg/dL Urine Glucose (UA) (NEGATIVE) mg/dL Urine Ketones (NEGATIVE) mg/dL Urine Occult Blood (NEGATIVE) Urine Nitrite (NEGATIVE) Urine Bilirubin (NEGATIVE) Urine Urobilinogen (0.2-1.0) EU/dL Ur Leukocyte Esterase (NEGATIVE) Urine RBC (0-5) Urine WBC (0-5) Ur Epithelial Cells Amorphous Sediment Urine Bacteria Urine Mucus Urine Other Urine Opiates Screen (NEGATIVE) Ur Oxycodone Screen (NEGATIVE) Urine Methadone Screen (NEGATIVE) Ur Propoxyphene Screen (NEGATIVE) Ur Barbiturates Screen (NEGATIVE) Ur Tricyclics Screen (NEGATIVE) Ur Phencyclidine Scrn (NEGATIVE) Ur Amphetamine Screen (NEGATIVE) U Methamphetamines Scrn (NEGATIVE) Urine MDMA Screen (NEGATIVE) U Benzodiazepines Scrn (NEGATIVE) U Cocaine Metab Screen (NEGATIVE) U Marijuana (THC) Screen (NEGATIVE) SARS CoV-2 RNA Rapid [facility] 02/07/21 Range/Units 08:21 WBC (4.5-11.0) K/uL RBC (3.30-5.50) M/uL Hgb (12.0-15.0) g/dL Hct (36.0-48.0) % MCV (80-98) fL MCH (27-31) pg MCHC (32-36) % Plt Count (150-400) K/uL Add Manual Diff Neutrophils % (Manual) (36-66) % Band Neutrophils % (5-11) % Lymphocytes % (Manual) (24-44) % Monocytes % (Manual) (2-6) % Eosinophils % (Manual) (2-4) % Basophils % (Manual) (0-1) % Myelocytes % % Nucleated RBCs Microcytosis Macrocytosis Schistocytes Sodium (140-148) mmol/L Potassium (3.6-5.2) mmol/L Chloride (100-108) mmol/L Carbon Dioxide (21-32) mmol/L Anion Gap (5.0-14.0) mmol/L BUN (7-18) mg/dL Creatinine (0.6-1.0) mg/dL Est Cr Clr Drug Dosing mL/min Estimated GFR (MDRD) (>60) Glucose (74-106) mg/dL Uric Acid 10.3 H (2.6-6.2) mg/dL Calcium (8.5-10.1) mg/dL Total Bilirubin (0.2-1.0) mg/dL AST (15-37) U/L ALT (12-78) U/L Alkaline Phosphatase (46-116) U/L Ammonia (11-32) umol/L Lactate Dehydrogenase (82-234) U/L Total Protein (6.4-8.2) g/dL Albumin (3.4-5.0) g/dL Globulin (2.3-3.5) g/dL Albumin/Globulin Ratio (1.2-2.2) Urine Color (YELLOW) Urine Appearance (CLEAR) Urine pH (5.0-8.0) Ur Specific [place] (1.008-1.030) Urine Protein (NEGATIVE) mg/dL Urine Glucose (UA) (NEGATIVE) mg/dL Urine Ketones (NEGATIVE) mg/dL Urine Occult Blood (NEGATIVE) Urine Nitrite (NEGATIVE) Urine Bilirubin (NEGATIVE) Urine Urobilinogen (0.2-1.0) EU/dL Ur Leukocyte Esterase (NEGATIVE) Urine RBC (0-5) Urine WBC (0-5) Ur Epithelial Cells Amorphous Sediment Urine Bacteria Urine Mucus Urine Other Urine Opiates Screen (NEGATIVE) Ur Oxycodone Screen (NEGATIVE) Urine Methadone Screen (NEGATIVE) Ur Propoxyphene Screen (NEGATIVE) Ur Barbiturates Screen (NEGATIVE) Ur Tricyclics Screen (NEGATIVE) Ur Phencyclidine Scrn (NEGATIVE) Ur Amphetamine Screen (NEGATIVE) U Methamphetamines Scrn (NEGATIVE) Urine MDMA Screen (NEGATIVE) U Benzodiazepines Scrn (NEGATIVE) U Cocaine Metab Screen (NEGATIVE) U Marijuana (THC) Screen (NEGATIVE) SARS CoV-2 RNA Rapid [facility] Med Orders - Current: Current Medications Acetaminophen (Acetaminophen 325 Mg Tab) 650 mg PO Q4H PRN PRN Reason: Pain (Mild 1-3)/fever Acetaminophen (Acetaminophen 650 Mg Supp) 650 mg RECTAL Q4H PRN PRN Reason: Mild pain/fever Albuterol (Albuterol 0.083% 2.5 Mg/3 Ml Neb Soln) 2.5 mg NEB Q4H PRN PRN Reason: Shortness Of Breath/wheezing Albuterol/Ipratropium (Albuterol/Ipratropium 3.0-0.5 Mg/3 Ml Neb Soln) 3 ml NEB QID PRN PRN Reason: Shortness Of Breath/wheezing Bisacodyl (Bisacodyl 5 Mg Tab) 5 mg PO DAILY PRN PRN Reason: Constipation Brimonidine Tartrate (Brimonidine 0.2% Ophth Soln 5 Ml Bottle) 0 ml [facility] Calcitonin Rebuck (Calcitonin (Rebuck) Nasal [place] 3.7 Ml Bottle) 0 ml [facility] Last Admin: 02/07/21 08:19 Dose: 1 spray Documented by: Cetirizine HCl (Cetirizine 10 Mg Tab) 10 mg PO BID PRN PRN Reason: Allergies Docusate Sodium (Docusate Sodium 100 Mg Cap) 100 mg PO BID PRN PRN Reason: Constipation Escitalopram Oxalate (Escitalopram 20 Mg Tab) 20 mg PO DAILY [facility] Last Admin: 02/07/21 08:24 Dose: 20 mg Documented by: Furosemide (Furosemide 40 Mg/4 Ml Vial) 40 mg IVPUSH NOW ONE Stop: 02/07/21 12:01 Ceftriaxone Sodium 1 gm/ (Sodium Chloride) 50 mls @ 100 mls/hr IV Q24H [facility] Last Admin: 02/06/21 22:52 Dose: 100 mls/hr Documented by: Sodium Chloride (Normal Saline) 1,000 mls @ 100 mls/hr IV ASDIRECTED [facility] Influenza Virus Vaccine (Flu Vacc [id number](6mos Up)/Pf 60 Mcg/0.5 Ml Syringe) 60 mcg IM .ONCE ONE Stop: 02/08/21 10:01 Mometasone Furoate/Formoterol Fumar (Formoterol/Mometasone 200-5 Mcg 8.8 Gm Inhaler) 1 puff IH BIDRT [facility] Last Admin: 02/07/21 08:23 Dose: 1 puff Documented by: Morphine Sulfate (Morphine 2 Mg/Ml Syringe) 2 mg IVPUSH Q2H PRN PRN Reason: Pain (severe 7-10) Non-Formulary Medication (Lifitegrast [Xiidra]) 1 drop [facility]EBOTH BID [facility] Nystatin (Nystatin Topical Powder 15 Gm Bottle) 1 gm TOP QID [facility] Last Admin: 02/07/21 06:18 Dose: Not Given Documented by: Ondansetron HCl (Ondansetron 4 Mg Tab.Dis) 8 mg PO Q8H PRN PRN Reason: Nausea/Vomiting Oxycodone HCl (Oxycodone 5 Mg Tab) 5 mg PO Q4H PRN PRN Reason: Pain Pantoprazole Sodium (Pantoprazole 40 Mg Tab.Cr) 40 mg PO ACBREAKFAST [facility] Last Admin: 02/07/21 08:24 Dose: 40 mg Documented by: Pneumococcal Polyvalent Vaccine (Pneumococcal Polyvalent-23 Vaccine 0.5 Ml Sdv) 0.5 ml IM .ONCE ONE Stop: 02/08/21 10:01 Potassium Chloride (Potassium Chloride 10 Meq Cap.Er) 10 meq PO DAILY [facility] Last Admin: 02/07/21 08:24 Dose: 10 meq Documented by: Pregabalin (Pregabalin 75 Mg Cap) 75 mg PO BID [facility] Ropinirole HCl (Ropinirole 0.5 Mg Tab) 0.5 mg PO TID [facility] Last Admin: 02/07/21 08:24 Dose: 0.5 mg Documented by: Tamoxifen Citrate (Tamoxifen 10 Mg Tab) 20 mg PO DAILY [facility] Last Admin: 02/07/21 08:24 Dose: 20 mg Documented by: Discontinued Medications Furosemide (Furosemide 40 Mg/4 Ml Vial) 40 mg IVPUSH ONETIME ONE Stop: 02/06/21 22:31 Last Admin: 02/06/21 22:55 Dose: 40 mg Documented by: Furosemide (Furosemide 40 Mg/4 Ml Vial) 40 mg IVPUSH ONETIME ONE Stop: 02/07/21 04:11 Last Admin: 02/07/21 04:52 Dose: 40 mg Documented by: Hydromorphone HCl (Hydromorphone 1 Mg/Ml Syringe) 1 mg IVPUSH ONETIME ONE Stop: 02/06/21 21:12 Last Admin: 02/06/21 21:38 Dose: 1 mg Documented by: Sodium Chloride (Normal Saline) 1,000 mls @ 1,000 mls/hr IV .BOLUS ONE Stop: 02/06/21 17:32 Last Admin: 02/06/21 16:54 Dose: 1,000 mls/hr Documented by: Sodium Chloride (Normal Saline) 1,000 mls @ 999 mls/hr IV .BOLUS ONE Stop: 02/06/21 22:10 Last Admin: 02/06/21 21:23 Dose: 999 mls/hr Documented by: Sodium Chloride (Normal Saline) 1,000 mls @ 200 mls/hr IV ASDIRECTED [facility] Last Admin: 02/07/21 09:09 Dose: 200 mls/hr Documented by: Influenza Virus Vaccine (Pharmacy To Dose - Influenza Vaccine) 1 each IM ONETIME ONE Stop: 02/08/21 10:01 Trimethoprim/Sulfamethoxazole (Sulfamethoxazole/Trimethoprim 800-160 Mg Tab) 1 tab PO BID [facility] - Exam Quality Assessment: Supplemental Oxygen General: Alert, No Acute Distress, Lethargic. No: Oriented Lungs: Clear to Auscultation, Normal Respiratory Effort Cardiovascular: Regular Rate, Regular Rhythm GI/Abdominal Exam: Normal Bowel Sounds, Soft, Distended, Tender Extremities: No Pedal Edema. No: Increased Warmth Skin: Warm, Dry Psy/Mental Status: Alert, Other (very lethargic ). No: Agitated - Patient Data Lab Results Last 24 hrs: Laboratory Results - last 24 hr 02/06/21 02/06/21 02/06/21 Range/Units 15:29 15:29 17:56 WBC 9.4 (4.5-11.0) K/uL RBC 2.55 L (3.30-5.50) M/uL Hgb 7.8 L D (12.0-15.0) g/dL Hct 24.4 L (36.0-48.0) % MCV 96 (80-98) fL MCH 31 (27-31) pg MCHC 32 (32-36) % Plt Count 13 L* (150-400) K/uL Add Manual Diff Neutrophils % (Manual) (36-66) % Band Neutrophils % (5-11) % Lymphocytes % (Manual) (24-44) % Monocytes % (Manual) (2-6) % Eosinophils % (Manual) (2-4) % Basophils % (Manual) (0-1) % Myelocytes % % Nucleated RBCs Microcytosis Macrocytosis Schistocytes Sodium (140-148) mmol/L Potassium (3.6-5.2) mmol/L Chloride (100-108) mmol/L Carbon Dioxide (21-32) mmol/L Anion Gap (5.0-14.0) mmol/L BUN (7-18) mg/dL Creatinine (0.6-1.0) mg/dL Est Cr Clr Drug Dosing mL/min Estimated GFR (MDRD) (>60) Glucose (74-106) mg/dL Uric Acid (2.6-6.2) mg/dL Calcium (8.5-10.1) mg/dL Total Bilirubin (0.2-1.0) mg/dL AST (15-37) U/L ALT (12-78) U/L Alkaline Phosphatase (46-116) U/L Ammonia (11-32) umol/L Lactate Dehydrogenase (82-234) U/L Total Protein (6.4-8.2) g/dL Albumin (3.4-5.0) g/dL Globulin (2.3-3.5) g/dL Albumin/Globulin Ratio (1.2-2.2) Urine Color Yellow (YELLOW) Urine Appearance Clear (CLEAR) Urine pH 5.5 (5.0-8.0) Ur Specific [place] >= 1.030 (1.008-1.030) Urine Protein Negative (NEGATIVE) mg/dL Urine Glucose (UA) Negative (NEGATIVE) mg/dL Urine Ketones Negative (NEGATIVE) mg/dL Urine Occult Blood Negative (NEGATIVE) Urine Nitrite Negative (NEGATIVE) Urine Bilirubin Negative (NEGATIVE) Urine Urobilinogen 0.2 (0.2-1.0) EU/dL Ur Leukocyte Esterase Negative (NEGATIVE) Urine RBC 0-5 (0-5) Urine WBC 0-5 (0-5) Ur Epithelial Cells Rare Amorphous Sediment Not seen Urine Bacteria Rare Urine Mucus Not seen Urine Other Urine Opiates Screen Negative (NEGATIVE) Ur Oxycodone Screen Presumptive positive H (NEGATIVE) Urine Methadone Screen Negative (NEGATIVE) Ur Propoxyphene Screen Negative (NEGATIVE) Ur Barbiturates Screen Negative (NEGATIVE) Ur Tricyclics Screen Negative (NEGATIVE) Ur Phencyclidine Scrn Negative (NEGATIVE) Ur Amphetamine Screen Negative (NEGATIVE) U Methamphetamines Scrn Negative (NEGATIVE) Urine MDMA Screen Negative (NEGATIVE) U Benzodiazepines Scrn Presumptive positive H (NEGATIVE) U Cocaine Metab Screen Negative (NEGATIVE) U Marijuana (THC) Screen Presumptive positive H (NEGATIVE) SARS CoV-2 RNA Rapid [facility] 02/06/21 02/06/21 02/06/21 Range/Units 17:56 17:56 17:56 WBC (4.5-11.0) K/uL RBC (3.30-5.50) M/uL Hgb (12.0-15.0) g/dL Hct (36.0-48.0) % MCV (80-98) fL MCH (27-31) pg MCHC (32-36) % Plt Count (150-400) K/uL Add Manual Diff Neutrophils % (Manual) (36-66) % Band Neutrophils % (5-11) % Lymphocytes % (Manual) (24-44) % Monocytes % (Manual) (2-6) % Eosinophils % (Manual) (2-4) % Basophils % (Manual) (0-1) % Myelocytes % % Nucleated RBCs Microcytosis Macrocytosis Schistocytes Sodium 131 L (140-148) mmol/L Potassium 4.0 (3.6-5.2) mmol/L Chloride 96 L (100-108) mmol/L Carbon Dioxide 24 (21-32) mmol/L Anion Gap 15.0 H (5.0-14.0) mmol/L BUN 25 H D (7-18) mg/dL Creatinine 1.6 H (0.6-1.0) mg/dL Est Cr Clr Drug Dosing 30.55 mL/min Estimated GFR (MDRD) 34 L (>60) Glucose 119 H (74-106) mg/dL Uric Acid (2.6-6.2) mg/dL Calcium 12.4 H* D (8.5-10.1) mg/dL Total Bilirubin 0.9 (0.2-1.0) mg/dL AST 158 H D (15-37) U/L ALT 66 (12-78) U/L Alkaline Phosphatase 227 H (46-116) U/L Ammonia 33 H (11-32) umol/L Lactate Dehydrogenase (82-234) U/L Total Protein 5.8 L (6.4-8.2) g/dL Albumin 2.6 L (3.4-5.0) g/dL Globulin 3.2 (2.3-3.5) g/dL Albumin/Globulin Ratio 0.8 L (1.2-2.2) Urine Color (YELLOW) Urine Appearance (CLEAR) Urine pH (5.0-8.0) Ur Specific [place] (1.008-1.030) Urine Protein (NEGATIVE) mg/dL Urine Glucose (UA) (NEGATIVE) mg/dL Urine Ketones (NEGATIVE) mg/dL Urine Occult Blood (NEGATIVE) Urine Nitrite (NEGATIVE) Urine Bilirubin (NEGATIVE) Urine Urobilinogen (0.2-1.0) EU/dL Ur Leukocyte Esterase (NEGATIVE) Urine RBC (0-5) Urine WBC (0-5) Ur Epithelial Cells Amorphous Sediment Urine Bacteria Urine Mucus Urine Other Urine Opiates Screen (NEGATIVE) Ur Oxycodone Screen (NEGATIVE) Urine Methadone Screen (NEGATIVE) Ur Propoxyphene Screen (NEGATIVE) Ur Barbiturates Screen (NEGATIVE) Ur Tricyclics Screen (NEGATIVE) Ur Phencyclidine Scrn (NEGATIVE) Ur Amphetamine Screen (NEGATIVE) U Methamphetamines Scrn (NEGATIVE) Urine MDMA Screen (NEGATIVE) U Benzodiazepines Scrn (NEGATIVE) U Cocaine Metab Screen (NEGATIVE) U Marijuana (THC) Screen (NEGATIVE) SARS CoV-2 RNA Rapid [facility] Negative 02/07/21 02/07/21 02/07/21 Range/Units 06:11 06:11 08:21 WBC 9.1 (4.5-11.0) K/uL RBC 2.61 L (3.30-5.50) M/uL Hgb 7.9 L (12.0-15.0) g/dL Hct 25.4 L (36.0-48.0) % MCV 97 (80-98) fL MCH 30 (27-31) pg MCHC 31 L (32-36) % Plt Count 22 L* (150-400) K/uL Add Manual Diff Yes Neutrophils % (Manual) 42 (36-66) % Band Neutrophils % 8 (5-11) % Lymphocytes % (Manual) 43 (24-44) % Monocytes % (Manual) 5 (2-6) % Eosinophils % (Manual) 0 L (2-4) % Basophils % (Manual) 0 (0-1) % Myelocytes % 2 % Nucleated RBCs 16 Microcytosis Few Macrocytosis Few Schistocytes Moderate H Sodium 134 L (140-148) mmol/L Potassium 4.2 (3.6-5.2) mmol/L Chloride 99 L (100-108) mmol/L Carbon Dioxide 26 (21-32) mmol/L Anion Gap 13.2 (5.0-14.0) mmol/L BUN 28 H (7-18) mg/dL Creatinine 1.8 H (0.6-1.0) mg/dL Est Cr Clr Drug Dosing 27.16 mL/min Estimated GFR (MDRD) 30 L (>60) Glucose 117 H (74-106) mg/dL Uric Acid (2.6-6.2) mg/dL Calcium 12.0 H (8.5-10.1) mg/dL Total Bilirubin 0.8 (0.2-1.0) mg/dL AST 170 H (15-37) U/L ALT 71 (12-78) U/L Alkaline Phosphatase 239 H (46-116) U/L Ammonia (11-32) umol/L Lactate Dehydrogenase 729 H (82-234) U/L Total Protein 6.2 L (6.4-8.2) g/dL Albumin 2.7 L (3.4-5.0) g/dL Globulin 3.5 (2.3-3.5) g/dL Albumin/Globulin Ratio 0.8 L (1.2-2.2) Urine Color (YELLOW) Urine Appearance (CLEAR) Urine pH (5.0-8.0) Ur Specific [place] (1.008-1.030) Urine Protein (NEGATIVE) mg/dL Urine Glucose (UA) (NEGATIVE) mg/dL Urine Ketones (NEGATIVE) mg/dL Urine Occult Blood (NEGATIVE) Urine Nitrite (NEGATIVE) Urine Bilirubin (NEGATIVE) Urine Urobilinogen (0.2-1.0) EU/dL Ur Leukocyte Esterase (NEGATIVE) Urine RBC (0-5) Urine WBC (0-5) Ur Epithelial Cells Amorphous Sediment Urine Bacteria Urine Mucus Urine Other Urine Opiates Screen (NEGATIVE) Ur Oxycodone Screen (NEGATIVE) Urine Methadone Screen (NEGATIVE) Ur Propoxyphene Screen (NEGATIVE) Ur Barbiturates Screen (NEGATIVE) Ur Tricyclics Screen (NEGATIVE) Ur Phencyclidine Scrn (NEGATIVE) Ur Amphetamine Screen (NEGATIVE) U Methamphetamines Scrn (NEGATIVE) Urine MDMA Screen (NEGATIVE) U Benzodiazepines Scrn (NEGATIVE) U Cocaine Metab Screen (NEGATIVE) U Marijuana (THC) Screen (NEGATIVE) SARS CoV-2 RNA Rapid [facility] 02/07/21 Range/Units 08:21 WBC (4.5-11.0) K/uL RBC (3.30-5.50) M/uL Hgb (12.0-15.0) g/dL Hct (36.0-48.0) % MCV (80-98) fL MCH (27-31) pg MCHC (32-36) % Plt Count (150-400) K/uL Add Manual Diff Neutrophils % (Manual) (36-66) % Band Neutrophils % (5-11) % Lymphocytes % (Manual) (24-44) % Monocytes % (Manual) (2-6) % Eosinophils % (Manual) (2-4) % Basophils % (Manual) (0-1) % Myelocytes % % Nucleated RBCs Microcytosis Macrocytosis Schistocytes Sodium (140-148) mmol/L Potassium (3.6-5.2) mmol/L Chloride (100-108) mmol/L Carbon Dioxide (21-32) mmol/L Anion Gap (5.0-14.0) mmol/L BUN (7-18) mg/dL Creatinine (0.6-1.0) mg/dL Est Cr Clr Drug Dosing mL/min Estimated GFR (MDRD) (>60) Glucose (74-106) mg/dL Uric Acid 10.3 H (2.6-6.2) mg/dL Calcium (8.5-10.1) mg/dL Total Bilirubin (0.2-1.0) mg/dL AST (15-37) U/L ALT (12-78) U/L Alkaline Phosphatase (46-116) U/L Ammonia (11-32) umol/L Lactate Dehydrogenase (82-234) U/L Total Protein (6.4-8.2) g/dL Albumin (3.4-5.0) g/dL Globulin (2.3-3.5) g/dL Albumin/Globulin Ratio (1.2-2.2) Urine Color (YELLOW) Urine Appearance (CLEAR) Urine pH (5.0-8.0) Ur Specific [place] (1.008-1.030) Urine Protein (NEGATIVE) mg/dL Urine Glucose (UA) (NEGATIVE) mg/dL Urine Ketones (NEGATIVE) mg/dL Urine Occult Blood (NEGATIVE) Urine Nitrite (NEGATIVE) Urine Bilirubin (NEGATIVE) Urine Urobilinogen (0.2-1.0) EU/dL Ur Leukocyte Esterase (NEGATIVE) Urine RBC (0-5) Urine WBC (0-5) Ur Epithelial Cells Amorphous Sediment Urine Bacteria Urine Mucus Urine Other Urine Opiates Screen (NEGATIVE) Ur Oxycodone Screen (NEGATIVE) Urine Methadone Screen (NEGATIVE) Ur Propoxyphene Screen (NEGATIVE) Ur Barbiturates Screen (NEGATIVE) Ur Tricyclics Screen (NEGATIVE) Ur Phencyclidine Scrn (NEGATIVE) Ur Amphetamine Screen (NEGATIVE) U Methamphetamines Scrn (NEGATIVE) Urine MDMA Screen (NEGATIVE) U Benzodiazepines Scrn (NEGATIVE) U Cocaine Metab Screen (NEGATIVE) U Marijuana (THC) Screen (NEGATIVE) SARS CoV-2 RNA Rapid [facility] Result Diagrams: 02/07/21 06:11 02/07/21 15:34 Sepsis Event Note - Evaluation Sepsis Screening Result: No Definite Risk - Focused Exam Vital Signs: Vital Signs Temp Pulse Resp BP Pulse Ox 02/07/21 10:45 36.2 C 96 18 102/52 L 94 L 02/07/21 10:13 91 L 02/07/21 10:12 83 L 02/07/21 07:00 36.2 C 61 18 105/64 96 02/07/21 02:40 35.9 C L 92 18 112/66 98 - Problem List Review Problem List Initiated/Reviewed/Updated: Yes - My Orders Last 24 Hours: My Active Orders 02/07/21 10:49 methylPREDNISolone Sod Succ [Solu-MEDROL] 125 mg IVPUSH ONETIME ONE 02/07/21 10:52 Lactulose [Chronulac] 10 gm PO ONETIME ONE 02/07/21 11:00 allopurinoL [Zyloprim] 100 mg PO DAILY 02/07/21 12:00 Furosemide [Lasix] 40 mg IVPUSH NOW ONE Sodium Chloride 0.9% [Normal Saline] 1,000 ml IV ASDIRECTED 02/07/21 17:00 methylPREDNISolone Sod Succ [Solu-MEDROL] 62.5 mg IVPUSH Q8H 02/08/21 05:00 CBC W/O DIFF,HEMOGRAM [HEME] Timed (1) COMPREHENSIVE METABOLIC PN,CMP [CHEM] Timed 02/08/21 10:00 FLU Vacc [id number](6MOS UP)/PF [Fluzone Quad [id number] Syringe] 60 mcg IM .ONCE ONE - Plan Plan:: Assessment/Plan - HYPERCALCEMIA-secondary to malignancy, concern for rapid cell turnover with elevated LDH and uric acid. No recent chemotherapy. I am concerned this may be her cancer cells dividing and dying rapidly. Level slowly improving. -Continue IV fluids -Furosemide every 8 hours -Calcitonin nasal spray one spray each nostril daily -Serial laboratory studies -She did receive zoledronic acid on 02/06 Acute kidney injury-level stable since admission. Urine output has not been great but seems to be improving. -IV fluids -Monitor I & O -Labs in the morning METASTATIC BREAST CANCER-diagnosed with left breast cancer which has metastases to the bone. She had been on oral chemotherapy which was discontinued due to concerns that it may be causing her anemia and thrombocytopenia as well as elevation in hepatic panel numbers. She has a significant cancer burden in the bones and I am concerned that she may be failing and potentially heading towards hospice. -continue pain management -continue outpatient tamoxifen ASCITES-relatively new occurrence with progression over the last few weeks. She has a fatty liver but no evidence for cirrhosis. Most recent CT scan did not show evidence for malignancy. Ultrasound today showed significant ascites but did not show any obvious thrombosis in the liver. She has a fair amount of abdominal pain and may have a component of SBP but she is not having any fevers. Paracentesis has been contraindicated because of severe thrombocytopenia so far but hopefully tomorrow we can get this done. -Continue ceftriaxone -medicate for pain -Consider paracentesis tomorrow ANEMIA AND THROMBOCYTOPENIA-levels are stable to improving since admission. I suspect this is a result of bone marrow infiltration of the cancer with possible contribution from her recent oral chemotherapy. No evidence for transfusion at this point. -Labs in the morning -Transfuse hemoglobin if less than 7 -Transfuse platelets if less than 10,000 and/or bleeding Maintenance issues -Nutrition: soft diet -Pineda catheter -not indicated at this time -DVT - SCD -GI -Daily PPI CODE STATUS: FULL Disposition: home or extended care facility Zackery Vargas MD
[2021-02-07] MEDS ORDERED: methylPREDNISolone Sodium Succinate 125 MG/2 ML SDV IVPUSH ONE (11:30)
[2021-02-07] MEDS ORDERED: Lactulose Soln 10 GM/15 ML 15 ML UD Cup PO ONE (11:30)
[2021-02-07] MEDS: Allopurinol 100 MG Tab PO SCH (11:33)
[2021-02-07] MEDS: ALPRAZolam 0.5 MG Tab PO PRN ×2 (13:40→21:31)
--- NOTE | 2021-02-07 14:54 | CT ---
Head wo Cont CLINICAL HISTORY: Subdural fluid collection COMPARISON: 02/06/2021 and 12/13/2016 TECHNIQUE: Transverse scans were obtained from the base of the skull through the vertex without IV contrast on a multislice, multidetector CT scanner. Auto dosage reduction and iterative reconstruction techniques employed. FINDINGS: There is a persistent low-attenuation fluid collection over the right frontal parietal convexity. The size is unchanged. Density is slightly above normal CSF. This consistent with the older subdural hematoma. No new hemorrhage is seen The basal cisterns and sulci over the convexities are otherwise normal. The ventricles are normal for age. IMPRESSION: Stable low-attenuation right extra-axial fluid collection consistent with the right subdural hematoma of remote chronology
[2021-02-07] MEDS: oxyCODONE 5 MG Tab PO PRN ×2 (16:51→21:29)
[2021-02-07] MEDS: methylPREDNISolone Sodium Succinate 125 MG/2 ML SDV IVPUSH SCH (16:51)
[2021-02-07] MEDS ORDERED: HYDROmorphone 0.5 MG/0.5 ML Syringe IVPUSH PRN (16:53)
[2021-02-07] MEDS ORDERED: Furosemide 20 MG/2 ML VIAL IVPUSH ONE (20:00)
[2021-02-07] MEDS: cefTRIAXone 1 GM in Sodium Chloride 0.9% 50 ML IV SCH (21:12)
[2021-02-07] MEDS: Morphine 2 MG/ML SYRINGE IVPUSH PRN (21:57)
[2021-02-07] MEDS ORDERED: LORazepam 2 MG/ML SDV IVPUSH PRN (22:10)
[2021-02-08] MEDS: methylPREDNISolone Sodium Succinate 125 MG/2 ML SDV IVPUSH SCH ×3 (00:59→17:22)
[2021-02-08] MEDS: Morphine 2 MG/ML SYRINGE IVPUSH PRN (00:59)
[2021-02-08] MEDS: Sodium Chloride 0.9% 1,000 ML IV SCH (03:02)
[2021-02-08] MEDS: Nystatin Topical Powder 15 GM Bottle TOP SCH ×4 (06:17→21:03)
[2021-02-08] MEDS: Formoterol/Mometasone 200-5 MCG 8.8 GM Inhaler IH SCH (07:14)
[2021-02-08] MEDS: Pantoprazole 40 MG Tab.CR PO SCH (07:25)
[2021-02-08] MEDS: Calcitonin (Salmon) Nasal Spray 3.7 ML Bottle NAS SCH (09:36)
[2021-02-08] MEDS ORDERED: LORazepam 2 MG/ML SDV IVPUSH PRN (09:57)
[2021-02-08] MEDS ORDERED: Furosemide 20 MG/2 ML VIAL IVPUSH ONE (10:00)
[2021-02-08] MEDS ORDERED: Pneumococcal Polyvalent-23 Vaccine 0.5 ML SDV IM ONE (10:00)
[2021-02-08] MEDS: rOPINIRole 0.5 MG Tab PO SCH ×3 (10:04→20:43)
[2021-02-08] MEDS: Potassium Chloride 10 MEQ Cap.ER PO SCH (10:05)
[2021-02-08] MEDS: Allopurinol 100 MG Tab PO SCH (10:05)
[2021-02-08] MEDS: Escitalopram 20 MG Tab PO SCH (10:05)
[2021-02-08] MEDS: Tamoxifen 10 MG Tab PO SCH (10:05)
--- NOTE | 2021-02-08 16:51 | PCM.PN ---
- General Info Date of Service: 02/08/21 Subjective Update: There were no acute events overnight. Patient is awake intermittently but then goes right back to sleep. I was not able to get any history from her this morning. When she is awake she is quite anxious and feels short of breath. Her calcium level has been slowly improving. Her kidney function has declined over the past couple of days. Blood pressure is on the low side of normal. No fevers. She does appear to be in pain and often holds her abdomen. Platelets are slightly lower than yesterday and hemoglobin is stable. I talked to both her mother and father today. I expressed my concern that her cancer is progressing fairly rapidly with the multiple abnormal blood tests and decline in her status. She may have a bacterial infection as well. We discussed aggressive interventions including paracentesis and transfer for subspecialty evaluation. I did express my concern that even with all of this that she still has metastatic cancer and would likely be right back in this situation even if they were able to tune her up. They feel that this is beyond her wishes and they are requesting a transfer to comfort cares only at this time. They are aware that she has a very grim prognosis with her metastatic cancer and do not feel that she would want to go through painful invasive things that are not likely to extend her life or provide any quality. - Patient Data Vitals - Most Recent: Last Vital Signs Temp 36.3 C 02/08/21 10:01 Pulse 94 02/08/21 10:01 Resp 20 02/08/21 10:01 BP 155/84 H 02/08/21 10:01 Pulse Ox 94 L 02/08/21 10:01 Weight - Most Recent: 73.482 kg I&O - Last 24 Hours: Intake & Output 02/08/21 02/08/21 02/08/21 06:59 14:59 22:59 Intake Total 1310 910 953 Output Total 100 Balance 1210 910 953 Lab Results Last 24 Hours: Laboratory Results - last 24 hr 02/07/21 02/07/21 02/08/21 Range/Units 20:59 20:59 05:23 WBC (4.5-11.0) K/uL RBC (3.30-5.50) M/uL Hgb (12.0-15.0) g/dL Hct (36.0-48.0) % MCV (80-98) fL MCH (27-31) pg MCHC (32-36) % Plt Count (150-400) K/uL Sodium 134 L (140-148) mmol/L Potassium 4.1 (3.6-5.2) mmol/L Chloride 100 (100-108) mmol/L Carbon Dioxide 24 (21-32) mmol/L Anion Gap 14.1 H (5.0-14.0) mmol/L BUN 29 H (7-18) mg/dL Creatinine 1.7 H (0.6-1.0) mg/dL Est Cr Clr Drug Dosing 28.75 mL/min Estimated GFR (MDRD) 32 L (>60) Glucose 194 H (74-106) mg/dL Lactic Acid 1.5 (0.4-2.0) mmol/L Calcium 10.8 H (8.5-10.1) mg/dL Total Bilirubin (0.2-1.0) mg/dL AST (15-37) U/L ALT (12-78) U/L Alkaline Phosphatase (46-116) U/L Ammonia 28 (11-32) umol/L Total Protein (6.4-8.2) g/dL Albumin (3.4-5.0) g/dL Globulin (2.3-3.5) g/dL Albumin/Globulin Ratio (1.2-2.2) 02/08/21 02/08/21 Range/Units 05:23 05:23 WBC 13.0 H (4.5-11.0) K/uL RBC 2.81 L (3.30-5.50) M/uL Hgb 8.4 L (12.0-15.0) g/dL Hct 26.7 L (36.0-48.0) % MCV 95 (80-98) fL MCH 30 (27-31) pg MCHC 32 (32-36) % Plt Count 18 L* (150-400) K/uL Sodium 133 L (140-148) mmol/L Potassium 4.3 (3.6-5.2) mmol/L Chloride 98 L (100-108) mmol/L Carbon Dioxide 22 (21-32) mmol/L Anion Gap 17.3 H (5.0-14.0) mmol/L BUN 36 H (7-18) mg/dL Creatinine 2.0 H (0.6-1.0) mg/dL Est Cr Clr Drug Dosing 24.44 mL/min Estimated GFR (MDRD) 26 L (>60) Glucose 203 H (74-106) mg/dL Lactic Acid (0.4-2.0) mmol/L Calcium 10.9 H (8.5-10.1) mg/dL Total Bilirubin 0.9 (0.2-1.0) mg/dL AST 189 H (15-37) U/L ALT 78 (12-78) U/L Alkaline Phosphatase 281 H (46-116) U/L Ammonia (11-32) umol/L Total Protein 6.7 (6.4-8.2) g/dL Albumin 2.8 L (3.4-5.0) g/dL Globulin 3.9 H (2.3-3.5) g/dL Albumin/Globulin Ratio 0.7 L (1.2-2.2) Med Orders - Current: Current Medications Acetaminophen (Acetaminophen 325 Mg Tab) 650 mg PO Q4H PRN PRN Reason: Pain (Mild 1-3)/fever Acetaminophen (Acetaminophen 650 Mg Supp) 650 mg RECTAL Q4H PRN PRN Reason: Mild pain/fever Albuterol (Albuterol 0.083% 2.5 Mg/3 Ml Neb Soln) 2.5 mg NEB Q4H PRN PRN Reason: Shortness Of Breath/wheezing Bisacodyl (Bisacodyl 5 Mg Tab) 5 mg PO DAILY PRN PRN Reason: Constipation Brimonidine Tartrate (Brimonidine 0.2% Ophth Soln 5 Ml Bottle) 0 ml EYEBOTH ASDIRECTED [facility] Calcitonin [place] (Calcitonin ([place]) Nasal [place] 3.7 Ml Bottle) 0 ml ENRIQUE DAILY [facility] Last Admin: 02/08/21 09:36 Dose: 1 spray Documented by: Docusate Sodium (Docusate Sodium 100 Mg Cap) 100 mg PO BID PRN PRN Reason: Constipation Hydromorphone HCl (Hydromorphone 1 Mg/Ml Syringe) 1 mg IVPUSH Q1H PRN PRN Reason: Pain Lorazepam (Lorazepam 2 Mg/Ml Sdv) 1 mg IVPUSH Q1H PRN PRN Reason: Anxiety/Agitation Methylprednisolone Sodium Succinate (Methylprednisolone Sodium Succinate 125 Mg/2 Ml Sdv) 62.5 mg IVPUSH Q8H [facility] Last Admin: 02/08/21 09:35 Dose: 62.5 mg Documented by: Non-Formulary Medication (Lifitegrast [Xiidra]) 1 drop EYEBOTH BID [facility] Nystatin (Nystatin Topical Powder 15 Gm Bottle) 1 gm TOP QID [facility] Last Admin: 02/08/21 16:27 Dose: Not Given Documented by: Ondansetron HCl (Ondansetron 4 Mg Tab.Dis) 8 mg PO Q8H PRN PRN Reason: Nausea/Vomiting Last Admin: 02/07/21 22:26 Dose: 8 mg Documented by: Ropinirole HCl (Ropinirole 0.5 Mg Tab) 0.5 mg PO TID [facility] Last Admin: 02/08/21 13:39 Dose: Not Given Documented by: Discontinued Medications Albuterol/Ipratropium (Albuterol/Ipratropium 3.0-0.5 Mg/3 Ml Neb Soln) 3 ml NEB QID PRN PRN Reason: Shortness Of Breath/wheezing Allopurinol (Allopurinol 100 Mg Tab) 100 mg PO DAILY [facility] Last Admin: 02/08/21 10:05 Dose: Not Given Documented by: Alprazolam (Alprazolam 0.5 Mg Tab) 0.5 mg PO Q6H PRN PRN Reason: Anxiety Last Admin: 02/07/21 21:31 Dose: 0.5 mg Documented by: Cetirizine HCl (Cetirizine 10 Mg Tab) 10 mg PO BID PRN PRN Reason: Allergies Escitalopram Oxalate (Escitalopram 20 Mg Tab) 20 mg PO DAILY [facility] Last Admin: 02/08/21 10:05 Dose: Not Given Documented by: Furosemide (Furosemide 40 Mg/4 Ml Vial) 40 mg IVPUSH ONETIME ONE Stop: 02/06/21 22:31 Last Admin: 02/06/21 22:55 Dose: 40 mg Documented by: Furosemide (Furosemide 40 Mg/4 Ml Vial) 40 mg IVPUSH ONETIME ONE Stop: 02/07/21 04:11 Last Admin: 02/07/21 04:52 Dose: 40 mg Documented by: Furosemide (Furosemide 40 Mg/4 Ml Vial) 40 mg IVPUSH NOW ONE Stop: 02/07/21 12:01 Last Admin: 02/07/21 11:34 Dose: 40 mg Documented by: Furosemide (Furosemide 20 Mg/2 Ml Vial) 20 mg IVPUSH NOW ONE Stop: 02/07/21 20:01 Last Admin: 02/07/21 21:10 Dose: 20 mg Documented by: Furosemide (Furosemide 20 Mg/2 Ml Vial) 20 mg IVPUSH ONETIME ONE Stop: 02/08/21 10:01 Last Admin: 02/08/21 10:27 Dose: Not Given Documented by: Hydromorphone HCl (Hydromorphone 1 Mg/Ml Syringe) 1 mg IVPUSH ONETIME ONE Stop: 02/06/21 21:12 Last Admin: 02/06/21 21:38 Dose: 1 mg Documented by: Hydromorphone HCl (Hydromorphone 0.5 Mg/0.5 Ml Syringe) 0.5 mg IVPUSH Q4H PRN PRN Reason: Pain (severe 7-10) Sodium Chloride (Normal Saline) 1,000 mls @ 1,000 mls/hr IV .BOLUS ONE Stop: 02/06/21 17:32 Last Admin: 02/06/21 16:54 Dose: 1,000 mls/hr Documented by: Sodium Chloride (Normal Saline) 1,000 mls @ 999 mls/hr IV .BOLUS ONE Stop: 02/06/21 22:10 Last Admin: 02/06/21 21:23 Dose: 999 mls/hr Documented by: Ceftriaxone Sodium 1 gm/ (Sodium Chloride) 50 mls @ 100 mls/hr IV Q24H [facility] Last Admin: 02/07/21 21:12 Dose: 100 mls/hr Documented by: Sodium Chloride (Normal Saline) 1,000 mls @ 200 mls/hr IV ASDIRECTED [facility] Last Admin: 02/07/21 09:09 Dose: 200 mls/hr Documented by: Sodium Chloride (Normal Saline) 1,000 mls @ 100 mls/hr IV ASDIRECTED [facility] Last Admin: 02/08/21 03:02 Dose: 100 mls/hr Documented by: Influenza Virus Vaccine (Pharmacy To Dose - Influenza Vaccine) 1 each IM ONETIME ONE Stop: 02/08/21 10:01 Influenza Virus Vaccine (Flu Vacc Pa3873-32(6mos Up)/Pf 60 Mcg/0.5 Ml Syringe) 60 mcg IM .ONCE ONE Stop: 02/08/21 10:01 Lactulose (Lactulose Soln 10 Gm/15 Ml 15 Ml Ud Cup) 10 gm PO ONETIME ONE Stop: 02/07/21 11:31 Last Admin: 02/07/21 11:33 Dose: 10 gm Documented by: Lorazepam (Lorazepam 2 Mg/Ml Sdv) 1 mg IVPUSH Q2H PRN PRN Reason: Agitation Methylprednisolone Sodium Succinate (Methylprednisolone Sodium Succinate 125 Mg/2 Ml Sdv) 125 mg IVPUSH ONETIME ONE Stop: 02/07/21 11:31 Last Admin: 02/07/21 11:34 Dose: 125 mg Documented by: Mometasone Furoate/Formoterol Fumar (Formoterol/Mometasone 200-5 Mcg 8.8 Gm Inhaler) 1 puff IH BIDRT [facility] Last Admin: 02/08/21 07:14 Dose: 1 puff Documented by: Morphine Sulfate (Morphine 2 Mg/Ml Syringe) 2 mg IVPUSH Q2H PRN PRN Reason: Pain (severe 7-10) Last Admin: 02/08/21 00:59 Dose: 2 mg Documented by: Oxycodone HCl (Oxycodone 5 Mg Tab) 5 mg PO Q4H PRN PRN Reason: Pain Last Admin: 02/07/21 21:29 Dose: 5 mg Documented by: Pantoprazole Sodium (Pantoprazole 40 Mg Tab.Cr) 40 mg PO ACBREAKFAST [facility] Last Admin: 02/08/21 07:25 Dose: 40 mg Documented by: Pneumococcal Polyvalent Vaccine (Pneumococcal Polyvalent-23 Vaccine 0.5 Ml Sdv) 0.5 ml IM .ONCE ONE Stop: 02/08/21 10:01 Last Admin: 02/08/21 10:04 Dose: Not Given Documented by: Potassium Chloride (Potassium Chloride 10 Meq Cap.Er) 10 meq PO DAILY [facility] Last Admin: 02/08/21 10:05 Dose: Not Given Documented by: Pregabalin (Pregabalin 75 Mg Cap) 75 mg PO BID [facility] Tamoxifen Citrate (Tamoxifen 10 Mg Tab) 20 mg PO DAILY [facility] Last Admin: 02/08/21 10:05 Dose: Not Given Documented by: Trimethoprim/Sulfamethoxazole (Sulfamethoxazole/Trimethoprim 800-160 Mg Tab) 1 tab PO BID [facility] - Exam Quality Assessment: Supplemental Oxygen General: No Acute Distress, Obtunded. No: Alert, Cooperative Lungs: Normal Respiratory Effort, Decreased Breath Sounds (Both bases) Cardiovascular: Regular Rate, Regular Rhythm GI/Abdominal Exam: Soft, Distended, Tender (Diffuse) Extremities: No Pedal Edema. No: Increased Warmth Skin: Warm, Dry Psy/Mental Status: No: Alert, Agitated - Patient Data Lab Results Last 24 hrs: Laboratory Results - last 24 hr 02/07/21 02/07/21 02/08/21 Range/Units 20:59 20:59 05:23 WBC (4.5-11.0) K/uL RBC (3.30-5.50) M/uL Hgb (12.0-15.0) g/dL Hct (36.0-48.0) % MCV (80-98) fL MCH (27-31) pg MCHC (32-36) % Plt Count (150-400) K/uL Sodium 134 L (140-148) mmol/L Potassium 4.1 (3.6-5.2) mmol/L Chloride 100 (100-108) mmol/L Carbon Dioxide 24 (21-32) mmol/L Anion Gap 14.1 H (5.0-14.0) mmol/L BUN 29 H (7-18) mg/dL Creatinine 1.7 H (0.6-1.0) mg/dL Est Cr Clr Drug Dosing 28.75 mL/min Estimated GFR (MDRD) 32 L (>60) Glucose 194 H (74-106) mg/dL Lactic Acid 1.5 (0.4-2.0) mmol/L Calcium 10.8 H (8.5-10.1) mg/dL Total Bilirubin (0.2-1.0) mg/dL AST (15-37) U/L ALT (12-78) U/L Alkaline Phosphatase (46-116) U/L Ammonia 28 (11-32) umol/L Total Protein (6.4-8.2) g/dL Albumin (3.4-5.0) g/dL Globulin (2.3-3.5) g/dL Albumin/Globulin Ratio (1.2-2.2) 02/08/21 02/08/21 Range/Units 05:23 05:23 WBC 13.0 H (4.5-11.0) K/uL RBC 2.81 L (3.30-5.50) M/uL Hgb 8.4 L (12.0-15.0) g/dL Hct 26.7 L (36.0-48.0) % MCV 95 (80-98) fL MCH 30 (27-31) pg MCHC 32 (32-36) % Plt Count 18 L* (150-400) K/uL Sodium 133 L (140-148) mmol/L Potassium 4.3 (3.6-5.2) mmol/L Chloride 98 L (100-108) mmol/L Carbon Dioxide 22 (21-32) mmol/L Anion Gap 17.3 H (5.0-14.0) mmol/L BUN 36 H (7-18) mg/dL Creatinine 2.0 H (0.6-1.0) mg/dL Est Cr Clr Drug Dosing 24.44 mL/min Estimated GFR (MDRD) 26 L (>60) Glucose 203 H (74-106) mg/dL Lactic Acid (0.4-2.0) mmol/L Calcium 10.9 H (8.5-10.1) mg/dL Total Bilirubin 0.9 (0.2-1.0) mg/dL AST 189 H (15-37) U/L ALT 78 (12-78) U/L Alkaline Phosphatase 281 H (46-116) U/L Ammonia (11-32) umol/L Total Protein 6.7 (6.4-8.2) g/dL Albumin 2.8 L (3.4-5.0) g/dL Globulin 3.9 H (2.3-3.5) g/dL Albumin/Globulin Ratio 0.7 L (1.2-2.2) Result Diagrams: 02/08/21 05:23 02/08/21 05:23 Sepsis Event Note - Evaluation Sepsis Screening Result: Severe Sepsis Risk - Focused Exam Vital Signs: Vital Signs Temp Pulse Resp BP Pulse Ox 02/08/21 10:01 36.3 C 94 20 155/84 H 94 L 02/08/21 07:32 36.1 C 97 20 136/78 97 - Problem List Review Problem List Initiated/Reviewed/Updated: Yes - My Orders Last 24 Hours: My Active Orders 02/07/21 17:00 methylPREDNISolone Sod Succ [Solu-MEDROL] 62.5 mg IVPUSH Q8H 02/08/21 09:56 Resuscitation Status Routine 02/08/21 09:57 LORazepam [Ativan] 1 mg IVPUSH Q1H PRN 02/08/21 10:00 HYDROmorphone [Dilaudid] 1 mg IVPUSH Q1H PRN - Plan Plan:: Assessment/Plan - HYPERCALCEMIA-secondary to malignancy, concern for rapid cell turnover with elevated LDH and uric acid. No recent chemotherapy. I am concerned this may be her cancer cells dividing and dying rapidly. Calcium level slowly improving but everything else appears to be deteriorating. -Transition to comfort cares Acute kidney injury-level stable since admission. Urine output has has been p oor and creatinine is rising. METASTATIC BREAST CANCER-diagnosed with left breast cancer which has metastases to the bone. She had been on oral chemotherapy which was discontinued due to concerns that it may be causing her anemia and thrombocytopenia as well as elevation in hepatic panel numbers. She has a significant cancer burden in the bones and has deteriorated rapidly in recent weeks. Family is requesting a transition to comfort cares only at this time given grim prognosis. -Aggressive management of pain and anxiety ASCITES-relatively new occurrence with progression over the last few weeks. Unclear if related to thrombosis or malignant ascites. We did discuss diagnostic and therapeutic paracentesis as there is concern for SBP. Since we are transitioning to comfort cares only this procedure will be abandoned. ANEMIA AND THROMBOCYTOPENIA-levels are stable since admission. I suspect this is a result of bone marrow infiltration of the cancer with possible contribution from her recent oral chemotherapy. Maintenance issues -Nutrition: soft diet if she is able to eat anything -Pineda catheter -not indicated at this time -DVT -comfort care -GI -Daily PPI CODE STATUS: DNR/DNI with comfort care only Disposition: I would anticipate that she will in the next few days Zackery Vargas MD
[2021-02-08] MEDS: HYDROmorphone 1 MG/ML Syringe IVPUSH PRN (23:13)
[2021-02-09] MEDS: methylPREDNISolone Sodium Succinate 125 MG/2 ML SDV IVPUSH SCH ×2 (03:22→08:52)
[2021-02-09] MEDS: Nystatin Topical Powder 15 GM Bottle TOP SCH ×2 (05:25→08:18)
[2021-02-09] MEDS: HYDROmorphone 1 MG/ML Syringe IVPUSH PRN ×2 (05:48→08:49)
[2021-02-09] MEDS: Calcitonin (Salmon) Nasal Spray 3.7 ML Bottle NAS SCH (08:17)
[2021-02-09] MEDS: rOPINIRole 0.5 MG Tab PO SCH (08:18)
--- NOTE | 2021-02-09 11:02 | PCM.PN ---
- General Info Date of Service: 02/09/21 Subjective Update: There were no acute events overnight. Patient remains obtunded for the most part. She does occasionally wake up in a panic asking for water and then after a couple of sips goes back to sleep. She is resting comfortably. Her mom has been here with her. Pain seems to be well controlled. - Patient Data Vitals - Most Recent: Last Vital Signs Temp 35.9 C L 02/09/21 07:30 Pulse 83 02/09/21 07:30 Resp 18 02/09/21 07:30 BP 143/82 H 02/09/21 07:30 Pulse Ox 81 L 02/09/21 07:30 Weight - Most Recent: 73.482 kg I&O - Last 24 Hours: Intake & Output 02/08/21 02/09/21 02/09/21 22:59 06:59 14:59 Intake Total 953 Balance 953 Med Orders - Current: Current Medications Acetaminophen (Acetaminophen 325 Mg Tab) 650 mg PO Q4H PRN PRN Reason: Pain (Mild 1-3)/fever Acetaminophen (Acetaminophen 650 Mg Supp) 650 mg RECTAL Q4H PRN PRN Reason: Mild pain/fever Albuterol (Albuterol 0.083% 2.5 Mg/3 Ml Neb Soln) 2.5 mg NEB Q4H PRN PRN Reason: Shortness Of Breath/wheezing Bisacodyl (Bisacodyl 5 Mg Tab) 5 mg PO DAILY PRN PRN Reason: Constipation Brimonidine Tartrate (Brimonidine 0.2% Ophth Soln 5 Ml Bottle) 0 ml EYEBOTH ASDIRECTED [facility] Docusate Sodium (Docusate Sodium 100 Mg Cap) 100 mg PO BID PRN PRN Reason: Constipation Hydromorphone HCl (Hydromorphone 1 Mg/Ml Syringe) 1 mg IVPUSH Q1H PRN PRN Reason: Pain Last Admin: 02/09/21 08:49 Dose: 1 mg Documented by: Lorazepam (Lorazepam 2 Mg/Ml Sdv) 1 mg IVPUSH Q1H PRN PRN Reason: Anxiety/Agitation Methylprednisolone Sodium Succinate (Methylprednisolone Sodium Succinate 125 Mg/2 Ml Sdv) 62.5 mg IVPUSH Q8H ESTEVAN Last Admin: 02/09/21 08:52 Dose: 62.5 mg Documented by: Non-Formulary Medication (Lifitegrast [Xiidra]) 1 drop EYEBOTH BID [facility] Ondansetron HCl (Ondansetron 4 Mg Tab.Dis) 8 mg PO Q8H PRN PRN Reason: Nausea/Vomiting Last Admin: 02/07/21 22:26 Dose: 8 mg Documented by: Discontinued Medications Albuterol/Ipratropium (Albuterol/Ipratropium 3.0-0.5 Mg/3 Ml Neb Soln) 3 ml NEB QID PRN PRN Reason: Shortness Of Breath/wheezing Allopurinol (Allopurinol 100 Mg Tab) 100 mg PO DAILY [facility] Last Admin: 02/08/21 10:05 Dose: Not Given Documented by: Alprazolam (Alprazolam 0.5 Mg Tab) 0.5 mg PO Q6H PRN PRN Reason: Anxiety Last Admin: 02/07/21 21:31 Dose: 0.5 mg Documented by: Calcitonin [place] (Calcitonin ([place]) Nasal [place] 3.7 Ml Bottle) 0 ml ENRIQUE DAILY [facility] Last Admin: 02/09/21 08:17 Dose: Not Given Documented by: Cetirizine HCl (Cetirizine 10 Mg Tab) 10 mg PO BID PRN PRN Reason: Allergies Escitalopram Oxalate (Escitalopram 20 Mg Tab) 20 mg PO DAILY [facility] Last Admin: 02/08/21 10:05 Dose: Not Given Documented by: Furosemide (Furosemide 40 Mg/4 Ml Vial) 40 mg IVPUSH ONETIME ONE Stop: 02/06/21 22:31 Last Admin: 02/06/21 22:55 Dose: 40 mg Documented by: Furosemide (Furosemide 40 Mg/4 Ml Vial) 40 mg IVPUSH ONETIME ONE Stop: 02/07/21 04:11 Last Admin: 02/07/21 04:52 Dose: 40 mg Documented by: Furosemide (Furosemide 40 Mg/4 Ml Vial) 40 mg IVPUSH NOW ONE Stop: 02/07/21 12:01 Last Admin: 02/07/21 11:34 Dose: 40 mg Documented by: Furosemide (Furosemide 20 Mg/2 Ml Vial) 20 mg IVPUSH NOW ONE Stop: 02/07/21 20:01 Last Admin: 02/07/21 21:10 Dose: 20 mg Documented by: Furosemide (Furosemide 20 Mg/2 Ml Vial) 20 mg IVPUSH ONETIME ONE Stop: 02/08/21 10:01 Last Admin: 02/08/21 10:27 Dose: Not Given Documented by: Hydromorphone HCl (Hydromorphone 1 Mg/Ml Syringe) 1 mg IVPUSH ONETIME ONE Stop: 02/06/21 21:12 Last Admin: 02/06/21 21:38 Dose: 1 mg Documented by: Hydromorphone HCl (Hydromorphone 0.5 Mg/0.5 Ml Syringe) 0.5 mg IVPUSH Q4H PRN PRN Reason: Pain (severe 7-10) Sodium Chloride (Normal Saline) 1,000 mls @ 1,000 mls/hr IV .BOLUS ONE Stop: 02/06/21 17:32 Last Admin: 02/06/21 16:54 Dose: 1,000 mls/hr Documented by: Sodium Chloride (Normal Saline) 1,000 mls @ 999 mls/hr IV .BOLUS ONE Stop: 02/06/21 22:10 Last Admin: 02/06/21 21:23 Dose: 999 mls/hr Documented by: Ceftriaxone Sodium 1 gm/ (Sodium Chloride) 50 mls @ 100 mls/hr IV Q24H [facility] Last Admin: 02/07/21 21:12 Dose: 100 mls/hr Documented by: Sodium Chloride (Normal Saline) 1,000 mls @ 200 mls/hr IV ASDIRECTED [facility] Last Admin: 02/07/21 09:09 Dose: 200 mls/hr Documented by: Sodium Chloride (Normal Saline) 1,000 mls @ 100 mls/hr IV ASDIRECTED [facility] Last Admin: 02/08/21 03:02 Dose: 100 mls/hr Documented by: Influenza Virus Vaccine (Pharmacy To Dose - Influenza Vaccine) 1 each IM ONETIME ONE Stop: 02/08/21 10:01 Influenza Virus Vaccine (Flu Vacc [id number](6mos Up)/Pf 60 Mcg/0.5 Ml Syringe) 60 mcg IM .ONCE ONE Stop: 02/08/21 10:01 Lactulose (Lactulose Soln 10 Gm/15 Ml 15 Ml Ud Cup) 10 gm PO ONETIME ONE Stop: 02/07/21 11:31 Last Admin: 02/07/21 11:33 Dose: 10 gm Documented by: Lorazepam (Lorazepam 2 Mg/Ml Sdv) 1 mg IVPUSH Q2H PRN PRN Reason: Agitation Methylprednisolone Sodium Succinate (Methylprednisolone Sodium Succinate 125 Mg/2 Ml Sdv) 125 mg IVPUSH ONETIME ONE Stop: 02/07/21 11:31 Last Admin: 02/07/21 11:34 Dose: 125 mg Documented by: Mometasone Furoate/Formoterol Fumar (Formoterol/Mometasone 200-5 Mcg 8.8 Gm Inhaler) 1 puff IH BIDRT [facility] Last Admin: 02/08/21 07:14 Dose: 1 puff Documented by: Morphine Sulfate (Morphine 2 Mg/Ml Syringe) 2 mg IVPUSH Q2H PRN PRN Reason: Pain (severe 7-10) Last Admin: 02/08/21 00:59 Dose: 2 mg Documented by: Nystatin (Nystatin Topical Powder 15 Gm Bottle) 1 gm TOP QID [facility] Last Admin: 02/09/21 08:18 Dose: Not Given Documented by: Oxycodone HCl (Oxycodone 5 Mg Tab) 5 mg PO Q4H PRN PRN Reason: Pain Last Admin: 02/07/21 21:29 Dose: 5 mg Documented by: Pantoprazole Sodium (Pantoprazole 40 Mg Tab.Cr) 40 mg PO ACBREAKFAST [facility] Last Admin: 02/08/21 07:25 Dose: 40 mg Documented by: Pneumococcal Polyvalent Vaccine (Pneumococcal Polyvalent-23 Vaccine 0.5 Ml Sdv) 0.5 ml IM .ONCE ONE Stop: 02/08/21 10:01 Last Admin: 02/08/21 10:04 Dose: Not Given Documented by: Potassium Chloride (Potassium Chloride 10 Meq Cap.Er) 10 meq PO DAILY [facility] Last Admin: 02/08/21 10:05 Dose: Not Given Documented by: Pregabalin (Pregabalin 75 Mg Cap) 75 mg PO BID [facility] Ropinirole HCl (Ropinirole 0.5 Mg Tab) 0.5 mg PO TID [facility] Last Admin: 02/09/21 08:18 Dose: Not Given Documented by: Tamoxifen Citrate (Tamoxifen 10 Mg Tab) 20 mg PO DAILY [facility] Last Admin: 02/08/21 10:05 Dose: Not Given Documented by: Trimethoprim/Sulfamethoxazole (Sulfamethoxazole/Trimethoprim 800-160 Mg Tab) 1 tab PO BID [facility] - Exam Quality Assessment: No: Supplemental Oxygen General: No Acute Distress, Obtunded. No: Alert Lungs: Normal Respiratory Effort GI/Abdominal Exam: Distended Extremities: No Pedal Edema. No: Mottled Skin: Warm, Dry Psy/Mental Status: No: Alert, Agitated - Patient Data Result Diagrams: 02/08/21 05:23 02/08/21 05:23 Sepsis Event Note - Evaluation Sepsis Screening Result: Severe Sepsis Risk - Focused Exam Vital Signs: Vital Signs Temp Pulse Resp BP Pulse Ox 02/09/21 07:30 35.9 C L 83 18 143/82 H 81 L - Problem List Review Problem List Initiated/Reviewed/Updated: Yes - My Orders Last 24 Hours: My Active Orders 02/09/21 11:01 LORazepam [Ativan ORAL Concentrate 1MG/0.5 ML U/D] 1 mg PO Q1H PRN 02/09/21 11:01 Morphine [Morphine 10 MG/0.5 ML Oral Syringe] 10 mg PO Q1H PRN - Plan Plan:: Assessment/Plan - HYPERCALCEMIA-secondary to malignancy, concern for rapid cell turnover with e levated LDH and uric acid. No recent chemotherapy. I am concerned this is related to her cancer cells dividing and dying rapidly. Calcium level slowly improving but everything else appears to be deteriorating. -Transition to comfort cares Acute kidney injury-level stable since admission. Urine output has been minimal. METASTATIC BREAST CANCER-diagnosed with left breast cancer which has metastases to the bone. She had been on oral chemotherapy which was discontinued due to concerns that it may be causing her anemia and thrombocytopenia as well as elevation in hepatic panel numbers. She has a significant cancer burden in the bones and has deteriorated rapidly in recent weeks. Family has requested a transition to comfort cares only at this time given grim prognosis. -Aggressive management of pain and anxiety ASCITES-relatively new occurrence with progression over the last few weeks. Unclear if related to thrombosis or malignant ascites. We did discuss diagnostic and therapeutic paracentesis as there is concern for SBP. We have transitioned to comfort cares only this procedure was abandoned. ANEMIA AND THROMBOCYTOPENIA-I suspect this is a result of bone marrow infiltrat ion of the cancer. Maintenance issues -Nutrition: soft diet if she is able to eat anything -Pineda catheter -not indicated at this time -DVT -comfort care -GI -not indicated CODE STATUS: DNR/DNI with comfort care only Disposition: I would anticipate that she will in the next few days Zackery Vargas MD
[2021-02-09] MEDS: Non-Formulary Medication 1 Each (Lifitegrast [Xiidra] 1 EACH Droperette) EYEBOTH SCH ×2 (11:40→11:41)
[2021-02-09] MEDS: LORazepam ORAL Concentrate 1MG/0.5ML U/D PO PRN ×3 (13:35→19:16)
[2021-02-09] MEDS: Morphine 10 MG/0.5 ML Oral Syringe PO PRN ×4 (13:35→19:15)
[2021-02-10] MEDS: Morphine 10 MG/0.5 ML Oral Syringe PO PRN ×11 (01:34→21:10)
[2021-02-10] MEDS: LORazepam ORAL Concentrate 1MG/0.5ML U/D PO PRN ×11 (01:34→21:10)
[2021-02-10 07:24] VITALS: BP 126/68; PULSE 89
--- NOTE | 2021-02-10 13:57 | PCM.PN ---
- General Info Date of Service: 02/10/21 Subjective Update: Ms. Castillo is currently on comfort cares because of her end-stage breast cancer. She experienced more agitation during the night but with increased dosing of her medication is more comfortable now this morning. Because of her sedation she is unable to provide meaningful information concerning symptoms or review of systems. - Patient Data Vitals - Most Recent: Last Vital Signs Temp 97.8 F 02/10/21 07:20 Pulse 89 02/10/21 07:20 Resp 18 02/10/21 07:20 BP 126/68 02/10/21 07:20 Pulse Ox 79 L 02/10/21 07:20 Weight - Most Recent: 162 lb Med Orders - Current: Current Medications Acetaminophen (Acetaminophen 325 Mg Tab) 650 mg PO Q4H PRN PRN Reason: Pain (Mild 1-3)/fever Acetaminophen (Acetaminophen 650 Mg Supp) 650 mg RECTAL Q4H PRN PRN Reason: Mild pain/fever Albuterol (Albuterol 0.083% 2.5 Mg/3 Ml Neb Soln) 2.5 mg NEB Q4H PRN PRN Reason: Shortness Of Breath/wheezing Bisacodyl (Bisacodyl 5 Mg Tab) 5 mg PO DAILY PRN PRN Reason: Constipation Docusate Sodium (Docusate Sodium 100 Mg Cap) 100 mg PO BID PRN PRN Reason: Constipation Hydromorphone HCl (Hydromorphone 1 Mg/Ml Syringe) 1 mg IVPUSH Q1H PRN PRN Reason: Pain (severe 7-10) Last Admin: 02/09/21 08:49 Dose: 1 mg Documented by: Lorazepam (Lorazepam 2 Mg/Ml Sdv) 1 mg IVPUSH Q1H PRN PRN Reason: severe anxiety Lorazepam (Lorazepam Oral Concentrate 1mg/0.5ml U/D) 1 mg PO Q1H PRN PRN Reason: anxiety/restlessness Last Admin: 02/10/21 11:37 Dose: 1 mg Documented by: Morphine Sulfate (Morphine 10 Mg/0.5 Ml Oral Syringe) 20 mg PO Q1H PRN PRN Reason: pain/air hunger Last Admin: 02/10/21 11:37 Dose: 20 mg Documented by: Ondansetron HCl (Ondansetron 4 Mg Tab.Dis) 8 mg PO Q8H PRN PRN Reason: Nausea/Vomiting Last Admin: 02/07/21 22:26 Dose: 8 mg Documented by: Discontinued Medications Albuterol/Ipratropium (Albuterol/Ipratropium 3.0-0.5 Mg/3 Ml Neb Soln) 3 ml NEB QID PRN PRN Reason: Shortness Of Breath/wheezing Allopurinol (Allopurinol 100 Mg Tab) 100 mg PO DAILY [facility] Last Admin: 02/08/21 10:05 Dose: Not Given Documented by: Alprazolam (Alprazolam 0.5 Mg Tab) 0.5 mg PO Q6H PRN PRN Reason: Anxiety Last Admin: 02/07/21 21:31 Dose: 0.5 mg Documented by: Brimonidine Tartrate (Brimonidine 0.2% Ophth Soln 5 Ml Bottle) 0 ml EYEBOTH ASDIRECTED [facility] Calcitonin [place] (Calcitonin ([place]) Nasal [place] 3.7 Ml Bottle) 0 ml ENRIQUE DA MACHO [facility] Last Admin: 02/09/21 08:17 Dose: Not Given Documented by: Cetirizine HCl (Cetirizine 10 Mg Tab) 10 mg PO BID PRN PRN Reason: Allergies Escitalopram Oxalate (Escitalopram 20 Mg Tab) 20 mg PO DAILY [facility] Last Admin: 02/08/21 10:05 Dose: Not Given Documented by: Furosemide (Furosemide 40 Mg/4 Ml Vial) 40 mg IVPUSH ONETIME ONE Stop: 02/06/21 22:31 Last Admin: 02/06/21 22:55 Dose: 40 mg Documented by: Furosemide (Furosemide 40 Mg/4 Ml Vial) 40 mg IVPUSH ONETIME ONE Stop: 02/07/21 04:11 Last Admin: 02/07/21 04:52 Dose: 40 mg Documented by: Furosemide (Furosemide 40 Mg/4 Ml Vial) 40 mg IVPUSH NOW ONE Stop: 02/07/21 12:01 Last Admin: 02/07/21 11:34 Dose: 40 mg Documented by: Furosemide (Furosemide 20 Mg/2 Ml Vial) 20 mg IVPUSH NOW ONE Stop: 02/07/21 20:01 Last Admin: 02/07/21 21:10 Dose: 20 mg Documented by: Furosemide (Furosemide 20 Mg/2 Ml Vial) 20 mg IVPUSH ONETIME ONE Stop: 02/08/21 10:01 Last Admin: 02/08/21 10:27 Dose: Not Given Documented by: Hydromorphone HCl (Hydromorphone 1 Mg/Ml Syringe) 1 mg IVPUSH ONETIME ONE Stop: 02/06/21 21:12 Last Admin: 02/06/21 21:38 Dose: 1 mg Documented by: Hydromorphone HCl (Hydromorphone 0.5 Mg/0.5 Ml Syringe) 0.5 mg IVPUSH Q4H PRN PRN Reason: Pain (severe 7-10) Sodium Chloride (Normal Saline) 1,000 mls @ 1,000 mls/hr IV .BOLUS ONE Stop: 02/06/21 17:32 Last Admin: 02/06/21 16:54 Dose: 1,000 mls/hr Documented by: Sodium Chloride (Normal Saline) 1,000 mls @ 999 mls/hr IV .BOLUS ONE Stop: 02/06/21 22:10 Last Admin: 02/06/21 21:23 Dose: 999 mls/hr Documented by: Ceftriaxone Sodium 1 gm/ (Sodium Chloride) 50 mls @ 100 mls/hr IV Q24H [facility] Last Admin: 02/07/21 21:12 Dose: 100 mls/hr Documented by: Sodium Chloride (Normal Saline) 1,000 mls @ 200 mls/hr IV ASDIRECTED [facility] Last Admin: 02/07/21 09:09 Dose: 200 mls/hr Documented by: Sodium Chloride (Normal Saline) 1,000 mls @ 100 mls/hr IV ASDIRECTED [facility] Last Admin: 02/08/21 03:02 Dose: 100 mls/hr Documented by: Influenza Virus Vaccine (Pharmacy To Dose - Influenza Vaccine) 1 each IM ONETIME ONE Stop: 02/08/21 10:01 Influenza Virus Vaccine (Flu Vacc [id number](6mos Up)/Pf 60 Mcg/0.5 Ml Syringe) 60 mcg IM .ONCE ONE Stop: 02/08/21 10:01 Lactulose (Lactulose Soln 10 Gm/15 Ml 15 Ml Ud Cup) 10 gm PO ONETIME ONE Stop: 02/07/21 11:31 Last Admin: 02/07/21 11:33 Dose: 10 gm Documented by: Lorazepam (Lorazepam 2 Mg/Ml Sdv) 1 mg IVPUSH Q2H PRN PRN Reason: Agitation Methylprednisolone Sodium Succinate (Methylprednisolone Sodium Succinate 125 Mg/2 Ml Sdv) 125 mg IVPUSH ONETIME ONE Stop: 02/07/21 11:31 Last Admin: 02/07/21 11:34 Dose: 125 mg Documented by: Methylprednisolone Sodium Succinate (Methylprednisolone Sodium Succinate 125 Mg/2 Ml Sdv) 62.5 mg IVPUSH Q8H [facility] Last Admin: 02/09/21 08:52 Dose: 62.5 mg Documented by: Mometasone Furoate/Formoterol Fumar (Formoterol/Mometasone 200-5 Mcg 8.8 Gm Inhaler) 1 puff IH BIDRT [facility] Last Admin: 02/08/21 07:14 Dose: 1 puff Documented by: Morphine Sulfate (Morphine 2 Mg/Ml Syringe) 2 mg IVPUSH Q2H PRN PRN Reason: Pain (severe 7-10) Last Admin: 02/08/21 00:59 Dose: 2 mg Documented by: Morphine Sulfate (Morphine 10 Mg/0.5 Ml Oral Syringe) 10 mg PO Q1H PRN PRN Reason: pain/air hunger Last Admin: 02/10/21 06:04 Dose: 10 mg Documented by: Non-Formulary Medication (Lifitegrast [Xiidra]) 1 drop EYEBOTH BID [facility] Last Admin: 02/09/21 11:41 Dose: Not Given Documented by: Nystatin (Nystatin Topical Powder 15 Gm Bottle) 1 gm TOP QID [facility] Last Admin: 02/09/21 08:18 Dose: Not Given Documented by: Oxycodone HCl (Oxycodone 5 Mg Tab) 5 mg PO Q4H PRN PRN Reason: Pain Last Admin: 02/07/21 21:29 Dose: 5 mg Documented by: Pantoprazole Sodium (Pantoprazole 40 Mg Tab.Cr) 40 mg PO ACBREAKFAST [facility] Last Admin: 02/08/21 07:25 Dose: 40 mg Documented by: Pneumococcal Polyvalent Vaccine (Pneumococcal Polyvalent-23 Vaccine 0.5 Ml Sdv) 0.5 ml IM .ONCE ONE Stop: 02/08/21 10:01 Last Admin: 02/08/21 10:04 Dose: Not Given Documented by: Potassium Chloride (Potassium Chloride 10 Meq Cap.Er) 10 meq PO DAILY [facility] Last Admin: 02/08/21 10:05 Dose: Not Given Documented by: Pregabalin (Pregabalin 75 Mg Cap) 75 mg PO BID [facility] Ropinirole HCl (Ropinirole 0.5 Mg Tab) 0.5 mg PO TID [facility] Last Admin: 02/09/21 08:18 Dose: Not Given Documented by: Tamoxifen Citrate (Tamoxifen 10 Mg Tab) 20 mg PO DAILY [facility] Last Admin: 02/08/21 10:05 Dose: Not Given Documented by: Trimethoprim/Sulfamethoxazole (Sulfamethoxazole/Trimethoprim 800-160 Mg Tab) 1 tab PO BID [facility] - Exam General: Sedated, Lethargic Lungs: Clear to Auscultation, Normal Respiratory Effort Cardiovascular: Regular Rate, Regular Rhythm, No Murmurs GI/Abdominal Exam: Soft, Non-Tender, No Organomegaly, No Distention Extremities: Non-Tender, No Pedal Edema - Patient Data Result Diagrams: 02/08/21 05:23 02/08/21 05:23 Sepsis Event Note - Evaluation Sepsis Screening Result: Severe Sepsis Risk - Focused Exam Vital Signs: Vital Signs Temp Pulse Resp BP Pulse Ox 02/10/21 07:20 97.8 F 89 18 126/68 79 L - Problem List Review Problem List Initiated/Reviewed/Updated: Yes - Plan Plan:: Assessment/Plan - HYPERCALCEMIA -comfort cares Acute kidney injury-level stable since admission. Urine output has been minimal. METASTATIC BREAST CANCER-diagnosed with left breast cancer which has metastases to the bone. Family has requested a transition to comfort cares only at this time given grim prognosis. -Aggressive management of pain and anxiety ASCITES-relatively new occurrence with progression over the last few weeks. ANEMIA AND THROMBOCYTOPENIA-I suspect this is a result of bone marrow infiltration of the cancer. PALLIATIVE CARE-family does not want aggressive interventions or evaluation -Morphine and lorazepam as needed for comfort Maintenance issues -Nutrition: soft diet if she is able to eat anything -Pineda catheter -not indicated at this time -DVT -comfort care -GI -not indicated CODE STATUS: DNR/DNI with comfort care only Disposition: I would anticipate that she will in the next few days
[2021-02-10] MEDS: Non-Formulary Medication 1 Each (Lifitegrast [Xiidra] 1 EACH Droperette) EYEBOTH SCH (18:12)
--- NOTE | 2021-02-11 08:29 | PCM.DCSUM1 ---
Discharge Summary - Hospital Course Brief History: Ms. Castillo was a 50-year-old woman who was admitted through the emergency department with a 1 week history of poor oral intake, progressive weakness, and decreased level of consciousness. This was felt to be secondary to the effects of her metastatic breast cancer and developing hypercalcemia. - Discharge Data Discharge Date: 02/10/21 Discharge Disposition: 20 Condition: - Referral to [facility] Primary Care Physician: Madelyn Cline DO - Discharge Diagnosis/Problem(s) (1) Metastatic breast carcinoma SNOMED Code(s): 945292242, 805207962 ICD Code: C50.919 - MALIGNANT NEOPLASM OF UNSP SITE OF UNSPECIFIED FEMALE BREAST Status: Acute (2) Palliative care status SNOMED Code(s): 359501245 ICD Code: Z51.5 - ENCOUNTER FOR PALLIATIVE CARE Status: Acute (3) Abdominal ascites SNOMED Code(s): 589520996 ICD Code: R18.8 - OTHER ASCITES Status: Acute Priority: High Qualifiers: Ascites type: other type Qualified Code(s): R18.8 - Other ascites (4) Abdominal pain SNOMED Code(s): 81593331 ICD Code: R10.9 - UNSPECIFIED ABDOMINAL PAIN Status: Acute Priority: Medium Qualifiers: Abdominal location: generalized Qualified Code(s): R10.84 - Generalized abdominal pain (5) Anemia SNOMED Code(s): 343670161 ICD Code: D64.9 - ANEMIA, UNSPECIFIED Status: Acute Priority: High Qualifiers: Anemia type: due to chronic kidney disease Chronic kidney disease stage: stage 4 (severe) Qualified Code(s): N18.4 - Chronic kidney disease, stage 4 (severe); D63.1 - Anemia in chronic kidney disease (6) Hypercalcemia SNOMED Code(s): 25034593 ICD Code: E83.52 - HYPERCALCEMIA Status: Acute Priority: High (7) Renal failure SNOMED Code(s): 40231445 ICD Code: N19 - UNSPECIFIED KIDNEY FAILURE Status: Acute Priority: High Qualifiers: Renal failure chronicity: acute - Patient Summary/Data Hospital Course: Ms. Castillo was a 50-year-old woman with a known history of metastatic breast cancer. She had recently been receiving oral chemotherapy for ongoing management. Her end-stage breast cancer was complicated by anemia and thrombocytopenia, as well as developing hypercalcemia. In the week prior to admission she was noted to become progressively more weak with poor oral intake and decreased level of consciousness. She was brought into the emergency department for further evaluation. She was unable to provide meaningful information concerning recent symptoms or review of systems because of her decreased level of consciousness. Calcium level was found to be elevated greater than 13 and she was also noted to have acute kidney injury. She was treated with calcitonin as well as IV fluids and regular dosing of furosemide. She was noted to have modest improvement in her calcium level but continued to experience progressive decline in her renal function. She remains very weak and lethargic and appear to be uncomfortable with abdominal pain when she was awake. She was unable to participate in meaningful conversation concerning her wishes for ongoing management. This discussion was held with her parents, was explained that the current findings and medical issues were likely related to her progressive metastatic breast cancer. Her mother and father felt that she would not want further aggressive interventions or evaluation. Discussion was held concerning possible paracentesis as well as transfer for further subspecialty evaluation. They requested that she be transitioned to comfort cares only, with possible hospice admission if she survives the hospital stay. She was treated with morphine and lorazepam as needed for comfort. She on the evening of February 10, no attempts were made at resuscitation as per family's previously expressed wishes. - Discharge Plan Home Medications: Home Meds Cholecalciferol (Vitamin D3) [Vitamin D3] 1 tab PO Q7D 07/31/18 [History] Diclofenac Sodium 4 gram TOP Q6H PRN 02/15/19 [History] Escitalopram [Lexapro] 20 mg PO DAILY 08/19/19 [History] Ondansetron [Zofran ODT] 8 mg PO Q8H PRN tab.dis 09/05/19 [Rx] Furosemide [Lasix] 20 mg PO DAILY 04/07/20 [History] ALPRAZolam [Xanax] 1 mg PO DAILY PRN 06/19/20 [History] Albuterol Sulfate [Proair Hfa] 2 puff INH TID PRN 06/19/20 [History] Cetirizine HCl [Zyrtec] 10 mg PO BID PRN 06/19/20 [History] Omeprazole 40 mg PO DAILY 06/19/20 [History] Potassium Chloride 10 meq PO DAILY 06/19/20 [History] Prochlorperazine Maleate [Compazine] 10 mg PO Q6H PRN 06/19/20 [History] oxyCODONE 5 mg PO Q4H PRN 06/19/20 [History] Rivaroxaban [Xarelto] 20 mg PO DAILY 12/26/20 [History] Brimonidine [Alphagan 0.2% Ophth Soln] 1 drop EYEBOTH ASDIRECTED 02/06/21 [History] Docusate Sodium 200 mg PO DAILY 02/06/21 [History] EPINEPHrine [Epinephrine] 0.3 mg IJ ASDIRECTED 02/06/21 [History] Fluticasone Propion/Salmeterol [Wixela 250-50 Inhub] 1 puff INH BID 02/06/21 [History] Lifitegrast [Xiidra] 1 drop EYEBOTH BID 02/06/21 [History] Nystatin 1 applic TOP QID 02/06/21 [History] Pregabalin 75 mg PO BID 02/06/21 [History] Tamoxifen [Nolvadex] 20 mg PO DAILY 02/06/21 [History] polyethylene glycoL 3350 [Polyethylene Glycol 3350] 1 dose PO DAILY 02/06/21 [History] rOPINIRole [Requip] 0.5 mg PO TID 02/06/21 [History] - Discharge Summary/Plan Comment DC Time >30 min.: No Total # of Minutes for Discharge Time: 20 - Patient Data Vitals - Most Recent: Last Vital Signs Temp 97.8 F 02/10/21 07:20 Pulse 89 02/10/21 07:20 Resp 18 02/10/21 16:46 BP 126/68 02/10/21 07:20 Pulse Ox 79 L 02/10/21 07:20 Weight - Most Recent: 162 lb Med Orders - Current: Current Medications Discontinued Medications Acetaminophen (Acetaminophen 325 Mg Tab) 650 mg PO Q4H PRN PRN Reason: Pain (Mild 1-3)/fever Acetaminophen (Acetaminophen 650 Mg Supp) 650 mg RECTAL Q4H PRN PRN Reason: Mild pain/fever Albuterol (Albuterol 0.083% 2.5 Mg/3 Ml Neb Soln) 2.5 mg NEB Q4H PRN PRN Reason: Shortness Of Breath/wheezing Albuterol/Ipratropium (Albuterol/Ipratropium 3.0-0.5 Mg/3 Ml Neb Soln) 3 ml NEB QID PRN PRN Reason: Shortness Of Breath/wheezing Allopurinol (Allopurinol 100 Mg Tab) 100 mg PO DAILY [facility] Last Admin: 02/08/21 10:05 Dose: Not Given Documented by: Alprazolam (Alprazolam 0.5 Mg Tab) 0.5 mg PO Q6H PRN PRN Reason: Anxiety Last Admin: 02/07/21 21:31 Dose: 0.5 mg Documented by: Bisacodyl (Bisacodyl 5 Mg Tab) 5 mg PO DAILY PRN PRN Reason: Constipation Brimonidine Tartrate (Brimonidine 0.2% Ophth Soln 5 Ml Bottle) 0 ml EYEBOTH ASDIRECTED [facility] Calcitonin [place] (Calcitonin ([place]) Nasal [place] 3.7 Ml Bottle) 0 ml ENRIQUE DAILY [facility] Last Admin: 02/09/21 08:17 Dose: Not Given Documented by: Cetirizine HCl (Cetirizine 10 Mg Tab) 10 mg PO BID PRN PRN Reason: Allergies Docusate Sodium (Docusate Sodium 100 Mg Cap) 100 mg PO BID PRN PRN Reason: Constipation Escitalopram Oxalate (Escitalopram 20 Mg Tab) 20 mg PO DAILY [facility] Last Admin: 02/08/21 10:05 Dose: Not Given Documented by: Furosemide (Furosemide 40 Mg/4 Ml Vial) 40 mg IVPUSH ONETIME ONE Stop: 02/06/21 22:31 Last Admin: 02/06/21 22:55 Dose: 40 mg Documented by: Furosemide (Furosemide 40 Mg/4 Ml Vial) 40 mg IVPUSH ONETIME ONE Stop: 02/07/21 04:11 Last Admin: 02/07/21 04:52 Dose: 40 mg Documented by: Furosemide (Furosemide 40 Mg/4 Ml Vial) 40 mg IVPUSH NOW ONE Stop: 02/07/21 12:01 Last Admin: 02/07/21 11:34 Dose: 40 mg Documented by: Furosemide (Furosemide 20 Mg/2 Ml Vial) 20 mg IVPUSH NOW ONE Stop: 02/07/21 20:01 Last Admin: 02/07/21 21:10 Dose: 20 mg Documented by: Furosemide (Furosemide 20 Mg/2 Ml Vial) 20 mg IVPUSH ONETIME ONE Stop: 02/08/21 10:01 Last Admin: 02/08/21 10:27 Dose: Not Given Documented by: Hydromorphone HCl (Hydromorphone 1 Mg/Ml Syringe) 1 mg IVPUSH ONETIME ONE Stop: 02/06/21 21:12 Last Admin: 02/06/21 21:38 Dose: 1 mg Documented by: Hydromorphone HCl (Hydromorphone 0.5 Mg/0.5 Ml Syringe) 0.5 mg IVPUSH Q4H PRN PRN Reason: Pain (severe 7-10) Hydromorphone HCl (Hydromorphone 1 Mg/Ml Syringe) 1 mg IVPUSH Q1H PRN PRN Reason: Pain (severe 7-10) Last Admin: 02/09/21 08:49 Dose: 1 mg Documented by: Sodium Chloride (Normal Saline) 1,000 mls @ 1,000 mls/hr IV .BOLUS ONE Stop: 02/06/21 17:32 Last Admin: 02/06/21 16:54 Dose: 1,000 mls/hr Documented by: Sodium Chloride (Normal Saline) 1,000 mls @ 999 mls/hr IV .BOLUS ONE Stop: 02/06/21 22:10 Last Admin: 02/06/21 21:23 Dose: 999 mls/hr Documented by: Ceftriaxone Sodium 1 gm/ (Sodium Chloride) 50 mls @ 100 mls/hr IV Q24H [facility] Last Admin: 02/07/21 21:12 Dose: 100 mls/hr Documented by: Sodium Chloride (Normal Saline) 1,000 mls @ 200 mls/hr IV ASDIRECTED [facility] Last Admin: 02/07/21 09:09 Dose: 200 mls/hr Documented by: Sodium Chloride (Normal Saline) 1,000 mls @ 100 mls/hr IV ASDIRECTED [facility] Last Admin: 02/08/21 03:02 Dose: 100 mls/hr Documented by: Influenza Virus Vaccine (Pharmacy To Dose - Influenza Vaccine) 1 each IM ONETIME ONE Stop: 02/08/21 10:01 Influenza Virus Vaccine (Flu Vacc [id number](6mos Up)/Pf 60 Mcg/0.5 Ml Syringe) 60 mcg IM .ONCE ONE Stop: 02/08/21 10:01 Lactulose (Lactulose Soln 10 Gm/15 Ml 15 Ml Ud Cup) 10 gm PO ONETIME ONE Stop: 02/07/21 11:31 Last Admin: 02/07/21 11:33 Dose: 10 gm Documented by: Lorazepam (Lorazepam 2 Mg/Ml Sdv) 1 mg IVPUSH Q2H PRN PRN Reason: Agitation Lorazepam (Lorazepam 2 Mg/Ml Sdv) 1 mg IVPUSH Q1H PRN PRN Reason: severe anxiety Lorazepam (Lorazepam Oral Concentrate 1mg/0.5ml U/D) 1 mg PO Q1H PRN PRN Reason: anxiety/restlessness Last Admin: 02/10/21 21:10 Dose: 1 mg Documented by: Methylprednisolone Sodium Succinate (Methylprednisolone Sodium Succinate 125 Mg/2 Ml Sdv) 125 mg IVPUSH ONETIME ONE Stop: 02/07/21 11:31 Last Admin: 02/07/21 11:34 Dose: 125 mg Documented by: Methylprednisolone Sodium Succinate (Methylprednisolone Sodium Succinate 125 Mg/2 Ml Sdv) 62.5 mg IVPUSH Q8H [facility] Last Admin: 02/09/21 08:52 Dose: 62.5 mg Documented by: Mometasone Furoate/Formoterol Fumar (Formoterol/Mometasone 200-5 Mcg 8.8 Gm Inhaler) 1 puff IH BIDRT [facility] Last Admin: 02/08/21 07:14 Dose: 1 puff Documented by: Morphine Sulfate (Morphine 2 Mg/Ml Syringe) 2 mg IVPUSH Q2H PRN PRN Reason: Pain (severe 7-10) Last Admin: 02/08/21 00:59 Dose: 2 mg Documented by: Morphine Sulfate (Morphine 10 Mg/0.5 Ml Oral Syringe) 10 mg PO Q1H PRN PRN Reason: pain/air hunger Last Admin: 02/10/21 06:04 Dose: 10 mg Documented by: Morphine Sulfate (Morphine 10 Mg/0.5 Ml Oral Syringe) 20 mg PO Q1H PRN PRN Reason: pain/air hunger Last Admin: 02/10/21 21:10 Dose: 20 mg Documented by: Non-Formulary Medication (Lifitegrast [Xiidra]) 1 drop EYEBOTH BID [facility] Last Admin: 02/10/21 18:12 Dose: Not Given Documented by: Nystatin (Nystatin Topical Powder 15 Gm Bottle) 1 gm TOP QID [facility] Last Admin: 02/09/21 08:18 Dose: Not Given Documented by: Ondansetron HCl (Ondansetron 4 Mg Tab.Dis) 8 mg PO Q8H PRN PRN Reason: Nausea/Vomiting Last Admin: 02/07/21 22:26 Dose: 8 mg Documented by: Oxycodone HCl (Oxycodone 5 Mg Tab) 5 mg PO Q4H PRN PRN Reason: Pain Last Admin: 02/07/21 21:29 Dose: 5 mg Documented by: Pantoprazole Sodium (Pantoprazole 40 Mg Tab.Cr) 40 mg PO ACBREAKFAST [facility] Last Admin: 02/08/21 07:25 Dose: 40 mg Documented by: Pneumococcal Polyvalent Vaccine (Pneumococcal Polyvalent-23 Vaccine 0.5 Ml Sdv) 0.5 ml IM .ONCE ONE Stop: 02/08/21 10:01 Last Admin: 02/08/21 10:04 Dose: Not Given Documented by: Potassium Chloride (Potassium Chloride 10 Meq Cap.Er) 10 meq PO DAILY [facility] Last Admin: 02/08/21 10:05 Dose: Not Given Documented by: Pregabalin (Pregabalin 75 Mg Cap) 75 mg PO BID [facility] Ropinirole HCl (Ropinirole 0.5 Mg Tab) 0.5 mg PO TID [facility] Last Admin: 02/09/21 08:18 Dose: Not Given Documented by: Tamoxifen Citrate (Tamoxifen 10 Mg Tab) 20 mg PO DAILY [facility] Last Admin: 02/08/21 10:05 Dose: Not Given Documented by: Trimethoprim/Sulfamethoxazole (Sulfamethoxazole/Trimethoprim 800-160 Mg Tab) 1 tab PO BID [facility] - Exam General: Reports: Other ()
== END 2021-02-10 21:55 | disposition expired | DRG 641 ==
LOC: JP.ED 11:39 → JP.MS 21:16
PROVIDERS: ADMIT Internal Medicine; ATTEND Hospitalist
DX: E83.52 Hypercalcemia (principal); N17.9 Acute kidney failure, unspecified; C79.9 Secondary malignant neoplasm of unspecified site; R18.8 Other ascites; C79.51 Secondary malignant neoplasm of bone; N18.4 Chronic kidney disease, stage 4 (severe); I13.0 Hypertensive heart and chronic kidney disease with heart failure and stage 1 through stage 4 chronic kidney disease, or unspecified chronic kidney disease; C50.919 Malignant neoplasm of unspecified site of unspecified female breast; Z51.5 Encounter for palliative care; Z66 Do not resuscitate; D63.1 Anemia in chronic kidney disease; D69.6 Thrombocytopenia, unspecified; Z20.822 Contact with and (suspected) exposure to COVID-19; I50.9 Heart failure, unspecified; J45.909 Unspecified asthma, uncomplicated; K21.9 Gastro-esophageal reflux disease without esophagitis; E11.22 Type 2 diabetes mellitus with diabetic chronic kidney disease; H54.7 Unspecified visual loss; M19.90 Unspecified osteoarthritis, unspecified site; M79.7 Fibromyalgia; K76.0 Fatty (change of) liver, not elsewhere classified; F90.9 Attention-deficit hyperactivity disorder, unspecified type; G43.909 Migraine, unspecified, not intractable, without status migrainosus; F41.9 Anxiety disorder, unspecified; F31.9 Bipolar disorder, unspecified; F42.9 Obsessive-compulsive disorder, unspecified; F43.10 Post-traumatic stress disorder, unspecified; E55.9 Vitamin D deficiency, unspecified; E53.8 Deficiency of other specified B group vitamins; Z98.84 Bariatric surgery status; Z79.01 Long term (current) use of anticoagulants; Z79.899 Other long term (current) drug therapy; Z87.440 Personal history of urinary (tract) infections; Z91.018 Allergy to other foods; Z91.010 Allergy to peanuts; Z88.5 Allergy status to narcotic agent; Z88.1 Allergy status to other antibiotic agents; Z87.891 Personal history of nicotine dependence; Z90.49 Acquired absence of other specified parts of digestive tract; Z86.16 Personal history of COVID-19
CPT/HCPCS: 36415; 51798; 70450; 70450-26; 76705; 76705-26; 80048; 80053; 80305-QW; 81001; 82140; 83605; 83615; 84550; 85025; 85027; 93976; 93976-26; 94640; 99223; 99232; 99285-25; A9270-GY; J0696; J1170; J1940; J2270; J2930; J7030; U0002